=== PATIENT | male | born 1970 | race Caucasian/White ===

== ENCOUNTER → 2020-02-16 14:00 | Outpatient (BNVA) | payer BC, SELFPAY | PROVIDERS: Family Provider Nurse Practitioner Family; PCP Family Medicine; Visit Provider Family Medicine | DX: Z20.828 Contact with and (suspected) exposure to other viral communicable diseases (principal) | CPT/HCPCS: 87635 ==

== ENCOUNTER 2020-03-01 13:51 | Outpatient (CLI) | payer BC, SELFPAY ==
--- NOTE | 2020-03-01 14:30 | XRR_ITS ---
PROCEDURE INFORMATION: Exam: XR Chest, 2 Views Exam date and time: 03/01/2020 2:11 PM Age: 49 years old Clinical indication: Left-sided chest pain; Prior surgery; Surgery type: Cabg; Additional info: Rule out malunion of sternum, 2 wks ago felt a pop while pushing broom. Pain @ sternam left side TECHNIQUE: Imaging protocol: XR of the chest Views: 2 views. COMPARISON: CR Chest 2 views* [id number] 07/13/2019 10:10 AM FINDINGS: Lungs: Unremarkable. No consolidation. Pleural space: Unremarkable. No pleural effusion. No pneumothorax. Heart/Mediastinum: There is moderate compensated cardiomegaly. Bones/joints: Metallic sternotomy wires are in place. The bones of of the sternum appear intact without evidence of acute bone defects. Dorsal spine osteopenia is seen. XR/XR chest 2V* [id number] IMPRESSION: No acute findings. Cardiomegaly Status post sternotomy
== END 2020-03-01 13:52 | disposition home or self-care (01) ==
LOC: RAD 13:56
PROVIDERS: PCP Family Medicine; Visit Provider Internal Medicine Cardiovascular Disease
DX: R07.9 Chest pain, unspecified (principal); Z95.1 Presence of aortocoronary bypass graft; I51.7 Cardiomegaly
CPT/HCPCS: 71046

== ENCOUNTER → 2020-05-25 16:06 | Outpatient (BNVA) | payer BC, SELFPAY | PROVIDERS: Family Provider Nurse Practitioner Family; PCP Family Medicine; Visit Provider Internal Medicine Cardiovascular Disease | DX: I11.0 Hypertensive heart disease with heart failure (principal); Z95.1 Presence of aortocoronary bypass graft; I50.20 Unspecified systolic (congestive) heart failure; E66.9 Obesity, unspecified | CPT/HCPCS: 80053; 83880; 84443; 85025 ==

== ENCOUNTER → 2020-07-28 14:59 | Outpatient (BNVA) | payer BC, SELFPAY | PROVIDERS: Family Provider Nurse Practitioner Family; PCP Family Medicine; Visit Provider Family Medicine | DX: Z11.59 Encounter for screening for other viral diseases (principal); Z20.828 Contact with and (suspected) exposure to other viral communicable diseases | CPT/HCPCS: 87635 ==

== ENCOUNTER 2020-08-02 11:18 | Observation (INO) | payer BC, SELFPAY ==
[2020-08-02] VITALS (7 sets, daily range): BP systolic 147–186; BP diastolic 102–123; PULSE 77–94; RESP 14–33; TEMP 36.6–37.1; O2SAT 93–97; BMI 43.7
--- NOTE | 2020-08-02 11:22 | XR_ITS ---
WS: [id number] Exam: XR chest 1V portable [id number] Date/Time of Exam: 08/02/2020 11:22 AM Reason For Exam: cp Findings: Comparison 03/01/2020. The lungs are clear and fully expanded. The heart is enlarged but unchanged in size. The mediastinum and bony thorax are intact. Signs of previous median sternotomy with CABG surgery. XR/XR chest 1V portable [id number] IMPRESSION: 1. Cardiac enlargement. No acute cardiopulmonary process noted.
--- NOTE | 2020-08-02 11:22 | ECG_ITS ---
[facility] Test Date: 2020-08-02 Pat Name: Gildardo Morton Department: Room: Gender: Male Leveler: MEHNAZ : 1970 Requested By: Raymundo Johnson Order Number: [id number] Reading MD: Measurements Intervals [place] Rate: 92 P: 52 WI: 216 QRS: 31 QRSD: 105 T: 48 QT: 501 QTc: 622 Interpretive Statements SINUS RHYTHM WITH FIRST DEGREE AV BLOCK WITH FREQUENT VENTRICULAR PREMATURE COMPLEXES INFERIOR MYOCARDIAL INFARCTION [40+ ms Q WAVE AND/OR ST/T ABNORMALITY IN II/aVF], PROBABLY OLD No previous ECG available for comparison [id number]
--- NOTE | 2020-08-02 12:05 | W.ED.CHESTPA ---
HPI - Chest Pain General: Chief Complaint: Chest Pain Stated Complaint: Chest pain/tightness Time Seen by Provider: 08/02/20 11:46 History of Present Illness: HPI narrative: 49-year-old male presents emergency room complains of increasing shortness of breath and chest pain. Gotten worse over the last weekend is substernal and radiates into the shoulder. He has noticed he is got more orthopnea as well. He is also had some diarrhea and low-grade fevers with increased cough. He started having symptoms about 1 week ago a few days into it he was checked for Covid which was negative but has had progressively worsening symptoms since then. He has a known history of congestive heart failure and diabetes as well. MD complaint: chest pain Pertinent past history: coronary artery disease and other (chf) Onset (ago): week(s) (1) Timing of current episode: increasing Prior episodes: Yes Onset: during rest Pain location: substernal Pain radiation: neck and left shoulder Severity: moderate Quality: tightness and heaviness Exacerbating factors: exertion and supine Associated symptoms: Reports dyspnea, fever(s) and nausea; Deny abdominal pain, diaphoresis, leg edema, palpitations, sense of impending doom, syncope or vomiting Treatment prior to arrival: none Review of Systems Const: Reports: fever(s); Denies: diaphoresis ENMT: Denies: throat pain, ear or mastoid pain, nasal discharge or nasal congestion Card: Denies: palpitations or syncope Resp: Reports: dyspnea GI: Reports: nausea; Denies: abdominal pain or vomiting : Denies: flank pain, dysuria, urinary frequency or urinary urgency Skin/Breast: Denies: rash or pruritus PFS ED PFSH: Medical History (Updated 08/02/20 @ 15:30 by Andrea Gallegos DO) Atrial fibrillation Chronic kidney disease Coronary artery disease Essential hypertension Hyperlipidemia Left atrial thrombus Obesity Systolic CHF Last ejection fraction LEORA June 2019 35% Surgical History (Updated 08/02/20 @ 15:30 by Andrea Gallegos DO) H/O two vessel coronary artery bypass graft Status post aorto-coronary artery bypass graft June 2019. 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 marjauna and cocaine Housing: House Marital status: Single Physical Exam Const: COMMON NORMALS: no acute distress GENERAL APPEARANCE: cooperative and comfortable ORIENTATION/CONSCIOUSNESS: Yes awake, Yes oriented to person, Yes oriented to place and Yes oriented to time HENMT: COMMON NORMALS: normocephalic, atraumatic, hearing grossly normal bilaterally, external ears normal, EAC's normal, TM's normal bilaterally, Normal nasal mucous membranes and turbinates present, moist oral mucous membranes and oropharynx normal HEAD & SCALP: normocephalic and atraumatic NOSE: Normal nasal mucous membranes and turbinates present EXTERNAL EAR: Yes external ears normal EXTERNAL AUDITORY CANAL: EAC's normal TYMPANIC MEMBRANE: TM's normal bilaterally Eye: COMMON NORMALS: Equal, round and reactive pupils present, EOMs intact bilaterally, conjunctivae normal and no scleral icterus CONJUNCTIVA: Yes conjunctivae normal PUPIL: Yes Equal, round and reactive pupils present Neck/C-Spine: COMMON NORMALS: full ROM, no lymphadenopathy, supple and no JVD Lymph: LYMPHATIC: no lymphadenopathy noted and no lymphedema noted Resp: COMMON NORMALS: normal respiratory effort, No retractions, No use of accessory muscles and clear to auscultation bilaterally AUSCULTATION: clear to auscultation bilaterally Cardio: COMMON NORMALS: no JVD, regular rate, regular rhythm and No murmurs present (Cardio) RATE: regular rate RHYTHM: regular rhythm GI: COMMON NORMALS: Soft to palpation and No hepatosplenomegaly present AUSCULTATION: Yes normoactive bowel sounds PALPATION: Yes Soft to palpation, No Tenderness to palpation present (GI), No Guarding due to palpation present (GI) and Yes No hepatosplenomegaly present Extremity: COMMON NORMALS: normal to inspection, capillary refill normal, no clubbing, cyanosis or edema, no calf tenderness and no pedal edema Neuro: SENSORIUM/ORIENTATION: Yes oriented to person, Yes oriented to place and Yes oriented to time Skin: COMMON NORMALS: no rashes or lesions noted GENERAL SKIN EXAM: no rashes or lesions noted Course Vital Signs: Vital signs: Vital Signs Temperature 97.9 F 08/02/20 14:26 Pulse Rate 81 08/02/20 15:02 Respiratory Rate 24 H 08/02/20 15:02 Blood Pressure 147/113 08/02/20 15:02 Pulse Oximetry 96 08/02/20 15:02 MDM - Chest Pain MDM Narrative: Medical decision making narrative: Patient admitted for chest pain his history of chest pain varies a little bit at times he says he is having continuous other times it is associated with exertion. Given his history of heart disease he needs further evaluation he did have a bypass relatively recently and has not had stress testing since then. His rapid Covid was negative he has several symptoms suggestive of Covid after discussion with Dr. Carpenter will go ahead and get a PTC on him as well. Lab Data: Labs: Lab Results 08/02/20 08/02/20 08/02/20 Range/Units 10: 10: 10:27 WBC 9.8 (4.0-10.0) 10^3/ uL RBC 4.52 (4.1-5.3) 10^6/u L Hgb 13.6 (11.7-16.6) g/dL Hct 43.0 (42.0-52.0) % MCV 95.1 H (80-94) fL MCH 30.1 (28.0-34.0) pg MCHC 31.6 (30.0-36.0) g/dL RDW 14.7 (12.1-15.1) % Plt Count 294 (130-400) 10^3/c mm MPV 10.4 (7.4-10.4) fL Neut % (Auto) 78.1 % Lymph % (Auto) 11.9 % [place] % (Auto) 8.0 % Eos % (Auto) 1.4 % Baso % (Auto) 0.3 % Neut # (Auto) 7.67 (1.8-7.7) 10^3/u L Lymph # (Auto) 1.2 (0.8-4.8) 10^3/u L [place] # (Auto) 0.8 (0.2-0.9) 10^3/u L Eos # (Auto) 0.1 (0.0-0.8) 10^3/u L Baso # (Auto) 0.0 (0.0-0.1) 10^3/u L Nucleated RBC % (a uto) 0 % Nucleated RBCs # 0.0 /100WBC PT (12.1-14.9) SECO NDS INR (0.8-1.2) Fibrinogen (174-498) mg/dL D-Dimer (0-0.59) ug/mIFE U Sodium 138 (136-145) mmol/L Potassium 3.5 (3.5-5.1) mmol/L Chloride 101 (98-107) mmol/L Carbon Dioxide 22 (22-29) mmol/L Anion Gap 18.5 (5-19) BUN 23 H (6-20) mg/dL Creatinine 1.5 H (0.7-1.2) mg/dL GFR Calculation 49.3 L (90-130) mL/min Glucose 93 (65-115) mg/dL Calculated Osmolal ity 289 (285-295) mOsm/k g Lactic Acid (0.5-2.2) mmol/L Calcium 8.7 (8.5-10.5) mg/dL Magnesium (1.7-2.3) mg/dL Ferritin 85 (30-400) ng/mL Total Bilirubin 0.7 (0.15-1.2) mg/dL AST 21 (0-40) U/L ALT 30 (0-41) U/L Alkaline Phosphata se 74 (40-130) IU/L Lactate Dehydrogen ase 231 H (135-225) U/L Troponin T Baselin e 47 H (0-15) ng/L C-Reactive Protein 20.1 H (0.0-4.9) mg/L NT-Pro-B Natriuret Pep 6401 H (0-125) pg/mL Total Protein 7.0 (6.6-8.7) g/dL Albumin 3.7 (3.5-5.2) g/dL Globulin 3.3 (1.3-4.6) g/dL Procalcitonin 0.16 (0-0.5) ng/mL Influenza Type A A g (Negative) Influenza Type B A g (Negative) SARS-CoV-2 Ag (Rap id) (Negative) 08/02/20 08/02/20 08/02/20 Range/Units 10:02 08:27 10:27 WBC (4.0-10.0) 10^3/ uL RBC (4.1-5.3) 10^6/u L Hgb (11.7-16.6) g/dL Hct (42.0-52.0) % MCV (80-94) fL MCH (28.0-34.0) pg MCHC (30.0-36.0) g/dL RDW (12.1-15.1) % Plt Count (130-400) 10^3/c mm MPV (7.4-10.4) fL Neut % (Auto) % Lymph % (Auto) % [place] % (Auto) % Eos % (Auto) % Baso % (Auto) % Neut # (Auto) (1.8-7.7) 10^3/u L Lymph # (Auto) (0.8-4.8) 10^3/u L [place] # (Auto) (0.2-0.9) 10^3/u L Eos # (Auto) (0.0-0.8) 10^3/u L Baso # (Auto) (0.0-0.1) 10^3/u L Nucleated RBC % (a uto) % Nucleated RBCs # /100WBC PT (12.1-14.9) SECO NDS INR (0.8-1.2) Fibrinogen 345 (174-498) mg/dL D-Dimer 0.61 H (0-0.59) ug/mIFE U Sodium (136-145) mmol/L Potassium (3.5-5.1) mmol/L Chloride (98-107) mmol/L Carbon Dioxide (22-29) mmol/L Anion Gap (5-19) BUN (6-20) mg/dL Creatinine (0.7-1.2) mg/dL GFR Calculation (90-130) mL/min Glucose (65-115) mg/dL Calculated Osmolal ity (285-295) mOsm/k g Lactic Acid 1.3 (0.5-2.2) mmol/L Calcium (8.5-10.5) mg/dL Magnesium 1.9 (1.7-2.3) mg/dL Ferritin (30-400) ng/mL Total Bilirubin (0.15-1.2) mg/dL AST (0-40) U/L ALT (0-41) U/L Alkaline Phosphata se (40-130) IU/L Lactate Dehydrogen ase (135-225) U/L Troponin T Baselin e (0-15) ng/L C-Reactive Protein (0.0-4.9) mg/L NT-Pro-B Natriuret Pep (0-125) pg/mL Total Protein (6.6-8.7) g/dL Albumin (3.5-5.2) g/dL Globulin (1.3-4.6) g/dL Procalcitonin (0-0.5) ng/mL Influenza Type A A g (Negative) Influenza Type B A g (Negative) SARS-CoV-2 Ag (Rap id) (Negative) 08/02/20 08/02/20 08/02/20 Range/Units 12:24 12:24 12:25 WBC (4.0-10.0) 10^3/ uL RBC (4.1-5.3) 10^6/u L Hgb (11.7-16.6) g/dL Hct (42.0-52.0) % MCV (80-94) fL MCH (28.0-34.0) pg MCHC (30.0-36.0) g/dL RDW (12.1-15.1) % Plt Count (130-400) 10^3/c mm MPV (7.4-10.4) fL Neut % (Auto) % Lymph % (Auto) % [place] % (Auto) % Eos % (Auto) % Baso % (Auto) % Neut # (Auto) (1.8-7.7) 10^3/u L Lymph # (Auto) (0.8-4.8) 10^3/u L [place] # (Auto) (0.2-0.9) 10^3/u L Eos # (Auto) (0.0-0.8) 10^3/u L Baso # (Auto) (0.0-0.1) 10^3/u L Nucleated RBC % (a uto) % Nucleated RBCs # /100WBC PT 14.50 (12.1-14.9) SECO NDS INR 1.09 (0.8-1.2) Fibrinogen (174-498) mg/dL D-Dimer (0-0.59) ug/mIFE U Sodium (136-145) mmol/L Potassium (3.5-5.1) mmol/L Chloride (98-107) mmol/L Carbon Dioxide (22-29) mmol/L Anion Gap (5-19) BUN (6-20) mg/dL Creatinine (0.7-1.2) mg/dL GFR Calculation (90-130) mL/min Glucose (65-115) mg/dL Calculated Osmolal ity (285-295) mOsm/k g Lactic Acid (0.5-2.2) mmol/L Calcium (8.5-10.5) mg/dL Magnesium (1.7-2.3) mg/dL Ferritin (30-400) ng/mL Total Bilirubin (0.15-1.2) mg/dL AST (0-40) U/L ALT (0-41) U/L Alkaline Phosphata se (40-130) IU/L Lactate Dehydrogen ase (135-225) U/L Troponin T Baselin e (0-15) ng/L C-Reactive Protein (0.0-4.9) mg/L NT-Pro-B Natriuret Pep (0-125) pg/mL Total Protein (6.6-8.7) g/dL Albumin (3.5-5.2) g/dL Globulin (1.3-4.6) g/dL Procalcitonin (0-0.5) ng/mL Influenza Type A A g Negative (Negative) Influenza Type B A g Negative (Negative) SARS-CoV-2 Ag (Rap id) Negative (Negative) Discharge Plan Discharge Patient Disposition: Admitted As Inpatient Admit Provider: Brian Latif Clinical Impression: Chest pain, Suspected 2019 novel coronavirus infection, H/O two vessel coronary artery bypass graft, Systolic CHF, Obesity, Essential hypertension, Hypertensive urgency Condition: Stable Interventions: ED Discharge Assessment Last Done: 08/02/20 14:26 ED Charges Last Done: 08/02/20 14:26 Discharge Date/Time: 08/02/20 14:48 Coding Level of Care Code ED Silk Screen Repairer for g Fwd Exam Comprehensive
[2020-08-02 12:57] LABS: Basophils % 0.3 %; Eosinophils # 0.1 10^3/uL (0.0-0.8); Eosinophils % 1.4 %; Hemoglobin 13.6 g/dL (11.7-16.6); Lymphocytes # 1.2 10^3/uL (0.8-4.8); Lymphocytes % 11.9 %; Mean Corpuscular HGB Conc 31.6 g/dL (30.0-36.0); Mean Corpuscular Hemoglobin 30.1 pg (28.0-34.0); Mean Corpuscular Volume 95.1 fL (80-94); Mean Platelet Volume 10.4 fL (7.4-10.4); Monocytes # 0.8 10^3/uL (0.2-0.9); Neutrophils # 7.67 10^3/uL (1.8-7.7); Neutrophils % 78.1 %; Nucleated Red Blood Cells % 0 %; Platelet Count 294 10^3/cmm (130-400); Red Blood Count 4.52 10^6/uL (4.1-5.3); Red Cell Distribution Width 14.7 % (12.1-15.1); White Blood Count 9.8 10^3/uL (4.0-10.0)
[2020-08-02 13:08] LABS: Fibrinogen 345 mg/dL (174-498)
[2020-08-02 13:10] LABS: D Dimer 0.61 ug/mIFEU (0-0.59)
[2020-08-02 13:11] LABS: Influenza A by IFA Negative (Negative); Influenza B by IFA Negative (Negative)
[2020-08-02 13:11] LABS: Lactic Sepsis W/Reflex 1.3 mmol/L (0.5-2.2)
[2020-08-02 13:11] LABS: SARS Covid-2 Antigen Negative (Negative)
[2020-08-02 13:16] LABS: Troponin(5th) Baseline 47 ng/L (0-15)
--- NOTE | 2020-08-02 13:22 | ECG_ITS ---
[facility] Test Date: 2020-08-02 Pat Name: Gildardo Morton Department: Room: Gender: Male Visual Educator: : 1970 Requested By: Raymundo Johnson Order Number: [id number] Reading MD: Measurements Intervals [place] Rate: 84 P: 64 MT: 236 QRS: 24 QRSD: 102 T: 97 QT: 428 QTc: 508 Interpretive Statements SINUS RHYTHM WITH FIRST DEGREE AV BLOCK WITH FREQUENT VENTRICULAR PREMATURE COMPLEXES NONSPECIFIC T-WAVE ABNORMALITY PROLONGED QT INTERVAL No previous ECG available for comparison [id number]
[2020-08-02 14:00] LABS: NT Pro B Type Natriuretic Pept 6401 pg/mL (0-125); Procalcitonin 0.16 ng/mL (0-0.5)
[2020-08-02 14:11] LABS: Alanine Aminotransferase 30 U/L (0-41); Albumin Level 3.7 g/dL (3.5-5.2); Alkaline Phosphatase 74 IU/L (40-130); Anion Gap 18.5 (5-19); Aspartate Amino Transferase 21 U/L (0-40); Blood Urea Nitrogen 23 mg/dL (6-20); C Reactive Protein 20.1 mg/L (0.0-4.9); Calcium 8.7 mg/dL (8.5-10.5); Carbon Dioxide 22 mmol/L (22-29); Chloride 101 mmol/L (98-107); Ferritin 85 ng/mL (30-400); Globulin 3.3 g/dL (1.3-4.6); Glomerular Filtration Rate 49.3 mL/min (90-130); Glucose 93 mg/dL (65-115); Lactate Dehydrogenase 231 U/L (135-225); Osmolality Calculated 289 mOsm/kg (285-295); Potassium 3.5 mmol/L (3.5-5.1); Sodium 138 mmol/L (136-145); Total Bilirubin 0.7 mg/dL (0.15-1.2)
--- NOTE | 2020-08-02 14:12 | PM.HP ---
Providers/Chief Complaint Primary Care Provider: Vale Kwon MD Chief Complaint: Chest pain/tightness History of Present Illness Gildardo Morton is a 49 year old male with history of coronary artery bypass and prolonged hospital course in 2019 who comes with 1 week history of chest discomfort. This is substernal, not radiating, and associated with shortness of breath. Usually he describes this as sharp, or tight. It does not really vary when he breathes. It seems worse when he is upright. No nausea or vomiting. He has not used any nitroglycerin for this. It is often exertional. He has recently had some difficulties with his blood pressure being higher and cardiology has been working with lowering this. He reports he works at [email or web address] and is exposed to likely Covid patients frequently. He reports his brother recently had Covid. He has had a cough, nonproductive. He has had chills but no documented fever. He has had some loose stools lately but no vomiting or nausea. Review of Systems General: Reports: 10 or more systems reviewed and unremarkable except in HPI and below Const: Reports: chills Eyes: Denies: change in vision ENMT: Denies: throat pain Card: Reports: chest pain and swelling of feet/ankles Resp: Reports: dyspnea and non-productive cough GI: Denies: abdominal pain, nausea or vomiting : Denies: flank pain Musc: Denies: neck pain Skin/Breast: Denies: rash Neuro: Denies: headache(s) Endo: Denies: polyuria Jamie/Lymph: Denies: easy bruising All/Imm: Denies: urticaria Medications/Allergies Home Medications Medication Instructions Recorded Confirmed Last Taken Type aspirin 81 mg tablet,delayed 81 mg PO DAILY 12/22/19 08/02/20 Unknown History release chlorthalidone 25 mg tablet 25 mg PO DAILY 12/22/19 08/02/20 Unknown History nitroglycerin 0.4 mg sublingual 0.4 mg SUBLINGUAL Q5M PRN #25 tab 01/18/20 08/02/20 Unknown Rx tablet amlodipine 10 mg tablet 10 mg PO DAILY #90 tab 05/26/20 08/02/20 08/02/20 Rx carvedilol 6.25 mg tablet 18.75 mg PO BID #270 tab 05/26/20 08/02/20 Unknown Rx furosemide 40 mg tablet 40 mg PO DAILY #30 tab 05/26/20 08/02/20 Unknown Rx potassium chloride 20 mEq 20 meq PO DAILY #30 tab 05/26/20 08/02/20 Unknown Rx tablet,extended release warfarin 5 mg tablet See Rx Instructions .ROUTE 06/01/20 08/02/20 Unknown Rx .COMPLEX #60 tab acetaminophen [Tylenol Extra 1,000 mg PO PRN 08/02/20 08/02/20 07/30/20 History Strength] Allergies Allergy/AdvReac Type Severity Reaction Status Date / Time oxycodone [From OxyContin] AdvReac Intermediate low bp Verified 08/02/20 12:56 PFSH Acute PFSH: Medical History (Updated 08/02/20 @ 14:30 by Brian Latif MD) Atrial fibrillation Chronic kidney disease Coronary artery disease Essential hypertension Hyperlipidemia Left atrial thrombus Obesity Systolic CHF Last ejection fraction LEORA June 2019 35% Surgical History (Updated 08/02/20 @ 14:18 by Brian Latif MD) H/O two vessel coronary artery bypass graft Status post aorto-coronary artery bypass graft June 2019. 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 marjauna and cocaine Housing: House Marital status: Single Vitals/I&O/Wt Last Vital Signs Temp 98.4 F 08/02/20 11:29 Pulse 83 08/02/20 13:59 Resp 21 H 08/02/20 13:59 BP 153/110 08/02/20 13:59 Pulse Ox 97 08/02/20 13:59 Weight last 48 hrs Weight 146.057 kg Physical Exam Narrative: EXAM NARRATIVE: General exam is a white male, who appears tachypneic, in no obvious other distress. Denies any chest discomfort currently. HEENT: Pupils equally round. Oropharynx clear. Neck is supple no lymphadenopathy or thyromegaly Cardiovascular regular rate and rhythm. No rubs. No obvious murmur. Lungs clear but with diminished breath sounds bilaterally. No wheezes or crackles Abdomen is soft with positive bowel sounds. Obese. Several areas of small picked at areas. Difficult to feel if any organomegaly is present was deferred Extremities bilateral trace edema Skin see comments on abdomen Neuro no obvious focal deficits Data : 08/02/20 10:27 08/02/20 10:27 Other data: EKG demonstrates sinus rhythm, normal axis, occasional PVC, small Q waves inferiorly in leads aVF and III. Nonspecific ST-T wave changes are noted. Chest x-ray no obvious pneumonia. Postoperative status and sternotomy wires are noted. Dimer is 0.6. INR is pending. LFTs normal Troponin 47 at baseline CRP elevated 20 BNP elevated at 6400 Ferritin normal Rapid Covid negative. Influenza negative. A&P Assessment and plan (1) Chest pain: Serial troponins, EKGs Nuclear stress test for tomorrow Check echocardiogram Nitroglycerin ointment Status: Acute Qualifiers: Chest pain type: unspecified Qualified Code(s): R07.9 - Chest pain, unspecified (2) Hypertensive urgency: Nitroglycerin ointment Initiate Lasix Continue home blood pressure medication with the exception of chlorthalidone Hydralazine as needed Status: Acute (3) Exposure to COVID-19 virus: Precautions Await Covid PCR Rapid Covid negative Status: Acute (4) Systolic CHF: Lasix 40 mg IV every 12 hours Echocardiogram Check magnesium level Status: Acute Additional A&P Information History of atrial fibrillation. Currently sinus rhythm. Also history of left atrial thrombus. Continue Coumadin. Telemetry. Obesity Likely sleep apnea. Consider sleep study as an outpatient Underlying coronary artery disease with history of bypass June 2019. Continue aspirin. Start statin. Hyperlipidemia Full code On Coumadin. Awaiting INR. May not need another DVT prophylaxis. Attestations Medical Necessity Statement*: At this point will need less than 2 midnight stay for evaluation of chest discomfort. Time Spent in Patient Care: Greater than 35 minutes Coding Level of Care Code Acute Topographical Engineer for Mable Maldonado Diagnoses Chest pain R07.9 Chest pain type: unspecified Hypertensive urgency I16.0 Exposure to COVID-19 virus Z20.828 Systolic CHF I50.20
[2020-08-02 14:23] LABS: INR 1.09 (0.8-1.2)
--- NOTE | 2020-08-02 14:41 | USCV_ITS ---
Gildardo Morton Age: 49 Gender: M : 1970 Exam Date: 08/02/2020 16:18 Ordering Phys: Brian Latif MD Technologist: Hunter Peraza Exam Location: [facility] – [place] Indication: dyspnea PROCEDURES: Venous duplex imaging was performed in bilateral lower extremities. The following venous structures were evaluated: common femoral vein, profunda vein, proximal portion of the greater saphenous vein, superficial femoral vein, and the popliteal vein. In addition, the posterior tibial and peroneal trunk were evaluated. Serial compression, augmentation maneuvers, and spectral Doppler flow evaluation were performed. FINDINGS: Normal 2-D Doppler and augmentation and compressibility throughout the lower extremity venous structures. Additional imaging through the proximal calf veins also reveals no thrombus. Limited evaluation of the greater saphenous vein is patent with no thrombus. CONCLUSIONS No DVT bilateral lower extremities. Dr. Lorie Zheng DO (Electronically Signed) Final Date: 03 August 2020 08:11 S
--- NOTE | 2020-08-02 14:56 | USCV_ITS ---
Gildardo Morton Age: 49 Gender: M : 1970 Exam Date: 08/02/2020 16:04 Ordering Phys: Brian Latif MD Technologist: Hunter Peraza Exam Location: [facility] [place] Indication: chf cad BP: 148 / 122 HR: 92 Rhythm: Sinus Technical Quality: Poor MEASUREMENTS (Male / Female) Normal Values 2D ECHO LV Diastolic Diameter PLAX 5.1 cm 4.2 - 5.9 / 3.9 - 5.3 cm LV Systolic Diameter PLAX 3.9 cm IVS Diastolic Thickness 1.5 cm 0.6 - 1.0 / 0.6 - 0.9 cm IVS Systolic Thickness 1.7 cm LVPW Diastolic Thickness 1.3 cm 0.6 - 1.0 / 0.6 - 0.9 cm LVPW Systolic Thickness 1.5 cm LVOT Diameter 2.0 cm LV Ejection Fraction 2D Teich 42.3 % LV Ejection Fraction MOD 2C 51.9 % LV Ejection Fraction 2C AL 51.7 % LA Diameter 5.3 cm LA Width 4.3 cm LA Height 7.3 cm RA Width 5.3 cm RA Height 6.5 cm Aorta at Sinotubular Diameter 1.3 cm M-MODE LV Diastolic Diameter MM 5.8 cm 4.2 - 5.9 / 3.9 - 5.3 cm LV Systolic Diameter MM 4.1 cm LV Ejection Fraction MM Teich 54.5 % IVS Diastolic Thickness MM 1.6 cm 0.6 - 1.0 / 0.6 - 0.9 cm IVS Systolic Thickness MM 1.9 cm LVPW Diastolic Thickness MM 1.3 cm 0.6 - 1.0 / 0.6 - 0.9 cm LVPW Systolic Thickness MM 2.0 cm RV Diastolic Diameter MM 3.5 cm Aortic Annulus Diameter 4.0 cm LA Ao Ratio MM 1.3 MV E Point Septal Separation 1.9 cm DOPPLER AV Peak Velocity 147.7 cm/s LVOT Peak Velocity 88.0 cm/s AV Area Cont Eq vti 1.5 cm squared AV Area Cont Eq pk 1.9 cm squared MV Area PHT 5.0 cm squared Mitral E to A Ratio 2.4 MV E' Velocity 59.5 cm/s Mitral E to MV E' Ratio 16.1 Mitral E to LV E' Lateral Ratio 15.4 Mitral E to LV E' Septal Ratio 16.8 TR Peak Velocity 136.0 cm/s TR Peak Gradient 7.4 mmHg TV Peak E Velocity 93.0 cm/s Right Atrial Pressure 3.0 mmHg Pulmonary Artery Systolic Pressu 10.4 mmHg FINDINGS Left Ventricle Moderately increased left ventricular cavity size. Severely decreased left ventricular systolic function. Left ventricular ejection fraction is estimated at 25-30 %. Global left ventricular hypokinesis. In the presence of atrial fibrillation diastolic function cannot be assessed accurately. Right Ventricle The right ventricle is normal in size and function. Right Atrium The right atrium is normal in size. Left Atrium Moderately increased left atrial size. Mitral Valve Mildly thickened mitral valve. No mitral valve stenosis. Mild mitral valve regurgitation. Aortic Valve Mild aortic valve calcification. No aortic valve stenosis. No aortic valve regurgitation. Tricuspid Valve Structurally normal tricuspid valve without significant stenosis or regurgitation. Pulmonary artery systolic pressure is normal. Pulmonic Valve Structurally normal pulmonic valve without significant stenosis. There is no pulmonic regurgitation. Pericardium Normal pericardium without effusion. Aorta Normal ascending aorta dimension. CONCLUSIONS 1-Moderately increased left ventricular cavity size. Severely decreased left ventricular systolic function. Left ventricular ejection fraction is estimated at 25-30 %. Global left ventricular hypokinesis. In the presence of atrial fibrillation diastolic function cannot be assessed accurately. 2-Moderately increased left atrial size. 3-Structurally normal tricuspid valve without significant stenosis or regurgitation. Pulmonary artery systolic pressure is normal. 4-Mildly thickened mitral valve. No mitral valve stenosis. Mild mitral valve regurgitation. 5-Mild aortic valve calcification. No aortic valve stenosis. No aortic valve regurgitation. 6-There is no pericardial effusion. 7-Right atrial pressure is around 5 mm of mercury. 8-No significant change since the prior echocardiogram study of 06/25/2019. Eddie Gonzalez MD (Electronically Signed) Final Date: 02 August 2020 19:47 S
[2020-08-02 15:20] LABS: Magnesium 1.9 mg/dL (1.7-2.3)
[2020-08-02] MEDS: FUROsemide 10 mg/mL SDV 4mL 40 MG IVP (15:47)
[2020-08-02] MEDS: nitroglycerin 1 gm/inch oint Pkt 1 INCH TOPICAL ×2 (15:48→19:58)
--- NOTE | 2020-08-02 17:22 | ECG_ITS ---
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1970 Requested By: Raymundo Johnson Order Number: [id number] Reading MD: Measurements Intervals [place] Rate: 88 P: 63 [place]: 250 QRS: 33 QRSD: 105 T: 105 QT: 404 QTc: 490 Interpretive Statements SINUS RHYTHM WITH FIRST DEGREE AV BLOCK WITH OCCASIONAL VENTRICULAR PREMATURE COMPLEXES POSSIBLE INFERIOR MYOCARDIAL INFARCTION [30 ms Q WAVE IN II/aVF], PROBABLY OLD Compared to ECG 08/02/2020 13:57:11 Ventricular premature complex(es) now present Myocardial infarct finding now present T-wave abnormality no longer present Prolonged QT interval no longer present [id number]
[2020-08-02 18:08] LABS: Troponin 5 6HR 53.13 ng/L (0-15); Troponin 5 6HR Delta 6.13 ng/L (0-12)
[2020-08-02] MEDS: carvedilol 6.25 mg Tablet 18.75 MG PO (18:11)
[2020-08-02] MEDS: acetaminophen 325 mg Tablet 650 MG PO (19:58)
[2020-08-02] MEDS: atorvastatin 40 mg Tablet PO (19:58)
--- NOTE | 2020-08-02 20:34 | PC.NURSE ---
Patient complains of headache 12/14. PRN Tylenol given. Will reassess. No other complaints at this time.
[2020-08-02] MEDS: hyDRALAzine 25 mg Tablet PO (23:45)
--- NOTE | 2020-08-02 23:46 | PC.NURSE ---
Patient's blood pressure 164/107. PRN Hydralazine given per order. Will reassess blood pressure.
[2020-08-03] VITALS (8 sets, daily range): BP systolic 108–140; BP diastolic 67–110; PULSE 71–78; RESP 18–23; TEMP 36.8–37.1; O2SAT 9–96
--- NOTE | 2020-08-03 00:39 | PC.NURSE ---
Dr. Valera notified of patient asking for something for restless legs. Patient states that he currently does not take anything at home for it, but that he used to take something over the counter for it a long time ago that he cannot remember the name of. Dr. Valera notified. No new orders.
[2020-08-03] MEDS: acetaminophen 325 mg Tablet 650 MG PO (02:46)
[2020-08-03] MEDS: FUROsemide 10 mg/mL SDV 4mL 40 MG IVP (02:51)
[2020-08-03] MEDS: nitroglycerin 1 gm/inch oint Pkt 1 INCH TOPICAL (02:51)
[2020-08-03 05:07] LABS: Basophils % 0.3 %; Eosinophils # 0.2 10^3/uL (0.0-0.8); Eosinophils % 1.8 %; Hematocrit 42.9 % (42.0-52.0); Hemoglobin 13.4 g/dL (11.7-16.6); Lymphocytes # 1.4 10^3/uL (0.8-4.8); Lymphocytes % 13.1 %; Mean Corpuscular HGB Conc 31.2 g/dL (30.0-36.0); Mean Corpuscular Hemoglobin 30.3 pg (28.0-34.0); Mean Corpuscular Volume 97.1 fL (80-94); Mean Platelet Volume 10.7 fL (7.4-10.4); Monocytes # 0.9 10^3/uL (0.2-0.9); Monocytes % 8.9 %; Neutrophils # 8.02 10^3/uL (1.8-7.7); Neutrophils % 75.6 %; Nucleated Red Blood Cells % 0 %; Platelet Count 304 10^3/cmm (130-400); Red Blood Count 4.42 10^6/uL (4.1-5.3); Red Cell Distribution Width 14.8 % (12.1-15.1); White Blood Count 10.6 10^3/uL (4.0-10.0)
[2020-08-03 05:40] LABS: Alanine Aminotransferase 29 U/L (0-41); Albumin Level 3.6 g/dL (3.5-5.2); Alkaline Phosphatase 72 IU/L (40-130); Anion Gap 15.2 (5-19); Aspartate Amino Transferase 20 U/L (0-40); Blood Urea Nitrogen 21 mg/dL (6-20); Calcium 9.2 mg/dL (8.5-10.5); Carbon Dioxide 27 mmol/L (22-29); Chloride 103 mmol/L (98-107); Globulin 3.3 g/dL (1.3-4.6); Glomerular Filtration Rate 42.7 mL/min (90-130); Glucose 102 mg/dL (65-115); Osmolality Calculated 297 mOsm/kg (285-295); Potassium 3.2 mmol/L (3.5-5.1); Sodium 142 mmol/L (136-145); Total Bilirubin 0.7 mg/dL (0.15-1.2); Total Protein 6.9 g/dL (6.6-8.7)
--- NOTE | 2020-08-03 06:25 | PC.NURSE ---
Nuc Med states that they cannot do stress test until patient's COVID test comes back negative. Dr. Latif notified.
--- NOTE | 2020-08-03 07:07 | SUR.PREOP ---
PENDING PCR COVID TESTING/ STRESS TEST Reached out to [facility] medical facilities section director regarding pending covid test. Plan to wait for the testing results before proceeding. Floor aware. Will do today if nuclear dosing is available when result comes back.
[2020-08-03] MEDS: potassium chloride ER 10 mEq Tablet 40 MEQ PO (07:34)
[2020-08-03] MEDS: hyDRALAzine 25 mg Tablet PO (07:43)
[2020-08-03 08:20] LABS: Bilirubin Urine Neg (Negative); Blood Urine Neg (Negative); Glucose Urine UA Norm (Normal); Ketones Urine Negative (Negative); Leukocyte Esterase Urine Negative (Negative); Nitrate Urine Negative (Negative); Protein Urine Neg (Negative); Specific Gravity, Urine 1.005 (1.005-1.030); Urine Appearance Clear (CLEAR); Urine Color Straw (Yellow); Urobilinogen Urine Norm (Negative); pH Urine 6.5 (5-7)
[2020-08-03 08:32] LABS: Add Urine Culture? No; Bacteria Urine 1+ /hpf; Squamous Epithelial Cell Urine RARE /hpf (0-5)
--- NOTE | 2020-08-03 09:12 | SUR.PREOP ---
covid pcr still pending at this point. Will reassess for stress test once resulted. stress on hold at this point.
[2020-08-03] MEDS: potassium chloride ER 10 mEq Tablet 20 MEQ PO (09:45)
[2020-08-03] MEDS: carvedilol 6.25 mg Tablet 18.75 MG PO (09:45)
[2020-08-03] MEDS: amlodipine 10 mg Tablet PO (09:45)
[2020-08-03] MEDS: aspirin 81 mg EC Tablet PO (09:45)
[2020-08-03] MEDS: isosorbide mononitrate ER 30 mg Tablet PO (09:46)
[2020-08-03] MEDS: FUROsemide 40 mg Tablet PO (11:19)
--- NOTE | 2020-08-03 11:57 | P.CONIM_ITS ---
Providers/Reason For Consult Consulting Physican/Specialty*: Cardiology Reason for Consult*: Chest pain Attending Physician: Brian Latif MD Primary Care Provider: Vale Kwon MD History of Present Illness History of Present Illness Gildardo Morton is a 49 year old male past medical history significant for obesity, history of extensive coronary artery disease status post CABG complicated with cardiac arrest, history of severe LV dysfunction with estimated ejection fraction around 25 to 30%, diabetes mellitus, hyperlipidemia, atrial fibrillation and uncontrolled hypertension was admitted with nonspecific chest pressure weight gain decompensated heart failure. He was diuresed ruled out for acute coronary syndrome and his medicines were optimized. Covid test was initially negative second one is pending. Today we have been asked to see the patient as I know the patient from my clinic to see whether he requires stress test or not. When I interviewed the patient his chest pressure is nonspecific very short-lived only happen when his blood pressure goes up, it is nonexertional and does not appear to be cardiac related. He works at [employer] he admits to exposure Review of Systems General: Reports: 10 or more systems reviewed and unremarkable except in HPI and below Const: Reports: fever(s) and chills; Denies: diaphoresis Eyes: Denies: change in vision ENMT: Denies: throat pain, ear or mastoid pain, nasal discharge or nasal congestion Card: Reports: chest pain and swelling of feet/ankles; Denies: palpitations or syncope Resp: Reports: dyspnea and non-productive cough GI: Denies: abdominal pain, nausea or vomiting : Denies: flank pain, dysuria, urinary frequency or urinary urgency Musc: Denies: neck pain Skin/Breast: Denies: rash or pruritus Neuro: Denies: headache(s) Endo: Denies: polyuria Jamie/Lymph: Denies: easy bruising All/Imm: Denies: urticaria or acute wheezing Meds/Allergies Home Medications and Allergies Home Medications Medication Instructions Recorded Confirmed Last Taken Type aspirin 81 mg tablet,delayed 81 mg PO DAILY 12/22/19 08/02/20 Unknown History release nitroglycerin 0.4 mg sublingual 0.4 mg SUBLINGUAL Q5M PRN #25 tab 01/18/20 08/02/20 Unknown Rx tablet amlodipine 10 mg tablet 10 mg PO DAILY #90 tab 05/26/20 08/02/20 08/02/20 Rx carvedilol 6.25 mg tablet 18.75 mg PO BID #270 tab 05/26/20 08/02/20 Unknown Rx potassium chloride 20 mEq 20 meq PO DAILY #30 tab 05/26/20 08/02/20 Unknown Rx tablet,extended release Tylenol Extra Strength 1,000 mg PO PRN 08/02/20 08/02/20 07/30/20 History furosemide 60 mg PO DAILY #30 tab 08/03/20 08/02/20 Unknown Rx hydralazine 25 mg PO Q8H #90 tab 08/03/20 Unknown Rx isosorbide mononitrate 30 mg PO DAILY #30 tab 08/03/20 Unknown Rx pravastatin 20 mg PO DAILY #30 tab 08/03/20 Unknown Rx rivaroxaban 20 mg PO DAILY #30 tab 08/03/20 Unknown Rx Allergies Allergy/AdvReac Type Severity Reaction Status Date / Time oxycodone [From OxyContin] AdvReac Intermediate low bp Verified 08/02/20 12:56 Current Medications Current Medications Generic Name Dose Route Start Last Admin Trade Name Freq PRN Reason Stop Dose Admin Acetaminophen 650 mg 08/02/20 14:56 08/03/20 02:46 Tylenol PO 650 mg Q6H PRN Administration Mild/Mod Pain Or Temp >/= 101 Amlodipine Besylate 10 mg 08/03/20 09:00 08/03/20 09:45 Norvasc PO 10 mg DAILY ELLIE Administration Aspirin 81 mg 08/03/20 09:00 08/03/20 09:45 Aspirin Ec PO 81 mg DAILY ELLIE Administration Atorvastatin Calcium 40 mg 08/02/20 21:00 08/02/20 19:58 Lipitor PO 40 mg BEDTIME ELLIE Administration Carvedilol 18.75 mg 08/02/20 18:00 08/03/20 09:45 Coreg PO 18.75 mg BID ELLIE Administration Enoxaparin Sodium 100 mg/ 140 mg 08/02/20 15:00 08/03/20 02:51 Enoxaparin Sodium 40 mg SUBCUT 140 mg Q12H ELLIE Administration Furosemide 40 mg 08/03/20 11:00 08/03/20 11:19 Lasix PO 40 mg DAILY@0800 ELLIE Administration Isosorbide Mononitrate 30 mg 08/03/20 09:00 08/03/20 09:46 Imdur PO 30 mg DAILY ELLIE Administration Potassium Chloride 20 meq 10/28/20 09:00 08/03/20 09:45 Klor-Con 10 PO 20 meq DAILY ELLIE Administration PFSH Acute PFSH: Medical History (Updated 08/03/20 @ 19:47 by Eddie Gonzalez MD) Atrial fibrillation Chronic kidney disease CKD (chronic kidney disease) Coronary artery disease Essential hypertension Hyperlipidemia Left atrial thrombus Obesity Systolic CHF Last ejection fraction LEORA June 2019 35% Surgical History (Updated 08/02/20 @ 15:30 by Andrea Gallegos DO) H/O two vessel coronary artery bypass graft Status post aorto-coronary artery bypass graft June 2019. 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 marjauna and cocaine Housing: House Marital status: Single Dietary Habits: Current diet type/program: regular Caffeine: Yes Vitals/I&O/Wt Last Vital Signs Temp 98.7 F 08/03/20 03:32 Pulse 76 08/03/20 07:45 Resp 22 H 08/03/20 03:32 BP 139/106 08/03/20 07:45 Pulse Ox 94 08/03/20 07:45 08/02/20 08/03/20 08/03/20 22:59 06:59 14:59 Intake Total 120 / 120 600 / 720 Output Total 1999 1050 / 3050 820 / 820 Balance -1880 / -1880 -450 / -2330 -820 / -820 Weight last 48 hrs Weight 322 lb A&P Assessment and plan (1) Hypertensive urgency: Patient medicines are optimized blood pressure is not under control continue current regimen Status: Acute (2) Systolic CHF: Well compensated continue Lasix Status: Acute Qualifiers: Heart failure chronicity: chronic Qualified Code(s): I50.22 - Chronic systolic (congestive) heart failure (3) Status post aorto-coronary artery bypass graft: Status post history of coronary bypass surgery complicated with cardiac arrest. LV dysfunction persisted after bypass surgery ejection fraction 30% below. He may also require ICD in the past we have discussed with the patient but he would like to give the medicine a chance since it has been more than 2- year his bypass surgery I do not think so his ejection fraction will improve further at this point we will recommend him for ICD device which can be done as an outpatient. Continue metoprolol. Status: Acute (4) CKD (chronic kidney disease): Patient has moderate stage III CKD. Advised to follow-up with nephrology Status: Acute Qualifiers: Chronic kidney disease stage: stage 3 (moderate) Chronic kidney disease stage 3 subtype: stage 3b (GFR 30-44) Qualified Code(s): N18.32 - Chronic kidney disease, stage 3b (5) Chest pain: Nonspecific nonexertional and noncardiac. Currently denies any more chest pain advised to continue controlling blood pressure. At this point I do not think so that he requires stress test. Status: Acute Qualifiers: Chest pain type: other chest pain Qualified Code(s): R07.89 - Other c hest pain Coding Level of Care Code New Pt Acute Testing Manager for Chg Fwd Patient Type New History Detailed Exam Detailed Medical Decision Making Moderate Complexity Diagnoses Hypertensive urgency I16.0 Systolic CHF I50.22 Heart failure chronicity: chronic Status post aorto-coronary artery bypass graft Z95.1 CKD (chronic kidney disease) N18.32 Chronic kidney disease stage: stage 3 (moderate) Chronic kidney disease stage 3 subtype: stage 3b (GFR 30-44) Chest pain R07.89 Chest pain type: other chest pain
--- NOTE | 2020-08-03 12:15 | SUR.PREOP ---
CARDIOLOGY DISCUSSION DR VILLARREAL CALLED IN AND SAID TO CANCEL STRESS TEST THE PATIENT IS TO BE DISCHARGED. NOTED.
--- NOTE | 2020-08-03 14:29 | PM.DCS ---
Discharge Providers Date of Admission: 08/02/20 14:00 Date of Discharge: August 03, 2020 Attending Provider at Admission: Brian Latif MD Attending Provider at Discharge: Brian Latif MD Primary Care Provider: Vale Kwon MD Diagnoses at Discharge Discharge Diagnosis (1) Chest pain: Status: Acute Problem details: Resolved. May have been secondary to hypertensive urgency. Cardiology will follow up in clinic. (2) Hypertensive urgency: Status: Acute Problem details: Resolved with medication adjustment (3) Exposure to COVID-19 virus: Status: Acute (4) Systolic CHF: Status: Acute Problem details: Last ejection fraction LEORA June 2019 35% Reason for Visit Reason for Visit: Chest pain/tightness Hospital Course Hospital Course: Gildardo is a 49-year-old white male who presented to the hospital with somewhat atypical chest discomfort. Troponin was elevated. Delta approximately 6 at 6 hours. Recent TSH was normal. Creatinine was at baseline. No evidence of anemia. Dimer only slightly high at 0.6. EKG with nonspecific changes. He appears slightly fluid overloaded on exam. He was placed in the hospital on observation, and diuresed. Markedly elevated blood pressure noted in the ER he was started on nitroglycerin ointment, and blood pressure medications were adjusted with the addition of hydralazine, and Imdur ultimately. Echocardiogram was performed demonstrating ejection fraction of 25 to 30%, likely unchanged from previous echocardiogram. Venous duplex was negative. He was monitored in the hospital, nuclear stress test was planned but as he has had some exposure to Covid there was concern regarding going to CAD with the test. Rapid Covid test was negative. He had no other significant symptoms other than some mild dyspnea. Cardiology was consulted as nuclear stress test could not be performed efficiently. On their evaluation they believed he could follow-up in clinic in 1 week. At that time they will consider LifeVest/defibrillator. They will consider nuclear stress test. Significant medication changes occurred in the hospital as noted above with the addition of Imdur, addition of hydralazine, discontinuation of Coumadin and initiation of Xarelto, and initiation of low-dose statin. Low-dose statin was chosen instead of high intensity secondary to myalgias patient has had in the past per cardiology. Physical Exam Narrative: EXAM NARRATIVE: General exam no apparent distress Cardiovascular regular rate and rhythm without murmur Lungs clear Abdomen is soft with positive bowel sounds, obese Extremities no cyanosis clubbing or edema Discharge Data Data Completed and Pending: Completed Studies During Hospitalization Category Date Time Status XR chest 1V lucio ble [id number] Stat Exams 08/02/20 11:22 Completed CV echo complete* [id number] Routine Ultrasound 08/02/20 14:56 [place] [id number] Routin e Ultrasound 08/02/20 14:41 Completed Pending at discharge Category Date Time Status Sestamibi Stress Test Request Routi ne Exams 08/02/20 14:56 Stop Req Coronavirus Lab T est PTC Stat Lab 08/02/20 12:26 Received NM marin perf SPECT r/s* [id number] Routin e Nuc Med 08/03/20 14:56 Ordered Labs from last 24 hours 08/03/20 08/03/20 08/03/20 07:59 04:15 04:15 WBC 10.6 H RBC 4.42 Hgb 13.4 Hct 42.9 MCV 97.1 H MCH 30.3 MCHC 31.2 RDW 14.8 Plt Count 304 MPV 10.7 H Neut % (Auto) 75.6 Lymph % (Auto) 13.1 [place] % (Auto) 8.9 Eos % (Auto) 1.8 Baso % (Auto) 0.3 Neut # (Auto) 8.02 H Lymph # (Auto) 1.4 [place] # (Auto) 0.9 Eos # (Auto) 0.2 Baso # (Auto) 0.0 Nucleated RBC % (a uto) 0 Nucleated RBCs # 0.0 Sodium 142 Potassium 3.2 L Chloride 103 Carbon Dioxide 27 Anion Gap 15.2 BUN 21 H Creatinine 1.7 H GFR Calculation 42.7 L Glucose 102 Calculated Osmolal ity 297 H Calcium 9.2 Magnesium Total Bilirubin 0.7 AST 20 ALT 29 Alkaline Phosphata se 72 Troponin T 120 Min sitka Delta Troponin T Troponin T Hi Sens 6Hr Troponin T Hi Sens 6Hr Delta Total Protein 6.9 Albumin 3.6 Globulin 3.3 Urine Color Straw Urine Appearance Clear Urine pH 6.5 Ur Specific Gravit y 1.005 Urine Protein Neg Urine Glucose (UA) Norm Urine Ketones Negative Urine Blood Neg Urine Nitrate Negative Urine Bilirubin Neg Urine Urobilinogen Norm Ur Leukocyte Ching ase Negative Urine RBC None Urine WBC None Ur Squamous Epith Cells Rare Amorphous Sediment Not Reportable Urine Bacteria 1+ H 08/02/20 08/02/2008/02/20 17:25 14:20 10:27 WBC RBC Hgb Hct MCV MCH MCHC RDW Plt Count MPV Neut % (Auto) Lymph % (Auto) [place] % (Auto) Eos % (Auto) Baso % (Auto) Neut # (Auto) Lymph # (Auto) [place] # (Auto) Eos # (Auto) Baso # (Auto) Nucleated RBC % (a uto) Nucleated RBCs # Sodium Potassium Chloride Carbon Dioxide Anion Gap BUN Creatinine GFR Calculation Glucose Calculated Osmolal ity Calcium Magnesium 1.9 Total Bilirubin AST ALT Alkaline Phosphata se Troponin T 120 Min sitka 45.40 H Delta Troponin T -1.60 L Troponin T Hi Sens 6Hr 53.13 H Troponin T Hi Sens 6Hr Delta 6.13 Total Protein Albumin Globulin Urine Color Urine Appearance Urine pH Ur Specific Gravit y Urine Protein Urine Glucose (UA) Urine Ketones Urine Blood Urine Nitrate Urine Bilirubin Urine Urobilinogen Ur Leukocyte Ching ase Urine RBC Urine WBC Ur Squamous Epith Cells Amorphous Sediment Urine Bacteria Vitals: Last Vital Signs Temp 98.7 F 08/03/20 12:00 Pulse 71 08/03/20 12:00 Resp 23 H 08/03/20 12:00 BP 108/67 08/03/20 12:00 Pulse Ox 96 08/03/20 12:00 Discharge Plan Discharge Patient Disposition: Home Condition: Stable Prescriptions: New isosorbide mononitrate 30 mg Tablet Extended Release 24 Hr 30 mg PO DAILY Qty: 30 RF: 2 hydralazine 25 mg Tablet 25 mg PO Q8H Qty: 90 RF: 3 rivaroxaban 20 mg tablet 20 mg PO DAILY Qty: 30 RF: 4 pravastatin 20 mg tablet 20 mg PO DAILY Qty: 30 RF: 0 Continued aspirin [Adult Aspirin Regimen] 81 mg tablet,delayed release (DR/EC) 81 mg PO DAILY RF: 0 nitroglycerin [Nitrostat] 0.4 mg tablet, sublingual 0.4 mg SUBLINGUAL Q5M PRN (Reason: chest pain) Qty: 25 RF: 0 amlodipine 10 mg tablet 10 mg PO DAILY Qty: 90 RF: 3 carvedilol 6.25 mg tablet 18.75 mg PO BID Qty: 270 RF: 3 potassium chloride 20 mEq tablet extended release 20 meq PO DAILY Qty: 30 RF: 5 Tylenol Extra Strength 500 mg Tablet 1,000 mg PO PRN RF: 0 Changed furosemide 40 mg tablet 60 mg PO DAILY Qty: 30 RF: 5 Discontinued chlorthalidone 25 mg tablet 25 mg PO DAILY RF: 0 warfarin 5 mg tablet See Rx Instructions .ROUTE .COMPLEX Qty: 60 RF: 4 Discharge Orders: Discharge Order (Routine); Ordered 08/03/20 Ordered By: Brian Latif Referrals: Vale Kwon MD [Primary Care Provider] - 4-7 days Discharge Diet: Cardiac and Low Salt Discharge Activity: Increase activity as tolerated Activity Restrictions/Additional Instructions: Follow-up with Rona Mancia cardiology nurse practitioner in 7 days, follow-up with Dr. Lai in 1 month Return for any significant chest pain. Discharge Attestations Time Spent in Discharge Care*: greater than 30 min Quality Metrics Clinical Quality Measures During this hospital stay, did patient experience: None Coding Level of Care Code Acute Adding Machine Mechanic for Chg Fwd Diagnoses Chest pain R07.9 Hypertensive urgency I16.0 Exposure to COVID-19 virus Z20.828 Systolic CHF I50.20
[2020-08-04 06:45] LABS: Coronavirus Lab Test PTC Negative
== END 2020-08-03 16:30 | disposition home or self-care (01) ==
LOC: ER 13:48 → CSU 14:16
PROVIDERS: Emergency Medicine; Family Medicine; Admitting Provider Internal Medicine; PCP Family Medicine; Visit Provider Internal Medicine
DX: R07.89 Other chest pain (principal); I16.0 Hypertensive urgency; Z20.828 Contact with and (suspected) exposure to other viral communicable diseases; Z95.1 Presence of aortocoronary bypass graft; N18.32 Chronic kidney disease, stage 3b; Z79.82 Long term (current) use of aspirin; Z79.01 Long term (current) use of anticoagulants; I48.91 Unspecified atrial fibrillation; E78.5 Hyperlipidemia, unspecified; E66.9 Obesity, unspecified; Z68.41 Body mass index [BMI] 40.0-44.9, adult; I13.0 Hypertensive heart and chronic kidney disease with heart failure and stage 1 through stage 4 chronic kidney disease, or unspecified chronic kidney disease; N18.9 Chronic kidney disease, unspecified; I50.20 Unspecified systolic (congestive) heart failure
CPT/HCPCS: 12345; 36415; 71045; 80053; 81001; 82728; 83605; 83615; 83735; 83880; 84145; 84484; 85025; 85378; 85384; 85610; 86140; 87426; 87635; 87804; 93005; 93306; 93970; 96372; 96375; 99283; 99285; G0378; J1650; J1940

== ENCOUNTER → 2020-08-10 09:49 | Outpatient (BNVA) | payer BC, SELFPAY | PROVIDERS: PCP Family Medicine; Visit Provider Nurse Practitioner Family | DX: N18.32 Chronic kidney disease, stage 3b (principal); I50.22 Chronic systolic (congestive) heart failure | CPT/HCPCS: 80048 ==

== ENCOUNTER → 2020-09-13 11:14 | Outpatient (BNVA) | payer BC, SELFPAY | PROVIDERS: PCP Family Medicine; Visit Provider Urology | DX: Z20.828 Contact with and (suspected) exposure to other viral communicable diseases (principal); I50.22 Chronic systolic (congestive) heart failure | CPT/HCPCS: 80048; 81001; 85025; 87635 ==

== ENCOUNTER 2020-09-19 08:19 | Observation (INO) | payer BC, SELFPAY ==
--- NOTE | 2020-09-13 10:14 | ECG_ITS ---
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 Measurements Intervals [place] Rate: 78 P: 64 PA: 274 QRS: 14 QRSD: 102 T: 101 QT: 401 QTc: 457 Interpretive Statements SINUS RHYTHM WITH FIRST DEGREE AV BLOCK INFERIOR MYOCARDIAL INFARCTION, PROBABLY OLD MODERATE T-WAVE ABNORMALITY, CONSIDER LATERAL ISCHEMIA Compared to ECG 08/02/2020 17:57:23 T-wave abnormality now present Possible ischemia now present Myocardial infarct finding still present Electronically Signed On 09-13-2020 17:13:40 GAS WORKER by Maggy Sommers M.D. [id number]
[2020-09-13 10:15] VITALS: BMI 41.6
[2020-09-13 12:25] LABS: Basophils % 0.3 %; Eosinophils # 0.2 10^3/uL (0.0-0.8); Hemoglobin 15.7 g/dL (11.7-16.6); Lymphocytes # 1.2 10^3/uL (0.8-4.8); Lymphocytes % 14.1 %; Mean Corpuscular HGB Conc 32.7 g/dL (30.0-36.0); Mean Corpuscular Hemoglobin 29.5 pg (28.0-34.0); Mean Corpuscular Volume 90.2 fL (80-94); Mean Platelet Volume 10.6 fL (7.4-10.4); Monocytes % 11.6 %; Neutrophils % 71.7 %; Nucleated Red Blood Cells % 0 %; Platelet Count 351 10^3/cmm (130-400); Red Blood Count 5.32 10^6/uL (4.1-5.3); White Blood Count 8.8 10^3/uL (4.0-10.0)
[2020-09-13 12:38] LABS: Anion Gap 17.6 (5-19); Blood Urea Nitrogen 20 mg/dL (6-20); Calcium 9.1 mg/dL (8.5-10.5); Carbon Dioxide 25 mmol/L (22-29); Chloride 99 mmol/L (98-107); Glomerular Filtration Rate 49.3 mL/min (90-130); Glucose 78 mg/dL (65-115); Osmolality Calculated 287 mOsm/kg (285-295); Potassium 3.6 mmol/L (3.5-5.1); Sodium 138 mmol/L (136-145)
[2020-09-14 14:04] LABS: Add Urine Microscopic? YES; Bilirubin Urine Neg (Negative); Blood Urine Neg (Negative); Glucose Urine UA Norm (Normal); Ketones Urine Negative (Negative); Leukocyte Esterase Urine Negative (Negative); Nitrate Urine Negative (Negative); Protein Urine 1+ (Negative); Urine Appearance Hazy (CLEAR); Urine Color Yellow (Yellow); Urobilinogen Urine Norm (Negative); pH Urine 5 (5-7)
[2020-09-14 14:12] LABS: Fine Granular Casts Urine 0-4 /lpf; Hyaline Casts Urine 0-4 /lpf
[2020-09-14 14:13] LABS: Bacteria Urine 2+ /hpf; Squamous Epithelial Cell Urine 0-4 /hpf (0-5)
[2020-09-19] VITALS (13 sets, daily range): BP systolic 117–170; BP diastolic 86–128; PULSE 56–80; RESP 16–24; TEMP 35.6–36.8; O2SAT 92–99
--- NOTE | 2020-09-19 | SCC_ITS ---
Procedure Done: AICD implantation 151.8 seconds of fluoroscopic guidance, for a cumulative dose of 95.03 mGy, was provided to Dr. Frye by the radiology department. C-arm images of the chest were saved for the patient's permanent record. [facility]
--- NOTE | 2020-09-19 06:16 | W.PM.OPSUD ---
Surgery/Procedure H&P Update DATE OF PROCEDURE: September 19, 2020 DATE H&P PERFORMED: 08/23/20 H&P UPDATE INFORMATION: I have reviewed H&P completed within last 30 days, I have examined patient prior to procedure and No changes to prior documentation PREOP DIAGNOSIS: Cardiomyopathy PRIMARY INDICATION FOR PROCEDURE: Medically refractory cardiomyopathy PLANNED PROCEDURE: Operation Date: 09/19/20 07:00 Proposed Procedures p Defibrillator Placement(Not Applicable) - Gildardo Frye MD
[2020-09-19] MEDS: sodium chloride 0.9% 1,000 ML 30 ML IV (06:21)
--- NOTE | 2020-09-19 06:44 | SC_ITS ---
WS: [id number] C-arm FL for CVA [id number] REASON FOR EXAM: surgical procedure FINDINGS: Difficult to interpret these images. Large bore catheter overlying the medial right chest. The tip is in the region of the right atrium. SC/C-arm FL for CVA [id number] IMPRESSION: Difficult to interpret the images presented. Portable chest x-ray needed and fo llow-up.
--- NOTE | 2020-09-19 06:50 | ANES.PREANE2 ---
Pre-Anesthetic Assessment Pre-Anesthetic Assessment: Height/Weight: Height 1.83 m Weight 139.253 kg Temp Pulse Resp BP Pulse Ox 97.3 F L 77 18 138/87 97 09/19/20 06:06 09/19/20 06:06 09/19/20 06:06 09/19/20 06:39 09/19/20 06:06 Preop Diagnosis: Cardiomyopathy Proposed Procedure: Operation Date: 09/19/20 07:00 Proposed Procedures p Defibrillator Placement(Not Applicable) - Gildardo Frye MD Was Beta Natanael taken within 24 hours: Yes Last intake: Intake Last Liquid Date 09/18/20 Last Liquid Time 22:30 Last Solid Date 09/18/20 Last Solid Time 19:30 Social: Social History: No alcohol and No tobacco Exam: Pre-Anes Outpt Exam: alert, oriented x 3, clear to auscultation bilaterally and regular rate & rhythm Airway: Submandibular: WNL Cervical ROM: Other (Limited CROM) MP: 2 Pulmonary: Pulmonary: Sleep apnea CV/HEM: CV/HEM: Arrythmia, CAD, CHF, HTN and MD : : None reported Hepatic: Hepatic: None reported GI: GI: None reported Metabolic: Metabolic: Hyperlipidemia and Morbid obesity Musc/skel: Musc/skel: None reported Neuropsych: Neuropsych: None reported Anesthetic Plan: ASA status: 4 Anesthesia: MAC Meds/Allergies Current Medications: Current Medications Generic Name Dose Route Start Last Admin Trade Name Freq PRN Reason Stop Dose Admin Sodium Chloride 1,000 mls @ 30 ml s/hr 09/19/20 06:00 09/19/20 06:21 Sodium Chloride 0.9% IV 09/20/20 05:59 30 mls/hr .Q24H ELLIE Administration PFSH Anesthesia PFSH: Medical History (Updated 08/26/20 @ 12:31 by Eddie Gonzalez MD) Atrial fibrillation Chronic kidney disease CKD (chronic kidney disease) Coronary artery disease Essential hypertension Hyperlipidemia Left atrial thrombus Left ventricular dysfunction with preserved left ventricular ejection fraction Obesity Systolic CHF Last ejection fraction LEORA June 2019 35% Surgical History H/O two vessel coronary artery bypass graft Status post aorto-coronary artery bypass graft June 2019. 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 marjauna and cocaine Housing: House Marital status: Single Data Anesthesia CBC & Chem 7: 09/13/20 10:30 09/13/20 10:30 Cardiac Studies: No Data to Display
[2020-09-19] MEDS: lidocaine 1% INJ 20 mL INTRAVESIC (07:32)
[2020-09-19] MEDS: ceFAZolin 1,000 mg SDV 1000 MG IRRIGATION (07:33)
--- NOTE | 2020-09-19 07:44 | SUR.OPER ---
Family Notified Of Patient's Status Via Phone.
--- NOTE | 2020-09-19 08:24 | P.OP_ITS ---
Operative Report Date of procedure: September 19, 2020 Pre-op Diagnosis: Cardiomyopathy Post-op diagnosis: same Procedure Done: AICD implantation Implants: AICD generator and lead Surgeon: Gildardo Frye Anesthesia: MAC and Local Findings: Fluoroscopy utilized for engagement, guidewire and lead advancement and positioning. Condition: stable Disposition: floor Procedure: Procedure: Mr. Morton was taken to the OR suite and placed in the supine position over a shoulder roll. He received conscious sedation with continuous anesthesia monitoring by. His entire chest was sterilely prepped and draped. 1% lidocaine was infiltrated in the left subclavicular region. While in Trendelenburg position, utilizing modified seldinger technique, a guidewire was placed in the left subclavian vein. This was confirmed in position by fluoroscopy. Next, after infiltration with lidocaine, a subcutaneous pocket was created beginning from the exit point of the guidewire and extending laterally and inferiorly. Cautery was utilized to create the pocket just above the pectoralis musculature. Hemostasis was confirmed. An antibiotic-soaked sponge was placed in the wound. A dilator and tear-away sheath was placed over the guidewire and advanced under fluoroscopy. Guidewire and dilator were removed. Next using a combination of curved and straight stylettes, the right ventricular defibrillating lead was placed in position by fluoroscopy. The distal screw was extended. Interrogation was then performed confirming appropriate parameters. The tear-away sheath was then removed and the ventricular lead was sewn to the floor of the subcutaneous pocket. AICD generator was brought into the field, and after confirmation of hemostasis in the subcutaneous pocket, the lead was connected to the generator with appropriate capture. The entire system was interrogated by fluoroscopy. Lead and generator were secured in the pocket. Sponge and needle count was correct. The wound was then closed in 2 layers of 3-0 Vicryl suture. Skin was reapproximated in a subcuticular manner with 4-0 Monocryl suture. A pressure dressing was applied. The left arm was placed in a sling. Mr. Morton had equal breath sounds bilaterally. He was then transferred to the PACU, where chest x-ray is currently pending. His most immediate family, his brother, is currently in dialysis and will be notified upon completion. Following are the specifics of this system: Right ventricular lead is 62 cm and model 6935M. Serial number [id number] Ventricular lead had sensing of 9.9 mV with an impedance of 589 ohms. Threshold was 0.5 V [employer] generator: Model # [id number] Serial # [id number]
--- NOTE | 2020-09-19 08:34 | XR_ITS ---
WS: [id number] XR chest 1V portable [id number] REASON FOR EXAM: post defib placement FINDINGS: Previous coronary artery bypass surgery. The heart is enlarged. Battery pack overlying the left chest with lead through the left subclavian vein to the right ventric ular apex. Presumed areas of linear atelectasis in the left lower lung. Right lung is clear. XR/XR chest 1V portable [id number] IMPRESSION: Defibrillator placement as above.
--- NOTE | 2020-09-19 08:49 | SUR.PHASEI ---
1897 PT AWAKE ALERT PT WAS MAC SEDATION ONLY, LT CHEST DRESSING D/I PT ARM IMMOBILIZER IN PLACE PT ON NASAL CANNULA 3L SATS 92-93% NO DISTRESS NOTED X RAYS DONE DR ESTRADA AT BEDSIDE, REPORT CALLED TO FLOOR. PT TO FLOOR PER CART.
--- NOTE | 2020-09-19 09:27 | PC.CHAP ---
Pastoral Care Encounter/Spiritual Assessment Type of Contact [] Declined industrial electrical technician visit [] Patient/Family/Request visit [] Outpatient visit [] Follow-up visit [] Physician referral [] Code/Alert [] Routine visit [] Staff referral [] Actively dying [] Patient sleeping [] Family support [] [] Out of room [] Palliative care [] [] Receiving care in room [] Pre-surgical visit [] Trauma [] Long length of stay [] ICU visit [] Other: Relational/Emotional Strength [] Patient feels connected with others/family/visitors/staff [] Distress [] Loneliness/isolation [] Abandonment Spirituality of Patient [] Person of Kyra [] Attends Quaker of their Kyra [] Believes in Prayer [] Reads Bible or Jew materials [] There are Spiritual issues to be addressed [employer] Interventions [x] Prayer [] Active listening [] Non-anxious presence [] Spiritual/emotional support [] Crisis/trauma care [] Spiritual counseling [] Bereavement support [] Provided bereavement packet [] Provided Bible/devotional materials [] Provided toy/stuffed animal, coloring book to patient or family member [] Provided Communion [] Anointing/[place] [] Salvation [x] Completed spiritual assessment [] Other: Impact on Illness or Injury [] Angry [] Fearful [] Anxious [] Often cries [] Exhaustion [] Unable to work [] Unable to attend pentecostalism [] Unable to walk/stand [] Unable to read [] Unable to drive [] Unable to eat/drink [] Unable to sleep [] Unable to be with family [] Patient intubated [] Other: Summary just out of surgery... prayed for quick recovery Time spent with patient
--- NOTE | 2020-09-19 10:00 | PC.NURSE ---
patient received from pacu patient alert oriented and in stable immobilizer in place
[2020-09-19] MEDS: pantoprazole DR 40 mg Tablet PO (13:29)
[2020-09-19] MEDS: ceFAZolin 1,000 MG in sodium chloride 0.9% (plus) 50 ML 100 MG IV ×2 (14:48→22:08)
--- NOTE | 2020-09-19 15:04 | ANE.PACU2 ---
Inpatient post-anesthesia follow up: Airway intact: Yes Vital signs: Temperature 97.0 F Pulse Rate 77 Respiratory Rate 23 Blood Pressure 138/93 Pulse Oximetry 97 Oxygen Delivery Me thod Nasal Cannula Oxygen Flow Rate 3 Fraction of Inspir ed Oxygen Hydration adequate: Yes Nausea and vomiting: No Pain level: 2 Mental status: Baseline
[2020-09-19] MEDS: FUROsemide 40 mg Tablet PO (15:36)
[2020-09-19] MEDS: hyDRALAzine 25 mg Tablet PO (15:36)
--- NOTE | 2020-09-19 15:38 | PC.NURSE ---
Dr Colmenares at bedside for assessment and plan of care instructions to give hydrazine dose at this time due to elevated blood pressures
--- NOTE | 2020-09-19 17:42 | PC.NURSE ---
Contacted Dr Colmenares via telephone to discuss patient concerns with pain at this time patient is reporting mild pain 3/10 in left chest and is requesting Tylenol, no Tylenol is ordered at this time; Dr Colmenares with instructions to given 650 mg Tylenol PO now if patients pain is controlled ok to give 650mg PO Tylenol Q6h for mild pain.
[2020-09-19] MEDS: carvedilol 12.5 mg Tablet 18.75 MG PO (17:46)
[2020-09-19] MEDS: acetaminophen 325 mg Tablet 650 MG PO (18:06)
--- NOTE | 2020-09-19 19:16 | PC.NURSE ---
patient reports feeling better after Tylenol per Dr Colmenares's instructions will order Tylenol 650mg PO Q6H for mild pain
[2020-09-19] MEDS: atorvastatin 40 mg Tablet 20 MG PO (20:17)
[2020-09-20] VITALS: BP 135/87; PULSE 70; RESP 17; TEMP 36.6; O2SAT 97
[2020-09-20] MEDS: hyDRALAzine 25 mg Tablet PO ×2 (00:05→06:28)
[2020-09-20 03:19] VITALS: BP 120/94; PULSE 71; RESP 16; TEMP 36.7; O2SAT 98
[2020-09-20 05:01] VITALS: PULSE 60
[2020-09-20] MEDS: ceFAZolin 1,000 MG in sodium chloride 0.9% (plus) 50 ML 100 MG IV (06:29)
[2020-09-20 06:52] VITALS: BP 144/105; PULSE 73; RESP 12; TEMP 36.1; O2SAT 99
--- NOTE | 2020-09-20 06:55 | P.DS_ITS ---
Discharge Providers Date of Admission: 09/19/20 08:19 Date of Discharge: September 20, 2020 Attending Provider at Admission: Gildardo Frye MD Attending Provider at Discharge: Gildardo Frye MD Primary Care Provider: Vale Kwon MD Reason for Visit Reason for Visit: Brief History: 49-year-old gentleman with depressed LV function of less than 30% EF. Scheduled for elective prophylactic AICD implantation per recommendation of Dr. Gonzalez. Hospital Course Hospital Course Mr. Morton was electively admitted underwent single lead AICD implantation on September 19. Postoperative, he has done well and received prophylactic antibiotics. Interrogation this morning reveals appropriate system function. Outer dressing was removed. Inner dressing is dry. No arrhythmias reported. He is eager for discharge to home. He will be scheduled follow-up in [facility] pacemaker clinic in 1 week. At the time of discharge, he is in stable condition. Physical Exam Chest: COMMONS NORMALS: normal inspection of the chest (Surgical dressing dry. No swelling or ecchymosis.) and normal palpation of entire chest wall Resp: COMMON NORMALS: normal respiratory effort and clear to auscultation bilaterally EFFORT & INSPECTION: Yes able to speak in complete sentences and Yes symmetric chest movement AUSCULTATION: clear to auscultation bilaterally Cardio: COMMON NORMALS: negative for regular rhythm RHYTHM: abnormal rhythm and abnormal rhythm irregularly irregular Extremity: COMMON NORMALS: no clubbing, cyanosis or edema Discharge Data Data Completed and Pending: Completed Studies During Hospitalization Category Date Time Status CXRP [XR chest 1V portable [id number]] R outine Exams 09/19/20 08:34 Completed Vitals: Last Vital Signs Temp 96.9 F L 09/20/20 06:52 Pulse 73 09/20/20 06:52 Resp 12 09/20/20 06:52 BP 144/105 09/20/20 06:52 Pulse Ox 99 09/20/20 06:52 Discharge Plan Discharge Patient Disposition: Home Condition: Stable Prescriptions: New hydrocodone-acetaminophen 5-325 mg tablet 1 tab PO Q8H PRN (Reason: pain) Qty: 12 RF: 0 sulfamethoxazole-trimethoprim [Bactrim DS] 800-160 mg tablet 1 tab PO Q12H Qty: 6 RF: 0 Continued aspirin [Adult Aspirin Regimen] 81 mg tablet,delayed release (DR/EC) 81 mg PO DAILY RF: 0 rivaroxaban 20 mg tablet 20 mg PO DAILY Qty: 30 RF: 4 hydralazine 25 mg tablet See Rx Instructions PO TID RF: 0 potassium chloride 20 mEq tablet extended release 30 meq PO DAILY Qty: 135 RF: 3 nitroglycerin [Nitrostat] 0.4 mg tablet, sublingual 0.4 mg SUBLINGUAL Q5M PRN (Reason: chest pain) Qty: 25 RF: 0 amlodipine 10 mg tablet 10 mg PO DAILY Qty: 90 RF: 3 carvedilol 6.25 mg tablet 18.75 mg PO BID Qty: 270 RF: 3 pravastatin 20 mg tablet 20 mg PO DAILY Qty: 30 RF: 3 furosemide 40 mg tablet 60 mg PO DIRECTED RF: 0 acetaminophen [Tylenol Extra Strength] 500 mg Tablet 1,000 mg PO PRN RF: 0 isosorbide mononitrate 30 mg Tablet Extended Release 24 Hr 30 mg PO DAILY Qty: 30 RF: 2 Discontinued levofloxacin 500 mg tablet 500 mg PO DAILY Qty: 4 RF: 0 Discharge Orders: Discharge Order (Routine); Ordered 09/20/20 Ordered By: Gildardo Frye Referrals: [facility] [Provider Group] - 1 week (pacemaker clinic) Discharge Diet: Usual diet Discharge Activity: Limit activity as instructed Activity Restrictions/Additional Instructions: May remove bandage in 2 days May begin daily showers in 2 days No swimming or tub baths x 2 weeks No ointments on incision Report drainage, redness, heat, increased pain, or swelling to clinic Discharge Attestations Time Spent in Discharge Care*: less than 30 min Specific Discharge Activities: educating patient, discussing with rn case manager hospice/social workers/dc planners, documenting/other paperwork and evaluating patient/reviewing data Status at Discharge: Cognitive status at discharge: cognitively intact , Behavioral status at discharge: cooperative , Functional status at discharge: independent ambulation Overall status at discharge: patient is back to baseline Quality Metrics Clinical Quality Measures During this hospital stay, did patient experience: None Coding Level of Care Code Acute Emergency Spill Response Technician for Mable Maldonado
[2020-09-20] MEDS: FUROsemide 40 mg Tablet 60 MG PO (08:31)
[2020-09-20] MEDS: pantoprazole DR 40 mg Tablet PO (08:31)
[2020-09-20] MEDS: amlodipine 10 mg Tablet PO (08:31)
[2020-09-20] MEDS: carvedilol 12.5 mg Tablet 18.75 MG PO (08:31)
[2020-09-20] MEDS: aspirin 81 mg EC Tablet PO (08:31)
[2020-09-20] MEDS: isosorbide mononitrate ER 30 mg Tablet PO (08:32)
[2020-09-20] MEDS: potassium chloride ER 10 mEq Tablet 30 MEQ PO (08:32)
[2020-09-20] MEDS: acetaminophen 325 mg Tablet 650 MG PO (08:33)
[2020-09-20 08:44] VITALS: BP 150/90; PULSE 73; RESP 12; TEMP 36.1; O2SAT 99
--- NOTE | 2020-09-20 08:49 | PC.CHAP ---
Pastoral Care Encounter/Spiritual Assessment Type of Contact [] Declined forger helper visit [] Patient/Family/Request visit [] Outpatient visit [] Follow-up visit [] Physician referral [] Code/Alert [x] Routine visit [] Staff referral [] Actively dying [] Patient sleeping [] Family support [] [] Out of room [] Palliative care [] [] Receiving care in room [] Pre-surgical visit [] Trauma [] Long length of stay [] ICU visit [] Other: Relational/Emotional Strength [] Patient feels connected with others/family/visitors/staff [] Distress [] Loneliness/isolation [] Abandonment Spirituality of Patient [] Person of Kyra [] Attends Methodist of their Kyra [] Believes in Prayer [] Reads Bible or Moravian materials [] There are Spiritual issues to be addressed Hygiene Assistant Interventions [x] Prayer [x] Active listening [x] Non-anxious presence [x] Spiritual/emotional support [] Crisis/trauma care [] Spiritual counseling [] Bereavement support [] Provided bereavement packet [] Provided Bible/devotional materials [] Provided toy/stuffed animal, coloring book to patient or family member [] Provided Communion [] Anointing/[place] [] Salvation [x] Completed spiritual assessment [] Other: Impact on Illness or Injury [] Angry [] Fearful [] Anxious [] Often cries [] Exhaustion [] Unable to work [] Unable to attend taoism [] Unable to walk/stand [] Unable to read [] Unable to drive [] Unable to eat/drink [] Unable to sleep [] Unable to be with family [] Patient intubated [] Other: Summary surgery yesterday.. a little sore, but feeling better Time spent with patient 10 min
--- NOTE | 2020-09-20 09:03 | PC.NURSE ---
Patient discharge home at this time per orders, patient provided with all discharge instructions and restrictions and educated on new medications; patient verbalized understanding of all instructions given. IV discontinued cath intact min bleeding noted dressing applied. Patient ambulated out to private vehicle accompanied by staff and family. patient alert oriented and in stable condition
== END 2020-09-20 09:02 | disposition home or self-care (01) ==
LOC: CSU 09-20 06:55
PROVIDERS: Admitting Provider Thoracic Surgery (Cardiothoracic Vascular Surgery); PCP Family Medicine; Visit Provider Thoracic Surgery (Cardiothoracic Vascular Surgery)
PROC: 0JH608Z Insertion of Defibrillator Generator into Chest Subcutaneous Tissue and Fascia, Open Approach (ICD-10-PCS; CPT 33249; principal; 2020-09-19 07:00)
DX: I42.9 Cardiomyopathy, unspecified (principal); Z79.82 Long term (current) use of aspirin; G47.30 Sleep apnea, unspecified; I25.10 Atherosclerotic heart disease of native coronary artery without angina pectoris; I13.0 Hypertensive heart and chronic kidney disease with heart failure and stage 1 through stage 4 chronic kidney disease, or unspecified chronic kidney disease; N18.9 Chronic kidney disease, unspecified; I50.20 Unspecified systolic (congestive) heart failure; I25.2 Old myocardial infarction; E78.5 Hyperlipidemia, unspecified; E66.01 Morbid (severe) obesity due to excess calories; Z68.41 Body mass index [BMI] 40.0-44.9, adult; E66.9 Obesity, unspecified
CPT/HCPCS: 33249; 12345; 71045; 76000; 77001; 93005; 96365; 96366; C1722; C1777; G0378; J0690; J2704; J3010; J7030

== ENCOUNTER 2021-01-02 12:57 | Emergency (ER) | payer BC, SELFPAY ==
[2021-01-02] VITALS (7 sets, daily range): BP systolic 150–170; BP diastolic 103–126; PULSE 62–73; RESP 17–25; TEMP 36.5; O2SAT 95–97; BMI 42.7
--- NOTE | 2021-01-02 13:03 | ECG_ITS ---
[facility] Test Date: 2021-01-02 Pat Name: Gildardo Morton Department: Room: Gender: Male [employer]: : 1970 Requested By: Andrea Tuttle Order Number: [id number] Padmaja MD: Sean Miranda M.D. Measurements Intervals [place] Rate: 69 P: 79 [place]: 300 QRS: 27 QRSD: 101 T: 118 QT: 428 QTc: 461 Interpretive Statements SINUS RHYTHM WITH FIRST DEGREE AV BLOCK WITH OCCASIONAL VENTRICULAR PREMATURE COMPLEXES ST DEVIATION AND MODERATE T-WAVE ABNORMALITY, CONSIDER LATERAL ISCHEMIA [-0.1+ mV T WAVE IN I/aVL/V5/V6] Compared to ECG 09/13/2020 10:17:05 Myocardial infarct finding no longer present T-wave abnormality still present Possible ischemia still present Electronically Signed On 01-02-2021 19:14:08 CDT by Sean Miranda M.D. [email or web address]
--- NOTE | 2021-01-02 13:13 | W.ED.CHESTPA ---
HPI - Chest Pain General: Chief Complaint: Chest Pain Stated Complaint: chest pain Time Seen by Provider: 01/02/21 13:02 History of Present Illness: HPI narrative: 50-year-old male presents emergency room with complaint of chest pain. Patient has a known history coronary disease previously had an WI has had bypass also had an implantable defibrillator. This began last night he was sitting at home he has had increased orthopnea's also had some chest discomfort no radiation of the pain. Became progressively worse this morning. He also notes blood pressure was elevated. No vomiting or diarrhea. MD complaint: chest pain Pertinent past history: coronary artery disease, prior WI and CABG Onset (ago): hour(s) Timing of current episode: episodic, increasing and still present Prior episodes: Yes Onset: during rest Pain location: substernal Pain radiation: none Severity: mild Quality: heaviness Relieving factors: rest Exacerbating factors: exertion Associated symptoms: Reports dyspnea, leg edema and palpitations; Deny abdominal pain, diaphoresis, fever(s), nausea, sense of impending doom, syncope or vomiting Treatment prior to arrival: none Review of Systems Const: Denies: fever(s) or diaphoresis ENMT: Denies: throat pain, ear or mastoid pain, nasal discharge or nasal congestion Card: Reports: palpitations; Denies: syncope Resp: Reports: dyspnea GI: Denies: abdominal pain, nausea or vomiting : Denies: flank pain, dysuria, urinary frequency or urinary urgency Skin/Breast: Denies: rash or pruritus PFSH ED PFSH: Medical History Atrial fibrillation Chronic kidney disease CKD (chronic kidney disease) Coronary artery disease Essential hypertension Hyperlipidemia Left atrial thrombus Left ventricular dysfunction with preserved left ventricular ejection fraction Obesity Systolic CHF Last ejection fraction LEORA June 2019 35% Surgical History H/O two vessel coronary artery bypass graft Status post aorto-coronary artery bypass graft June 2019. 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 marjauna and cocaine Housing: House Marital status: Single Physical Exam Const: COMMON NORMALS: no acute distress GENERAL APPEARANCE: cooperative and comfortable ORIENTATION/CONSCIOUSNESS: Yes awake, Yes oriented to person, Yes oriented to place and Yes oriented to time HENMT: COMMON NORMALS: normocephalic, atraumatic, hearing grossly normal bilaterally, external ears normal, EAC's normal, TM's normal bilaterally, Normal nasal mucous membranes and turbinates present, moist oral mucous membranes and oropharynx normal HEAD & SCALP: normocephalic and atraumatic NOSE: Normal nasal mucous membranes and turbinates present EXTERNAL EAR: Yes external ears normal EXTERNAL AUDITORY CANAL: EAC's normal TYMPANIC MEMBRANE: TM's normal bilaterally Eye: COMMON NORMALS: Equal, round and reactive pupils present, EOMs intact bilaterally, conjunctivae normal and no scleral icterus CONJUNCTIVA: Yes conjunctivae normal PUPIL: Yes Equal, round and reactive pupils present Neck/C-Spine: COMMON NORMALS: full ROM, no lymphadenopathy, supple and no JVD Lymph: LYMPHATIC: no lymphadenopathy noted and no lymphedema noted Resp: COMMON NORMALS: normal respiratory effort, No retractions, No use of accessory muscles and clear to auscultation bilaterally AUSCULTATION: clear to auscultation bilaterally Cardio: COMMON NORMALS: no JVD, regular rate, regular rhythm and No murmurs present (Cardio) RATE: regular rate RHYTHM: regular rhythm GI: COMMON NORMALS: Soft to palpation and No hepatosplenomegaly present AUSCULTATION: Yes normoactive bowel sounds PALPATION: Yes Soft to palpation, No Tenderness to palpation present (GI), No Guarding due to palpation present (GI) and Yes No hepatosplenomegaly present Extremity: COMMON NORMALS: normal to inspection, capillary refill normal, no clubbing, cyanosis or edema, no calf tenderness and no pedal edema Neuro: SENSORIUM/ORIENTATION: Yes oriented to person, Yes oriented to place and Yes oriented to time Skin: COMMON NORMALS: no rashes or lesions noted GENERAL SKIN EXAM: no rashes or lesions noted Course Vital Signs: Vital signs: Vital Signs Temperature 97.7 F 01/02/21 13:00 Pulse Rate 73 01/02/21 18:43 Respiratory Rate 18 01/02/21 18:43 Blood Pressure 170/126 01/02/21 18:43 Pulse Oximetry 97 01/02/21 18:43 MDM - Chest Pain MDM Narrative: Medical decision making narrative: Patient's troponin is decreased his chest pain is resolved. Discussed different options with him we will go ahead and discharge him home at isosorbide mononitrate and amlodipine. He been having the chest pain for over 24 hours and he has a decrease in his troponin. He has short-term follow-up with cardiology. Any worsening or change symptoms return Lab Data: Attestation: I reviewed the patient's lab results. Labs: Lab Results 01/02/21 01/02/21 01/02/21 Range/Units 14:16 14:16 14:16 WBC 10.3 H (4.0-10.0) 10^3/ uL RBC 4.64 (4.1-5.3) 10^6/u L Hgb 13.7 (11.7-16.6) g/dL Hct 43.3 (42.0-52.0) % MCV 93.3 (80-94) fL MCH 29.5 (28.0-34.0) pg MCHC 31.6 (30.0-36.0) g/dL RDW 14.6 (12.1-15.1) % Plt Count 297 (130-400) 10^3/c mm MPV 10.4 (7.4-10.4) fL Neut % (Auto) 75.6 % Lymph % (Auto) 13.8 % [place] % (Auto) 7.5 % Eos % (Auto) 2.3 % Baso % (Auto) 0.4 % Neut # (Auto) 7.81 H (1.8-7.7) 10^3/u L Lymph # (Auto) 1.4 (0.8-4.8) 10^3/u L [place] # (Auto) 0.8 (0.2-0.9) 10^3/u L Eos # (Auto) 0.2 (0.0-0.8) 10^3/u L Baso # (Auto) 0.0 (0.0-0.1) 10^3/u L Nucleated RBC % (a uto) 0 % Nucleated RBCs # 0.0 /100WBC Sodium 141 (136-145) mmol/L Potassium 3.6 (3.5-5.1) mmol/L Chloride 102 (98-107) mmol/L Carbon Dioxide 27 (22-29) mmol/L Anion Gap 15.6 (5-19) BUN 19 (6-20) mg/dL Creatinine 1.5 H (0.7-1.2) mg/dL GFR Calculation 49.1 L (90-130) mL/min Glucose 98 (65-115) mg/dL Calculated Osmolal ity 294 (285-295) mOsm/k g Calcium 8.9 (8.5-10.5) mg/dL Total Bilirubin 0.5 (0.15-1.2) mg/dL AST 24 (0-40) U/L ALT 32 (0-41) U/L Alkaline Phosphata se 79 (40-130) IU/L Troponin T Baselin e 46 H (0-15) ng/L Troponin T 120 Min quechan (0-15) ng/L Delta Troponin T (0-10) ABS# Total Protein 7.4 (6.6-8.7) g/dL Albumin 3.7 (3.5-5.2) g/dL Globulin 3.7 (1.3-4.6) g/dL 01/02/21 Range/Units 16:55 WBC (4.0-10.0) 10^3/ uL RBC (4.1-5.3) 10^6/u L Hgb (11.7-16.6) g/dL Hct (42.0-52.0) % MCV (80-94) fL MCH (28.0-34.0) pg MCHC (30.0-36.0) g/dL RDW (12.1-15.1) % Plt Count (130-400) 10^3/c mm MPV (7.4-10.4) fL Neut % (Auto) % Lymph % (Auto) % [place] % (Auto) % Eos % (Auto) % Baso % (Auto) % Neut # (Auto) (1.8-7.7) 10^3/u L Lymph # (Auto) (0.8-4.8) 10^3/u L [place] # (Auto) (0.2-0.9) 10^3/u L Eos # (Auto) (0.0-0.8) 10^3/u L Baso # (Auto) (0.0-0.1) 10^3/u L Nucleated RBC % (a uto) % Nucleated RBCs # /100WBC Sodium (136-145) mmol/L Potassium (3.5-5.1) mmol/L Chloride (98-107) mmol/L Carbon Dioxide (22-29) mmol/L Anion Gap (5-19) BUN (6-20) mg/dL Creatinine (0.7-1.2) mg/dL GFR Calculation (90-130) mL/min Glucose (65-115) mg/dL Calculated Osmolal ity (285-295) mOsm/k g Calcium (8.5-10.5) mg/dL Total Bilirubin (0.15-1.2) mg/dL AST (0-40) U/L ALT (0-41) U/L Alkaline Phosphata se (40-130) IU/L Troponin T Baselin e (0-15) ng/L Troponin T 120 Min quechan 43.05 H (0-15) ng/L Delta Troponin T -2.95 L (0-10) ABS# Total Protein (6.6-8.7) g/dL Albumin (3.5-5.2) g/dL Globulin (1.3-4.6) g/dL Discharge Plan Discharge Patient Disposition: Home Clinical Impression: Atypical chest pain Condition: Stable Prescriptions: New isosorbide mononitrate 30 mg tablet extended release 24 hr 30 mg PO DAILY Qty: 30 RF: 0 amlodipine 2.5 mg tablet 2.5 mg PO DAILY Qty: 30 RF: 0 No Action aspirin [Adult Aspirin Regimen] 81 mg tablet,delayed release (DR/EC) 81 mg PO DAILY@0800 RF: 0 nitroglycerin [Nitrostat] 0.4 mg tablet, sublingual 0.4 mg SUBLINGUAL Q5M PRN (Reason: chest pain) Qty: 25 RF: 0 furosemide 40 mg tablet 60 mg PO DIRECTED RF: 0 hydrocodone-acetaminophen 5-325 mg tablet 1 tab PO Q8H PRN (Reason: pain) Qty: 12 RF: 0 acetaminophen [Tylenol Extra Strength] 500 mg Tablet 1,000 mg PO PRN RF: 0 carvedilol 6.25 mg tablet 18.75 mg PO BID@0800,1900 RF: 0 isosorbide mononitrate 30 mg tablet extended release 24 hr 30 mg PO DAILY@0800 RF: 0 pravastatin 20 mg tablet 20 mg PO DAILY@0800 RF: 0 rivaroxaban 20 mg tablet 20 mg PO DAILY@0800 RF: 0 potassium chloride 20 mEq tablet extended release 30 meq PO DAILY@0800 RF: 0 Entresto 24-26 mg tablet 1 tab PO BID@0700,1830 RF: 0 Discharge Orders: Discharge ED (Routine); Ordered 01/02/21 Ordered By: Andrea Gallegos Referrals: Vale Kwon MD [Primary Care Provider] - Patient Instructions: Opioid Safety Coding Level of Care Code 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
[2021-01-02] MEDS: aspirin 81 mg Chew Tablet 324 MG PO (13:43)
[2021-01-02 14:37] LABS: Basophils % 0.4 %; Eosinophils # 0.2 10^3/uL (0.0-0.8); Eosinophils % 2.3 %; Hematocrit 43.3 % (42.0-52.0); Hemoglobin 13.7 g/dL (11.7-16.6); Lymphocytes # 1.4 10^3/uL (0.8-4.8); Lymphocytes % 13.8 %; Mean Corpuscular HGB Conc 31.6 g/dL (30.0-36.0); Mean Corpuscular Hemoglobin 29.5 pg (28.0-34.0); Mean Corpuscular Volume 93.3 fL (80-94); Mean Platelet Volume 10.4 fL (7.4-10.4); Monocytes # 0.8 10^3/uL (0.2-0.9); Monocytes % 7.5 %; Neutrophils # 7.81 10^3/uL (1.8-7.7); Neutrophils % 75.6 %; Nucleated Red Blood Cells % 0 %; Platelet Count 297 10^3/cmm (130-400); Red Blood Count 4.64 10^6/uL (4.1-5.3); Red Cell Distribution Width 14.6 % (12.1-15.1); White Blood Count 10.3 10^3/uL (4.0-10.0)
[2021-01-02 14:49] LABS: Alanine Aminotransferase 32 U/L (0-41); Albumin Level 3.7 g/dL (3.5-5.2); Alkaline Phosphatase 79 IU/L (40-130); Anion Gap 15.6 (5-19); Aspartate Amino Transferase 24 U/L (0-40); Blood Urea Nitrogen 19 mg/dL (6-20); Calcium 8.9 mg/dL (8.5-10.5); Carbon Dioxide 27 mmol/L (22-29); Chloride 102 mmol/L (98-107); Globulin 3.7 g/dL (1.3-4.6); Glomerular Filtration Rate 49.1 mL/min (90-130); Glucose 98 mg/dL (65-115); Osmolality Calculated 294 mOsm/kg (285-295); Potassium 3.6 mmol/L (3.5-5.1); Sodium 141 mmol/L (136-145); Total Bilirubin 0.5 mg/dL (0.15-1.2); Total Protein 7.4 g/dL (6.6-8.7)
[2021-01-02 14:50] LABS: Troponin(5th) Baseline 46 ng/L (0-15)
--- NOTE | 2021-01-02 15:03 | ECG_ITS ---
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 Measurements Intervals [place] Rate: 62 P: 85 SC: 305 QRS: 31 QRSD: 105 T: 125 QT: 430 QTc: 439 Interpretive Statements SINUS RHYTHM WITH FIRST DEGREE AV BLOCK NONSPECIFIC T-WAVE ABNORMALITY Compared to ECG 01/02/2021 13:11:02 Possible ischemia no longer present T-wave abnormality still present Electronically Signed On 01-02-2021 19:22:03 CDT by Sean Miranda M.D. [id number]
[2021-01-02 17:40] LABS: Troponin 5 2HR 43.05 ng/L (0-15)
[2021-01-02 17:42] LABS: Troponin 5 2HR Delta -2.95 ABS# (0-10)
--- NOTE | 2021-01-03 15:32 | DCPLANNER ---
port traffic manager had message to schedule a follow up appointment for patient with heart care. port traffic manager called [facility], spoke with Alessia, gave clinic patients information. A follow up appointment was scheduled for , January 05, 2021 at 1:00 with OCULAR C[facility] TECHNOLOGIST, Rona Mancia. Patient is aware of appointment.
--- NOTE | 2021-02-07 08:21 | DCPLANNER ---
Patient had a follow up appointment scheduled for 01.05.21 at [facility] with Rona - patient did attend appointment.
== END 2021-01-02 18:47 | disposition home or self-care (01) ==
PROVIDERS: Emergency Provider Family Medicine; PCP Family Medicine
DX: R07.89 Other chest pain (principal); Z79.82 Long term (current) use of aspirin; I48.91 Unspecified atrial fibrillation; I25.10 Atherosclerotic heart disease of native coronary artery without angina pectoris; I10 Essential (primary) hypertension; E78.5 Hyperlipidemia, unspecified; I11.0 Hypertensive heart disease with heart failure; I50.20 Unspecified systolic (congestive) heart failure; Z95.1 Presence of aortocoronary bypass graft
CPT/HCPCS: 36415; 80053; 84484; 85025; 93005; 99283

== ENCOUNTER → 2021-01-16 09:29 | Outpatient (BNVA) | payer BC, SELFPAY | PROVIDERS: PCP Family Medicine; Visit Provider Nurse Practitioner Family | DX: I50.22 Chronic systolic (congestive) heart failure (principal); I51.9 Heart disease, unspecified | CPT/HCPCS: 80048 ==

== ENCOUNTER → 2021-02-02 14:07 | Outpatient (BNVA) | payer BC, SELFPAY | PROVIDERS: PCP Family Medicine; Visit Provider Nurse Practitioner Family | DX: I50.22 Chronic systolic (congestive) heart failure (principal) | CPT/HCPCS: 80048; 83880 ==

== ENCOUNTER → 2021-02-16 13:53 | Outpatient (BNVA) | payer BC, SELFPAY | PROVIDERS: PCP Family Medicine; Visit Provider Nurse Practitioner Family | DX: I50.22 Chronic systolic (congestive) heart failure (principal); R07.89 Other chest pain; Z95.1 Presence of aortocoronary bypass graft | CPT/HCPCS: 80048 ==

== ENCOUNTER 2021-03-30 07:11 | Outpatient (CLI) | payer BC, SELFPAY ==
[2021-03-30 07:26] VITALS: BMI 43.4
--- NOTE | 2021-03-30 07:49 | ECG_ITS ---
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 Interpretive Statements NAME OF STUDY: LEXISCAN SESTAMIBI STRESS TEST INDICATION: Angina; Shortness of Breath PROCEDURE: At the baseline, the EKG revealed normal sinus rhythm with a frequent PVCs in the form of trigeminy. Nonspecific T wave changes. The baseline blood pressure was 107/79 mm Hg with a heart rate of 63 beats/min. Lexiscan was infused over a period of 20 seconds. A total of 0.4 milligrams of Lexiscan was infused. The stress phase was continued for a total of 5 minutes. Heart rate at the end of the stress phase was 72 with a blood pressure 109/46. The EKG at the peak infusion revealed no significant changes;the T wave changes are little more prominent. Sestamibi was injected 20 seconds after the Lexiscan infusion. Blood pressure at the end of the recovery phase was 113/75 with a heart rate of 69 per minute. CONCLUSION: 1. No significant EKG changes with the LexiScan infusion 2. No LexiScan induced chest pain or cardiac arrhythmia 3. Normal blood pressure and heart rate response 4. Sestamibi/sestamibi perfusion scan pending; see separate report. Electronically Signed On 03-31-2021 10:02:18 CDT by Oliver Jones M.D. [id number]
--- NOTE | 2021-03-30 07:49 | NMCV_ITS ---
NM marin perf SPECT r/s* [id number] Gildardo Morton Age: 50 Gender: M : 1970 Exam Date: 03/30/2021 07:49 Ordering Phys: Rona Mancia Technologist: CLAUDIA Nunez Exam Location: [facility] Indications: CHEST PAIN STRESS TEST Please see separate stress test report in [facility] for full findings IMAGE PROTOCOL Rest/Stress 1 Lexiscan Day Radiopharmaceutical Dose (mCi) Administration Site Administered by Rest: Tc-99m 11.0 IV CLAUDIA Aden Sestamibi Stress:Tc-99m 32.9 IV CLAUDIA Aden Sestamibi Rest: 30-Mar-2021 60 Discovery 630 Stress: 30-Mar-2021 30 Discovery 630 0.4mg Lexiscan. Images obtained in supine and prone position. SPECT RESULTS Technical Quality: Excellent Raw Data Analysis: Normal Image Corrections: No attenuation or motion correction applied Summed Stress Score: 18 Summed Rest Score: 17 Summed Difference Score: 3 PERFUSION FINDINGS Moderate to large area of minimal to moderately decreased tracer uptake in the basal and mid inferolateral, basal and mid anterolateral, mid and apical inferior, mid anterior and all the apical segments. Some reversibility was noted in the basal anterolateral and anterior wall regions FUNCTIONAL RESULTS (calculated via Gated SPECT) Stress Image LV EF (%): 49 Stress EDV (mL):205 TID: 0.95 Stress ESV (mL):104 FUNCTIONAL FINDINGS: Segmental wall motion analysis revealed severe diffuse hypokinesia of the septum. IMPRESSIONS 1. Myocardial perfusion imaging revealing moderate to large areas of decreasesed uptake in the inferior, inferolateral, anterolateral, anterior and apical segments with some subtle areas of reversibility in the anterior and anterolateral regions, suggesting myocardial scarring in the distribution of all the 3 coronary arteries-predominantly in distribution of the circumflex and the left anterior descending artery with subtle areas of possible lo- infarction ischemia. 2. Slightly diminished LV ejection fraction of 49%. 3. Wall motion normalities as mentioned above. 4. Moderately dilated LV cavity with an end-systolic volume of 104 ml No similar previous studies are available for comparison. Dr Oliver Jones MD FACC (Electronically Signed) Final Date: 30 March 2021 14:13 S
[2021-03-30] MEDS: regadenoson 0.4 Mg/5 ml Syringe IVP (09:29)
[2021-03-30 09:51] VITALS: BP 113/63; PULSE 73
== END 2021-03-30 07:12 | disposition home or self-care (01) ==
LOC: CDL 07:12
PROVIDERS: PCP Family Medicine; Visit Provider Nurse Practitioner Family
DX: R06.02 Shortness of breath (principal); I20.9 Angina pectoris, unspecified
CPT/HCPCS: 78452; 93017; A9500; J2785

== ENCOUNTER → 2021-07-05 14:21 | Outpatient (BNVA) | payer SELFPAY | PROVIDERS: PCP Family Medicine; Visit Provider Internal Medicine Cardiovascular Disease | DX: I10 Essential (primary) hypertension (principal); I48.0 Paroxysmal atrial fibrillation | CPT/HCPCS: 80048; 85025 ==

== ENCOUNTER → 2021-08-29 15:42 | Outpatient (BNVA) | payer SELFPAY | PROVIDERS: PCP Family Medicine; Visit Provider Nurse Practitioner Family | DX: E66.9 Obesity, unspecified (principal); I50.22 Chronic systolic (congestive) heart failure | CPT/HCPCS: 80048; 83036; 83880 ==

== ENCOUNTER → 2021-12-08 13:41 | Outpatient (BNVA) | payer MEDICAID, SELFPAY | PROVIDERS: PCP Family Medicine; Visit Provider Nurse Practitioner Family | DX: E78.5 Hyperlipidemia, unspecified (principal); N18.9 Chronic kidney disease, unspecified; E66.9 Obesity, unspecified; M79.671 Pain in right foot; M25.571 Pain in right ankle and joints of right foot; I25.10 Atherosclerotic heart disease of native coronary artery without angina pectoris; I48.91 Unspecified atrial fibrillation; I12.9 Hypertensive chronic kidney disease with stage 1 through stage 4 chronic kidney disease, or unspecified chronic kidney disease | CPT/HCPCS: 80053; 80061; 83880; 84550; 85651; 86140 ==

== ENCOUNTER 2022-02-03 08:20 | Emergency (ER) | payer MEDICAID, SELFPAY ==
[2022-02-03] VITALS (8 sets, daily range): BP systolic 168–197; BP diastolic 101–114; PULSE 22–104; RESP 18–97; TEMP 36.4–37; O2SAT 94–99; BMI 43.4
--- NOTE | 2022-02-03 08:27 | W.ED.SOB ---
HPI - SOB/Dyspnea General: Chief Complaint: Shortness of Breath/Dyspnea Stated Complaint: SOB Time Seen by Provider: 02/03/22 08:27 History of Present Illness: HPI Narrative: Mr. Morton is a 51-year-old gentleman with significant past medical history of hypertension, hyperlipidemia, obesity, heart failure with reduced ejection fraction, CAD with ICD, history of atrial fibrillation, CKD who presents to the emergency department due to shortness of breath. Symptom onset was 3 to 4 days ago and initially gradual/mild. He noted increased cough with mildly productive sputum and worse shortness of breath when lying flat. Since that time symptoms have worsened and are now moderate to severe. He endorses significant shortness of breath with lying flat and generalized malaise. He denies associated chest discomfort or feeling like he is more swollen than normal. Denies other infectious symptoms. No other specific changes in health, exacerbating, or alleviating factors identified. Onset (ago): day(s) Timing: progressively worsening Severity: moderate Exacerbating factors: lying flat and exertion Relieving factors: nothing Known history of: congestive heart failure Review of Systems General: Reports: 10 or more systems reviewed and unremarkable except in HPI and below PFSH ED PFSH: Medical History Atrial fibrillation Chronic kidney disease CKD (chronic kidney disease) Coronary artery disease Essential hypertension Hyperlipidemia Left atrial thrombus Left ventricular dysfunction with preserved left ventricular ejection fraction Obesity Systolic CHF LVEF 25 to 30% by TTE 08/02/2020 Surgical History H/O two vessel coronary artery bypass graft Status post aorto-coronary artery bypass graft June 2019. 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 marjauna and cocaine Housing: House Marital status: Single Physical Exam Const: COMMON NORMALS: alert GENERAL APPEARANCE: cooperative and well developed NUTRITIONAL APPEARANCE: obese HENMT: COMMON NORMALS: normocephalic and atraumatic HEAD & SCALP: normocephalic and atraumatic Eye: COMMON NORMALS: conjunctivae normal CONJUNCTIVA: Yes conjunctivae normal SCLERA: sclerae normal Neck/C-Spine: COMMON NORMALS: supple GENERAL: Yes trachea midline Resp: EFFORT & INSPECTION: Yes able to speak in complete sentences AUSCULTATION: diminished lung sounds Cardio: COMMON NORMALS: regular rate and regular rhythm RATE: regular rate RHYTHM: regular rhythm GI: COMMON NORMALS: Soft to palpation PALPATION: Yes Soft to palpation and No Tenderness to palpation present (GI) PERCUSSION: normal to percussion Extremity: GENERAL: Yes normal exam except as noted and No edema Neuro: COMMON NORMALS: moves all extremities SENSORIUM/ORIENTATION: Yes alert and No Orientation impaired Psych: COMMON NORMALS: mental status grossly normal and Normal thought process present THOUGHT PROCESS: Normal thought process present Course ED course: - Patient was seen and evaluated by me at bedside - Patient placed on cardiac monitors, IV access obtained - Initial evaluation notable for exam as above - Labs and xrays personally interpreted by me. EKG from 0844 and 1036 personally interpreted by me. PVCs noted. No STEMI. - Labs notable for mild leukocytosis, normal hemoglobin. Metabolic panel without acute electrolyte derangement, baseline creatinine. Delta troponin negative. BNP is elevated - Imaging notable for no lobar consolidation or pneumothorax. No significant pulmonary vascular congestion - Upon serial reexamination after treatment the patient was similar. He is not requiring supplemental oxygen. Initially I had discussed the case with cardiology regarding possible disposition including medication changes. At that time I thought patient was taking metolazone however he does endorse that he has not been taking it daily. - Based on patient history, evaluation, and testing as interpreted the most likely cause of the patient's condition is acute on chronic heart failure - The results of ED evaluation were discussed with the patient including possible disposition options, patient comfortable with attempting metolazone at home with strict return precautions. I discussed prescriptions and/or symptomatic cares (if applicable) including appropriate and responsible use, followup plan, and return precautions. The patient verbalized understanding and felt safe for discharge. - Patient discharged in satisfactory condition. Note: Click bubbles or prepopulated vasquez in note writing are used for assistance with data collection and billing and are inherently more limited than narrative and other text portions of this note. Please use narrative for additional clinical history and defer to narrative/free test for any case of contradictory information. If information appears in only free text or click bubble it should be considered present or absent as reported. Please contact note proposal writer for clarifications of clinical information or contradictory information. MDM is a brief summary, contradictory or erroneous seeming information should be clarified and full note should be reviewed. Vital Signs: Vital signs: Vital Signs Temperature 98.6 F 02/03/22 11:04 Pulse Rate 104 H 02/03/22 12:18 Respiratory Rate 18 02/03/22 12:18 Blood Pressure 168/108 02/03/22 12:18 Pulse Oximetry 96 02/03/22 12:18 MDM - SOB/Dyspnea Medical Decision Making 51-year-old gentleman presenting due to shortness of breath. No new oxygen requirement and no evidence of pulmonary vascular congestion on chest x-ray. Discussed possible disposition options, patient comfortable with discharge with trial of daily metolazone at home. Strict return precautions given. Medical Records I reviewed the patient's medical records. Lab Data I reviewed the patient's lab results. : 02/03/22 08:45 02/03/22 09:35 Labs/Radiology: Radiology Impressions Chest X-Ray 02/03/22 08:50 IMPRESSION: 1. No acute findings. 2. Low lung volumes 3. Metallic sternotomy wires 4. Cardiac device left anterior chest in good position Laboratory Results WBC 12.9 10^3/uL (4.0-10.0) H 02/03/22 08:45 RBC 4.85 10^6/uL (4.1-5.3) 02/03/22 08:45 Hgb 15.4 g/dL (11.7-16.6) 02/03/22 08:45 Hct 47.7 % (42.0-52.0) 02/03/22 08:45 MCV 98.4 fl (80-94) H 02/03/22 08:45 MCH 31.8 pg (28.0-34.0) 02/03/22 08:45 MCHC 32.3 g/dL (30.0-36.0) 02/03/22 08:45 RDW 15.0 % (12.1-15.1) 02/03/22 08:45 Plt Count 259 10^3/cmm (130-400) 02/03/22 08:45 MPV 12.1 fL (7.4-10.4) H 02/03/22 08:45 Neut % (Auto) 76.0 % 02/03/22 08:45 Lymph % (Auto) 15.2 % 02/03/22 08:45 [place] % (Auto) 6.4 % 02/03/22 08:45 Eos % (Auto) 1.5 % 02/03/22 08:45 Baso % (Auto) 0.3 % 02/03/22 08:45 Neut # (Auto) 9.83 10^3/uL (1.8-7.7) H 02/03/22 08:45 Lymph # (Auto) 2.0 10^3/uL (0.8-4.8) 02/03/22 08:45 [place] # (Auto) 0.8 10^3/uL (0.2-0.9) 02/03/22 08:45 Eos # (Auto) 0.2 10^3/uL (0.0-0.8) 02/03/22 08:45 Baso # (Auto) 0.0 10^3/uL (0.0-0.1) 02/03/22 08:45 Nucleated RBC % (auto) 0 % 02/03/22 08:45 Nucleated RBCs # 0.0 /100WBC 02/03/22 08:45 Sodium 138 mmol/L (136-145) 02/03/22 09:35 Potassium 3.5 mmol/L (3.5-5.1) 02/03/22 09:35 Chloride 100 mmol/L (98-107) 02/03/22 09:35 Carbon Dioxide 25 mmol/L (22-29) 02/03/22 09:35 Anion Gap 16.5 (5-19) 02/03/22 09:35 BUN 26 mg/dL (6-20) H 02/03/22 09:35 Creatinine 1.9 mg/dL (0.7-1.2) H 02/03/22 09:35 GFR Calculation 37.3 mL/min (90-130) L 02/03/22 09:35 Glucose 102 mg/dL (65-115) 02/03/22 09:35 Calculated Osmolality 291 mOsm/kg (285-295) 02/03/22 09:35 Calcium 9.2 mg/dL (8.5-10.5) 02/03/22 09:35 Magnesium 2.5 mg/dL (1.7-2.3) H 02/03/22 09:35 Total Bilirubin 0.6 mg/dL (0.15-1.2) 02/03/22 09:35 AST 17 U/L (0-40) 02/03/22 09:35 ALT 33 U/L (0-41) 02/03/22 09:35 Alkaline Phosphatase 61 IU/L (40-130) 02/03/22 09:35 Troponin T Baseline 54 ng/L (0-15) H 02/03/22 09:35 Troponin T 120 Minute 50.62 ng/L (0-15) H 02/03/22 10:53 Delta Troponin T -3.38 ABS# (0-10) L 02/03/22 10:53 NT-Pro-B Natriuret Pep 8182 pg/mL (0-125) H 02/03/22 09:35 Total Protein 7.4 g/dL (6.6-8.7) 02/03/22 09:35 Albumin 3.3 g/dL (3.5-5.2) L 02/03/22 09:35 Globulin 4.1 g/dL (1.3-4.6) 02/03/22 09:35 TSH 1.96 uIU/mL (0.27-4.20) 02/03/22 09:35 Discharge Plan Discharge Patient Disposition: Home Clinical Impression: Acute on chronic congestive heart failure Condition: Stable Prescriptions: New metolazone 2.5 mg tablet 2.5 mg PO DAILY Qty: 30 0RF No Action aspirin [Adult Aspirin Regimen] 81 mg tablet,delayed release (DR/EC) 81 mg PO DAILY@0800 0RF Farxiga 5 mg tablet 5 mg PO DAILY Qty: 30 6RF ketorolac 10 mg tablet 10 mg PO TID PRN (Reason: pain) 0RF rivaroxaban 20 mg tablet 20 mg PO DAILY@0800 Qty: 30 5RF Rx Instructions: must administer with evening meal. nitroglycerin [Nitrostat] 0.4 mg tablet, sublingual 0.4 mg SUBLINGUAL Q5M PRN (Reason: chest pain) Qty: 25 0RF Rx Instructions: do not exceed 3 doses per episode potassium chloride 20 mEq tablet extended release 20 meq PO BID Qty: 180 3RF furosemide 80 mg tablet 80 mg PO BID Qty: 180 3RF Entresto 49-51 mg tablet 1 tab PO BID 30 Days Qty: 60 1RF carvedilol 6.25 mg tablet 6.25 mg PO BID Qty: 180 3RF isosorbide mononitrate 30 mg tablet extended release 24 hr 30 mg PO DAILY@0800 Qty: 90 3RF pravastatin 20 mg tablet 20 mg PO DAILY@0800 Qty: 90 3RF hydrocodone-acetaminophen 5-325 mg tablet 1 tab PO Q8H PRN (Reason: pain) Qty: 12 0RF acetaminophen [Tylenol Extra Strength] 500 mg Tablet 1,000 mg PO Q6H PRN (Reason: Pain) 0RF Discharge Orders: Discharge ED (Routine); Ordered 02/03/22 Ordered By: Olaf Lord Referrals: Vale Kwon MD [Primary Care Provider] - Discharge Diet: Cardiac Discharge Activity: Increase activity as tolerated Patient Instructions: Heart Failure (ED), Chronic Kidney Disease (ED), Low-Sodium Diet (ED) Activity Restrictions/Additional Instructions: Thank you for visiting the emergency department. You were seen and evaluated for shortness of breath. You likely have acute exacerbation of your underlying heart failure. As discussed please take metolazone daily in addition to your other medications, start with a dose as soon as he got home. Please return to the emergency department for worsening symptoms or anything else that you are concerned about a feel needs emergency department evaluation. Please follow-up with cardiology. Coding Level of Care Code ED Intellectual Property Legal Assistant for Mable Maldonado Exam Comprehensive
--- NOTE | 2022-02-03 08:50 | XRR_ITS ---
PROCEDURE INFORMATION: Exam: XR Chest Exam date and time: 02/03/2022 9:26 AM Age: 51 years old Clinical indication: Shortness of breath; Prior surgery; Surgery type: Pacemaker; Additional info: SOB TECHNIQUE: Imaging protocol: XR of the chest. Views: 1 view. COMPARISON: CR XR chest 1V portable [id number] 09/19/2020 8:30 AM FINDINGS: Tubes, catheters and devices: Cardiac device left anterior chest the unipolar lead is in good position. Lungs: Low lung volumes the lungs are otherwise clear No consolidation. Pleural spaces: Unremarkable. No pleural effusion. No pneumothorax. Heart/Mediastinum: There is cardiomegaly for projection. Bones/joints: Metallic sternotomy wires are in place. XR/XR chest 1V portable [id number] IMPRESSION: 1. No acute findings. 2. Low lung volumes 3. Metallic sternotomy wires 4. Cardiac device left anterior chest in good position
[2022-02-03] MEDS: ipratropium-albuterol 3 mL Neb INHALATION (09:06)
[2022-02-03 09:14] LABS: Basophils % 0.3 %; Eosinophils # 0.2 10^3/uL (0.0-0.8); Eosinophils % 1.5 %; Hematocrit 47.7 % (42.0-52.0); Hemoglobin 15.4 g/dL (11.7-16.6); Lymphocytes % 15.2 %; Mean Corpuscular HGB Conc 32.3 g/dL (30.0-36.0); Mean Corpuscular Hemoglobin 31.8 pg (28.0-34.0); Mean Corpuscular Volume 98.4 fl (80-94); Mean Platelet Volume 12.1 fL (7.4-10.4); Monocytes # 0.8 10^3/uL (0.2-0.9); Monocytes % 6.4 %; Neutrophils # 9.83 10^3/uL (1.8-7.7); Nucleated Red Blood Cells % 0 %; Platelet Count 259 10^3/cmm (130-400); Red Blood Count 4.85 10^6/uL (4.1-5.3); White Blood Count 12.9 10^3/uL (4.0-10.0)
[2022-02-03 10:17] LABS: Troponin(5th) Baseline 54 ng/L (0-15)
[2022-02-03 10:27] LABS: Alanine Aminotransferase 33 U/L (0-41); Albumin Level 3.3 g/dL (3.5-5.2); Alkaline Phosphatase 61 IU/L (40-130); Anion Gap 16.5 (5-19); Aspartate Amino Transferase 17 U/L (0-40); Blood Urea Nitrogen 26 mg/dL (6-20); Calcium 9.2 mg/dL (8.5-10.5); Carbon Dioxide 25 mmol/L (22-29); Chloride 100 mmol/L (98-107); Globulin 4.1 g/dL (1.3-4.6); Glomerular Filtration Rate 37.3 mL/min (90-130); Glucose 102 mg/dL (65-115); Magnesium 2.5 mg/dL (1.7-2.3); NT Pro B Type Natriuretic Pept 8182 pg/mL (0-125); Osmolality Calculated 291 mOsm/kg (285-295); Potassium 3.5 mmol/L (3.5-5.1); Sodium 138 mmol/L (136-145); Thyroid Stimulating Hormone 1.96 uIU/mL (0.27-4.20); Total Bilirubin 0.6 mg/dL (0.15-1.2); Total Protein 7.4 g/dL (6.6-8.7)
--- NOTE | 2022-02-03 10:50 | ECG_ITS ---
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 Measurements Intervals [place] Rate: 85 P: [place]: QRS: 14 QRSD: 104 T: 128 QT: 414 QTc: 494 Interpretive Statements Sinus rhythm with ventricular bigeminy ST DEVIATION AND MODERATE T-WAVE ABNORMALITY, CONSIDER LATERAL ISCHEMIA [-0.1+ mV T-WAVE IN I/aVL/V5/V6] Compared to ECG 02/03/2022 08:44:51 Possible ischemia now present T-wave abnormality still present Electronically Signed On 02-04-2022 8:19:35 CDT by Raghu Emery M.D. [id number]
[2022-02-03 11:15] LABS: Troponin 5 2HR 50.62 ng/L (0-15)
[2022-02-03 11:18] LABS: Troponin 5 2HR Delta -3.38 ABS# (0-10)
--- NOTE | 2022-02-03 14:50 | ECG_ITS ---
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 Measurements Intervals [place] Rate: 88 P: [place]: QRS: 31 QRSD: 105 T: 128 QT: 394 QTc: 477 Interpretive Statements Sinus rhythm with ventricular bigeminy NONSPECIFIC ST & T-WAVE ABNORMALITY Compared to ECG 01/02/2021 15:03:47 First degree AV block no longer present T-wave abnormality still present Electronically Signed On 02-04-2022 8:18:50 CDT by Raghu Emery M.D. [id number]
--- NOTE | 2022-02-05 14:26 | DCPLANNER ---
Addendum entered by Camelia Villanueva 03/02/22 19:23: Patient had a follow up appointment scheduled with heart care - patient did attend appointment. Addendum entered by Camelia Villanueva 02/08/22 10:33: Patient has a follow up appointment scheduled for Saturday, February 14, 2022 at 2:15 with ADDING MACHINE MECHANIC, Rona Mancia at [facility]. Clinic will call patient with appointment information. Original Note: manager food beverage had message to schedule a follow up appointment for patient with heart care. manager food beverage sent patients information to the front office staff at [facility]. Patients information will be printed and reviewed. Clinic will call patient with appointment information.
== END 2022-02-03 12:32 | disposition home or self-care (01) ==
PROVIDERS: Emergency Provider Emergency Medicine; PCP Family Medicine
DX: I13.0 Hypertensive heart and chronic kidney disease with heart failure and stage 1 through stage 4 chronic kidney disease, or unspecified chronic kidney disease (principal); I50.23 Acute on chronic systolic (congestive) heart failure; E78.5 Hyperlipidemia, unspecified; E66.9 Obesity, unspecified; Z68.41 Body mass index [BMI] 40.0-44.9, adult; I25.10 Atherosclerotic heart disease of native coronary artery without angina pectoris; Z95.810 Presence of automatic (implantable) cardiac defibrillator; I48.91 Unspecified atrial fibrillation; N18.9 Chronic kidney disease, unspecified; Z95.1 Presence of aortocoronary bypass graft
CPT/HCPCS: 71045; 80053; 83735; 83880; 84443; 84484; 85025; 93005; 94640; 99284

== ENCOUNTER 2022-02-07 05:14 | Inpatient (IN) | payer MEDICAID, SELFPAY ==
[2022-02-07] VITALS (18 sets, daily range): BP systolic 84–139; BP diastolic 56–99; PULSE 62–98; RESP 11–25; TEMP 36.4–36.9; O2SAT 93–98; BMI 43.4
--- NOTE | 2022-02-07 05:26 | XRR_ITS ---
PROCEDURE INFORMATION: Exam: XR Chest Exam date and time: 02/07/2022 5:35 AM Age: 51 years old Clinical indication: Dyspnea; Prior surgery; Surgery date: 6+ months; Surgery type: Heart, pacemaker; Patient HX: SOB; Additional info: Cp TECHNIQUE: Imaging protocol: XR of the chest. Views: 1 view. COMPARISON: 1. CR (CHEST, ) 02/03/2022 9:26 AM 2. CR XR chest 1V portable [id number] 09/19/2020 8:30 AM 3. CR XR chest 2V* [id number] 03/01/2020 2:06 PM FINDINGS: Tubes, catheters and devices: Left-sided pacemaker/AICD in place. Monitor leads project over the chest. Lungs: Redemonstrated small right basilar calcified granuloma. No consolidation. Pleural spaces: No significant costophrenic angle blunting. No pneumothorax. Heart/Mediastinum: Stable cardiomegaly. Prior CABG. Vasculature: Mild atherosclerotic tortuosity of the thoracic aorta. Bones/joints: Sternotomy wires are seen. Thoracic dextroscoliosis. XR/XR chest 1V portable [id number] IMPRESSION: 1. Stable cardiomegaly. 2. Atherosclerotic vascular disease and prior CABG.
--- NOTE | 2022-02-07 05:26 | ECG_ITS ---
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 Measurements Intervals [place] Rate: 83 P: [place]: QRS: 9 QRSD: 112 T: 175 QT: 412 QTc: 486 Interpretive Statements ATRIAL FIBRILLATION WITH ABERRANT CONDUCTION OR VENTRICULAR PREMATURE COMPLEXES MODERATE INTRAVENTRICULAR CONDUCTION DELAY [110+ ms QRS DURATION] ST DEVIATION AND MODERATE T-WAVE ABNORMALITY, CONSIDER ANTEROLATERAL ISCHEMIA [-0.1+ mV T-WAVE IN V3-V6] Compared to ECG 02/03/2022 10:36:12 Aberrant conduction of supraventricular beat(s) now present Intraventricular conduction delay now present Sinus rhythm no longer present T-wave abnormality still present Possible ischemia still present Electronically Signed On 02-07-2022 20:01:54 CDT by Maggy Sommers M.D. [id number]
[2022-02-07 05:47] LABS: Basophils # 0.1 10^3/uL (0.0-0.1); Basophils % 0.3 %; Eosinophils # 0.2 10^3/uL (0.0-0.8); Eosinophils % 1.1 %; Hematocrit 53.4 % (42.0-52.0); Hemoglobin 17.9 g/dL (11.7-16.6); Lymphocytes # 2.2 10^3/uL (0.8-4.8); Lymphocytes % 14.8 %; Mean Corpuscular HGB Conc 33.5 g/dL (30.0-36.0); Mean Corpuscular Hemoglobin 31.5 pg (28.0-34.0); Mean Corpuscular Volume 93.8 fl (80-94); Monocytes # 0.9 10^3/uL (0.2-0.9); Monocytes % 5.9 %; Neutrophils # 11.74 10^3/uL (1.8-7.7); Neutrophils % 77.4 %; Nucleated Red Blood Cells % 0 %; Platelet Count 369 10^3/cmm (130-400); Red Blood Count 5.69 10^6/uL (4.1-5.3); Red Cell Distribution Width 14.8 % (12.1-15.1); White Blood Count 15.2 10^3/uL (4.0-10.0)
[2022-02-07] MEDS: sodium chloride 0.9% 500 ML 999 ML IV (05:50)
[2022-02-07] MEDS: calcium gluconate 0.9% NaCL 1 GM/50 ML PREMIX IV (05:59)
[2022-02-07 06:00] LABS: Glucose Point of Care 183 mg/dL (70-110)
[2022-02-07] MEDS: sodium bicarbonate 8.4% 1 mEq/mL 50mL Syr 100 MEQ IVP (06:02)
--- NOTE | 2022-02-07 06:12 | PC.NURSE ---
pt continues to be diaphoretic answers appropriate
[2022-02-07 06:17] LABS: ABG PCO2 46.2 mmHg (35-45); Alveolar-Arterial Oxygen Gradi 3.8 mmHg (5-10); Arterial Blood Gas Hematocrit 52.9 % (42-52); Base Excess ABG 18.6 mmol/L (-2.0-2.0); Blood Gas Allen Test Pos; Blood Gas Operator Identificat JB; Blood Gas Sample Site Radial, right; Blood Gas Sample Type Arterial; HCO3 ABG 43.5 mmol/L (22-26); HGB O2 Sat 91.7 % (95-100); Ionized Calcium Level - ABG 1.1 mmol/L (1.1-1.4); Methemoglobin 0.5 % (0.4-1.5); Oxygen Device NC; Oxygen Saturation ABG 93.1; PO2 ABG 64.4 mmHg (80.0-100.0); Potassium Level - ABG 2.3 mmol/L (3.5-5.0); Total Hemoglobin 17.3 g/dL (14-18)
[2022-02-07 06:22] LABS: ABG PH Result 7.58 (7.35-7.45)
[2022-02-07] MEDS: sodium chloride 0.9% 1,000 ML 999 ML IV (06:29)
--- NOTE | 2022-02-07 06:57 | W.ED.GENADLT ---
HPI - General Adult General: Chief complaint: General Medical Stated complaint: low bp Time Seen by Provider: 02/07/22 05:27 Source: patient Mode of arrival: ambulatory Limitations: no limitations History of Present Illness: 51-year-old male presents to the emergency room bradycardic. On initial assessment he is has sense of impending doom he tells the staff that he twice at home and came back to live. He has an ICD but does not reported having gone off. Patient has a known history of atrial fibrillation and coronary artery disease he denies any chest pain. Shortly after arriving here became extremely diaphoretic EKG was repeated showed multiple PVCs but no acute ST changes. Patient never had any chest pain. He was seen recently was thought to be fluid overloaded and he has been using metaxalone regularly that he had been given by the marketing intelligence analyst he is usually takes it on a as needed basis he started taking it and daily in addition to that he is on Lasix 80 mg daily. He also takes 20 of potassium daily. He denies any fever sweats or chills prior to arrival here no dysuria urgency or frequency no diarrhea no hematochezia or melena. No cough or productive cough. He does have chronic kidney disease and his most recent creatinine was 1.9. Onset (ago): hour(s) Severity: moderate Quality: burning Associated symptoms: Reports confusion, diaphoresis, malaise, nausea, syncope and weakness; Deny chest pain, cough, decreased appetite, dyspnea, fevers/chills, headache(s), rash, palpitations, seizures, short of breath or vomiting Treatments prior to arrival: none Review of Systems Const: Reports: change in appetite, fatigue, malaise and diaphoresis; Denies: fever(s) or chills ENMT: Denies: throat pain, ear or mastoid pain, nasal discharge or nasal congestion Card: Reports: irregular heart rhythm, edema (Improving after increased metaxalone) and syncope; Denies: chest pain or palpitations Resp: Denies: dyspnea, productive cough, non-productive cough or wheezing GI: Reports: nausea; Denies: abdominal pain, vomiting, hematemesis or coffee ground emesis : Denies: flank pain, dysuria, urinary frequency or urinary urgency Skin/Breast: Denies: rash Neuro: Reports: confusion; Denies: headache(s) PFS ED PFSH: Medical History Atrial fibrillation Chronic kidney disease CKD (chronic kidney disease) Coronary artery disease Essential hypertension Hyperlipidemia Left atrial thrombus Left ventricular dysfunction with preserved left ventricular ejection fraction Obesity Systolic CHF LVEF 25 to 30% by TTE 08/02/2020 Surgical History H/O two vessel coronary artery bypass graft Status post aorto-coronary artery bypass graft June 2019. 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 marjauna and cocaine Housing: House Marital status: Single Course Vital Signs: Vital signs: Vital Signs Temperature 97.5 F L 02/07/22 05:15 Pulse Rate 72 02/07/22 10:00 Respiratory Rate 24 H 02/07/22 10:00 Blood Pressure 132/99 02/07/22 10:00 Pulse Oximetry 96 02/07/22 10:00 [facility] - General Adult Medical Decision Making Initially based on his EKGs and his history with a recent increase in metaxalone along with him Lasix and potassium supplement he takes clinically is very concerned patient had hyperkalemia. He was given calcium chloride and sodium bicarb because he had prolonged QT. His blood gas came back and he was actually hypokalemic. Potassium supplement started. Patient has severe diaphoretic episode but he is not having any chest pain through any of this. He is stable at this time feeling much better he still not having any chest pain. His third EKG showed some lateral ST depression that was rather concerning checked with the patient again he still not having any chest pain faxed all 3 EKGs done at that point to Dr. Emery. He expects that when the potassium is replaced that his EKG changes will resolve but recommend serial troponins which have already been ordered. Patient does have signs of volume depletion with his labs BUN is elevated and he is hemoconcentrated. Has been given fluids as well as potassium replacement discussed with hospitalist orders are written for admission. Medical Records I reviewed the patient's medical records. Lab Data I reviewed the patient's lab results. : 02/07/22 05:28 02/07/22 06:04 Radiology Impressions Chest X-Ray 02/07/22 05:26 IMPRESSION: 1. Stable cardiomegaly. 2. Atherosclerotic vascular disease and prior CABG. Laboratory Results WBC 15.2 10^3/uL (4.0-10.0) H 02/07/22 05:28 RBC 5.69 10^6/uL (4.1-5.3) H 02/07/22 05:28 Hgb 17.9 g/dL (11.7-16.6) H 02/07/22 05:28 Hct 53.4 % (42.0-52.0) H 02/07/22 05:28 MCV 93.8 fl (80-94) 02/07/22 05:28 MCH 31.5 pg (28.0-34.0) 02/07/22 05:28 MCHC 33.5 g/dL (30.0-36.0) 02/07/22 05:28 RDW 14.8 % (12.1-15.1) 02/07/22 05:28 Plt Count 369 10^3/cmm (130-400) 02/07/22 05:28 MPV 11.0 fL (7.4-10.4) H 02/07/22 05:28 Neut % (Auto) 77.4 % 02/07/22 05:28 Lymph % (Auto) 14.8 % 02/07/22 05:28 Bureau % (Auto) 5.9 % 02/07/22 05:28 Eos % (Auto) 1.1 % 02/07/22 05:28 Baso % (Auto) 0.3 % 02/07/22 05:28 Neut # (Auto) 11.74 10^3/uL (1.8-7.7) H 02/07/22 05:28 Lymph # (Auto) 2.2 10^3/uL (0.8-4.8) 02/07/22 05:28 Bureau # (Auto) 0.9 10^3/uL (0.2-0.9) 02/07/22 05:28 Eos # (Auto) 0.2 10^3/uL (0.0-0.8) 02/07/22 05: Baso # (Auto) 0.1 10^3/uL (0.0-0.1) 02/07/22 05: Nucleated RBC % (auto) 0 % 02/07/22 05: Nucleated RBCs # 0.0 /100WBC 02/07/22 05: PT 22.90 SECONDS (12.1-14.9) H 02/07/22 06:04 INR 1.99 (0.8-1.2) H 02/07/22 06:04 Specimen Type Arterial 02/07/22 06:03 Sample Site Radial, right 02/07/22 06:03 ABG pH 7.58 (7.35-7.45) H* 02/07/22 06:03 ABG pCO2 46.2 mmHg (35-45) H 02/07/22 06:03 ABG pO2 64.4 mmHg (80.0-100.0) L 02/07/22 06:03 ABG HCO3 43.5 mmol/L (22-26) H 02/07/22 06:03 ABG O2 Saturation 93.1 02/07/22 06:03 ABG Base Excess 18.6 mmol/L (-2.0-2.0) H 02/07/22 06:03 Gurmeet Test Pos 02/07/22 06:03 A-a O2 Gradient 3.8 mmHg (5-10) L 02/07/22 06:03 Hematocrit 52.9 % (42-52) H 02/07/22 06:03 Hgb O2 Saturation 91.7 % (95-100) L 02/07/22 06:03 Carboxyhemoglobin 1.0 %THgb (0.4-20.1) 02/07/22 06:03 Methemoglobin 0.5 % (0.4-1.5) 02/07/22 06:03 Total Hemoglobin 17.3 g/dL (14-18) 02/07/22 06:03 Sodium 143.0 mmol/L (131-143) 02/07/22 06:03 Potassium 2.3 mmol/L (3.5-5.0) L 02/07/22 06:03 Glucose 146.0 mg/dL (70-115) H 02/07/22 06:03 Ionized Calcium 1.1 mmol/L (1.1-1.4) 02/07/22 06:03 O2 Delivery Device Nc 02/07/22 06:03 Charge Master Coordinator ID Marlon 02/07/22 06:03 Sodium 141 mmol/L (136-145) 02/07/22 06:04 Potassium 2.5 mmol/L (3.5-5.1) L* 02/07/22 06:04 Chloride 90 mmol/L (98-107) L 02/07/22 06:04 Carbon Dioxide 34 mmol/L (22-29) H 02/07/22 06:04 Anion Gap 19.5 (5-19) H 02/07/22 06:04 BUN 39 mg/dL (6-20) H 02/07/22 06:04 Creatinine 2.5 mg/dL (0.7-1.2) H 02/07/22 06:04 GFR Calculation 27.2 mL/min (90-130) L 02/07/22 06:04 Glucose 165 mg/dL (65-115) H 02/07/22 06:04 POC Glucose 183 mg/dL (70-110) H 02/07/22 05:56 Calculated Osmolality 305 mOsm/kg (285-295) H 02/07/22 06:04 Lactic Acid 2.8 mmol/L (0.5-2.2) H 02/07/22 07:54 Calcium 10.1 mg/dL (8.5-10.5) 02/07/22 06:04 Magnesium 2.6 mg/dL (1.7-2.3) H 02/07/22 06:04 Total Bilirubin 0.5 mg/dL (0.15-1.2) 02/07/22 06:04 AST 17 U/L (0-40) 02/07/22 06:04 ALT 28 U/L (0-41) 02/07/22 06:04 Alkaline Phosphatase 84 IU/L (40-130) 02/07/22 06:04 Troponin T Baseline 76 ng/L (0-15) H 02/07/22 06:04 Troponin T 120 Minute 61.20 ng/L (0-15) H 02/07/22 07:54 Delta Troponin T -14.80 ABS# (0-10) L 02/07/22 07:54 NT-Pro-B Natriuret Pep 1214 pg/mL (0-125) H 02/07/22 06:04 Total Protein 8.4 g/dL (6.6-8.7) 02/07/22 06:04 Albumin 4.0 g/dL (3.5-5.2) 02/07/22 06:04 Globulin 4.4 g/dL (1.3-4.6) 02/07/22 06:04 Discharge Plan Discharge Patient Disposition: Placed in Observation Admit Provider: Brian Latif Clinical Impression: Acute hypokalemia, Atrial fibrillation, CKD (chronic kidney disease), Bradycardia, Status post aorto-coronary artery bypass graft, Systolic CHF, Acute kidney injury, ST segment depression Condition: Stable Coding Level of Care Code ED Gyro Compass Tester for Mable Maldonado
[2022-02-07 07:02] LABS: Troponin(5th) Baseline 76 ng/L (0-15)
[2022-02-07 07:07] LABS: Alanine Aminotransferase 28 U/L (0-41); Alkaline Phosphatase 84 IU/L (40-130); Aspartate Amino Transferase 17 U/L (0-40); Blood Urea Nitrogen 39 mg/dL (6-20); Calcium 10.1 mg/dL (8.5-10.5); Carbon Dioxide 34 mmol/L (22-29); Chloride 90 mmol/L (98-107); Globulin 4.4 g/dL (1.3-4.6); Glomerular Filtration Rate 27.2 mL/min (90-130); Glucose 165 mg/dL (65-115); Magnesium 2.6 mg/dL (1.7-2.3); NT Pro B Type Natriuretic Pept 1214 pg/mL (0-125); Osmolality Calculated 305 mOsm/kg (285-295); Sodium 141 mmol/L (136-145); Total Bilirubin 0.5 mg/dL (0.15-1.2); Total Protein 8.4 g/dL (6.6-8.7)
[2022-02-07 07:09] LABS: Anion Gap 19.5 (5-19)
[2022-02-07 07:10] LABS: Potassium 2.5 mmol/L (3.5-5.1)
[2022-02-07 07:16] LABS: INR 1.99 (0.8-1.2)
--- NOTE | 2022-02-07 07:26 | ECG_ITS ---
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 Measurements Intervals [place] Rate: 65 P: [place]: QRS: -6 QRSD: 118 T: 181 QT: 473 QTc: 494 Interpretive Statements ATRIAL FIBRILLATION MODERATE INTRAVENTRICULAR CONDUCTION DELAY [110+ ms QRS DURATION] ST DEVIATION AND MODERATE T-WAVE ABNORMALITY, CONSIDER ANTEROLATERAL ISCHEMIA ST DEVIATION AND MODERATE T-WAVE ABNORMALITY, CONSIDER INFERIOR ISCHEMIA Compared to ECG 02/07/2022 05:18:57 Ventricular premature complex(es) no longer present Aberrant conduction of supraventricular beat(s) no longer present T-wave abnormality still present Possible ischemia still present Electronically Signed On 02-07-2022 20:22:32 CDT by Maggy Sommers M.D. [id number]
[2022-02-07] MEDS: potassium chloride premix 100 ML 25 MEQ IV ×2 (07:31→11:56)
--- NOTE | 2022-02-07 07:33 | ECG_ITS ---
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
--- NOTE | 2022-02-07 08:23 | PC.PHAR ---
pt states he takes care of his own medications-pt states he takes the medications entered
[2022-02-07 08:24] LABS: Lactic Sepsis W/Reflex 2.8 mmol/L (0.5-2.2)
[2022-02-07 09:47] LABS: Reflex Lactate Order REFLEX LACTIC ORDERD
--- NOTE | 2022-02-07 10:17 | PC.NURSE ---
report to Miguelina nurse on CSU
--- NOTE | 2022-02-07 10:23 | PC.CHAP ---
Pastoral Care Encounter/Spiritual Assessment Type of Contact [] Declined asset administrator visit [] Patient/Family/Request visit [] Outpatient visit [] Follow-up visit [] Physician referral [] Code/Alert [x] Routine visit [] Staff referral [] Actively dying [] Patient sleeping [] Family support [] [x] Out of room [] Palliative care [] [] Receiving care in room [] Pre-surgical visit [] Trauma [] Long length of stay [] ICU visit [] Other: Relational/Emotional Strength [] Patient feels connected with others/family/visitors/staff [] Distress [] Loneliness/isolation [] Abandonment Spirituality of Patient [] Person of Kyra [] Attends Shinto of their Kyra [] Believes in Prayer [] Reads Bible or Latter Day materials [] There are Spiritual issues to be addressed Stage Driver Interventions [x] Prayer [] Active listening [] Non-anxious presence [] Spiritual/emotional support [] Crisis/trauma care [] Spiritual counseling [] Bereavement support [] Provided bereavement packet [] Provided Bible/devotional materials [] Provided toy/stuffed animal, coloring book to patient or family member [] Provided Communion [] Anointing/Pound [] Salvation [x] Completed spiritual assessment [] Other: Impact on Illness or Injury [] Angry [] Fearful [] Anxious [] Often cries [] Exhaustion [] Unable to work [] Unable to attend caodaism [] Unable to walk/stand [] Unable to read [] Unable to drive [] Unable to eat/drink [] Unable to sleep [] Unable to be with family [] Patient intubated [] Other: Summary Time spent with patient
--- NOTE | 2022-02-07 10:48 | P.HP_ITS ---
Providers/Chief Complaint Admitting Physician: Brian Latif MD Primary Care Provider: Vale Kwon MD Chief Complaint: low bp History of Present Illness Gildardo Morton is a 51 year old male who presents to the emergency department feeling very dizzy, lightheaded. He reports he has been urinating quite a bit. He states he was in the emergency department Saturday with some shortness of breath when laying flat and was told to increase his metolazone to every day which he did. He denies any chest discomfort. He reports he still a little short of breath at times. He denies any chest discomfort, fever, nausea, blood in stool, black or tarry stools. In the emergency department it appears he got some calcium, bicarb, and then was given fluids and potassium. Review of Systems General: Reports: 10 or more systems reviewed and unremarkable except in HPI and below Const: Reports: malaise; Denies: fever(s) or chills Eyes: Denies: change in vision ENMT: Denies: throat pain Card: Reports: lightheadedness and dyspnea on exertion Resp: Reports: dyspnea GI: Denies: abdominal pain, diarrhea, hematochezia or melena : Reports: urinary frequency; Denies: flank pain Musc: Denies: neck pain Skin/Breast: Denies: rash Neuro: Denies: headache(s) Psych: Denies: anxiety or depression Endo: Denies: polyuria Jamie/Lymph: Denies: easy bruising All/Imm: Denies: urticaria Medications/Allergies Home Medications Medication Instructions Recorded Confirmed Last Taken Type aspirin 81 mg tablet,delayed 81 mg PO DAILY@0800 12/22/19 02/07/22 02/06/22 History release (Adult Aspirin Regimen) nitroglycerin 0.4 mg sublingual 0.4 mg SUBLINGUAL Q5M PRN #25 tab 01/18/20 02/07/22 Unknown Rx tablet (Nitrostat) acetaminophen 500 mg tablet 1,000 mg PO Q6H PRN 08/02/20 02/07/22 01/01/21 History (Tylenol Extra Strength) hydrocodone 5 mg-acetaminophen 325 1 tab PO Q8H PRN #12 tab 09/20/20 02/07/22 Unknown Rx mg tablet dapagliflozin 5 mg tablet (Farxiga) 5 mg PO DAILY #30 tab 0902/07/22 02/06/22 Rx potassium chloride 20 mEq 20 meq PO BID #180 tab 10/26/21 02/07/22 02/06/22 Rx tablet,extended release rivaroxaban 20 mg tablet 20 mg PO DAILY@0800 #30 tab 12/08/21 02/07/22 02/06/22 Rx ketorolac 10 mg tablet 10 mg PO TID PRN tab 12/12/21 02/07/22 Unknown History furosemide 80 mg tablet 80 mg PO BID #180 tab 12/21/21 02/07/22 02/06/22 Rx metolazone 2.5 mg tablet 2.5 mg PO DAILY #30 tab 02/03/22 02/07/22 02/06/22 Rx carvedilol 6.25 mg tablet 6.25 mg PO BID #180 tab 02/05/22 02/07/22 02/06/22 Rx isosorbide mononitrate 30 mg 30 mg PO DAILY@0800 #90 tab 02/05/22 02/07/22 02/06/22 Rx tablet,extended release 24 hr pravastatin 20 mg tablet 20 mg PO DAILY@0800 #90 tab 02/05/22 02/07/22 02/06/22 Rx sacubitril 49 mg-valsartan 51 mg 1 tab PO BID 30 Days #60 tab 02/05/22 02/07/22 02/06/22 Rx tablet (Entresto) Allergies Allergy/AdvReac Type Severity Reaction Status Date / Time oxycodone [From OxyContin] AdvReac Intermediate low bp Verified 02/07/22 08:16 PFSH Acute PFSH: Medical History Atrial fibrillation Chronic kidney disease CKD (chronic kidney disease) Coronary artery disease Essential hypertension Hyperlipidemia Left atrial thrombus Left ventricular dysfunction with preserved left ventricular ejection fraction Obesity Systolic CHF LVEF 25 to 30% by TTE 08/02/2020 Surgical History H/O two vessel coronary artery bypass graft Status post aorto-coronary artery bypass graft June 2019. 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 marjauna and cocaine Housing: House Marital status: Single Vitals/I&O/Wt Last Vital Signs Temp 97.5 F L 02/07/22 05:15 Pulse 72 02/07/22 10:00 Resp 24 H 02/07/22 10:00 BP 132/99 02/07/22 10:00 Pulse Ox 96 02/07/22 10:00 02/06/22 02/07/22 02/07/22 22:59 06:59 14:59 Intake Total 550 / 550 Balance 550 / 550 Weight last 48 hrs Weight 145.15 kg Physical Exam Narrative: General exam is a white male, no distress, reporting he was starting to feel a little bit better than on admission. HEENT: Pupils equally round. Oropharynx clear. Head is atraumatic and normocephalic Neck is supple no lymphadenopathy or thyromegaly Cardiovascular regular rate and rhythm, occasional premature beat, no murmur Lungs clear no wheezing or crackles Abdomen is soft obese nontender with positive bowel sounds. No obvious organomegaly exam is deferred Extremities no cyanosis clubbing or edema, cap refill brisk Skin no rash Neuro no obvious focal deficits. Data : 02/07/22 05:28 02/07/22 06:04 Other Labs: Chest x-ray without infiltrate. Postoperative changes EKG demonstrates atrial fibrillation, occasional paced complexes, some ST depression widespread and intraventricular conduction delay Past ejection fraction in July 2020 25 to 30% INR 1.99 ABG demonstrates pH 7.58, PCO2 of 46, PO2 of 64 Lactic acid 2.8 Magnesium 2.6 Calcium 10.1 LFTs normal Troponin 76 with repeat of 61 BNP 1214, down from 8182 on February 03 Recent TSH was normal A&P Assessment and plan (1) Acute kidney injury: Significant acute kidney injury, overlying chronic kidney disease, from overdiuresis. Avoid renal toxic medications such as anti-inflammatories. Note that he has ketorolac on his chronic medication list Hold diuretics currently, Entresto currently Check CK Bladder scan Close follow-up of renal function Status: Acute (2) Acute hypokalemia: Likely secondary to diuresis with metolazone and furosemide. Potassium currently being supplemented Repeat after supplementation completed Status: Acute (3) Elevated troponin: Appears to be chronically elevated Continue carvedilol Reinitiate Entresto when appropriate Status: Acute (4) Systolic CHF: No evidence of decompensation currently. Appears dehydrated. Add fluid back cautiously. Status: Acute (5) Coronary artery disease: Continue aspirin, statin, beta-tripp. Some ST disturbance upon admission but rate with shunt without any evidence of chest discomfort. Repeat EKG tomorrow, when potassium is corrected. Status: Acute Qualifiers: Coronary Disease-Associated Artery/Lesion type: bypass graft [place] vs. transplanted heart: [place] heart Associated angina: without angina Qualified Code(s): I25.810 - Atherosclerosis of coronary artery bypass graft(s) without angina pectoris Plan History of atrial fibrillation. Currently on rivaroxaban. Has pacema ker/defibrillator. Currently rate controlled. Elevated white blood cell count, urinary urgency. Likely from diuretic use but awaiting urinalysis. Full code Xarelto will suffice for DVT prophylaxis Attestations Medical Necessity Statement*: Will need less than 2 midnight stay for evaluation and treatment of hypokalemia, dehydration with acute kidney injury. Coding Level of Care Code Acute Patient Coordinator for [facility] Diagnoses Acute kidney injury N17.9 Acute hypokalemia E87.6 Elevated troponin R77.8 Systolic CHF I50.20 Coronary artery disease I25.810 Coronary Disease-Associated Artery/Lesion type: bypass graft [place] vs. transplanted heart: [place] heart Associated angina: without angina
[2022-02-07 11:02] LABS: Add Urine Microscopic? NO; Charge for UA Resulting for Rev
[2022-02-07 11:08] LABS: Urine Appearance Clear (CLEAR); Urine Color Yellow (Yellow)
[2022-02-07 11:09] LABS: Bilirubin Urine Neg (Negative); Blood Urine Neg (Negative); Glucose Urine UA 2+ (Normal); Ketones Urine Negative (Negative); Nitrate Urine Negative (Negative); Protein Urine Neg (Negative); pH Urine 5 (5-7)
[2022-02-07 11:10] LABS: Leukocyte Esterase Urine Negative (Negative); Urobilinogen Urine Norm (Negative)
[2022-02-07 11:23] LABS: Glucose Point of Care 122 mg/dL (70-110)
[2022-02-07 11:23] LABS: Creatine Phosphokinase 168 U/L (39-308)
--- NOTE | 2022-02-07 11:26 | ECG_ITS ---
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 Measurements Intervals [place] Rate: 78 P: [place]: QRS: 21 QRSD: 114 T: 166 QT: 429 QTc: 490 Interpretive Statements Atrial fibrillation with aberrant conduction and PVCs ELECTRONIC VENTRICULAR PACEMAKER -- CONTOUR ANALYSIS BASED ON INTRINSIC RHYTHM MODERATE INTRAVENTRICULAR CONDUCTION DELAY [110+ ms QRS DURATION] ST DEVIATION AND MODERATE T-WAVE ABNORMALITY, CONSIDER LATERAL ISCHEMIA [-0.1+ mV T-WAVE IN I/aVL/V5/V6] ST DEVIATION AND MODERATE T-WAVE ABNORMALITY, CONSIDER INFERIOR ISCHEMIA [-0.1+ mV T-WAVE IN II/aVF] Compared to ECG 02/07/2022 07:21:56 T-wave abnormality still present Possible ischemia still present Electronically Signed On 02-08-2022 10:59:18 CDT by Raghu Emery M.D. [email or web address] Service and Bookkeepingselect [facility].ONOFFMIX (?)/store/OM/[id number]
[2022-02-07] MEDS: sodium chloride 0.9% 1,000 ML 50 ML IV (11:45)
[2022-02-07 11:56] LABS: Troponin 5 6HR 57.74 ng/L (0-15)
[2022-02-07 11:58] LABS: Lactic Acid level (Lactate) 1.9 mmol/L (0.5-2.2)
[2022-02-07 16:43] LABS: Glucose Point of Care 134 mg/dL (70-110)
[2022-02-07 18:52] LABS: Blood Urea Nitrogen 38 mg/dL (6-20); Calcium 9.1 mg/dL (8.5-10.5); Carbon Dioxide 30 mmol/L (22-29); Chloride 92 mmol/L (98-107); Glomerular Filtration Rate 37.3 mL/min (90-130); Glucose 144 mg/dL (65-115); Osmolality Calculated 296 mOsm/kg (285-295); Sodium 137 mmol/L (136-145)
[2022-02-07] MEDS: lidocaine 1% 5 ML in potassium chloride premix 100 ML 25 ML IV (20:50)
[2022-02-07] MEDS: potassium chloride ER 20 mEq Tablet 40 MEQ PO (20:51)
[2022-02-07] MEDS: carvedilol 6.25 mg Tablet PO (21:00)
[2022-02-08] VITALS (32 sets, daily range): BP systolic 108–140; BP diastolic 74–96; PULSE 64–97; RESP 12–34; TEMP 36.5–37.1; O2SAT 86–98
[2022-02-08 02:11] LABS: Glucose Point of Care 121 mg/dL (70-110)
--- NOTE | 2022-02-08 02:12 | PC.NURSE ---
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 pt verbalized that this happens at home often during the night. No change on tele. VSS- temp: 98.1, HR: 79, BP: 114/74, RR:18, BG 121. Ice water and cool wash cloth offered. Will continue to monitor.
[2022-02-08] MEDS: acetaminophen 325 mg Tablet 650 MG PO (05:49)
[2022-02-08] MEDS: sodium chloride 0.9% 1,000 ML 50 ML IV (05:50)
[2022-02-08 06:15] LABS: Basophils % 0.2 %; Eosinophils # 0.2 10^3/uL (0.0-0.8); Eosinophils % 1.5 %; Hematocrit 49.9 % (42.0-52.0); Lymphocytes # 2.2 10^3/uL (0.8-4.8); Mean Corpuscular HGB Conc 32.1 g/dL (30.0-36.0); Mean Corpuscular Hemoglobin 31.6 pg (28.0-34.0); Mean Corpuscular Volume 98.4 fl (80-94); Mean Platelet Volume 10.4 fL (7.4-10.4); Monocytes # 1.2 10^3/uL (0.2-0.9); Neutrophils # 8.49 10^3/uL (1.8-7.7); Neutrophils % 69.7 %; Nucleated Red Blood Cells % 0 %; Platelet Count 291 10^3/cmm (130-400); Red Blood Count 5.07 10^6/uL (4.1-5.3); White Blood Count 12.2 10^3/uL (4.0-10.0)
[2022-02-08 06:41] LABS: Alanine Aminotransferase 20 U/L (0-41); Albumin Level 3.3 g/dL (3.5-5.2); Alkaline Phosphatase 65 IU/L (40-130); Anion Gap 14.8 (5-19); Aspartate Amino Transferase 14 U/L (0-40); Blood Urea Nitrogen 33 mg/dL (6-20); Carbon Dioxide 32 mmol/L (22-29); Chloride 97 mmol/L (98-107); Globulin 3.8 g/dL (1.3-4.6); Glomerular Filtration Rate 42.4 mL/min (90-130); Glucose 102 mg/dL (65-115); Magnesium 2.5 mg/dL (1.7-2.3); Osmolality Calculated 299 mOsm/kg (285-295); Sodium 141 mmol/L (136-145); Total Bilirubin 0.5 mg/dL (0.15-1.2); Total Protein 7.1 g/dL (6.6-8.7)
--- NOTE | 2022-02-08 07:00 | ECG_ITS ---
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 Measurements Intervals [place] Rate: 78 P: [place]: QRS: -81 QRSD: 202 T: 101 QT: 447 QTc: 509 Interpretive Statements ELECTRONIC VENTRICULAR PACEMAKER Atrial fibrillation ABNORMAL RHYTHM ECG Compared to ECG 02/07/2022 11:31:04 Intraventricular conduction delay no longer present T-wave abnormality no longer present Possible ischemia no longer present Electronically Signed On 02-08-2022 11:05:35 CDT by Raghu Emery M.D. [id number]
[2022-02-08 07:09] LABS: Potassium 2.8 mmol/L (3.5-5.1)
[2022-02-08] MEDS: lidocaine 1% 5 ML in potassium chloride premix 100 ML 25 ML IV ×2 (08:04→12:38)
[2022-02-08] MEDS: rivaroxaban 10 mg Tablet 20 MG PO (08:07)
[2022-02-08] MEDS: isosorbide mononitrate ER 30 mg Tablet PO (08:08)
[2022-02-08] MEDS: aspirin 81 mg EC Tablet PO (08:08)
[2022-02-08] MEDS: potassium chloride ER 20 mEq Tablet 40 MEQ PO ×2 (08:08→20:43)
[2022-02-08] MEDS: atorvastatin 40 mg Tablet 20 MG PO (08:09)
[2022-02-08] MEDS: carvedilol 6.25 mg Tablet PO ×2 (08:12→20:43)
[2022-02-08 10:08] LABS: Glucose Point of Care 124 mg/dL (70-110)
--- NOTE | 2022-02-08 10:17 | ECG_ITS ---
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 Measurements Intervals [place] Rate: 78 P: [place]: QRS: 34 QRSD: 106 T: 177 QT: 424 QTc: 485 Interpretive Statements ATRIAL FIBRILLATION WITH ABERRANT CONDUCTION OR VENTRICULAR PREMATURE COMPLEXES ST DEVIATION AND MODERATE T-WAVE ABNORMALITY, CONSIDER LATERAL ISCHEMIA [-0.1+ mV T-WAVE IN I/aVL/V5/V6] Demand pacemaker present, ventricular Compared to ECG 02/08/2022 06:19:48 Ventricular premature complex(es) now present Aberrant conduction of supraventricular beat(s) now present T-wave abnormality now present Possible ischemia now present Electronically Signed On 02-08-2022 10:57:01 CDT by Raghu Emery M.D. [id number]
--- NOTE | 2022-02-08 10:21 | USCV_ITS ---
Gildardo Morton Age: 51 Gender: M : 1970 Exam Date: 02/08/2022 10:35 Ordering Phys: Brian Latif MD Technologist: Hunter Peraza Exam Location: [facility] [place] Indication: hx of cad BP: 112 / 78 HR: 67 Rhythm: Sinus Technical Quality: MEASUREMENTS (Male / Female) Normal Values 2D ECHO LV Diastolic Diameter PLAX 6.3 cm 4.2 - 5.9 / 3.9 - 5.3 cm LV Systolic Diameter PLAX 5.7 cm IVS Diastolic Thickness 1.3 cm 0.6 - 1.0 / 0.6 - 0.9 cm IVS Systolic Thickness 1.3 cm LVPW Diastolic Thickness 1.4 cm 0.6 - 1.0 / 0.6 - 0.9 cm LVPW Systolic Thickness 1.6 cm LVOT Diameter 2.1 cm LV Ejection Fraction 2D Teich 22.3 % LV Ejection Fraction MOD 2C 29.6 % LV Ejection Fraction 2C AL 28.6 % LA Diameter 5.2 cm M-MODE Aortic Annulus Diameter 4.0 cm LA Ao Ratio MM 1.3 MV E Point Septal Separation 1.9 cm DOPPLER AV Peak Velocity 151.7 cm/s LVOT Peak Velocity 75.7 cm/s AV Area Cont Eq vti 1.9 cm squared AV Area Cont Eq pk 1.8 cm squared MV Area PHT 5.0 cm squared Mitral E to A Ratio 1.5 MV E' Velocity 112.0 cm/s TR Peak Velocity 208.3 cm/s TR Peak Gradient 17.4 mmHg Right Atrial Pressure 8.0 mmHg Pulmonary Artery Systolic Pressu 25.4 mmHg PV Peak Velocity 110.0 cm/s FINDINGS Left Ventricle Diffuse hypokinesia of the left ventricle with ejection fraction of around 25%. Right Ventricle Possibly of normal size and ejection fraction.catheter/pacemaker wire visualized in the right ventricle. Right Atrium Catheter/pacemaker wire in the right atrial cavity. Left Atrium Mildly increased left atrial size. Mitral Valve Mild mitral annular calcification. Aortic Valve No gross abnormalities noted Tricuspid Valve Tricuspid valve not well visualized. Pulmonic Valve Pulmonic valve not well visualized. Pericardium No pericardial effusion. Aorta Normal aortic annulus size. CONCLUSIONS Diffuse hypokinesia of the left ventricle with ejection fraction of 25%. Mildly increased left atrial size. Pacemaker wire is noted in the right atrium and right ventricle Mild mitral annular calcification. There is no pericardial effusion. Technically difficult study because of poor ultrasonic window Compared to the study from 08/02/2020, there may not be a significant change in the LV ejection fraction Dr Oliver Jones MD FACC (Electronically Signed) Final Date: 08 Feb 2022 20:55 S
[2022-02-08] MEDS: ondansetron 2 mg/ML SDV 2 mL 4 MG IVP (10:27)
--- NOTE | 2022-02-08 10:33 | PC.CHAP ---
Pastoral Care Encounter/Spiritual Assessment Type of Contact [] Declined bench chemist visit [] Patient/Family/Request visit [] Outpatient visit [] Follow-up visit [] Physician referral [] Code/Alert [] Routine visit [] Staff referral [] Actively dying [] Patient sleeping [] Family support [] [] Out of room [] Palliative care [] [] Receiving care in room [] Pre-surgical visit [] Trauma [] Long length of stay [] ICU visit [x] Other: under staff care unable to communicate Relational/Emotional Strength [] Patient feels connected with others/family/visitors/staff [] Distress [] Loneliness/isolation [] Abandonment Spirituality of Patient [] Person of Kyra [] Attends Presybeterian of their Kyra [] Believes in Prayer [] Reads Bible or Anabaptism materials [] There are Spiritual issues to be addressed Manager Gaming Interventions [] Prayer [] Active listening [] Non-anxious presence [] Spiritual/emotional support [] Crisis/trauma care [] Spiritual counseling [] Bereavement support [] Provided bereavement packet [] Provided Bible/devotional materials [] Provided toy/stuffed animal, coloring book to patient or family member [] Provided Communion [] Anointing/[place] [] Salvation [] Completed spiritual assessment [] Other: Impact on Illness or Injury [] Angry [] Fearful [] Anxious [] Often cries [] Exhaustion [] Unable to work [] Unable to attend lutheran [] Unable to walk/stand [] Unable to read [] Unable to drive [] Unable to eat/drink [] Unable to sleep [] Unable to be with family [] Patient intubated [] Other: Summary under staff care unable to communicate Time spent with patient 5 mins
--- NOTE | 2022-02-08 10:43 | P.PN_ITS ---
Subjective Subjective: Gildardo reports he had an episode last night of feeling very woozy, short of breath. He reports he has another episode currently. He is a little bit nauseated. No chest discomfort. He was having some of these episodes even prior to his admission in the last several weeks. Medications: Reviewed: Yes Vitals/I&O/Wt Last Vital Signs Temp 97.7 F 02/08/22 07:36 Pulse 78 02/08/22 07:36 Resp 14 02/08/22 07:36 BP 122/80 02/08/22 07:36 Pulse Ox 96 02/08/22 07:36 02/07/22 02/08/22 02/08/22 22:59 06:59 14:59 Intake Total 580 / 680 1309.167 / 1989.167 230 / 230 Output Total 940 / 940 350 / 1290 Balance -360 / -260 959.167 / 699.167 230 / 230 Weight last 48 hrs Weight 145.15 kg Physical Exam Narrative: General exam is a white male, no obvious respiratory distress Neck is supple lymphadenopathy or thyromegaly Cardiovascular regular rate and rhythm, occasional premature beat, no murmur Lungs clear no wheezing or crackles Abdomen is soft obese nontender with positive bowel sounds. No obvious organomegaly exam is deferred Extremities no cyanosis clubbing or edema, cap refill brisk Skin no rash Neuro no obvious focal deficits. Data : 02/08/22 05:11 02/08/22 05:11 A&P Assessment and plan (1) Acute kidney injury: Significant acute kidney injury, overlying chronic kidney disease, from overdiuresis. Avoid renal toxic medications such as anti-inflammatories. Note that he has ketorolac on his chronic medication list Hold diuretics currently, Entresto currently CK was checked and not elevated. Renal function is improved. Status: Acute (2) Acute hypokalemia: Likely secondary to diuresis with metolazone and furosemide. Potassium still low today. Supplementing again. Magnesium not low Status: Acute (3) Elevated troponin: Appears to be chronically elevated Continue carvedilol Reinitiate Entresto when appropriate He is having some episodes of diaphoresis in the hospital. Will have cardiology consult. Check echo. Status: Acute (4) Systolic CHF: No evidence of decompensation currently. Check echocardiogram. Status: Acute (5) Coronary artery disease: Continue aspirin, statin, beta-tripp. Some ST disturbance upon admission but rate with shunt without any evidence of chest discomfort. Cardiology consult entered. Status: Acute Qualifiers: Coronary Disease-Associated Artery/Lesion type: bypass graft [place] vs. transplanted heart: [place] heart Associated angina: without angina Qualified Code(s): I25.810 - Atherosclerosis of coronary artery bypass graft(s) without angina pectoris Plan History of atrial fibrillation. Currently on rivaroxaban. Has pacemaker/defibrillator. Currently rate controlled. Elevated white blood cell count, urinary urgency. No evidence of UTI/infection. Overall improved. Full code Xarelto will suffice for DVT prophylaxis Attestations Medical Necessity Statement*: Change to regular admission. He is still quite hypokalemic and having episodes of diaphoresis. Needs further supplementation. Needs to have cardiology evaluate and echo ordered. Coding Level of Care Code Acute Power Tool Repairer for [facility] Erica Diagnoses Acute kidney injury N17.9 Acute hypokalemia E87.6 Elevated troponin R77.8 Systolic CHF I50.20 Coronary artery disease I25.810 Coronary Disease-Associated Artery/Lesion type: bypass graft [place] vs. transplanted heart: [place] heart Associated angina: without angina
--- NOTE | 2022-02-08 11:05 | PC.NURSE ---
10:[address] Latif of pt complaining of feeling woozy , sob, and diaphoretic. Pt was not having pain, BP 112/78, HR 72, and blood glucose of 124. Received order for an EKG and to give Dr. Salomon gilman to bedside to assess pt.
[2022-02-08] MEDS: perflutren protein-a microsphr 0.22 mg/mL SDV 3 mL IV (11:38)
--- NOTE | 2022-02-08 13:37 | P.CONIM_ITS ---
Providers/Reason For Consult Consulting Physician/Specialty*: SHWETA Jones MD/cardiology Reason for Consult*: Patient with history of status post ICD implantation, chronic systolic heart failure, presenting with recurrent episodes of near syncope Requesting Physician: jud Latif Attending Physician: Brian Latif MD Primary Care Provider: Vale Kwon MD History of Present Illness History of Present Illness Gildardo Morton is a 51 year old male with a history of coronary artery disease, status post coronary artery bypass surgery, status post ICD implantation, history of chronic systolic heart failure, he is presenting with complaints of syncope/near syncopal episode. This patient apparently has been in his baseline state of health up until yesterday evening when he started having sweating, dizziness and generalized weakness. He called his brother on the phone. While talking to him, he might have passed out for a minute or 2, as per his brother since he stopped talking, while being on the phone. He was brought to the hospital for this complaint. He was found to be hyperkalemic with some evidence of cardiac decompensation. He was started on potassium supplement. This morning, while being in the hospital, he had another episode of sweating and dizziness. He did not have any passing out spell. It might have lasted for couple of minutes and then gradually subsided. He had a more or less similar episode couple of times in the recent past. No definite visibility minutes. No associated seizure activities. He has the profuse sweating and then feels like going to pass out. It is not very clear whether he has had any complete loss of consciousness or not. Prior to his open heart surgery, he had couple of episodes of cardiac arrest. Also while undergoing the open heart surgery, he had a few cardiac arrest as per the patient. His LV ejection fraction was 25 to 30% by echocardiogram in 2020. He had the ICD implantation at that time. He is on GDMT for the congestive hear t failure. Patient also is known to have chronic atrial fibrillation. He is on long-term oral anticoagulation. He has a history of hypertension and dyslipidemia. Denies any fever or chills. No cough. His potassium level is 2.8. This is being corrected. Review of Systems Narrative: CONSTITUTIONAL: No fever or chills. CONSTITUTIONAL: No fever or chills. EYES: No blurring of vision or other visual disturbances lately. ENT: No hoarseness of voice, auditory disturbances or sore throat. CARDIOVASCULAR: As mentioned above. RESPIRATORY: No significant cough. GASTROINTESTINAL: No hematemesis or melena. GENITOURINARY: No dysuria or hematuria. INTEGUMENTARY: No skin rashes or history of skin cancer. NEURO: Syncopal/near syncopal episodes as mentioned above PSYCHIATRIC: No history of psychosis or major depression. HEMATOLOGIC: Patient is on long-term oral anticoagulation ENDOCRINE: No history of polyuria or polydipsia. MUSCULOSKELETAL: No recent joint pain or swelling. ALLERGY/IMMUNOLOGY: As mentioned above. Medications/Allergies Home Medications Medication Instructions Recorded Confirmed Last Taken Type aspirin 81 mg tablet,delayed 81 mg PO DAILY@0800 12/22/19 02/07/22 02/06/22 History release (Adult Aspirin Regimen) nitroglycerin 0.4 mg sublingual 0.4 mg SUBLINGUAL Q5M PRN #25 tab 01/18/20 02/07/22 Unknown Rx tablet (Nitrostat) acetaminophen 500 mg tablet 1,000 mg PO Q6H PRN 08/02/20 02/07/22 01/01/21 History (Tylenol Extra Strength) hydrocodone 5 mg-acetaminophen 325 1 tab PO Q8H PRN #12 tab 09/20/20 02/07/22 Unknown Rx mg tablet dapagliflozin 5 mg tablet (Farxiga) 5 mg PO DAILY #30 tab 07/05/21 02/07/22 02/06/22 Rx potassium chloride 20 mEq 20 meq PO BID #180 tab 10/26/21 02/07/22 02/06/22 Rx tablet,extended release rivaroxaban 20 mg tablet 20 mg PO DAILY@0800 #30 tab 12/08/21 02/07/22 02/06/22 Rx ketorolac 10 mg tablet 10 mg PO TID PRN tab 12/12/21 02/07/22 Unknown History furosemide 80 mg tablet 80 mg PO BID #180 tab 12/21/21 02/07/22 02/06/22 Rx metolazone 2.5 mg tablet 2.5 mg PO DAILY #30 tab 02/03/22 02/07/22 02/06/22 Rx carvedilol 6.25 mg tablet 6.25 mg PO BID #180 tab 02/05/22 02/07/22 02/06/22 Rx isosorbide mononitrate 30 mg 30 mg PO DAILY@0800 #90 tab 02/05/22 02/07/22 02/06/22 Rx tablet,extended release 24 hr pravastatin 20 mg tablet 20 mg PO DAILY@0800 #90 tab 02/05/22 02/07/22 02/06/22 Rx sacubitril 49 mg-valsartan 51 mg 1 tab PO BID 30 Days #60 tab 02/05/22 02/07/22 02/06/22 Rx tablet (Entresto) Allergies Allergy/AdvReac Type Severity Reaction Status Date / Time oxycodone [From OxyContin] AdvReac Intermediate low bp Verified 02/07/22 08:16 Current Medications Generic Name Dose Route Start Last Admin Trade Name Ezekielq PRN Reason Stop Dose Admin Aspirin 81 mg 02/08/22 08:00 02/08/22 08:08 Aspirin 81 Mg Ec Tablet PO 81 mg DAILY@0800 ELLIE Administration Atorvastatin Calcium 20 mg 02/08/22 08:00 02/08/22 08:09 Atorvastatin 40 Mg Tablet PO 20 mg DAILY@0800 ELLIE Administration Carvedilol 6.25 mg 02/07/22 21:00 02/08/22 08:12 Carvedilol 6.25 Mg Tablet PO 6.25 mg BID@0900,2100 ELLIE Administration Lidocaine HCl 5 ml/ Potassium 105 mls @ 25 mls/hr 02/08/22 07:30 02/08/22 12:38 Chloride IV 02/08/22 15:29 25 mls/hr Q4H ELLIE Administration Isosorbide Mononitrate 30 mg 02/08/22 08:00 02/08/22 08:08 Isosorbide Mononitrate Er 30 Mg Tablet PO 30 mg DAILY@0800 ELLIE Administration Ondansetron HCl 4 mg 02/07/22 11:00 02/08/22 10:27 Ondansetron 2 Mg/Ml Sdv 2 Ml IVP 4 mg Q6H PRN Administration vomiting, or N/V if npo Rivaroxaban 20 mg 02/08/22 08:00 02/08/22 08:07 Rivaroxaban 10 Mg Tablet PO 20 mg DAILY@0800 ELLIE Administration PFSH Acute PFSH: Medical History Atrial fibrillation Chronic kidney disease CKD (chronic kidney disease) Coronary artery disease Essential hypertension Hyperlipidemia Left atrial thrombus Left ventricular dysfunction with preserved left ventricular ejection fraction Obesity Systolic CHF LVEF 25 to 30% by TTE 08/02/2020 Surgical History H/O two vessel coronary artery bypass graft Status post aorto-coronary artery bypass graft June 2019. 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 marjauna and cocaine Housing: House Marital status: Single Vitals/I&O/Wt Last Vital Signs Temp 98.7 F 02/08/22 11:26 Pulse 66 02/08/22 11:26 Resp 15 02/08/22 11:26 BP 108/88 02/08/22 11:26 Pulse Ox 98 02/08/22 11:26 02/07/22 02/08/22 02/08/22 22:59 06:59 14:59 Intake Total 580 / 680 1309.167 / 1989.167 572 / 572 Output Total 940 / 940 350 / 1290 Balance -360 / -260 959.167 / 699.167 572 / 572 Weight last 48 hrs Weight 320 lb Physical Exam Narrative: GENERAL: The patient is alert and oriented times three. Not in any acute distress. Morbidly obese HEENT: No significant pallor, icterus or lymphadenopathy. The pupils are reactant to light. Oral cavity: There are no mucous membrane lesions. Funduscopic examination: The disk margins appear to be sharp with no exudates or hemorrhages. [] NECK: Trachea appears to be central. No masses noted. No JVD or thyromegaly appreciated. No carotid bruit. [] RESPIRATORY: Chest is symmetrical. No intercostals muscle retraction or any accessory muscle activation. There is no chest wall tenderness. Breath sounds are heard bilaterally. No rales or rhonchi heard. No evidence of any consolidation. [] BREASTS: Deferred. [] HEART: The PMI could not be palpated. No palpable precordial events. S1 and S2 are normal. No S3 or S4 heard. No pericardial rub or any click heard. Short systolic murmur in the mitral area. ABDOMEN: No vessel pulsations or distention. No tenderness. No organomegaly appreciated. No abdominal bruit. Bowel sounds are normally heard. [] : Deferred. RECTAL: Deferred. LYMPHATIC: No lymphadenopathy noted in the neck or groin. EXTREMITIES: No edema or cyanosis. No clubbing. The pulses are symmetrical bilaterally. The radial, femoral, dorsalis pedis and the posterior tibial pulses are palpated and found to be in good volume and amplitude. MUSCULOSKELETAL: Gait is normal. There is no joint deformity or swelling noted. No joint tenderness or any effusion. The shoulder and hip joints appear to have normal range of motion. SKIN: There are no significant scars or skin rash noted. NEUROPSYCHIATRIC: The patient is alert and oriented x3. Appears to be in a good mood. The higher functions are grossly within normal limits. No tremors or rigidity noted. Data : 02/08/22 05:11 02/08/22 05:11 Other Labs: Laboratory Last Values WBC 12.2 10^3/uL (4.0-10.0) H 02/08/22 05:11 RBC 5.07 10^6/uL (4.1-5.3) 02/08/22 05:11 Hgb 16.0 g/dL (11.7-16.6) 02/08/22 05:11 Hct 49.9 % (42.0-52.0) 02/08/22 05:11 MCV 98.4 fl (80-94) H 02/08/22 05:11 MCH 31.6 pg (28.0-34.0) 02/08/22 05:11 MCHC 32.1 g/dL (30.0-36.0) 02/08/22 05:11 RDW 15.0 % (12.1-15.1) 02/08/22 05:11 Plt Count 291 10^3/cmm (130-400) 02/08/22 05:11 MPV 10.4 fL (7.4-10.4) 02/08/22 05:11 Neut % (Auto) 69.7 % 02/08/22 05:11 Lymph % (Auto) 18.0 % 02/08/22 05:11 [place] % (Auto) 10.0 % 02/08/22 05:11 Eos % (Auto) 1.5 % 02/08/22 05:11 Baso % (Auto) 0.2 % 02/08/22 05:11 Neut # (Auto) 8.49 10^3/uL (1.8-7.7) H 02/08/22 05:11 Lymph # (Auto) 2.2 10^3/uL (0.8-4.8) 02/08/22 05:11 [place] # (Auto) 1.2 10^3/uL (0.2-0.9) H 02/08/22 05:11 Eos # (Auto) 0.2 10^3/uL (0.0-0.8) 02/08/22 05:11 Baso # (Auto) 0.0 10^3/uL (0.0-0.1) 02/08/22 05:11 Nucleated RBC % (auto) 0 % 02/08/22 05:11 Nucleated RBCs # 0.0 /100WBC 02/08/22 05:11 PT 22.90 SECONDS (12.1-14.9) H 02/07/22 06:04 INR 1.99 (0.8-1.2) H 02/07/22 06:04 Specimen Type Arterial 02/07/22 06:03 Sample Site Radial, right 02/07/22 06:03 ABG pH 7.58 (7.35-7.45) H* 02/07/22 06:03 ABG pCO2 46.2 mmHg (35-45) H 02/07/22 06:03 ABG pO2 64.4 mmHg (80.0-100.0) L 02/07/22 06:03 ABG HCO3 43.5 mmol/L (22-26) H 02/07/22 06:03 ABG O2 Saturation 93.1 02/07/22 06:03 ABG Base Excess 18.6 mmol/L (-2.0-2.0) H 02/07/22 06:03 Gurmeet Test Pos 02/07/22 06:03 A-a O2 Gradient 3.8 mmHg (5-10) L 02/07/22 06:03 Hematocrit 52.9 % (42-52) H 02/07/22 06:03 Hgb O2 Saturation 91.7 % (95-100) L 02/07/22 06:03 Carboxyhemoglobin 1.0 %THgb (0.4-20.1) 02/07/22 06:03 Methemoglobin 0.5 % (0.4-1.5) 02/07/22 06:03 Total Hemoglobin 17.3 g/dL (14-18) 02/07/22 06:03 Sodium 143.0 mmol/L (131-143) 02/07/22 06:03 Potassium 2.3 mmol/L (3.5-5.0) L 02/07/22 06:03 Glucose 146.0 mg/dL (70-115) H 02/07/22 06:03 Ionized Calcium 1.1 mmol/L (1.1-1.4) 02/07/22 06:03 O2 Delivery Device Nc 02/07/22 06:03 Accounting Manager Cpa ID Marlon 02/07/22 06:03 Sodium 141 mmol/L (136-145) 02/08/22 05:11 Potassium 2.8 mmol/L (3.5-5.1) L* 02/08/22 05:11 Chloride 97 mmol/L (98-107) L 02/08/22 05:11 Carbon Dioxide 32 mmol/L (22-29) H 02/08/22 05:11 Anion Gap 14.8 (5-19) 02/08/22 05:11 BUN 33 mg/dL (6-20) H 02/08/22 05:11 Creatinine 1.7 mg/dL (0.7-1.2) H 02/08/22 05:11 GFR Calculation 42.4 mL/min (90-130) L 02/08/22 05:11 Glucose 102 mg/dL (65-115) 02/08/22 05:11 POC Glucose 124 mg/dL (70-110) H 02/08/22 10:04 Calculated Osmolality 299 mOsm/kg (285-295) H 02/08/22 05:11 Lactic Acid 2.8 mmol/L (0.5-2.2) H 02/07/22 07:54 Lactic Acid (Sepsis) 1.9 mmol/L (0.5-2.2) 02/07/22 11:15 Calcium 9.0 mg/dL (8.5-10.5) 02/08/22 05:11 Magnesium 2.5 mg/dL (1.7-2.3) H 02/08/22 05:11 Magnesium Cancelled 02/08/22 05:11 Total Bilirubin 0.5 mg/dL (0.15-1.2) 02/08/22 05:11 AST 14 U/L (0-40) 02/08/22 05:11 ALT 20 U/L (0-41) 02/08/22 05:11 Alkaline Phosphatase 65 IU/L (40-130) 02/08/22 05:11 Creatine Kinase 168 U/L (39-308) 02/07/22 06:04 Troponin T Baseline 76 ng/L (0-15) H 02/07/22 06:04 Troponin T 120 Minute 61.20 ng/L (0-15) H 02/07/22 07:54 Delta Troponin T -14.80 ABS# (0-10) L 02/07/22 07:54 Troponin T Hi Sens 6Hr 57.74 ng/L (0-15) H 02/07/22 11:15 Troponin T Hi Sens 6Hr Delta -18.26 ng/L (0-12) L 02/07/22 11:15 NT-Pro-B Natriuret Pep 1214 pg/mL (0-125) H 02/07/22 06:04 Total Protein 7.1 g/dL (6.6-8.7) 02/08/22 05:11 Albumin 3.3 g/dL (3.5-5.2) L 02/08/22 05:11 Globulin 3.8 g/dL (1.3-4.6) 02/08/22 05:11 Urine Color Yellow (Yellow) 02/07/22 10:35 Urine Appearance Clear (CLEAR) 02/07/22 10:35 Urine pH 5 (5-7) 02/07/22 10:35 Ur Specific [place] 1.010 (1.005-1.030) 02/07/22 10:35 Urine Protein Neg (Negative) 02/07/22 10:35 Urine Glucose (UA) 2+ (Normal) H 02/07/22 10:35 Urine Ketones Negative (Negative) 02/07/22 10:35 Urine Blood Neg (Negative) 02/07/22 10:35 Urine Nitrate Negative (Negative) 02/07/22 10:35 Urine Bilirubin Neg (Negative) 02/07/22 10:35 Urine Urobilinogen Norm mg/dL (Negative) 02/07/22 10:35 Ur Leukocyte Esterase Negative (Negative) 02/07/22 10:35 Myocardial perfusion imaging: My impression: 03/30/2021 1.? Myocardial perfusion imaging revealing moderate to large areas of ?decreasesed uptake in the inferior, inferolateral, anterolateral, anterior and ?apical segments with some subtle areas of reversibility in the anterior and ?anterolateral regions, suggesting myocardial scarring in the distribution of ?all the 3 coronary arteries-predominantly in distribution of the circumflex and ?the left anterior descending artery with subtle areas of possible lo- ?infarction ischemia. ?2.? Slightly diminished LV ejection fraction of 49%. ?3.? Wall motion normalities as mentioned above. ?4.? Moderately dilated LV cavity with an end-systolic volume of 104 ml ?No similar previous studies are available for comparison. EKG 1: My Interpretation: Atrial fibrillation with demand V paced rhythm and frequent PVCs. Nonspecific ST-T changes. EKG computer-generated impression: Chest X-Ray 02/07/22 05:26 IMPRESSION: 1. Stable cardiomegaly. 2. Atherosclerotic vascular disease and prior CABG. A&P Assessment and plan (1) Near syncope: The etiology of ventricular arrhythmia causing this is a consideration. Near syncope is not clear at this point. Coronary ischemia causing this also is a consideration. We will go ahead and do the ICD interrogation to look for any significant arrhythmias on the telemetry of the device. Because of the hypokalemia patient is at a high risk for malignant arrhythmias. He needs to be closely monitored on telemetry. Status: Acute (2) Acute hypokalemia: The hyperkalemia is being corrected. Will be checking electrolytes in the morning Status: Acute (3) Atherosclerosis of coronary artery of [place] heart without angina pectoris: The patient currently has no chest pain. He had a myocardial perfusion imaging in March of last year. He did not have any significant ischemia at that time. We may consider repeating a myocardial perfusion imaging, after reviewing device interrogation findings Status: Acute (4) Ischemic cardiomyopathy: Patient has evidence of mild decompensation. He will be carefully treated with diuretics. Status: Acute (5) Acute on chronic congestive heart failure: As mentioned above Status: Acute (6) Chronic kidney disease, stage 3b: The kidney function appears to be stable. We will continue on the current treatment measures Status: Acute Plan Based on the clinical progress and the results of the above, further recommendations will be made. Thank you for the opportunity to evaluate this patient make these recommendations Consult Attestations Medical Necessity Statement: Patient requires continued hospital stay for close monitoring and further management Coding Level of Care Code Acute Regulatory Submissions Associate for Mable Maldonado History Detailed Exam Detailed Medical Decision Making High Complexity Diagnoses Acute hypokalemia E87.6 Acute on chronic congestive heart failure I50.9 Chronic kidney disease, stage 3b N18.32 Atherosclerosis of coronary artery of unga heart without angina pectoris I25.10 Near syncope R55 Ischemic cardiomyopathy I25.5
[2022-02-08 19:28] LABS: Blood Urea Nitrogen 34 mg/dL (6-20); Calcium 8.8 mg/dL (8.5-10.5); Carbon Dioxide 31 mmol/L (22-29); Chloride 97 mmol/L (98-107); Glomerular Filtration Rate 39.7 mL/min (90-130); Glucose 108 mg/dL (65-115); Osmolality Calculated 296 mOsm/kg (285-295); Sodium 139 mmol/L (136-145)
[2022-02-08 19:31] LABS: Anion Gap 14.6 (5-19); Potassium 3.6 mmol/L (3.5-5.1)
[2022-02-09] VITALS (8 sets, daily range): BP systolic 129–130; BP diastolic 83–96; PULSE 67–86; RESP 13–19; TEMP 36.4–36.8; O2SAT 95
[2022-02-09 05:04] LABS: Basophils % 0.4 %; Eosinophils # 0.3 10^3/uL (0.0-0.8); Eosinophils % 2.5 %; Hematocrit 49.9 % (42.0-52.0); Hemoglobin 16.4 g/dL (11.7-16.6); Lymphocytes # 1.9 10^3/uL (0.8-4.8); Lymphocytes % 17.7 %; Mean Corpuscular HGB Conc 32.9 g/dL (30.0-36.0); Mean Corpuscular Hemoglobin 31.8 pg (28.0-34.0); Mean Corpuscular Volume 96.9 fl (80-94); Mean Platelet Volume 10.5 fL (7.4-10.4); Monocytes % 9.4 %; Neutrophils # 7.42 10^3/uL (1.8-7.7); Neutrophils % 69.5 %; Nucleated Red Blood Cells % 0 %; Platelet Count 252 10^3/cmm (130-400); Red Blood Count 5.15 10^6/uL (4.1-5.3); Red Cell Distribution Width 14.9 % (12.1-15.1); White Blood Count 10.7 10^3/uL (4.0-10.0)
[2022-02-09 05:29] LABS: Alanine Aminotransferase 19 U/L (0-41); Albumin Level 3.5 g/dL (3.5-5.2); Alkaline Phosphatase 63 IU/L (40-130); Anion Gap 15.9 (5-19); Aspartate Amino Transferase 17 U/L (0-40); Blood Urea Nitrogen 33 mg/dL (6-20); Calcium 8.8 mg/dL (8.5-10.5); Carbon Dioxide 29 mmol/L (22-29); Chloride 98 mmol/L (98-107); Glomerular Filtration Rate 42.4 mL/min (90-130); Glucose 89 mg/dL (65-115); Magnesium 2.4 mg/dL (1.7-2.3); Osmolality Calculated 295 mOsm/kg (285-295); Potassium 3.9 mmol/L (3.5-5.1); Sodium 139 mmol/L (136-145); Total Bilirubin 0.5 mg/dL (0.15-1.2); Total Protein 6.5 g/dL (6.6-8.7)
--- NOTE | 2022-02-09 06:59 | PM.PN ---
Subjective Subjective: Patient is ICD was interrogated last night. He was found to have episodes of atrial fibrillation 11 to 12 hours a day. No ventricular tachycardias were detected. No ICD discharges. The battery function and the lead function appears to be appropriate. Patient has not had any recurrence of the symptoms since yesterday morning. Telemetry shows PVCs in the form of isolated beats, couplets and rare triplets. No significant tachycardias. Patient denies any chest pain or chest tightness. No fever, chills or cough. No other specific complaints. Medications: Medication Review Details: Current Medications Hydrocodone Bitart/Acetaminophen (Hydrocodone-Acetaminophen 5-325 Mg Tablet) 1 tab PO Q8H PRN PRN Reason: moderate pain Aspirin (Aspirin 81 Mg Ec Tablet) 81 mg PO DAILY@0800 [facility] Last Admin: 02/08/22 08:08 Dose: 81 mg Documented by: Atorvastatin Calcium (Atorvastatin 40 Mg Tablet) 20 mg PO DAILY@0800 [facility] Last Admin: 02/08/22 08:09 Dose: 20 mg Documented by: Carvedilol (Carvedilol 6.25 Mg Tablet) 6.25 mg PO BID@0900,2100 [facility] Last Admin: 02/08/22 20:43 Dose: 6.25 mg Documented by: Isosorbide Mononitrate (Isosorbide Mononitrate Er 30 Mg Tablet) 30 mg PO DAILY@0800 [facility] Last Admin: 02/08/22 08:08 Dose: 30 mg Documented by: Ondansetron HCl (Ondansetron 2 Mg/Ml Sdv 2 Ml) 4 mg IVP Q6H PRN PRN Reason: vomiting, or N/V if npo Last Admin: 02/08/22 10:27 Dose: 4 mg Documented by: Rivaroxaban (Rivaroxaban 10 Mg Tablet) 20 mg PO DAILY@0800 [facility] Last Admin: 02/08/22 08:07 Dose: 20 mg Documented by: Vitals/I&O/Wt Last Vital Signs Temp 98.2 F 02/09/22 04:00 Pulse 74 02/09/22 06:00 Resp 19 H 02/09/22 04:00 BP 130/96 02/09/22 04:00 Pulse Ox 95 02/08/22 15:50 02/08/22 02/08/22 02/09/22 14:59 22:59 06:59 Intake Total 572 / 572 355 / 927 500 / 1427 Balance 572 / 572 355 / 927 500 / 1427 Physical Exam Narrative: GENERAL: The patient is alert and oriented times three. Not in any acute distress. Morbidly obese HEENT: No significant pallor, icterus or lymphadenopathy. The pupils are reactant to light. Oral cavity: There are no mucous membrane lesions. NECK: Trachea appears to be central. No masses noted. No JVD or thyromegaly appreciated. No carotid bruit. RESPIRATORY: Chest is symmetrical. No intercostals muscle retraction or any accessory muscle activation. There is no chest wall tenderness. Breath sounds are heard bilaterally. No rales or rhonchi heard. No evidence of any consolidation. BREASTS: Deferred. HEART: The PMI could not be palpated. No palpable precordial events. S1 and S2 are normal. No S3 or S4 heard. No pericardial rub or any click heard. Short systolic murmur in the mitral area. ABDOMEN: No vessel pulsations or distention. No tenderness. No organomegaly appreciated. No abdominal bruit. Bowel sounds are normally heard. : Deferred. RECTAL: Deferred. LYMPHATIC: No lymphadenopathy noted in the neck or groin. EXTREMITIES: No edema or cyanosis. No clubbing. The pulses are symmetrical bilaterally. The radial, femoral, dorsalis pedis and the posterior tibial pulses are palpated and found to be in good volume and amplitude. MUSCULOSKELETAL: No acute joint deformities or SKIN: There are no significant scars or skin rash noted. NEUROPSYCHIATRIC: The patient is alert and oriented x3. Appears to be in a good mood. The higher functions are grossly within normal limits. No tremors or rigidity noted. Data : 02/09/22 04:22 02/09/22 04:22 Other Labs: Laboratory Last Values WBC 10.7 10^3/uL (4.0-10.0) H 02/09/22 04:22 RBC 5.15 10^6/uL (4.1-5.3) 02/09/22 04:22 Hgb 16.4 g/dL (11.7-16.6) 02/09/22 04:22 Hct 49.9 % (42.0-52.0) 02/09/22 04:22 MCV 96.9 fl (80-94) H 02/09/22 04:22 MCH 31.8 pg (28.0-34.0) 02/09/22 04:22 MCHC 32.9 g/dL (30.0-36.0) 02/09/22 04:22 RDW 14.9 % (12.1-15.1) 02/09/22 04:22 Plt Count 252 10^3/cmm (130-400) 02/09/22 04:22 MPV 10.5 fL (7.4-10.4) H 02/09/22 04:22 Neut % (Auto) 69.5 % 02/09/22 04:22 Lymph % (Auto) 17.7 % 02/09/22 04:22 [place] % (Auto) 9.4 % 02/09/22 04:22 Eos % (Auto) 2.5 % 02/09/22 04:22 Baso % (Auto) 0.4 % 02/09/22 04:22 Neut # (Auto) 7.42 10^3/uL (1.8-7.7) 02/09/22 04:22 Lymph # (Auto) 1.9 10^3/uL (0.8-4.8) 02/09/22 04:22 [place] # (Auto) 1.0 10^3/uL (0.2-0.9) H 02/09/22 04:22 Eos # (Auto) 0.3 10^3/uL (0.0-0.8) 02/09/22 04:22 Baso # (Auto) 0.0 10^3/uL (0.0-0.1) 02/09/22 04:22 Nucleated RBC % (auto) 0 % 02/09/22 04:22 Nucleated RBCs # 0.0 /100WBC 02/09/22 04:22 PT 22.90 SECONDS (12.1-14.9) H 02/07/22 06:04 INR 1.99 (0.8-1.2) H 02/07/22 06:04 Specimen Type Arterial 02/07/22 06:03 Sample Site Radial, right 02/07/22 06:03 ABG pH 7.58 (7.35-7.45) H* 02/07/22 06:03 ABG pCO2 46.2 mmHg (35-45) H 02/07/22 06:03 ABG pO2 64.4 mmHg (80.0-100.0) L 02/07/22 06:03 ABG HCO3 43.5 mmol/L (22-26) H 02/07/22 06:03 ABG O2 Saturation 93.1 02/07/22 06:03 ABG Base Excess 18.6 mmol/L (-2.0-2.0) H 02/07/22 06:03 Gurmeet Test Pos 02/07/22 06:03 A-a O2 Gradient 3.8 mmHg (5-10) L 02/07/22 06:03 Hematocrit 52.9 % (42-52) H 02/07/22 06:03 Hgb O2 Saturation 91.7 % (95-100) L 02/07/22 06:03 Carboxyhemoglobin 1.0 %THgb (0.4-20.1) 02/07/22 06:03 Methemoglobin 0.5 % (0.4-1.5) 02/07/22 06:03 Total Hemoglobin 17.3 g/dL (14-18) 02/07/22 06:03 Sodium 143.0 mmol/L (131-143) 02/07/22 06:03 Potassium 2.3 mmol/L (3.5-5.0) L 02/07/22 06:03 Glucose 146.0 mg/dL (70-115) H 02/07/22 06:03 Ionized Calcium 1.1 mmol/L (1.1-1.4) 02/07/22 06:03 O2 Delivery Device Nc 02/07/22 06:03 Supervisor P[employer] Mix[employer] ID Marlon 02/07/22 06:03 Sodium 139 mmol/L (136-145) 02/09/22 04:22 Potassium 3.9 mmol/L (3.5-5.1) 02/09/22 04:22 Chloride 98 mmol/L (98-107) 02/09/22 04:22 Carbon Dioxide 29 mmol/L (22-29) 02/09/22 04:22 Anion Gap 15.9 (5-19) 02/09/22 04:22 BUN 33 mg/dL (6-20) H 02/09/22 04:22 Creatinine 1.7 mg/dL (0.7-1.2) H 02/09/22 04:22 GFR Calculation 42.4 mL/min (90-130) L 02/09/22 04:22 Glucose 89 mg/dL (65-115) 02/09/22 04:22 POC Glucose 124 mg/dL (70-110) H 02/08/22 10:04 Calculated Osmolality 295 mOsm/kg (285-295) 02/09/22 04:22 Lactic Acid 2.8 mmol/L (0.5-2.2) H 02/07/22 07:54 Lactic Acid (Sepsis) 1.9 mmol/L (0.5-2.2) 02/07/22 11:15 Calcium 8.8 mg/dL (8.5-10.5) 02/09/22 04:22 Magnesium 2.4 mg/dL (1.7-2.3) H 02/09/22 04:22 Total Bilirubin 0.5 mg/dL (0.15-1.2) 02/09/22 04:22 AST 17 U/L (0-40) 02/09/22 04:22 ALT 19 U/L (0-41) 02/09/22 04:22 Alkaline Phosphatase 63 IU/L (40-130) 02/09/22 04:22 Creatine Kinase 168 U/L (39-308) 02/07/22 06:04 Troponin T Baseline 76 ng/L (0-15) H 02/07/22 06:04 Troponin T 120 Minute 61.20 ng/L (0-15) H 02/07/22 07:54 Delta Troponin T -14.80 ABS# (0-10) L 02/07/22 07:54 Troponin T Hi Sens 6Hr 57.74 ng/L (0-15) H 02/07/22 11:15 Troponin T Hi Sens 6Hr Delta -18.26 ng/L (0-12) L 02/07/22 11:15 NT-Pro-B Natriuret Pep 1214 pg/mL (0-125) H 02/07/22 06:04 Total Protein 6.5 g/dL (6.6-8.7) L 02/09/22 04:22 Albumin 3.5 g/dL (3.5-5.2) 02/09/22 04:22 Globulin 3.0 g/dL (1.3-4.6) 02/09/22 04:22 Urine Color Yellow (Yellow) 02/07/22 10:35 Urine Appearance Clear (CLEAR) 02/07/22 10:35 Urine pH 5 (5-7) 02/07/22 10:35 Ur Specific [place] 1.010 (1.005-1.030) 02/07/22 10:35 Urine Protein Neg (Negative) 02/07/22 10:35 Urine Glucose (UA) 2+ (Normal) H 02/07/22 10:35 Urine Ketones Negative (Negative) 02/07/22 10:35 Urine Blood Neg (Negative) 02/07/22 10:35 Urine Nitrate Negative (Negative) 02/07/22 10:35 Urine Bilirubin Neg (Negative) 02/07/22 10:35 Urine Urobilinogen Norm mg/dL (Negative) 02/07/22 10:35 Ur Leukocyte Esterase Negative (Negative) 02/07/22 10:35 A&P Assessment and plan (1) Near syncope: The etiology of the near syncopal spells are not clear at this point. No significant arrhythmias were noted on the device telemetry, to explain the symptoms. Possibility of coronary ischemia causing this cannot be excluded. Hypotensive spells also is a consideration. Status: Acute (2) Acute hypokalemia: The potassium this morning is 3.9. Status: Acute (3) Atherosclerosis of coronary artery of [place] heart without angina pectoris: The patient currently has no chest pain. He had a myocardial perfusion imaging in March of last year. He did not have any significant ischemia at that time. We may consider repeating a myocardial perfusion imaging, after reviewing device interrogation findings Status: Acute (4) Ischemic cardiomyopathy: Patient has evidence of mild decompensation. He will be carefully treated with diuretics. Patient may be put back on all his cardiac medications. Status: Acute (5) Acute on chronic congestive heart failure: As mentioned above. Restart all his cardiac medications. Need to closely monitor his blood pressure. Status: Acute (6) Chronic kidney disease, stage 3b: The kidney function appears to be stable. We will continue on the current treatment measures Status: Acute Plan I discussed with the patient detail the management options. Since he is remaining stable at this time with no evidence of any malignant arrhythmias, it may be appropriate to discharge him home and have a close follow-up. He is advised to get up and move around on telemetry to see if there is any recurrence of the symptoms. If he continues to have the symptoms with no other identifiable cause, we may consider doing a cardiac catheterization at a later time. Since she is on oral anticoagulant, we need to wait at least for 3 days of the oral anticoagulant to do the procedure. Patient is liking the idea of considering the angiogram at a later time. He need to be placed back on all his home medications and watch him on the monitor for a while, before discharging home. Patient has an appointment to be [facility] next Saturday by Rona Mancia. He is advised to keep that appointment. 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
--- NOTE | 2022-02-09 08:01 | PM.DCS ---
Discharge Providers Date of Admission: 02/08/22 10:50 Date of Discharge: February 09, 2022 Attending Provider at Admission: Brian Latif MD Attending Provider at Discharge: Brian Latif MD Primary Care Provider: Vale Kwon MD Diagnoses at Discharge Discharge Diagnosis (1) Near syncope: Status: Acute (2) Acute hypokalemia: Status: Acute (3) Atherosclerosis of coronary artery of [place] heart without angina pectoris: Status: Acute (4) Ischemic cardiomyopathy: Status: Acute (5) Acute on chronic congestive heart failure: Status: Acute (6) Chronic kidney disease, stage 3b: Status: Acute Reason for Visit Reason for Visit: low bp Hospital Course Hospital Course Gildardo is a 51-year-old white male who presented to the hospital dizzy, weak, with hypokalemia and hypotension. He had previously been increased on his diuretics for the addition of metolazone to take every day. During his hospital stay he got significant supplementation of potassium. Diuretics were held. Cardiology consult was obtained secondary to recurrent symptoms of diaphoresis and some ST depression. Echocardiogram was repeated which demonstrated an EF of 25%, unchanged from before. Symptomatology improved with correction of his potassium, and it was thought he should follow-up with cardiology clinic in regards to his condition. If he has recurrent symptoms following electrolyte replacement consideration of further cardiac work-up. At discharge she was alert, oriented and without symptoms. Blood pressure was normal. He did not exhibit any evidence of fluid overload. Physical Exam Narrative: General exam no distress Neck is supple Cardiovascular regular rate and rhythm with frequent premature beats Lungs clear no wheezing or crackles Abdomen is soft nontender positive bowel sounds Extremities no cyanosis clubbing or edema Discharge Data Studies Completed and Pending Completed Studies During Hospitalization Category Date Time Status XR chest 1V portable [id number] Stat Exams 02/07/22 05:26 Completed CV. echo wo/w contrast [id number] Routine Ultrasound 02/08/22 10:21 Completed Radiology Impressions Chest X-Ray 02/07/22 05:26 IMPRESSION: 1. Stable cardiomegaly. 2. Atherosclerotic vascular disease and prior CABG. Laboratory Results WBC 10.7 10^3/uL (4.0-10.0) H 02/09/22 04:22 RBC 5.15 10^6/uL (4.1-5.3) 02/09/22 04:22 Hgb 16.4 g/dL (11.7-16.6) 02/09/22 04:22 Hct 49.9 % (42.0-52.0) 02/09/22 04:22 MCV 96.9 fl (80-94) H 02/09/22 04:22 MCH 31.8 pg (28.0-34.0) 02/09/22 04:22 MCHC 32.9 g/dL (30.0-36.0) 02/09/22 04: RDW 14.9 % (12.1-15.1) 02/09/22 04:22 Plt Count 252 10^3/cmm (130-400) 02/09/22 04:22 MPV 10.5 fL (7.4-10.4) H 02/09/22 04:22 Neut % (Auto) 69.5 % 02/09/22 04: Lymph % (Auto) 17.7 % 02/09/22 04: [place] % (Auto) 9.4 % 02/09/22 04:22 Eos % (Auto) 2.5 % 02/09/22 04:22 Baso % (Auto) 0.4 % 02/09/22 04:22 Neut # (Auto) 7.42 10^3/uL (1.8-7.7) 02/09/22 04: Lymph # (Auto) 1.9 10^3/uL (0.8-4.8) 02/09/22 04:22 [place] # (Auto) 1.0 10^3/uL (0.2-0.9) H 02/09/22 04:22 Eos # (Auto) 0.3 10^3/uL (0.0-0.8) 02/09/22 04:22 Baso # (Auto) 0.0 10^3/uL (0.0-0.1) 02/09/22 04:22 Nucleated RBC % (auto) 0 % 02/09/22 04: Nucleated RBCs # 0.0 /100WBC 02/09/22 04: PT 22.90 SECONDS (12.1-14.9) H 02/07/22 06:04 INR 1.99 (0.8-1.2) H 02/07/22 06:04 Specimen Type Arterial 02/07/22 06:03 Sample Site Radial, right 02/07/22 06:03 ABG pH 7.58 (7.35-7.45) H* 02/07/22 06:03 ABG pCO2 46.2 mmHg (35-45) H 02/07/22 06:03 ABG pO2 64.4 mmHg (80.0-100.0) L 02/07/22 06:03 ABG HCO3 43.5 mmol/L (22-26) H 02/07/22 06:03 ABG O2 Saturation 93.1 02/07/22 06:03 ABG Base Excess 18.6 mmol/L (-2.0-2.0) H 02/07/22 06:03 Gurmeet Test Pos 02/07/22 06:03 A-a O2 Gradient 3.8 mmHg (5-10) L 02/07/22 06:03 Hematocrit 52.9 % (42-52) H 02/07/22 06:03 Hgb O2 Saturation 91.7 % (95-100) L 02/07/22 06:03 Carboxyhemoglobin 1.0 %THgb (0.4-20.1) 02/07/22 06:03 Methemoglobin 0.5 % (0.4-1.5) 02/07/22 06:03 Total Hemoglobin 17.3 g/dL (14-18) 02/07/22 06:03 Sodium 143.0 mmol/L (131-143) 02/07/22 06:03 Potassium 2.3 mmol/L (3.5-5.0) L 02/07/22 06:03 Glucose 146.0 mg/dL (70-115) H 02/07/22 06:03 Ionized Calcium 1.1 mmol/L (1.1-1.4) 02/07/22 06:03 O2 Delivery Device Nc 02/07/22 06:03 Sales Representative Printing ID Marlon 02/07/22 06:03 Sodium 139 mmol/L (136-145) 02/09/22 04:22 Potassium 3.9 mmol/L (3.5-5.1) 02/09/22 04:22 Chloride 98 mmol/L (98-107) 02/09/22 04:22 Carbon Dioxide 29 mmol/L (22-29) 02/09/22 04:22 Anion Gap 15.9 (5-19) 02/09/22 04:22 BUN 33 mg/dL (6-20) H 02/09/22 04:22 Creatinine 1.7 mg/dL (0.7-1.2) H 02/09/22 04:22 GFR Calculation 42.4 mL/min (90-130) L 02/09/22 04:22 Glucose 89 mg/dL (65-115) 02/09/22 04:22 POC Glucose 124 mg/dL (70-110) H 02/08/22 10:04 Calculated Osmolality 295 mOsm/kg (285-295) 02/09/22 04:22 Lactic Acid 2.8 mmol/L (0.5-2.2) H 02/07/22 07:54 Lactic Acid (Sepsis) 1.9 mmol/L (0.5-2.2) 02/07/22 11:15 Calcium 8.8 mg/dL (8.5-10.5) 02/09/22 04:22 Magnesium 2.4 mg/dL (1.7-2.3) H 02/09/22 04:22 Total Bilirubin 0.5 mg/dL (0.15-1.2) 02/09/22 04:22 AST 17 U/L (0-40) 02/09/22 04:22 ALT 19 U/L (0-41) 02/09/22 04:22 Alkaline Phosphatase 63 IU/L (40-130) 02/09/22 04:22 Creatine Kinase 168 U/L (39-308) 02/07/22 06:04 Troponin T Baseline 76 ng/L (0-15) H 02/07/22 06:04 Troponin T 120 Minute 61.20 ng/L (0-15) H 02/07/22 07:54 Delta Troponin T -14.80 ABS# (0-10) L 02/07/22 07:54 Troponin T Hi Sens 6Hr 57.74 ng/L (0-15) H 02/07/22 11:15 Troponin T Hi Sens 6Hr Delta -18.26 ng/L (0-12) L 02/07/22 11:15 NT-Pro-B Natriuret Pep 1214 pg/mL (0-125) H 02/07/22 06:04 Total Protein 6.5 g/dL (6.6-8.7) L 02/09/22 04:22 Albumin 3.5 g/dL (3.5-5.2) 02/09/22 04:22 Globulin 3.0 g/dL (1.3-4.6) 02/09/22 04:22 Urine Color Yellow (Yellow) 02/07/22 10:35 Urine Appearance Clear (CLEAR) 02/07/22 10:35 Urine pH 5 (5-7) 02/07/22 10:35 Ur Specific [place] 1.010 (1.005-1.030) 02/07/22 10:35 Urine Protein Neg (Negative) 02/07/22 10:35 Urine Glucose (UA) 2+ (Normal) H 02/07/22 10:35 Urine Ketones Negative (Negative) 02/07/22 10:35 Urine Blood Neg (Negative) 02/07/22 10:35 Urine Nitrate Negative (Negative) 02/07/22 10:35 Urine Bilirubin Neg (Negative) 02/07/22 10:35 Urine Urobilinogen Norm mg/dL (Negative) 02/07/22 10:35 Ur Leukocyte Esterase Negative (Negative) 02/07/22 10:35 Vitals Last Vital Signs Temp 98.2 F 02/09/22 04:00 Pulse 74 02/09/22 06:00 Resp 19 H 02/09/22 04:00 BP 130/96 02/09/22 04:00 Pulse Ox 95 02/08/22 15:50 Discharge Plan Discharge Patient Disposition: Home Condition: Stable Prescriptions: Continued aspirin [Adult Aspirin Regimen] 81 mg tablet,delayed release (DR/EC) 81 mg PO DAILY@0800 0RF Farxiga 5 mg tablet 5 mg PO DAILY Qty: 30 6RF rivaroxaban 20 mg tablet 20 mg PO DAILY@0800 Qty: 30 5RF Rx Instructions: must administer with evening meal. nitroglycerin [Nitrostat] 0.4 mg tablet, sublingual 0.4 mg SUBLINGUAL Q5M PRN (Reason: chest pain) Qty: 25 0RF Rx Instructions: do not exceed 3 doses per episode potassium chloride 20 mEq tablet extended release 20 meq PO BID Qty: 180 3RF furosemide 80 mg tablet 80 mg PO BID Qty: 180 3RF Entresto 49-51 mg tablet 1 tab PO BID 30 Days Qty: 60 1RF carvedilol 6.25 mg tablet 6.25 mg PO BID Qty: 180 3RF isosorbide mononitrate 30 mg tablet extended release 24 hr 30 mg PO DAILY@0800 Qty: 90 3RF pravastatin 20 mg tablet 20 mg PO DAILY@0800 Qty: 90 3RF hydrocodone-acetaminophen 5-325 mg tablet 1 tab PO Q8H PRN (Reason: pain) Qty: 12 0RF acetaminophen [Tylenol Extra Strength] 500 mg Tablet 1,000 mg PO Q6H PRN (Reason: Pain) 0RF Changed metolazone 2.5 mg tablet 2.5 mg PO DAILY PRN (Reason: Edema) Qty: 30 0RF Discontinued ketorolac 10 mg tablet 10 mg PO TID PRN (Reason: pain) 0RF Discharge Orders: Discharge Order (Routine); Ordered 02/09/22 Ordered By: Brian Latif Referrals: Rona Mancia FNP [Nurse Practitioner] - 4-7 days ( BMP on follow up) Vale Kwon MD [Primary Care Provider] - 4-7 days Discharge Diet: Cardiac Discharge Activity: Increase activity as tolerated Patient Instructions: Opioid Safety Activity Restrictions/Additional Instructions: Take all medicine as prescribed Discontinue ketorolac, do not take any anti-inflammatories Weigh yourself daily, notify physician if weight gain more than 3 pounds from baseline 2 days in a row or significant shortness of breath and edema Do not take your metolazone every day. This should be as needed. Keep follow-up with cardiology clinic early next week. You will need a BMP on follow-up. Discharge Attestations Time Spent in Discharge Care*: greater than 30 min Status at Discharge: Cognitive status at discharge: cognitively intact, Behavioral status at discharge: cooperative, Quality Metrics Clinical Quality Measures [ No reported AMI, CVA or VTE this stay] Coding Level of Care Code Acute Chg FW DC note Diagnoses Near syncope R55 Acute hypokalemia E87.6 Atherosclerosis of coronary artery of [place] heart without angina pectoris I25.10 Ischemic cardiomyopathy I25.5 Acute on chronic congestive heart failure I50.9 Chronic kidney disease, stage 3b N18.32
[2022-02-09] MEDS: sacubitril/valsartan 24-26 mg Tablet 2 EACH PO (08:47)
[2022-02-09] MEDS: isosorbide mononitrate ER 30 mg Tablet PO (08:52)
[2022-02-09] MEDS: carvedilol 6.25 mg Tablet PO (08:52)
[2022-02-09] MEDS: spironolactone 25 mg Tablet PO (08:52)
[2022-02-09] MEDS: potassium chloride ER 20 mEq Tablet PO (08:52)
[2022-02-09] MEDS: FUROsemide 40 mg Tablet 80 MG PO (08:52)
[2022-02-09] MEDS: aspirin 81 mg EC Tablet PO (08:52)
[2022-02-09] MEDS: rivaroxaban 10 mg Tablet 20 MG PO (08:52)
[2022-02-09] MEDS: atorvastatin 40 mg Tablet 20 MG PO (08:53)
--- NOTE | 2022-02-09 12:42 | PC.NURSE ---
discharge instructions given and explained.pt verb understanding of instructions.discharged at 1200 via w/c to exit.brother to drive pt home
== END 2022-02-09 12:00 | disposition home or self-care (01) | DRG 641 ==
LOC: ER 09:33 → CSU 09:56
PROVIDERS: Emergency Medicine; Admitting Provider Internal Medicine; Emergency Provider Family Medicine; PCP Family Medicine; Visit Provider Internal Medicine
DX: E87.6 Hypokalemia (principal); I13.0 Hypertensive heart and chronic kidney disease with heart failure and stage 1 through stage 4 chronic kidney disease, or unspecified chronic kidney disease; I50.22 Chronic systolic (congestive) heart failure; Z68.41 Body mass index [BMI] 40.0-44.9, adult; N17.9 Acute kidney failure, unspecified; I48.91 Unspecified atrial fibrillation; Z95.810 Presence of automatic (implantable) cardiac defibrillator; I25.10 Atherosclerotic heart disease of native coronary artery without angina pectoris; Z95.5 Presence of coronary angioplasty implant and graft; N18.32 Chronic kidney disease, stage 3b; E78.5 Hyperlipidemia, unspecified; E66.9 Obesity, unspecified; E86.0 Dehydration; Z86.74 Personal history of sudden cardiac arrest; I25.5 Ischemic cardiomyopathy; I95.9 Hypotension, unspecified; Z79.82 Long term (current) use of aspirin; Z79.01 Long term (current) use of anticoagulants; Z79.891 Long term (current) use of opiate analgesic
CPT/HCPCS: 36415; 36416; 71045; 80048; 80051; 80053; 81003; 82330; 82550; 82805; 82962; 83605; 83735; 83880; 84484; 85025; 85610; 93005; 96365; 96366; 96367; 96375; 99285; C8929; G0378; J0610; J2405; J3480; J7030; J7040; Q9956

== ENCOUNTER → 2022-02-19 17:37 | Outpatient (BNVA) | payer MEDICAID, SELFPAY | PROVIDERS: PCP Family Medicine; Visit Provider Family Medicine | DX: Z09 Encounter for follow-up examination after completed treatment for conditions other than malignant neoplasm (principal); E87.6 Hypokalemia; N18.32 Chronic kidney disease, stage 3b; I50.20 Unspecified systolic (congestive) heart failure | CPT/HCPCS: 80053 ==

== ENCOUNTER 2022-06-06 11:21 | Outpatient (CLI) | payer MEDICAID, SELFPAY ==
[2022-06-06 12:48] LABS: Basophils % 0.3 %; Eosinophils # 0.2 10^3/uL (0.0-0.8); Eosinophils % 1.6 %; Hematocrit 52.6 % (42.0-52.0); Hemoglobin 16.8 g/dL (11.7-16.6); Lymphocytes # 1.9 10^3/uL (0.8-4.8); Lymphocytes % 19.9 %; Mean Corpuscular HGB Conc 31.9 g/dL (30.0-36.0); Mean Corpuscular Hemoglobin 31.9 pg (28.0-34.0); Mean Platelet Volume 10.4 fL (7.4-10.4); Monocytes # 0.7 10^3/uL (0.2-0.9); Monocytes % 7.3 %; Neutrophils # 6.74 10^3/uL (1.8-7.7); Neutrophils % 70.4 %; Nucleated Red Blood Cells % 0 %; Platelet Count 320 10^3/cmm (130-400); Red Blood Count 5.26 10^6/uL (4.1-5.3); Red Cell Distribution Width 14.8 % (12.1-15.1); White Blood Count 9.6 10^3/uL (4.0-10.0)
[2022-06-06 13:13] LABS: Urine Creatinine 209 mg/dL (39-259)
[2022-06-06 13:15] LABS: UPRO/UCREAT Ratio 0.13 mg/mg CR; Urine Protein Random 28 mg/dL
[2022-06-06 13:27] LABS: Calcium 9.4 mg/dL (8.5-10.5); Parathyroid Hormone 111.5 pg/mL (15-65)
[2022-06-06 13:34] LABS: 25 Hydroxy Vitamin D 25 ng/mL (30-100); Albumin Level 3.9 g/dL (3.5-5.2); Anion Gap 15.1 (5-19); Blood Urea Nitrogen 32 mg/dL (6-20); Calcium 9.4 mg/dL (8.5-10.5); Carbon Dioxide 34 mmol/L (22-29); Chloride 95 mmol/L (98-107); Glomerular Filtration Rate 37.3 mL/min (90-130); Glucose 133 mg/dL (65-115); Phosphorus 3.8 mg/dL (2.5-4.5); Potassium 3.1 mmol/L (3.5-5.1); Sodium 141 mmol/L (136-145); Uric Acid 11.3 mg/dL (3.4-7.0)
== END 2022-06-06 11:22 | disposition home or self-care (01) ==
LOC: LAB 11:28
PROVIDERS: PCP Family Medicine; Visit Provider Internal Medicine
DX: N18.32 Chronic kidney disease, stage 3b (principal)
CPT/HCPCS: 36415; 80069; 82306; 82310; 82570; 83970; 84156; 84550; 85025

== ENCOUNTER → 2022-06-13 14:38 | Outpatient (BNVA) | payer MEDICAID, SELFPAY | PROVIDERS: PCP Family Medicine; Visit Provider Internal Medicine Cardiovascular Disease | DX: I13.0 Hypertensive heart and chronic kidney disease with heart failure and stage 1 through stage 4 chronic kidney disease, or unspecified chronic kidney disease (principal); N18.9 Chronic kidney disease, unspecified; I50.20 Unspecified systolic (congestive) heart failure; Z95.810 Presence of automatic (implantable) cardiac defibrillator; I48.91 Unspecified atrial fibrillation; I25.10 Atherosclerotic heart disease of native coronary artery without angina pectoris; Z95.1 Presence of aortocoronary bypass graft | CPT/HCPCS: 99214 ==

== ENCOUNTER → 2022-07-27 10:20 | Outpatient (BNVA) | payer MEDICAID, SELFPAY | PROVIDERS: PCP Family Medicine; Visit Provider Internal Medicine Cardiovascular Disease | DX: Z45.02 Encounter for adjustment and management of automatic implantable cardiac defibrillator (principal) | CPT/HCPCS: 93282 ==

== ENCOUNTER 2022-09-22 11:20 | Outpatient (CLI) | payer MEDICAID, SELFPAY ==
--- NOTE | 2022-09-22 12:26 | XRR_ITS ---
PROCEDURE INFORMATION: Exam: XR Abdomen Exam date and time: 09/22/2022 12:29 PM Age: 51 years old Clinical indication: Abdominal pain; Additional info: Flank pain TECHNIQUE: Imaging protocol: Radiologic exam of the abdomen. Views: Frontal supine view of the abdomen. 1 View. COMPARISON: CR XR chest 1V portable [id number] 02/07/2022 5:35 AM FINDINGS: Gastrointestinal tract: Normal. No bowel dilation. Bones/joints: There is lumbar scoliosis convex to the left and diffuse prominent degenerative disease in the spine. XR/XR KUB [id number] IMPRESSION: 1. No acute abnormality. 2. Lumbar scoliosis and chronic degenerative disease.
== END 2022-09-22 11:21 | disposition home or self-care (01) ==
PROVIDERS: PCP Family Medicine
DX: R10.9 Unspecified abdominal pain (principal)
CPT/HCPCS: 74018; 81000

== ENCOUNTER 2022-10-13 06:57 | Emergency (ER) | payer MEDICAID, SELFPAY ==
[2022-10-13 07:09] VITALS: BP 180/120; PULSE 84; RESP 18; O2SAT 96; BMI 46.0
--- NOTE | 2022-10-13 07:32 | XRR_ITS ---
PROCEDURE INFORMATION: Exam: XR Lumbosacral Spine Exam date and time: 10/13/2022 7:53 AM Age: 51 years old Clinical indication: Low back pain TECHNIQUE: Imaging protocol: Radiologic exam of the lumbosacral spine. Views: 2 or 3 views. COMPARISON: CR (ABDOMEN, ) 09/22/2022 12:29 PM FINDINGS: Bones/joints: The lumbar spine maintains a normal lordotic curvature. Mild leftward curvature of the lumbar spine centered at L1-L2. No spondylolisthesis identified. The vertebral bodies maintain normal height. Prominent right lateral osteophytes. Loss of intervertebral disc height at L1-L2. Multilevel facet arthropathy. Soft tissues: Unremarkable. XR/XR lumbar spine 2-3V* [id number] IMPRESSION: Multilevel degenerative changes in the spine.
[2022-10-13 09:09] LABS: Add Urine Microscopic? YES; Bilirubin Urine Neg (Negative); Blood Urine Neg (Negative); Glucose Urine UA Norm (Normal); Ketones Urine Negative (Negative); Leukocyte Esterase Urine Negative (Negative); Nitrate Urine Negative (Negative); Protein Urine 1+ (Negative); Urine Appearance Clear (CLEAR); Urine Color Straw (Yellow); Urobilinogen Urine Norm (Negative); pH Urine 5 (5-7)
[2022-10-13 09:11] LABS: Add Urine Culture? No; Bacteria Urine TRACE /hpf; WBC Urine 0-4 /hpf (0-5)
--- NOTE | 2022-10-13 09:12 | W.ED.BACK ---
HPI - Back Pain/Injury General: Chief Complaint: Back Pain/Injury Stated Complaint: back pain Time Seen by Provider: 10/13/22 07:18 History of Present Illness: Patient is in today for low back pain radiating to bilateral hips. He reports that this started 3 days ago. He reports that he was not doing anything he has not injured his back in any way. He states that it hurts anytime he is walking or turning over in bed or turning in any way. He reports that the only time he feels better is when he is lying flat of his back. He denies any fever, chills, nausea, vomiting. He denies any urinary symptoms but states that he was seen approximately a week ago and they thought he had a kidney stone. He reports that his symptoms with that resolved 2 days after he was seen and that has been a non-issue since then. Associated symptoms: Deny chills, dysuria, fever(s) or urinary urgency Review of Systems Const: Denies: fever(s), chills or body aches Card: Reports: other (Reports recent bypass with defibrillator); Denies: chest pain, palpitations or irregular heart rhythm Resp: Denies: dyspnea, productive cough or non-productive cough : Reports: flank pain; Denies: difficulty urinating, dysuria, urinary frequency, urinary urgency or urinary hesitancy Musc: Reports: back pain [facility] ED PFSH: Medical History Atrial fibrillation Chronic kidney disease CKD (chronic kidney disease) Coronary artery disease Essential hypertension Hyperlipidemia Left atrial thrombus Left ventricular dysfunction with preserved left ventricular ejection fraction Obesity Systolic CHF LVEF 25 to 30% by TTE 08/02/2020 Surgical History H/O two vessel coronary artery bypass graft Status post aorto-coronary artery bypass graft June 2019. 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 marjauna and cocaine Housing: House Marital status: Single Physical Exam Const: COMMON NORMALS: no acute distress, patient oriented x3 and alert NUTRITIONAL APPEARANCE: obese morbidly obese Resp: COMMON NORMALS: normal respiratory effort, No use of accessory muscles and clear to auscultation bilaterally AUSCULTATION: clear to auscultation bilaterally Cardio: COMMON NORMALS: regular rate, S1 normal heart sound present and S2 normal heart sound present JUGULAR VENOUS DISTENTION: no JVD RATE: regular rate HEART SOUNDS: S1 normal heart sound present, S2 normal heart sound present and Other heart sounds present (Defibrillator present) GI: COMMON NORMALS: Normal to inspection, nondistended, normoactive bowel sounds present, Soft to palpation and No hepatosplenomegaly present PALPATION: Yes Soft to palpation and Yes No hepatosplenomegaly present : COMMON NORMALS: Yes no CVA tenderness BLADDER/KIDNEY EXAM: Yes no CVA tenderness Back/Pelvis: COMMON NORMALS: no CVA tenderness OTHER: Tenderness to palpation mid lumbar spine with no specific vertebral point tenderness. There is tension of bilateral paraspinal musculature. No obvious bony or soft tissue deformity appreciated. Patient is walking with a slow gait. He moves his entire body in a stiff manner. Neuro: COMMON NORMALS: patient oriented x3 SENSORIUM/ORIENTATION: Yes alert Course Vital Signs: Vital signs: Vital Signs Pulse Rate 84 10/13/22 07:09 Respiratory Rate 18 10/13/22 07:09 Blood Pressure 180/120 10/13/22 07:09 Pulse Oximetry 96 10/13/22 07:09 Oxygen Delivery Me thod 10/13/22 07:09 MDM - Back Pain/Injury Medical Decision Making Consider lumbar strain, bony injury X-ray shows multilevel degenerative changes in the spine. UA dip unremarkable except for protein. We will treat patient for lumbar strain. Given patient's comorbidities he is unable to take NSAIDs. We will treat him conservatively with a couple doses of muscle relaxant medications although this will be given very cautiously given his renal impairment. Encouraged him to do warm compresses and gentle stretches. Follow-up with his primary care provider. Return to ER as needed for new or worsening symptoms Labs Radiology Impressions Lumbar Spine X-Ray 10/13/22 07:32 IMPRESSION: Multilevel degenerative changes in the spine. Laboratory Results Urine Color Straw (Yellow) 10/13/22 08:09 Urine Appearance Clear (CLEAR) 10/13/22 08:09 Urine pH 5 (5-7) 10/13/22 08:09 Ur Specific [place] 1.020 (1.005-1.030) 10/13/22 08:09 Urine Protein 1+ (Negative) H 10/13/22 08:09 Urine Glucose (UA) Norm (Normal) 10/13/22 08:09 Urine Ketones Negative (Negative) 10/13/22 08:09 Urine Blood Neg (Negative) 10/13/22 08:09 Urine Nitrate Negative (Negative) 10/13/22 08:09 Urine Bilirubin Neg (Negative) 10/13/22 08:09 Urine Urobilinogen Norm mg/dL (Negative) 10/13/22 08:09 Ur Leukocyte Esterase Negative (Negative) 10/13/22 08:09 Urine RBC None /hpf (0-2) 10/13/22 08:09 Urine WBC 0-4 /hpf (0-5) H 10/13/22 08:09 Ur Squamous Epith Cells None /hpf (0-5) 10/13/22 08:09 Amorphous Sediment Not Reportable 10/13/22 08:09 Urine Bacteria Trace /hpf (NONE) 10/13/22 08:09 Discharge Plan Discharge Patient Disposition: Home Clinical Impression: Strain of lumbar region, Degenerative joint disease (DJD) of lumbar spine Condition: Stable Prescriptions: New tizanidine 4 mg capsule 4 mg PO Q8H PRN (Reason: muscle spasticity) Qty: 10 0RF No Action aspirin [Adult Aspirin Regimen] 81 mg tablet,delayed release (DR/EC) 81 mg PO DAILY@0800 potassium chloride 20 mEq tablet extended release 60 meq PO DIRECTED Qty: 270 3RF Rx Instructions: 40mEq (2 tabs) in AM and 20mEq (1 tab) in PM pravastatin 20 mg tablet 20 mg PO DAILY@0800 Qty: 90 3RF rivaroxaban 20 mg tablet 20 mg PO DAILY@0800 Qty: 90 3RF Rx Instructions: must administer with evening meal. nitroglycerin [Nitrostat] 0.4 mg tablet, sublingual 0.4 mg SUBLINGUAL Q5M PRN (Reason: chest pain) Qty: 25 3RF Rx Instructions: do not exceed 3 doses per episode metolazone 2.5 mg tablet 2.5 mg PO DAILY PRN (Reason: Edema) Qty: 90 3RF isosorbide mononitrate 30 mg tablet extended release 24 hr 30 mg PO DAILY@0800 Qty: 90 3RF Rx Instructions: 15mg (1/2 tab) if BP < 120/80 furosemide 80 mg tablet 80 mg PO BID Qty: 180 3RF carvedilol 6.25 mg tablet 6.25 mg PO BID Qty: 270 3RF Rx Instructions: 12.5mg a.m. (2 tabs) and 6.25mg p.m. (1 tab) tamsulosin [Flomax] 0.4 mg capsule 0.4 mg PO DAILY 14 Days Qty: 14 0RF Entresto 49-51 mg tablet 1 tab PO BID Qty: 180 3RF Farxiga 5 mg tablet 5 mg PO DAILY Qty: 90 3RF hydrocodone-acetaminophen 5-325 mg tablet 1 tab PO Q8H PRN (Reason: pain) Qty: 12 0RF acetaminophen [Tylenol Extra Strength] 500 mg Tablet 1,000 mg PO Q6H PRN (Reason: Pain) Discharge Orders: Discharge ED (Routine); Ordered 10/13/22 Ordered By: Alecia Alonso Referrals: Vale Kwon MD [Primary Care Provider] - Discharge Diet: Usual diet Discharge Activity: Increase activity as tolerated Patient Instructions: Low Back Strain (ED), Degenerative Disc Disease (ED) Activity Restrictions/Additional Instructions: Use tizanidine as directed, as needed for muscle spasming. Do not take medication with any other medication that makes you sleepy. Do not drive after taking the tizanidine. I recommend warm moist compresses, gentle stretches, rest. Follow-up with your primary care provider as needed. 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
[2022-10-13] MEDS: tizanidine 4 mg Tablet PO (09:37)
[2022-10-13 09:42] VITALS: BP 184/96; PULSE 78; RESP 16
== END 2022-10-13 09:43 | disposition home or self-care (01) ==
PROVIDERS: Emergency Provider Nurse Practitioner Family; PCP Family Medicine
DX: S39.012A Strain of muscle, fascia and tendon of lower back, initial encounter (principal); M47.816 Spondylosis without myelopathy or radiculopathy, lumbar region; Z79.82 Long term (current) use of aspirin; I13.0 Hypertensive heart and chronic kidney disease with heart failure and stage 1 through stage 4 chronic kidney disease, or unspecified chronic kidney disease; N18.9 Chronic kidney disease, unspecified; I50.20 Unspecified systolic (congestive) heart failure; I25.10 Atherosclerotic heart disease of native coronary artery without angina pectoris; E78.5 Hyperlipidemia, unspecified; Z95.1 Presence of aortocoronary bypass graft; X58.XXXA Exposure to other specified factors, initial encounter
CPT/HCPCS: 72100; 81001; 99283

== ENCOUNTER 2022-10-19 10:14 | Outpatient (CLI) | payer MEDICAID, SELFPAY ==
[2022-10-19 15:08] LABS: Blood Urea Nitrogen 21 mg/dL (6-20); Calcium 8.9 mg/dL (8.5-10.5); Carbon Dioxide 29 mmol/L (22-29); Chloride 102 mmol/L (98-107); Glomerular Filtration Rate 42.4 mL/min (90-130); Glucose 68 mg/dL (65-115); Osmolality Calculated 293 mOsm/kg (285-295); Sodium 141 mmol/L (136-145)
[2022-10-19 15:20] LABS: Anion Gap 13.6 (5-19); Potassium 3.6 mmol/L (3.5-5.1)
== END 2022-10-19 10:15 | disposition home or self-care (01) ==
LOC: LAB 10:19
PROVIDERS: PCP Family Medicine; Visit Provider Internal Medicine
DX: N18.32 Chronic kidney disease, stage 3b (principal)
CPT/HCPCS: 80048

== ENCOUNTER 2022-10-25 10:16 | Emergency (ER) | payer MEDICAID, SELFPAY ==
[2022-10-25] VITALS (9 sets, daily range): BP systolic 101–130; BP diastolic 62–97; PULSE 64–79; RESP 22–30; TEMP 35.4; O2SAT 92–97; BMI 46.2
--- NOTE | 2022-10-25 10:35 | ECG_ITS ---
[facility] Test Date: 2022-10-25 Pat Name: Gildardo Morton Department: Room: Gender: Male Pick Up Man: : 1970 Requested By: Alecia Alonso Order Number: [id number] Giang MD: Sean Miranda M.D. Measurements Intervals [place] Rate: 69 P: 0 MT: 0 QRS: 2 QRSD: 105 T: 161 QT: 420 QTc: 450 Interpretive Statements Atrial fibrillation ELECTRONIC VENTRICULAR PACEMAKER MODERATE T-WAVE ABNORMALITY, CONSIDER LATERAL ISCHEMIA [-0.1+ mV T-WAVE IN I/aVL/V5/V6] Compared to ECG 02/08/2022 10:20:04 Ventricular premature complex(es) no longer present Aberrant conduction of supraventricular beat(s) no longer present T-wave abnormality still present Possible ischemia still present Electronically Signed On 10-25-2022 14:41:46 REVIEW CONSULTANT by Sean Miranda M.D. [id number]
--- NOTE | 2022-10-25 10:35 | XRR_ITS ---
PROCEDURE INFORMATION: Exam: XR Chest Exam date and time: 10/25/2022 11:03 AM Age: 51 years old Clinical indication: Other: Hypotension TECHNIQUE: Imaging protocol: Radiologic exam of the chest. Views: 1 view. COMPARISON: CR XR chest 1V portable [id number] 02/07/2022 5:35 AM FINDINGS: Tubes, catheters and devices: Cardiac device noted overlying the left chest. Lungs: The lung parenchyma is clear. Pleural spaces: No pneumothorax. No pleural effusion. Heart/Mediastinum: Postsurgical changes in the mediastinum. The heart is enlarged for size, similar to prior exam. Bones/joints: Median sternotomy wires noted. XR/XR chest 1V portable [id number] IMPRESSION: 1. No significant change from prior exam. 2. Stable cardiomegaly.
--- NOTE | 2022-10-25 10:43 | W.ED.GENADLT ---
Documented by User: Alecia Alonso, COMMUNITY OUTREACH SPECIALIST-C 10/25/22 10:46 HPI - General Adult General: Chief complaint: General Medical Stated complaint: low bp Time Seen by Provider: 10/25/22 10:42 History of Present Illness: Patient arrives POV stating that he went to [facility] this morning for his 6-month checkup. He reports that he was. His labs drawn because he had kidney damage after his triple bypass surgery. He reports that he has been feeling his baseline self. He states that the doctor told him that his labs were good. He reports that they were concerned because 2 nurses cannot get a blood pressure or a pulse and the doctor said that his blood pressure was in the 70s and he needed to come to the ER by ambulance. Patient's family come and brought him to the ER instead of going by ambulance. Patient reports that he does have some tightness in his chest which is chronic for him to get that intermittently. He reports that he has decreased heart function surrounding his triple bypass surgery. He reports that he has not had any increased pedal edema. He reports that he has not felt dizzy. He states that he was a little clammy and sweaty at the doctor's office, but states that happens to him frequently as well. Associated symptoms: Reports chest pain (Chest pressure-patient reports similar to baseline); Deny dyspnea, nausea, palpitations or vomiting Review of Systems Const: Denies: fever(s) or chills Card: Reports: chest pain (Chest pressure-patient reports similar to baseline); Denies: palpitations, swelling of feet/ankles or lightheadedness Resp: Denies: dyspnea, productive cough or non-productive cough GI: Denies: abdominal pain, nausea or vomiting : Denies: flank pain or difficulty urinating [facility] ED PFSH: Medical History Atrial fibrillation Chronic kidney disease CKD (chronic kidney disease) Coronary artery disease Essential hypertension Hyperlipidemia Left atrial thrombus Left ventricular dysfunction with preserved left ventricular ejection fraction Obesity Systolic CHF LVEF 25 to 30% by TTE 08/02/2020 Surgical History H/O two vessel coronary artery bypass graft Status post aorto-coronary artery bypass graft June 2019. 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 marjauna and cocaine Housing: House Marital status: Single Physical Exam Const: COMMON NORMALS: no acute distress, patient oriented x3 and alert Resp: COMMON NORMALS: normal respiratory effort, No use of accessory muscles and clear to auscultation bilaterally AUSCULTATION: clear to auscultation bilaterally Cardio: COMMON NORMALS: regular rate and regular rhythm RATE: regular rate RHYTHM: regular rhythm Neuro: COMMON NORMALS: patient oriented x3 SENSORIUM/ORIENTATION: Yes alert Course Vital Signs: Vital signs: Vital Signs Temperature 95.7 F L 10/25/22 10:24 Pulse Rate 72 10/25/22 13:42 Respiratory Rate 30 H 10/25/22 13:42 Blood Pressure 125/84 10/25/22 14:04 Pulse Oximetry 92 10/25/22 13:42 Oxygen Delivery Me thod 10/25/22 13:42 [facility] - General Adult Lab Data 10/25/22 11:00 10/25/22 11:00 Radiology Impressions Chest X-Ray 10/25/22 10:35 IMPRESSION: 1. No significant change from prior exam. 2. Stable cardiomegaly. Laboratory Results WBC 11.3 10^3/uL (4.0-10.0) H 10/25/22 11:00 RBC 5.55 10^6/uL (4.1-5.3) H 10/25/22 11:00 Hgb 17.6 g/dL (11.7-16.6) H 10/25/22 11:00 Hct 53.7 % (42.0-52.0) H 10/25/22 11:00 MCV 96.8 fl (80-94) H 10/25/22 11:00 MCH 31.7 pg (28.0-34.0) 10/25/22 11:00 MCHC 32.8 g/dL (30.0-36.0) 10/25/22 11:00 RDW 14.1 % (12.1-15.1) 10/25/22 11:00 Plt Count 326 10^3/cmm (130-400) 10/25/22 11:00 MPV 10.0 fL (7.4-10.4) 10/25/22 11:00 Neut % (Auto) 73.2 % 10/25/22 11:00 Lymph % (Auto) 14.4 % 10/25/22 11:00 Tompkins % (Auto) 10.8 % 10/25/22 11:00 Eos % (Auto) 0.8 % 10/25/22 11:00 Baso % (Auto) 0.4 % 10/25/22 11:00 Neut # (Auto) 8.29 10^3/uL (1.8-7.7) H 10/25/22 11:00 Lymph # (Auto) 1.6 10^3/uL (0.8-4.8) 10/25/22 11:00 Tompkins # (Auto) 1.2 10^3/uL (0.2-0.9) H 10/25/22 11:00 Eos # (Auto) 0.1 10^3/uL (0.0-0.8) 10/25/22 11:00 Baso # (Auto) 0.1 10^3/uL (0.0-0.1) 10/25/22 11:00 Nucleated RBC % (auto) 0 % 10/25/22 11:00 Nucleated RBCs # 0.0 /100WBC 10/25/22 11:00 Sodium 139 mmol/L (136-145) 10/25/22 11:00 Potassium 3.1 mmol/L (3.5-5.1) L 10/25/22 11:00 Chloride 93 mmol/L (98-107) L 10/25/22 11:00 Carbon Dioxide 33 mmol/L (22-29) H 10/25/22 11:00 Anion Gap 16.1 (5-19) 10/25/22 11:00 BUN 42 mg/dL (6-20) H 10/25/22 11:00 Creatinine 2.2 mg/dL (0.7-1.2) H 10/25/22 11:00 GFR Calculation 31.5 mL/min (90-130) L 10/25/22 11:00 Glucose 82 mg/dL (65-115) 10/25/22 11:00 Calculated Osmolality 298 mOsm/kg (285-295) H 10/25/22 11:00 Calcium 8.9 mg/dL (8.5-10.5) 10/25/22 11:00 Total Bilirubin 0.5 mg/dL (0.15-1.2) 10/25/22 11:00 AST 14 U/L (0-40) 10/25/22 11:00 ALT 15 U/L (0-41) 10/25/22 11:00 Alkaline Phosphatase 70 U/L (40-130) 10/25/22 11:00 Troponin T Baseline 45 ng/L (0-15) H 10/25/22 11:00 Troponin T 120 Minute 41.82 ng/L (0-15) H 10/25/22 12:55 Delta Troponin T -3.18 ABS# (0-10) L 10/25/22 12:55 Total Protein 8.1 g/dL (6.6-8.7) 10/25/22 11:00 Albumin 3.7 g/dL (3.5-5.2) 10/25/22 11:00 Globulin 4.4 g/dL (1.3-4.6) 10/25/22 11:00 Discharge Plan Discharge Patient Disposition: Home Clinical Impression: Hypotension, Coronary artery disease, Atrial fibrillation, ICD (implantable cardioverter-defibrillator), single, in situ, Chronic kidney disease, stage 3b, Ischemic cardiomyopathy Condition: Stable Prescriptions: No Action aspirin [Adult Aspirin Regimen] 81 mg tablet,delayed release (DR/EC) 81 mg PO QAM nitroglycerin [Nitrostat] 0.4 mg tablet, sublingual 0.4 mg SUBLINGUAL Q5M PRN (Reason: chest pain) Qty: 25 3RF Rx Instructions: do not exceed 3 doses per episode metolazone 2.5 mg tablet 2.5 mg PO DAILY PRN (Reason: Edema) Qty: 90 3RF furosemide 80 mg tablet 80 mg PO BID Qty: 180 3RF Entresto 49-51 mg tablet 1 tab PO BID Qty: 180 3RF acetaminophen [Tylenol Extra Strength] 500 mg Tablet 1,000 mg PO Q6H PRN (Reason: Pain) tizanidine 4 mg capsule 4 mg PO Q8H PRN (Reason: muscle spasticity) Qty: 10 0RF carvedilol 6.25 mg tablet See Rx Instructions .ROUTE .COMPLEX Rx Instructions: 12.5mg (2 tabs) po qam and 6.25mg (1 tab) qpm isosorbide mononitrate 30 mg tablet extended release 24 hr See Rx Instructions .ROUTE .COMPLEX Rx Instructions: take 30mg po qam (take 15mg (1/2 tab) if BP < 120/80) pravastatin 20 mg tablet 20 mg PO QAM rivaroxaban 20 mg tablet 20 mg PO QAM Farxiga 5 mg tablet 5 mg PO QAM potassium chloride 20 mEq tablet extended release 20 meq PO BID Discharge Orders: Discharge ED (Routine); Ordered 10/25/22 Ordered By: Andrea Gallegos Referrals: Vale Kwon MD [Primary Care Provider] - Discharge Diet: Usual diet Discharge Activity: Resume usual activity Patient Instructions: Opioid Safety, Pain Management Activity Restrictions/Additional Instructions: You were seen today for hypotension. Your blood pressure has been stable during her stay in the emergency room. Laboratory test reviewed. We will discharge you home no change in your medications follow-up with your doctor within the week. Sign Out Sign Out Data: Patient Sign Out occurred on 10/25/22 at 10:48. Patient's care was discussed, and care was transferred from to Andrea Gallegos DO. Coding Level of Care Code ED Radio Repairman for Chg Fwd Exam Detailed Documented by User: Andrea Gallegos DO 10/26/22 08:50 HPI - General Adult General: Chief complaint: General Medical Stated complaint: low bp Time Seen by Provider: 10/25/22 10:42 Source: patient Mode of arrival: ambulatory History of Present Illness: 51-year-old male presents emergency room via EMS. He is at the nephrology clinic they were having a difficult time assessing blood pressure and pulses he felt clammy. He was sent to the emergency room via EMS. On arrival here his blood pressure 130/97 his heart rate is in the 70s and 80s. Patient does have a significant cardiac history of previously had bypass he also has an ICD in place no recent discharge that he is aware of. He denies any chest pain at this time. He was somewhat short of breath earlier he still feels slightly clammy on exam. He is not recently been ill no fever sweats or chills vomiting or diarrhea denies abdominal pain dysuria urgency or frequency Onset (ago): minute(s) Relieving factors: none Exacerbating factors: none Associated symptoms: Reports chest pain (Patient states he has chronic baseline chest pain that is unchanged at this) and short of breath; Deny confusion, cough, diaphoresis, decreased appetite, dyspnea, fevers/chills, headache(s), malaise, nausea, rash, palpitations, seizures, syncope, vomiting or weakness Treatments prior to arrival: none Review of Systems Const: Denies: fever(s), chills, malaise or diaphoresis Card: Reports: chest pain (Patient states he has chronic baseline chest pain that is unchanged at this); Denies: palpitations, swelling of feet/ankles, lightheadedness or syncope Resp: Denies: dyspnea, productive cough or non-productive cough GI: Denies: abdominal pain, nausea or vomiting : Denies: flank pain or difficulty urinating Skin/Breast: Denies: rash Neuro: Denies: headache(s) or confusion PFS ED PFSH: Medical History Atrial fibrillation Chronic kidney disease CKD (chronic kidney disease) Coronary artery disease Essential hypertension Hyperlipidemia Left atrial thrombus Left ventricular dysfunction with preserved left ventricular ejection fraction Obesity Systolic CHF LVEF 25 to 30% by TTE 08/02/2020 Surgical History H/O two vessel coronary artery bypass graft Status post aorto-coronary artery bypass graft June 2019. 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 marjauna and cocaine Housing: House Marital status: Single Physical Exam Const: COMMON NORMALS: no acute distress GENERAL APPEARANCE: cooperative and comfortable ORIENTATION/CONSCIOUSNESS: Yes awake, Yes oriented to person, Yes oriented to place and Yes oriented to time HENMT: COMMON NORMALS: normocephalic, atraumatic and hearing grossly normal bilaterally HEAD & SCALP: normocephalic and atraumatic Resp: COMMON NORMALS: normal respiratory effort, No retractions, No use of accessory muscles and clear to auscultation bilaterally AUSCULTATION: clear to auscultation bilaterally Cardio: COMMON NORMALS: regular rate, regular rhythm and No murmurs present (Cardio) RATE: regular rate RHYTHM: regular rhythm GI: COMMON NORMALS: Soft to palpation and No hepatosplenomegaly present AUSCULTATION: Yes normoactive bowel sounds PALPATION: Yes Soft to palpation, No Tenderness to palpation present (GI), No Guarding due to palpation present (GI) and Yes No hepatosplenomegaly present Extremity: COMMON NORMALS: normal to inspection, capillary refill normal, no clubbing, cyanosis or edema and no calf tenderness GENERAL: Yes edema Neuro: SENSORIUM/ORIENTATION: Yes oriented to person, Yes oriented to place and Yes oriented to time Skin: COMMON NORMALS: no rashes or lesions noted GENERAL SKIN EXAM: no rashes or lesions noted Course Vital Signs: Vital signs: Vital Signs Temperature 95.7 F L 10/25/22 10:24 Pulse Rate 72 10/25/22 13:42 Respiratory Rate 30 H 10/25/22 13:42 Blood Pressure 125/84 10/25/22 14:04 Pulse Oximetry 92 10/25/22 13:42 Oxygen Delivery Me thod 10/25/22 13:42 [facility] - General Adult Medical Decision Making Labs imaging and EKG reviewed. Patient's lab results consistent with chronic underlying medical issues. EKG does not show any acute changes patient symptoms have resolved but his blood pressure has normalized we did give him a small fluid bolus he is feeling much better discharged home have him follow-up with nephrology return if is further problems. Medical Records I reviewed the patient's medical records. Lab Data I reviewed the patient's lab results. 10/25/22 11:00 10/25/22 11:00 Radiology Impressions Chest X-Ray 10/25/22 10:35 IMPRESSION: 1. No significant change from prior exam. 2. Stable cardiomegaly. Laboratory Results WBC 11.3 10^3/uL (4.0-10.0) H 10/25/22 11:00 RBC 5.55 10^6/uL (4.1-5.3) H 10/25/22 11:00 Hgb 17.6 g/dL (11.7-16.6) H 10/25/22 11:00 Hct 53.7 % (42.0-52.0) H 10/25/22 11:00 MCV 96.8 fl (80-94) H 10/25/22 11:00 MCH 31.7 pg (28.0-34.0) 10/25/22 11:00 MCHC 32.8 g/dL (30.0-36.0) 10/25/22 11:00 RDW 14.1 % (12.1-15.1) 10/25/22 11:00 Plt Count 326 10^3/cmm (130-400) 10/25/22 11:00 MPV 10.0 fL (7.4-10.4) 10/25/22 11:00 Neut % (Auto) 73.2 % 10/25/22 11:00 Lymph % (Auto) 14.4 % 10/25/22 11:00 Tompkins % (Auto) 10.8 % 10/25/22 11:00 Eos % (Auto) 0.8 % 10/25/22 11:00 Baso % (Auto) 0.4 % 10/25/22 11:00 Neut # (Auto) 8.29 10^3/uL (1.8-7.7) H 10/25/22 11:00 Lymph # (Auto) 1.6 10^3/uL (0.8-4.8) 10/25/22 11:00 Tompkins # (Auto) 1.2 10^3/uL (0.2-0.9) H 10/25/22 11:00 Eos # (Auto) 0.1 10^3/uL (0.0-0.8) 10/25/22 11:00 Baso # (Auto) 0.1 10^3/uL (0.0-0.1) 10/25/22 11:00 Nucleated RBC % (auto) 0 % 10/25/22 11:00 Nucleated RBCs # 0.0 /100WBC 10/25/22 11:00 Sodium 139 mmol/L (136-145) 10/25/22 11:00 Potassium 3.1 mmol/L (3.5-5.1) L 10/25/22 11:00 Chloride 93 mmol/L (98-107) L 10/25/22 11:00 Carbon Dioxide 33 mmol/L (22-29) H 10/25/22 11:00 Anion Gap 16.1 (5-19) 10/25/22 11:00 BUN 42 mg/dL (6-20) H 10/25/22 11:00 Creatinine 2.2 mg/dL (0.7-1.2) H 10/25/22 11:00 GFR Calculation 31.5 mL/min (90-130) L 10/25/22 11:00 Glucose 82 mg/dL (65-115) 10/25/22 11:00 Calculated Osmolality 298 mOsm/kg (285-295) H 10/25/22 11:00 Calcium 8.9 mg/dL (8.5-10.5) 10/25/22 11:00 Total Bilirubin 0.5 mg/dL (0.15-1.2) 10/25/22 11:00 AST 14 U/L (0-40) 10/25/22 11:00 ALT 15 U/L (0-41) 10/25/22 11:00 Alkaline Phosphatase 70 U/L (40-130) 10/25/22 11:00 Troponin T Baseline 45 ng/L (0-15) H 10/25/22 11:00 Troponin T 120 Minute 41.82 ng/L (0-15) H 10/25/22 12:55 Delta Troponin T -3.18 ABS# (0-10) L 10/25/22 12:55 Total Protein 8.1 g/dL (6.6-8.7) 10/25/22 11:00 Albumin 3.7 g/dL (3.5-5.2) 10/25/22 11:00 Globulin 4.4 g/dL (1.3-4.6) 10/25/22 11:00 Discharge Plan Discharge Patient Disposition: Home Clinical Impression: Hypotension, Coronary artery disease, Atrial fibrillation, ICD (implantable cardioverter-defibrillator), single, in situ, Chronic kidney disease, stage 3b, Ischemic cardiomyopathy Condition: Stable Prescriptions: No Action aspirin [Adult Aspirin Regimen] 81 mg tablet,delayed release (DR/EC) 81 mg PO QAM nitroglycerin [Nitrostat] 0.4 mg tablet, sublingual 0.4 mg SUBLINGUAL Q5M PRN (Reason: chest pain) Qty: 25 3RF Rx Instructions: do not exceed 3 doses per episode metolazone 2.5 mg tablet 2.5 mg PO DAILY PRN (Reason: Edema) Qty: 90 3RF furosemide 80 mg tablet 80 mg PO BID Qty: 180 3RF Entresto 49-51 mg tablet 1 tab PO BID Qty: 180 3RF acetaminophen [Tylenol Extra Strength] 500 mg Tablet 1,000 mg PO Q6H PRN (Reason: Pain) tizanidine 4 mg capsule 4 mg PO Q8H PRN (Reason: muscle spasticity) Qty: 10 0RF carvedilol 6.25 mg tablet See Rx Instructions .ROUTE .COMPLEX Rx Instructions: 12.5mg (2 tabs) po qam and 6.25mg (1 tab) qpm isosorbide mononitrate 30 mg tablet extended release 24 hr See Rx Instructions .ROUTE .COMPLEX Rx Instructions: take 30mg po qam (take 15mg (1/2 tab) if BP < 120/80) pravastatin 20 mg tablet 20 mg PO QAM rivaroxaban 20 mg tablet 20 mg PO QAM Farxiga 5 mg tablet 5 mg PO QAM potassium chloride 20 mEq tablet extended release 20 meq PO BID Discharge Orders: Discharge ED (Routine); Ordered 10/25/22 Ordered By: Andrea Gallegos Referrals: Vale Kwon MD [Primary Care Provider] - Discharge Diet: Usual diet Discharge Activity: Resume usual activity Patient Instructions: Opioid Safety, Pain Management Activity Restrictions/Additional Instructions: You were seen today for hypotension. Your blood pressure has been stable during her stay in the emergency room. Laboratory test reviewed. We will discharge you home no change in your medications follow-up with your doctor within the week. Sign Out Sign Out Data: Patient Sign Out occurred on 10/25/22 at 10:48. Patient's care was discussed, and care was transferred from to Andrea Gallegos DO. Coding Level of Care Code ED Radio Repairman for Hollisg Fwd Exam Detailed
[2022-10-25 11:15] LABS: Basophils # 0.1 10^3/uL (0.0-0.1); Basophils % 0.4 %; Eosinophils # 0.1 10^3/uL (0.0-0.8); Eosinophils % 0.8 %; Hematocrit 53.7 % (42.0-52.0); Hemoglobin 17.6 g/dL (11.7-16.6); Lymphocytes # 1.6 10^3/uL (0.8-4.8); Lymphocytes % 14.4 %; Mean Corpuscular HGB Conc 32.8 g/dL (30.0-36.0); Mean Corpuscular Hemoglobin 31.7 pg (28.0-34.0); Mean Corpuscular Volume 96.8 fl (80-94); Monocytes # 1.2 10^3/uL (0.2-0.9); Monocytes % 10.8 %; Neutrophils # 8.29 10^3/uL (1.8-7.7); Neutrophils % 73.2 %; Nucleated Red Blood Cells % 0 %; Platelet Count 326 10^3/cmm (130-400); Red Blood Count 5.55 10^6/uL (4.1-5.3); Red Cell Distribution Width 14.1 % (12.1-15.1); White Blood Count 11.3 10^3/uL (4.0-10.0)
[2022-10-25 11:39] LABS: Troponin(5th) Baseline 45 ng/L (0-15)
[2022-10-25 11:41] LABS: Alanine Aminotransferase 15 U/L (0-41); Albumin Level 3.7 g/dL (3.5-5.2); Alkaline Phosphatase 70 U/L (40-130); Anion Gap 16.1 (5-19); Aspartate Amino Transferase 14 U/L (0-40); Blood Urea Nitrogen 42 mg/dL (6-20); Calcium 8.9 mg/dL (8.5-10.5); Carbon Dioxide 33 mmol/L (22-29); Chloride 93 mmol/L (98-107); Globulin 4.4 g/dL (1.3-4.6); Glomerular Filtration Rate 31.5 mL/min (90-130); Glucose 82 mg/dL (65-115); Osmolality Calculated 298 mOsm/kg (285-295); Potassium 3.1 mmol/L (3.5-5.1); Sodium 139 mmol/L (136-145); Total Bilirubin 0.5 mg/dL (0.15-1.2); Total Protein 8.1 g/dL (6.6-8.7)
--- NOTE | 2022-10-25 12:46 | ECG_ITS ---
[facility] Test Date: 2022-10-25 Pat Name: Gildardo Morton Department: Room: Gender: Male Decontaminator: : 1970 Requested By: Alecia Alonso Order Number: [id number] Giang MD: Sean Miranda M.D. Measurements Intervals [place] Rate: 68 P: 0 ID: 0 QRS: 12 QRSD: 100 T: 183 QT: 459 QTc: 490 Interpretive Statements ATRIAL FIBRILLATION WITH ABERRANT CONDUCTION OR VENTRICULAR PREMATURE COMPLEXES ST DEVIATION AND MODERATE T-WAVE ABNORMALITY, CONSIDER LATERAL ISCHEMIA [-0.1+ mV T-WAVE IN I/aVL/V5/V6] Compared to ECG 10/25/2022 10:43:21 Ventricular premature complex(es) now present Aberrant conduction of supraventricular beat(s) now present Ventricular-paced complex(es) or rhythm no longer present T-wave abnormality still present Possible ischemia still present Electronically Signed On 10-25-2022 14:46:08 [employer] by Sean Miranda M.D. [id number]
[2022-10-25] MEDS: sodium chloride 0.9% 500 ML 999 ML IV (13:20)
[2022-10-25 13:28] LABS: Troponin 5 2HR 41.82 ng/L (0-15)
[2022-10-25 13:30] LABS: Troponin 5 2HR Delta -3.18 ABS# (0-10)
== END 2022-10-25 14:50 | disposition home or self-care (01) ==
PROVIDERS: Nurse Practitioner Family; Emergency Provider Family Medicine; PCP Family Medicine
DX: I95.9 Hypotension, unspecified (principal); I25.10 Atherosclerotic heart disease of native coronary artery without angina pectoris; I48.91 Unspecified atrial fibrillation; Z95.810 Presence of automatic (implantable) cardiac defibrillator; I25.5 Ischemic cardiomyopathy; I13.0 Hypertensive heart and chronic kidney disease with heart failure and stage 1 through stage 4 chronic kidney disease, or unspecified chronic kidney disease; N18.32 Chronic kidney disease, stage 3b; I50.20 Unspecified systolic (congestive) heart failure; E78.5 Hyperlipidemia, unspecified; Z95.1 Presence of aortocoronary bypass graft; Z79.82 Long term (current) use of aspirin
CPT/HCPCS: 71045; 80053; 84484; 85025; 93005; 99285; J7040

== ENCOUNTER → 2023-04-02 08:08 | Outpatient (BNVA) | payer MEDICAID, SELFPAY | PROVIDERS: PCP Family Medicine Adult Medicine; Visit Provider Family Medicine Adult Medicine | DX: I10 Essential (primary) hypertension (principal); N18.32 Chronic kidney disease, stage 3b; I25.810 Atherosclerosis of coronary artery bypass graft(s) without angina pectoris; E11.9 Type 2 diabetes mellitus without complications; E66.01 Morbid (severe) obesity due to excess calories; Z68.42 Body mass index [BMI] 45.0-49.9, adult; I48.91 Unspecified atrial fibrillation; E78.5 Hyperlipidemia, unspecified; I25.5 Ischemic cardiomyopathy; M10.9 Gout, unspecified; Z95.810 Presence of automatic (implantable) cardiac defibrillator; E78.2 Mixed hyperlipidemia; I50.20 Unspecified systolic (congestive) heart failure | CPT/HCPCS: 80053; 80061; 83036; 84443; 85025 ==

== ENCOUNTER 2023-05-23 10:38 | Outpatient (CLI) | payer MEDICAID, SELFPAY ==
[2023-05-23 11:07] LABS: Basophils # 0.1 10^3/uL (0.0-0.1); Basophils % 0.4 %; Eosinophils # 0.1 10^3/uL (0.0-0.8); Eosinophils % 1.2 %; Hematocrit 52.4 % (42.0-52.0); Hemoglobin 16.8 g/dL (11.7-16.6); Lymphocytes # 2.1 10^3/uL (0.8-4.8); Lymphocytes % 18.1 %; Mean Corpuscular HGB Conc 32.1 g/dL (30.0-36.0); Mean Corpuscular Hemoglobin 31.3 pg (28.0-34.0); Mean Corpuscular Volume 97.6 fl (80-94); Mean Platelet Volume 9.4 fL (7.4-10.4); Monocytes # 0.7 10^3/uL (0.2-0.9); Monocytes % 6.1 %; Neutrophils # 8.43 10^3/uL (1.8-7.7); Neutrophils % 73.9 %; Nucleated Red Blood Cells % 0 %; Platelet Count 314 10^3/cmm (130-400); Red Blood Count 5.37 10^6/uL (4.1-5.3); Red Cell Distribution Width 13.9 % (12.1-15.1); White Blood Count 11.4 10^3/uL (4.0-10.0)
[2023-05-23 11:30] LABS: Urine Creatinine 283 mg/dL (39-259)
[2023-05-23 11:31] LABS: UPRO/UCREAT Ratio 0.31 mg/mg CR; Urine Protein Random 88 mg/dL
[2023-05-23 11:37] LABS: Albumin Level 3.7 g/dL (3.5-5.2); Anion Gap 15.4 (5-19); Blood Urea Nitrogen 19 mg/dL (6-20); Calcium 8.9 mg/dL (8.5-10.5); Carbon Dioxide 29 mmol/L (22-29); Chloride 99 mmol/L (98-107); Glomerular Filtration Rate 42.2 mL/min (90-130); Glucose 122 mg/dL (65-115); Phosphorus 2.7 mg/dL (2.5-4.5); Potassium 3.4 mmol/L (3.5-5.1); Sodium 140 mmol/L (136-145)
[2023-05-23 11:43] LABS: Parathyroid Hormone 112.7 pg/mL (15-65)
[2023-05-23 11:53] LABS: 25 Hydroxy Vitamin D 17 ng/mL (30-100)
== END 2023-05-23 10:39 | disposition home or self-care (01) ==
LOC: LAB 10:41
PROVIDERS: PCP Family Medicine Adult Medicine; Visit Provider Registered Nurse
DX: E55.9 Vitamin D deficiency, unspecified (principal); N18.31 Chronic kidney disease, stage 3a
CPT/HCPCS: 36415; 80069; 82306; 82310; 82570; 83970; 84156; 85025

== ENCOUNTER → 2023-05-29 09:18 | Outpatient (BNVA) | payer MEDICAID, SELFPAY | PROVIDERS: PCP Family Medicine Adult Medicine; Visit Provider Family Medicine Adult Medicine | DX: Z11.52 Encounter for screening for COVID-19 (principal); B34.9 Viral infection, unspecified; J40 Bronchitis, not specified as acute or chronic | CPT/HCPCS: 87426 ==

== ENCOUNTER → 2023-10-03 08:02 | Outpatient (BNVA) | payer MEDICARE, MEDICAID, SELFPAY | PROVIDERS: PCP Family Medicine Adult Medicine; Visit Provider Family Medicine Adult Medicine | DX: R06.00 Dyspnea, unspecified (principal); R63.5 Abnormal weight gain; I50.20 Unspecified systolic (congestive) heart failure; I25.5 Ischemic cardiomyopathy; N18.32 Chronic kidney disease, stage 3b; E11.9 Type 2 diabetes mellitus without complications; I10 Essential (primary) hypertension; E66.01 Morbid (severe) obesity due to excess calories; Z68.42 Body mass index [BMI] 45.0-49.9, adult; I25.810 Atherosclerosis of coronary artery bypass graft(s) without angina pectoris; I48.91 Unspecified atrial fibrillation | CPT/HCPCS: 71046; 80053; 83036; 84443; 85025 ==

== ENCOUNTER → 2023-10-08 13:08 | Outpatient (BNVA) | payer MEDICARE, MEDICAID, SELFPAY | PROVIDERS: PCP Family Medicine Adult Medicine; Visit Provider Nurse Practitioner Family | DX: I13.0 Hypertensive heart and chronic kidney disease with heart failure and stage 1 through stage 4 chronic kidney disease, or unspecified chronic kidney disease (principal); E11.22 Type 2 diabetes mellitus with diabetic chronic kidney disease; N18.9 Chronic kidney disease, unspecified; I50.22 Chronic systolic (congestive) heart failure; I48.91 Unspecified atrial fibrillation; Z79.84 Long term (current) use of oral hypoglycemic drugs; Z95.810 Presence of automatic (implantable) cardiac defibrillator; I25.810 Atherosclerosis of coronary artery bypass graft(s) without angina pectoris; Z79.01 Long term (current) use of anticoagulants; Z79.82 Long term (current) use of aspirin | CPT/HCPCS: 99214 ==

== ENCOUNTER → 2023-10-16 10:15 | Outpatient (BNVA) | payer MEDICARE, MEDICAID, SELFPAY | PROVIDERS: PCP Family Medicine Adult Medicine; Visit Provider Nurse Practitioner Family | DX: I13.0 Hypertensive heart and chronic kidney disease with heart failure and stage 1 through stage 4 chronic kidney disease, or unspecified chronic kidney disease (principal); E11.22 Type 2 diabetes mellitus with diabetic chronic kidney disease; N18.9 Chronic kidney disease, unspecified; Z79.84 Long term (current) use of oral hypoglycemic drugs; I50.22 Chronic systolic (congestive) heart failure; E78.5 Hyperlipidemia, unspecified | CPT/HCPCS: 36415; 80048; 83880; 99214 ==

== ENCOUNTER 2023-12-05 09:33 | Outpatient (CLI) | payer MEDICARE, MEDICAID, SELFPAY ==
[2023-12-05 10:21] LABS: Basophils % 0.4 %; Eosinophils # 0.1 10^3/uL (0.0-0.8); Eosinophils % 1.3 %; Hematocrit 50.1 % (37-53); Lymphocytes % 17.9 %; Mean Corpuscular HGB Conc 31.3 g/dL (30-55); Mean Corpuscular Hemoglobin 30.7 pg (27-33); Mean Corpuscular Volume 97.9 fl (82-101); Mean Platelet Volume 9.7 fL (7.4-10.4); Monocytes % 8.8 %; Neutrophils # 7.83 10^3/uL (1.8-7.7); Neutrophils % 71.1 %; Nucleated Red Blood Cells % 0 %; Platelet Count 331 10^3/cmm (157-399); Red Blood Count 5.12 10^6/uL (3.85-5.65); Red Cell Distribution Width 15.1 % (12.1-15.1); White Blood Count 11.01 10^3/uL (3.29-11.43)
[2023-12-05 10:53] LABS: Calcium 8.9 mg/dL (8.5-10.5)
[2023-12-05 11:08] LABS: 25 Hydroxy Vitamin D 11 ng/mL (30-100); Albumin Level 3.6 g/dL (3.5-5.2); Anion Gap 11.8 (5-19); Blood Urea Nitrogen 26 mg/dL (6-20); Calcium 8.7 mg/dL (8.5-10.5); Carbon Dioxide 32 mmol/L (22-29); Chloride 101 mmol/L (98-107); Glucose 89 mg/dL (65-115); Phosphorus 3.2 mg/dL (2.5-4.5); Potassium 3.8 mmol/L (3.5-5.1); Sodium 141 mmol/L (136-145)
[2023-12-05 11:14] LABS: Creatinine Urine, Random 173 mg/dL (39-259); Microalbumin Random Urine 16 ug/dL (0-20)
[2023-12-05 11:16] LABS: Microalbum Creatinine Ratio Ur 92 mg/dL (0-20)
== END 2023-12-05 09:34 | disposition home or self-care (01) ==
LOC: LAB 09:34
PROVIDERS: PCP Family Medicine Adult Medicine; Visit Provider Internal Medicine Nephrology
DX: N18.32 Chronic kidney disease, stage 3b (principal); N25.81 Secondary hyperparathyroidism of renal origin
CPT/HCPCS: 36415; 80069; 82044; 82306; 82310; 83970; 85025

== ENCOUNTER 2024-06-12 12:47 | Outpatient (CLI) | payer MEDICAID, SELFPAY ==
[2024-06-12 13:31] LABS: Urine Creatinine 87 mg/dL (39-259)
[2024-06-12 13:36] LABS: UPRO/UCREAT Ratio 0.29 mg/mg CR; Urine Protein Random 25 mg/dL
== END 2024-06-12 12:48 | disposition home or self-care (01) ==
LOC: LAB 12:48
PROVIDERS: PCP Family Medicine Adult Medicine; Visit Provider Registered Nurse
DX: E55.9 Vitamin D deficiency, unspecified (principal); N18.32 Chronic kidney disease, stage 3b
CPT/HCPCS: 82570; 84156

== ENCOUNTER 2024-06-17 10:15 | Outpatient (CLI) | payer MEDICAID, SELFPAY ==
[2024-06-17 11:00] LABS: Basophils % 0.4 %; Eosinophils # 0.2 10^3/uL (0.0-0.8); Eosinophils % 1.4 %; Hematocrit 47.2 % (37-53); Lymphocytes # 1.7 10^3/uL (0.8-4.8); Lymphocytes % 15.2 %; Mean Corpuscular HGB Conc 31.8 g/dL (30-55); Mean Corpuscular Hemoglobin 31.3 pg (27-33); Mean Corpuscular Volume 98.3 fl (82-101); Mean Platelet Volume 9.4 fL (7.4-10.4); Monocytes # 0.9 10^3/uL (0.2-0.9); Monocytes % 7.5 %; Nucleated Red Blood Cells % 0 %; Platelet Count 311 10^3/cmm (157-399); Red Cell Distribution Width 15.9 % (12.1-15.1); White Blood Count 11.33 10^3/uL (3.29-11.43)
[2024-06-17 11:24] LABS: Albumin Level 3.5 g/dL (3.5-5.2); Anion Gap 13.1 (5-19); Blood Urea Nitrogen 22 mg/dL (6-20); Calcium 8.7 mg/dL (8.5-10.5); Carbon Dioxide 31 mmol/L (22-29); Chloride 100 mmol/L (98-107); Glomerular Filtration Rate 39.4 mL/min (90-130); Glucose 99 mg/dL (65-115); Phosphorus 3.6 mg/dL (2.5-4.5); Potassium 4.1 mmol/L (3.5-5.1); Sodium 140 mmol/L (136-145)
[2024-06-17 11:41] LABS: Parathyroid Hormone 144.1 pg/mL (15-65)
[2024-06-17 12:05] LABS: 25 Hydroxy Vitamin D 29 ng/mL (30-100)
== END 2024-06-17 10:16 | disposition home or self-care (01) ==
LOC: LAB 10:18
PROVIDERS: PCP Family Medicine Adult Medicine; Visit Provider Registered Nurse
DX: E55.9 Vitamin D deficiency, unspecified (principal); N18.32 Chronic kidney disease, stage 3b; N25.81 Secondary hyperparathyroidism of renal origin
CPT/HCPCS: 36415; 80069; 82306; 82310; 83970; 85025

== ENCOUNTER 2024-07-03 09:15 | Inpatient (IN) | payer MEDICARE, MEDICAID, SELFPAY ==
[2024-07-03] VITALS (13 sets, daily range): BP systolic 88–126; BP diastolic 58–87; PULSE 64–85; RESP 18–20; TEMP 36.4–37; O2SAT 92–97; BMI 52.0
--- NOTE | 2024-07-03 09:20 | ECG_ITS ---
[facility] Test Date: 2024-07-03 Pat Name: Gildardo Morton Department: Room: Gender: Male Telephone Advice Nurse: : 1970 Requested By: Andrea Tuttle Order Number: [id number] Padmaja MD: Oliver Jones M.D. Measurements Intervals [place] Rate: 64 P: 0 NC: 0 QRS: 33 QRSD: 108 T: 161 QT: 430 QTc: 445 Interpretive Statements Atrial fibrillation with demand V pacing VENTRICULAR PREMATURE COMPLEXES MODERATE T-WAVE ABNORMALITY, CONSIDER LATERAL ISCHEMIA [-0.1+ mV T-WAVE IN I/aVL/V5/V6] Compared to ECG 10/25/2022 12:46:07 Aberrant conduction of supraventricular beat(s) no longer present T-wave abnormality still present Possible ischemia still present Electronically Signed On 07-03-2024 20:22:49 CDT by Oliver Jones M.D. [id number]
--- NOTE | 2024-07-03 09:27 | ED_ITS ---
HPI - SOB/Dyspnea 2 General: Chief Complaint: Shortness of Breath/Dyspnea Stated Complaint: Low BP, CHF, Syncope Time Seen by Provider: 07/03/24 09:19 History of Present Illness: HPI Narrative: 53-year-old male presents to the emergen cy room from cardiac clinic. Is complaining of shortness of breath and chest discomfort. He says exertional chest discomfort accompanied by shortness of breath with some diaphoresis resolves with rest worse with exertion. This has been going on for several days. Patient has a known history of ischemic cardiomyopathy chronic kidney disease. Patient has taken all of his medications regularly. Reviewing his chart he had a Lexiscan sestamibi stress test March 2021 that did show some area of reversibility showed an EF of 49% previously in July 2020 he had an echocardiogram that showed an EF of 20 to 25%. Another echo in February 2022 also showed an EF of around 25%. Patient does have an ICD in place. He is on anticoagulation for his atrial fibrillation. Associated symptoms: Deny abdominal pain, chest pain or fever(s) Related Data Home Medications Medication Instructions Recorded Confirmed aspirin 81 mg tablet,delayed 81 mg PO QAM 12/22/19 07/03/24 release (Adult Aspirin Regimen) Previous Rx's Medication Instructions Recorded nitroglycerin 0.4 mg sublingual 0.4 mg sublingual Q5M PRN chest 06/13/22 tablet (Nitrostat) pain #25 tabs tizanidine 4 mg capsule 4 mg PO Q8H PRN muscle spasticity 10/13/22 #10 caps pravastatin 20 mg tablet 20 mg PO QAM #90 tabs 07/02/23 furosemide 80 mg tablet 80 mg PO BID #180 tabs 07/04/23 isosorbide mononitrate 30 mg 30 mg PO DAILY #90 tabs 07/16/23 tablet,extended release 24 hr rivaroxaban 20 mg tablet 20 mg PO QAM #90 tabs 07/16/23 metolazone 2.5 mg tablet 2.5 mg PO DAILY PRN Edema #90 tabs 12/16/23 allopurinol 100 mg tablet 100 mg PO DAILY gout #30 tabs 12/24/23 carvedilol 6.25 mg tablet See Rx Instructions .Route 04/01/24 .COMPLEX #270 tabs dapagliflozin propanediol 5 mg 5 mg PO QAM #90 tabs 04/01/24 tablet (Farxiga) potassium chloride 20 mEq 20 meq PO TID #270 tabs 04/15/24 tablet,extended release sacubitril 49 mg-valsartan 51 mg 1 tab PO BID #180 tabs 04/15/24 tablet (Entresto) Allergies Allergy/AdvReac Type Severity Reaction Status Date / Time tamsulosin [From Flomax] Allergy ADR-Itching Verified 07/03/24 08:33 oxycodone [From OxyContin] AdvReac Intermediate low bp Verified 07/03/24 08:33 Review of Systems 2 Const: Denies: fever(s) or chills Card: Denies: chest pain Resp: Denies: dyspnea GI: Denies: abdominal pain : Denies: dysuria, urinary frequency or urinary urgency Musc: Denies: neck pain or back pain Skin/Breast: Denies: rash PFSH ED 2 PFSH: Medical History 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 Postoperative course associated with arrest shortly after procedure Chronic kidney disease Left atrial thrombus Atrial fibrillation Hyperlipidemia Essential hypertension Systolic CHF LVEF 25 to 30% by TTE 08/02/2020 Surgical History Status post aorto-coronary artery bypass graft 06/2019. Postoperative course associated with arrest shortly after procedure H/O two vessel coronary artery bypass graft Family History Mother CAD (coronary artery disease) Diabetes Hypertension Father Cancer Social History Smoking and tobacco/nicotine status: former use of tobacco/nicotine Second hand smoke exposure: No Alcohol intake: former Former alcohol use details: occational Substance/Drug Use: former Housing: House Marital status: Single Physical Exam 2 Const: COMMON NORMALS: no acute distress GENERAL APPEARANCE: cooperative and comfortable ORIENTATION/CONSCIOUSNESS: Yes awake, Yes oriented to person, Yes oriented to place and Yes oriented to time HENMT: COMMON NORMALS: normocephalic, atraumatic and hearing grossly normal bilaterally HEAD & SCALP: normocephalic and atraumatic Resp: COMMON NORMALS: normal respiratory effort, No retractions and No use of accessory muscles AUSCULTATION: crackles Cardio: COMMON NORMALS: regular rate, regular rhythm and No murmurs present (Cardio) RATE: regular rate RHYTHM: regular rhythm GI: COMMON NORMALS: Soft to palpation and No hepatosplenomegaly present A USCULTATION: Yes normoactive bowel sounds PALPATION: Yes Soft to palpation, No Tenderness to palpation present (GI), No Guarding due to palpation present (GI) and Yes No hepatosplenomegaly present Extremity: COMMON NORMALS: normal to inspection, capillary refill normal and no calf tenderness GENERAL: Yes edema Neuro: SENSORIUM/ORIENTATION: Yes oriented to person, Yes oriented to place and Yes oriented to time Skin: COMMON NORMALS: no rashes or lesions noted GENERAL SKIN EXAM: no rashes or lesions noted Course 2 Vital Signs: Vital signs: Vital Signs Temperature 98.2 F 07/03/24 09:19 Pulse Rate 71 07/03/24 12:31 Respiratory Rate 18 07/03/24 09:19 Blood Pressure 115/71 07/03/24 12:03 Pulse Oximetry 95 07/03/24 12:31 Oxygen Delivery Me thod Room Air 07/03/24 12:03 MDM - SOB/Dyspnea Medical Decision Making Patient having chest pain. Reviewing her previous Cath There Is Some Heart Disease Present a stress test that showed some areas of reversibility has not had a angiogram since then. His cardiomyopathy is quite severe. He has an acute kidney injury. He has persistent orthopnea does also some mild swelling to his lower extremities. Will admit discussed with hospitalist. Medical Records I reviewed the patient's medical records. 06/26/19 Request for Service CATH[facility] Conclusions #1 Left main is normal #2 LAD is moderate caliber large vessel with proximal to mid tandem 70-80% stenosis involving the bifurcation with a moderate size and caliber branch #3 Diagonal branch has ostial 75-80% stenosis, it is a moderate size and caliber vessel #4 Ramus intermedius is a moderate size and caliber vessel with proximal 85% stenosis #5 Left circumflex is a nondominant vessel with luminal irregularities #6 RCA is large size and caliber vessel with mid 40% and distal tandem 90% stenosis. No significant gradient across the aortic valve was present. We did not perform LV gram due to renal dysfunction. Patient had echocardiogram that showed LV ejection fraction has moderate degree depressed 35-40% which is dropped from previously normal 60%. There is severe coronary artery disease with three vessel disease. Indication for angiogram: #1 ACS #2 Worsening of LV function #3 Worsening of heart failure. Lab Data I reviewed the patient's lab results. 07/03/24 09:40 07/03/24 09:40 Labs/Radiology: Radiology Impressions Chest X-Ray 07/03/24 09:30 Impression: Cardiomegaly. Laboratory Results WBC 11.42 10^3/uL (3.29-11.43) 07/03/24 09:40 RBC 5.05 10^6/uL (3.85-5.65) 07/03/24 09:40 Hgb 15.60 g/dL (11.27-16.99) 07/03/24 09:40 Hct 48.2 % (37-53) 07/03/24 09:40 MCV 95.4 fl (82-101) 07/03/24 09:40 MCH 30.9 pg (27-33) 07/03/24 09:40 MCHC 32.4 g/dL (30-55) 07/03/24 09:40 RDW 15.3 % (12.1-15.1) H 07/03/24 09:40 Plt Count 307 10^3/cmm (157-399) 07/03/24 09:40 MPV 9.5 fL (7.4-10.4) 07/03/24 09:40 Neut % (Auto) 69.3 % 07/03/24 09:40 Lymph % (Auto) 18.0 % 07/03/24 09:40 [place] % (Auto) 10.4 % 07/03/24 09:40 Eos % (Auto) 1.1 % 07/03/24 09:40 Baso % (Auto) 0.4 % 07/03/24 09:40 Neut # (Auto) 7.90 10^3/uL (1.8-7.7) H 07/03/24 09:40 Lymph # (Auto) 2.1 10^3/uL (0.8-4.8) 07/03/24 09:40 [place] # (Auto) 1.2 10^3/uL (0.2-0.9) H 07/03/24 09:40 Eos # (Auto) 0.1 10^3/uL (0.0-0.8) 07/03/24 09:40 Baso # (Auto) 0.1 10^3/uL (0.0-0.1) 07/03/24 09:40 Nucleated RBC % (auto) 0 % 07/03/24 09:40 Nucleated RBCs # 0.0 /100WBC 07/03/24 09:40 Sodium 135 mmol/L (136-145) L 07/03/24 09:40 Potassium 3.2 mmol/L (3.5-5.1) L 07/03/24 09:40 Chloride 93 mmol/L (98-107) L 07/03/24 09:40 Carbon Dioxide 30 mmol/L (22-29) H 07/03/24 09:40 Anion Gap 15.2 (5-19) 07/03/24 09:40 BUN 48 mg/dL (6-20) H 07/03/24 09:40 Creatinine 2.5 mg/dL (0.7-1.2) H 07/03/24 09:40 GFR Calculation 26.9 mL/min (90-130) L 07/03/24 09:40 Glucose 112 mg/dL (65-115) 07/03/24 09:40 Calculated Osmolality 293 mOsm/kg (285-295) 07/03/24 09:40 Calcium 8.8 mg/dL (8.5-10.5) 07/03/24 09:40 Total Bilirubin 0.4 mg/dL (0.15-1.2) 07/03/24 09:40 AST 16 U/L (0-40) 07/03/24 09:40 ALT 16 U/L (0-41) 07/03/24 09:40 Alkaline Phosphatase 57 U/L (40-130) 07/03/24 09:40 Troponin T Baseline 43 ng/L (0-15) H 07/03/24 09:40 Troponin T 120 Minute 45.46 ng/L (0-15) H 07/03/24 11:41 Delta Troponin T 2.46 ABS# (0-10) 07/03/24 11:41 NT-Pro-B Natriuret Pep 1074 pg/mL (0-125) H 07/03/24 09:40 Total Protein 7.5 g/dL (6.6-8.7) 07/03/24 09:40 Albumin 3.3 g/dL (3.5-5.2) L 07/03/24 09:40 Globulin 4.2 g/dL (1.3-4.6) 07/03/24 09:40 Urine Color Yellow (Yellow) 07/03/24 12:29 Urine Appearance Clear (CLEAR) 07/03/24 12:29 Urine pH 5.0 (5-7) 07/03/24 12:29 Ur Specific [place] 1.013 (1.005-1.030) 07/03/24 12:29 Urine Protein Negative (Negative) 07/03/24 12:29 Urine Glucose (UA) Trace (Normal) H 07/03/24 12:29 Urine Ketones Negative (Negative) 07/03/24 12:29 Urine Blood Negative (Negative) 07/03/24 12:29 Urine Nitrate Negative (Negative) 07/03/24 12:29 Urine Bilirubin Negative (Negative) 07/03/24 12:29 Urine Urobilinogen 0.2 mg/dL (Negative) 07/03/24 12:29 Ur Leukocyte Esterase Negative (Negative) 07/03/24 12:29 All radiology interpretation(s) finalized by discharge Discharge Plan Discharge Condition: Stable Prescriptions: No Action aspirin [Adult Aspirin Regimen] 81 mg tablet,delayed release (DR/EC) 81 mg PO QAM nitroglycerin [Nitrostat] 0.4 mg tablet, sublingual 0.4 mg SUBLINGUAL Q5M PRN (Reason: chest pain) Qty: 25 3RF Rx Instructions: do not exceed 3 doses per episode pravastatin 20 mg tablet 20 mg PO QAM Qty: 90 3RF furosemide 80 mg tablet 80 mg PO BID Qty: 180 3RF isosorbide mononitrate 30 mg tablet extended release 24 hr 30 mg PO DAILY Qty: 90 3RF Rx Instructions: TAKE ONE TABLET BY MOUTH DAILY AT 8AM. IF BLOOD PRESSURE IS <120/80 ONLY TAKE ONE HALF TABLET rivaroxaban 20 mg tablet 20 mg PO QAM Qty: 90 3RF metolazone 2.5 mg tablet 2.5 mg PO DAILY PRN (Reason: Edema) Qty: 90 3RF allopurinol 100 mg tablet 100 mg PO DAILY Qty: 30 5RF Farxiga 5 mg tablet 5 mg PO QAM Qty: 90 1RF carvedilol 6.25 mg tablet See Rx Instructions .ROUTE .COMPLEX Qty: 270 0RF Rx Instructions: take 2 tabs by mouth in the morning and 1 tab every evening potassium chloride 20 mEq tablet extended release 20 meq PO TID Qty: 270 1RF Rx Instructions: Takes an extra one every other day. Entresto 49-51 mg tablet 1 tab PO BID Qty: 180 1RF tizanidine 4 mg capsule 4 mg PO Q8H PRN (Reason: muscle spasticity) Qty: 10 0RF Coding Level of Care Code ED Drying Tumbler Operator for Mable Maldonado
--- NOTE | 2024-07-03 09:30 | XR_ITS ---
WS: [id number] Portable AP upright chest, 07/03/2024 Clinical Data: dyspnea/cough Comparison: Two-view chest, 10/03/2023 Findings: No nodules, masses or effusions are seen. The heart is enlarged. The pulmonary vascularity is not increased. No pneumonia or pneumothorax is seen. Midline sternotomy sutures are present. There are small sutures adjacent to the left cardiac border. A permanent pacemaker remains in the same pos ition. XR/XR chest 1V portable [id number] Impression: Cardiomegaly.
[2024-07-03 09:54] LABS: Basophils # 0.1 10^3/uL (0.0-0.1); Basophils % 0.4 %; Eosinophils # 0.1 10^3/uL (0.0-0.8); Eosinophils % 1.1 %; Hematocrit 48.2 % (37-53); Lymphocytes # 2.1 10^3/uL (0.8-4.8); Mean Corpuscular HGB Conc 32.4 g/dL (30-55); Mean Corpuscular Hemoglobin 30.9 pg (27-33); Mean Corpuscular Volume 95.4 fl (82-101); Mean Platelet Volume 9.5 fL (7.4-10.4); Monocytes # 1.2 10^3/uL (0.2-0.9); Monocytes % 10.4 %; Neutrophils % 69.3 %; Nucleated Red Blood Cells % 0 %; Platelet Count 307 10^3/cmm (157-399); Red Blood Count 5.05 10^6/uL (3.85-5.65); Red Cell Distribution Width 15.3 % (12.1-15.1); White Blood Count 11.42 10^3/uL (3.29-11.43)
[2024-07-03] MEDS: aspirin 81 mg Chew Tablet 324 MG PO (10:17)
[2024-07-03 10:18] LABS: Troponin(5th) Baseline 43 ng/L (0-15)
[2024-07-03 10:25] LABS: Alanine Aminotransferase 16 U/L (0-41); Albumin Level 3.3 g/dL (3.5-5.2); Alkaline Phosphatase 57 U/L (40-130); Anion Gap 15.2 (5-19); Aspartate Amino Transferase 16 U/L (0-40); Blood Urea Nitrogen 48 mg/dL (6-20); Calcium 8.8 mg/dL (8.5-10.5); Carbon Dioxide 30 mmol/L (22-29); Chloride 93 mmol/L (98-107); Creatinine Clr Calc Pharmacy 54.8871; Globulin 4.2 g/dL (1.3-4.6); Glomerular Filtration Rate 26.9 mL/min (90-130); Glucose 112 mg/dL (65-115); NT Pro B Type Natriuretic Pept 1074 pg/mL (0-125); Osmolality Calculated 293 mOsm/kg (285-295); Potassium 3.2 mmol/L (3.5-5.1); Sodium 135 mmol/L (136-145); Total Bilirubin 0.4 mg/dL (0.15-1.2); Total Protein 7.5 g/dL (6.6-8.7)
--- NOTE | 2024-07-03 11:30 | ECG_ITS ---
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 Measurements Intervals [place] Rate: 63 P: 0 WV: 0 QRS: 269 QRSD: 193 T: 98 QT: 555 QTc: 572 Interpretive Statements ELECTRONIC VENTRICULAR PACEMAKER Frequent PVCs PROLONGED QT INTERVAL CRITICAL TEST RESULT Compared to ECG 07/03/2024 09:20:26 Prolonged QT interval now present T-wave abnormality no longer present Possible ischemia no longer present Electronically Signed On 07-03-2024 20:28:23 CDT by Oliver Jones M.D. [id number]
--- NOTE | 2024-07-03 11:46 | P.HP_ITS ---
Providers/Chief Complaint 2 Admitting Physician: Brian Latif MD, hospitalist Primary Care Provider: Rajesh Barr MD Chief Complaint: Low BP, CHF, Syncope History of Present Illness Gildardo Morton is a 53 year old male referred to the emergency department by cardiology clinic with complaints of feelings of presyncope when up and about, shortness of breath, dizziness. Patient reports he feels some chest discomfort, more on the right side with exertion. Symptoms have been going on 1 to 2 weeks, or perhaps longer. He states his weight has been variable depending on which clinic he goes to. He has gained a significant amount of weight lately, but not necessarily edema. He was worried it might be more water, so he has been restricting what he drinks more. He has been taking his metolazone at least every week. He has been compliant with his other medication. He is noted that his blood pressure has been significantly low at times. No recent fever, cough, dysuria, sick exposure, blood in stool or black or tarry stools. Reports his swelling in his legs is not as bad as it used to be. Review of Systems 2 General: Reports: 10 or more systems reviewed and unremarkable except in HPI and below Card: Reports: chest pain; Denies: palpitations or swelling of feet/ankles Resp: Reports: dyspnea; Denies: productive cough or non-productive cough GI: Denies: abdominal pain, nausea, vomiting, hematochezia or melena Medications/Allergies Home Medications Medication Instructions Recorded Confirmed Last Taken Type aspirin 81 mg tablet,delayed 81 mg PO QAM 12/22/19 07/03/24 07/03/24 History release (Adult Aspirin Regimen) nitroglycerin 0.4 mg sublingual 0.4 mg sublingual Q5M PRN chest 06/13/22 07/03/24 Unknown Rx tablet (Nitrostat) pain #25 tabs tizanidine 4 mg capsule 4 mg PO Q8H PRN muscle spasticity 10/13/22 07/03/24 Unknown Rx #10 caps pravastatin 20 mg tablet 20 mg PO QAM #90 tabs 07/02/23 07/03/24 07/03/24 Rx furosemide 80 mg tablet 80 mg PO BID #180 tabs 07/04/23 07/03/24 07/03/24 Rx isosorbide mononitrate 30 mg 30 mg PO DAILY #90 tabs 07/16/23 07/03/24 07/03/24 Rx tablet,extended release 24 hr rivaroxaban 20 mg tablet 20 mg PO QAM #90 tabs 07/16/23 07/03/24 07/03/24 Rx metolazone 2.5 mg tablet 2.5 mg PO DAILY PRN Edema #90 tabs 12/16/23 07/03/24 Unknown Rx allopurinol 100 mg tablet 100 mg PO DAILY gout #30 tabs 12/24/23 07/03/24 07/03/24 Rx carvedilol 6.25 mg tablet See Rx Instructions .Route 04/01/24 07/03/24 07/03/24 Rx .COMPLEX #270 tabs dapagliflozin propanediol 5 mg 5 mg PO QAM #90 tabs 04/01/24 07/03/24 07/03/24 Rx tablet (Farxiga) potassium chloride 20 mEq 20 meq PO TID #270 tabs 04/15/24 07/03/24 07/03/24 Rx tablet,extended release sacubitril 49 mg-valsartan 51 mg 1 tab PO BID #180 tabs 04/15/24 07/03/24 07/03/24 Rx tablet (Entresto) Allergies Allergy/AdvReac Type Severity Reaction Status Date / Time tamsulosin [From Flomax] Allergy ADR-Itching Verified 07/03/24 08:33 oxycodone [From OxyContin] AdvReac Intermediate low bp Verified 07/03/24 08:33 PFSH Acute 2 PFSH: Medical History 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 Postoperative course associated with arrest shortly after procedure Chronic kidney disease Left atrial thrombus Atrial fibrillation Hyperlipidemia Essential hypertension Systolic CHF LVEF 25 to 30% by TTE 08/02/2020 Surgical History Status post aorto-coronary artery bypass graft 06/2019. Postoperative course associated with arrest shortly after procedure H/O two vessel coronary artery bypass graft Family History Mother CAD (coronary artery disease) Diabetes Hypertension Father Cancer Social History Smoking and tobacco/nicotine status: former use of tobacco/nicotine Second hand smoke exposure: No Alcohol intake: former Former alcohol use details: occational Substance/Drug Use: former Housing: House Marital status: Single Vitals/I&O/Wt Last Vital Signs Temp 98.2 F 07/03/24 09:19 Pulse 73 07/03/24 11:34 Resp 18 07/03/24 09:19 BP 104/63 07/03/24 10:19 Pulse Ox 95 07/03/24 11:34 O2 Del Method Room Air 07/03/24 11:34 Weight last 48 hrs Weight 174.179 kg Physical Exam 2 Narrative: General Exam is a conversive white male, with borderline low blood pressure. He is sitting up in bed. He is on room air. HEENT: Atraumatic normocephalic. Oropharynx is clear Neck is supple and obese Cardiovascular regular rate and rhythm with frequent premature beats, 2/6 systolic murmur Lungs clear no wheezes or crackles Abdomen obese soft nontender. Cannot estimate organomegaly. exam is deferred Extremities show venous stasis changes. Trace edema at most. Skin no rash Neuro no obvious focal deficits. Data 07/03/24 09:40 07/03/24 09:40 Other Labs: Magnesium and TSH have been ordered LFTs are normal Troponin is 43 with series pending BNP 1074, lower than usual Albumin 3.3, calcium 8.8 I have ordered a urinalysis Chest x-ray demonstrates some cardiomegaly but no obvious infiltrate or pulmonary edema. Previous bypass noted. This is by my read EKG by my read demonstrates sinus rhythm, frequent PVCs, left axis deviation, nonspecific ST-T wave changes with T wave inversion, V4 through 6. Some pacemaker ventricular beats are noted. A&P Assessment and plan (1) Hypotension: Patient is hypotensive He has acute kidney injury He does not have evidence of pulmonary edema on chest x-ray, BNP is lower than his normal, and he does not have significant peripheral edema. I believe he is somewhat dry. Hold off on his diuretics for today. Can continue carvedilol if systolic blood pressure greater than 100 Hold off on Entresto, canagliflozin currently, Lasix, Zaroxolyn Check TSH Qualifiers: Hypotension type: orthostatic hypotension Qualified Code(s): I95.1 - Orthostatic hypotension (2) Acute hypokalemia: Supplement potassium Check magnesium (3) Near syncope: See #1 Investigate pacemaker/defibrillator Telemetry (4) Systolic CHF: Patient appears compensated currently Check echocardiogram Secondary to hypotension, acute kidney injury hold off on Entresto, dapagliflozin, metolazone, Lasix until reevaluation tomorrow. Cardiology consultation Qualifiers: Heart failure chronicity: chronic Qualified Code(s): I50.22 - Chronic systolic (congestive) heart failure (5) ICD (implantable cardioverter-defibrillator), single, in situ: (6) Atrial fibrillation: Patient with history of A-fib, left atrial thrombus, status post pacemaker. Continue Xarelto Qualifiers: Atrial fibrillation type: unspecified Qualified Code(s): I48.91 - Unspecified atrial fibrillation Plan Other medical problems as outlined in past medical history, including diabetes. Blood sugars are normal. Previous A1c's are normal. He is on dapagliflozin which I suspect is secondary to his heart failure. Will provide consistent carb diet but no reason for routine blood sugar checks 4 times daily. Full code Xarelto will suffice for DVT prophylaxis Attestations 2 Medical Necessity Statement*: Will need less than 2 midnight stay for evaluation and treatment of hypotension, acute kidney injury Diagnoses Orthostatic hypotension I95.1 Hypotension type: orthostatic hypotension Acute hypokalemia E87.6 Near syncope R55 Chronic systolic congestive heart failure I50.22 Heart failure chronicity: chronic ICD (implantable cardioverter-defibrillator), single, in situ Z95.810 Atrial fibrillation, unspecified type I48.91 Atrial fibrillation type: unspecified Time Spent (min) 54
[2024-07-03 12:05] LABS: Troponin 5 2HR 45.46 ng/L (0-15); Troponin 5 2HR Delta 2.46 ABS# (0-10)
--- NOTE | 2024-07-03 12:23 | PC.NURSE ---
[employer] pacemaker interrogated, data sent @[id number].
[2024-07-03 12:44] LABS: Bilirubin Urine Negative (Negative); Blood Urine Negative (Negative); Glucose Urine UA Trace (Normal); Ketones Urine Negative (Negative); Leukocyte Esterase Urine Negative (Negative); Nitrate Urine Negative (Negative); Protein Urine Negative (Negative); Specific Gravity, Urine 1.013 (1.005-1.030); Urine Appearance Clear (CLEAR); Urine Color Yellow (Yellow); Urobilinogen Urine 0.2 mg/dL (Negative)
--- NOTE | 2024-07-03 12:45 | PC.NURSE ---
per Alecia from [facility] [employer] report @1235: pt has single chamber pacemaker in R ventricle; Detected atrial arrhythmia, irregular R to R interval ; over 1,500 episodes of same since January . 23.9% Atrial burden. ; two episodes of non-sustained VT, last being 06/23/2024. ; Alecia states battery and leads functioning as should.
[2024-07-03 12:46] LABS: Bacteria Urine None Seen /hpf; Hyaline Casts Urine 16.12 /lpf; RBC Urine 0-2 /hpf (0-2); Squamous Epithelial Cell Urine 0-5 /hpf (0-5); WBC Urine 0-5 /hpf (0-5)
--- NOTE | 2024-07-03 12:51 | PC.NURSE ---
report called to Albert, ICU; no further questions at end of report.
--- NOTE | 2024-07-03 12:55 | PC.NURSE ---
report called to AGNES Álvarez; no further questions at end of report. Preeti states room is not ready, to call when ready.
[2024-07-03 12:57] LABS: Magnesium 2.5 mg/dL (1.7-2.3); Thyroid Stimulating Hormone 2.42 uIU/mL (0.27-4.20)
--- NOTE | 2024-07-03 14:02 | USCV_ITS ---
Gildardo Morton Age: 53 Gender: M : 1970 Exam Date: 07/03/2024 14:42 Ordering Phys: Brian Latif MD Technologist: CT Exam Location: [facility] – [place]_ Indication: chf BP: 101 / 84 HR: 57 Rhythm: Atrial fibrillation Technical Quality: Technically difficult study MEASUREMENTS (Male / Female) Normal Values 2D ECHO LVOT Diameter 2.1 cm LV Ejection Fraction MOD 4C 30.7 % LV Ejection Fraction MOD 2C 26.9 % LV Ejection Fraction 2C AL 28.6 % LA Diameter 5.9 cm LA Sys Volume AL 129.0 cm cubed LA Sys Volume Index AL 42.0 cm cubed/m squared Aorta at Sinotubular Diameter 2.5 cm M-MODE LA Ao Ratio MM 1.9 AV Cusp Separation MM 2.2 cm DOPPLER AV Peak Velocity 141.0 cm/s LVOT Peak Velocity 77.0 cm/s AV Area Cont Eq vti 2.1 cm squared AV Area Cont Eq pk 1.9 cm squared MV Peak Velocity 104.0 cm/s TR Peak Velocity 215.0 cm/s TR Peak Gradient 18.5 mmHg TV Peak E Velocity 53.0 cm/s Right Atrial Pressure 3.0 mmHg Pulmonary Artery Systolic Pressu 21.5 mmHg PV Peak Velocity 102.5 cm/s FINDINGS Left Ventricle Left ventricle is normal in size. LV systolic function is severely reduced with EF of 25 to 30%. Severe global hypokinesis. Right Ventricle Grossly normal Right Atrium Dilated Left Atrium Dilated Mitral Valve Structurally normal mitral valve. Moderate mitral regurgitation. Aortic Valve Aortic valve is thickened. No significant stenosis. Tricuspid Valve Insufficient TR jet to calculate RVSP Pulmonic Valve Not well visualized Pericardium Normal Aorta Normal in size IVC Not visualized CONCLUSIONS Technically limited quality echocardiogram because of poor ultrasonic windows. LV systolic function is severely reduced with EF of 25 to 30%. Biatrial enlargement. Moderate mitral regurgitation. Compared to prior echocardiogram from 2019, no significant changes are seen. Sean Miranda MD (Electronically Signed) Final Date: 03 July 2024 15:27 S
--- NOTE | 2024-07-03 14:15 | P.CONIM_ITS ---
Providers/Reason For Consult 2 Consulting Physician/Specialty*: Sean Miranda MD/ Cardiology Reason for Consult*: Shortness of breath Requesting Physician: Dr Latif Attending Physician: Brian Latif MD Primary Care Provider: Rajesh Barr MD History of Present Illness History of Present Illness Gildardo Morton is a 53 year old male with past medical history of coronary artery disease status post CABG, ICD in place, ischemic cardiomyopathy who was sent from cardiology office to the ER as patient was complaining of presyncopal episode and had borderline low blood pressure. Also has been feeling significant shortness of breath and weight gain recently. EKG shows atrial fibrillation with intermittent paced rhythm. Has occasional right-sided chest discomfort. Troponin was mildly elevated at 43 but has not trended up significantly. Review of Systems 2 General: Reports: 10 or more systems reviewed and unremarkable except in HPI and below Card: Reports: chest pain; Denies: palpitations or swelling of feet/ankles Resp: Reports: dyspnea; Denies: productive cough or non-productive cough GI: Denies: abdominal pain, nausea, vomiting, hematochezia or melena Medications/Allergies Home Medications Medication Instructions Recorded Confirmed Last Taken Type aspirin 81 mg tablet,delayed 81 mg PO QAM 12/22/19 07/03/24 07/03/24 History release (Adult Aspirin Regimen) nitroglycerin 0.4 mg sublingual 0.4 mg sublingual Q5M PRN chest 06/13/22 07/03/24 Unknown Rx tablet (Nitrostat) pain #25 tabs tizanidine 4 mg capsule 4 mg PO Q8H PRN muscle spasticity 10/13/22 07/03/24 Unknown Rx #10 caps pravastatin 20 mg tablet 20 mg PO QAM #90 tabs 07/02/23 07/03/24 07/03/24 Rx furosemide 80 mg tablet 80 mg PO BID #180 tabs 07/04/23 07/03/24 07/03/24 Rx isosorbide mononitrate 30 mg 30 mg PO DAILY #90 tabs 07/16/23 07/03/24 07/03/24 Rx tablet,extended release 24 hr rivaroxaban 20 mg tablet 20 mg PO QAM #90 tabs 07/16/23 07/03/24 07/03/24 Rx metolazone 2.5 mg tablet 2.5 mg PO DAILY PRN Edema #90 tabs 03/11/24 09/27/24 Unknown Rx allopurinol 100 mg tablet 100 mg PO DAILY gout #30 tabs 12/24/23 07/03/24 07/03/24 Rx carvedilol 6.25 mg tablet See Rx Instructions .Route 04/01/24 07/03/24 07/03/24 Rx .COMPLEX #270 tabs dapagliflozin propanediol 5 mg 5 mg PO QAM #90 tabs 04/01/24 07/03/24 07/03/24 Rx tablet (Farxiga) potassium chloride 20 mEq 20 meq PO TID #270 tabs 04/15/24 07/03/24 07/03/24 Rx tablet,extended release sacubitril 49 mg-valsartan 51 mg 1 tab PO BID #180 tabs 04/15/24 07/03/24 07/03/24 Rx tablet (Entresto) Allergies Allergy/AdvReac Type Severity Reaction Status Date / Time tamsulosin [From Flomax] Allergy ADR-Itching Verified 07/03/24 08:33 oxycodone [From OxyContin] AdvReac Intermediate low bp Verified 07/03/24 08:33 PFSH Acute 2 PFSH: Medical History 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 Postoperative course associated with arrest shortly after procedure Chronic kidney disease Left atrial thrombus Atrial fibrillation Hyperlipidemia Essential hypertension Systolic CHF LVEF 25 to 30% by TTE 08/02/2020 Surgical History Status post aorto-coronary artery bypass graft 06/2019. Postoperative course associated with arrest shortly after procedure H/O two vessel coronary artery bypass graft Family History Mother CAD (coronary artery disease) Diabetes Hypertension Father Cancer Social History Smoking and tobacco/nicotine status: former use of tobacco/nicotine Second hand smoke exposure: No Alcohol intake: former Former alcohol use details: occational Substance/Drug Use: former Housing: House Marital status: Single Vitals/I&O/Wt Last Vital Signs Temp 98.2 F 07/03/24 09:19 Pulse 75 07/03/24 14:04 Resp 18 07/03/24 09:19 BP 101/87 07/03/24 14:04 Pulse Ox 92 07/03/24 14:04 O2 Del Method Room Air 07/03/24 12:03 Weight last 48 hrs Weight 384 lb Physical Exam 2 Narrative: GENERAL: Patient is alert, awake and oriented x3. [] NECK: No jugular vein distension. [] HEENT: No cyanosis. No icterus. No pallor. [] HEART: Regular S1 and S2. No murmur, rub or gallop. [] LUNGS: Clear to auscultation CENTRAL NERVOUS SYSTEM: Grossly nonfocal. [] EXTREMITIES: Lower extremities with 1+ edema bilaterally Data 07/05/24 03:20 07/05/24 03:20 A&P Assessment and plan (1) Hypotension: Qualifiers: Hypotension type: orthostatic hypotension Qualified Code(s): I95.1 - Orthostatic hypotension (2) Acute hypokalemia: (3) Near syncope: (4) Systolic CHF: Qualifiers: Heart failure chronicity: chronic Qualified Code(s): I50.22 - Chronic systolic (congestive) heart failure (5) ICD (implantable cardioverter-defibrillator), single, in situ: (6) Atrial fibrillation: Qualifiers: Atrial fibrillation type: unspecified Qualified Code(s): I48.91 - Unspecified atrial fibrillation Plan Clinically patient does not appear volume overloaded. His weight gain may not be related to volume overload. His renal function has worsened recently. Could be secondary to overdiuresis. We will hold all diuretics at this time. Monitor renal function. If by tomorrow if does not improve, may need IV hydration. Given his morbid obesity and difficulty with assessment of volume status, may benefit from right heart cath. If needed, we will plan for Saturday. Monitor renal function. Repeat echo shows no change in EF compared to before. It is 25 to 30%. Hypotension likely secondary to overdiuresis and entresto/coreg. Will hold entresto for now and restart at lower dose at time of discharge Thank you for involving us with care of this patient. We will continue to follow. Please call with questions. Consult Attestations 2 Medical Necessity Statement: Care expected to cross 2 midnights. Coding Level of Care Code Acute Code for Chg Fwd Diagnoses Orthostatic hypotension I95.1 Hypotension type: orthostatic hypotension Acute hypokalemia E87.6 Near syncope R55 Chronic systolic congestive heart failure I50.22 Heart failure chronicity: chronic ICD (implantable cardioverter-defibrillator), single, in situ Z95.810 Atrial fibrillation, unspecified type I48.91 Atrial fibrillation type: unspecified
--- NOTE | 2024-07-03 15:31 | ECG_ITS ---
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 Measurements Intervals [place] Rate: 66 P: 0 VT: 0 QRS: 96 QRSD: 178 T: 264 QT: 533 QTc: 559 Interpretive Statements V paced rhythm with frequent PVCs in the form of trigeminy ELECTRONIC VENTRICULAR PACEMAKER -- CONTOUR ANALYSIS BASED ON INTRINSIC RHYTHM BORDERLINE RIGHT AXIS DEVIATION [QRS AXIS > 90] LEFT BUNDLE BRANCH BLOCK [120+ ms QRS DURATION, 80+ ms Q/S IN V1/V2, 85+ ms R IN I/aVL/V5/V6] Compared to ECG 07/03/2024 11:42:17 Left bundle-branch block now present Prolonged QT interval no longer present Electronically Signed On 07-03-2024 20:26:59 CDT by Oliver Jones M.D. [id number]
[2024-07-03 17:08] LABS: Troponin 5 6HR 37.66 ng/L (0-15); Troponin 5 6HR Delta -5.34 ng/L (0-12)
[2024-07-03] MEDS: carvedilol 6.25 mg Tablet PO (17:08)
[2024-07-04] VITALS (9 sets, daily range): BP systolic 105–124; BP diastolic 64–85; PULSE 61–77; RESP 14–26; TEMP 36.4–36.9; O2SAT 92–98; BMI 52.3
[2024-07-04 03:50] LABS: Basophils % 0.3 %; Eosinophils # 0.2 10^3/uL (0.0-0.8); Eosinophils % 1.6 %; Lymphocytes # 2.1 10^3/uL (0.8-4.8); Lymphocytes % 17.7 %; Mean Corpuscular HGB Conc 32.3 g/dL (30-55); Mean Corpuscular Volume 95.9 fl (82-101); Mean Platelet Volume 9.8 fL (7.4-10.4); Monocytes # 1.2 10^3/uL (0.2-0.9); Monocytes % 10.4 %; Neutrophils # 8.03 10^3/uL (1.8-7.7); Neutrophils % 69.3 %; Nucleated Red Blood Cells % 0 %; Platelet Count 289 10^3/cmm (157-399); Red Cell Distribution Width 15.6 % (12.1-15.1); White Blood Count 11.59 10^3/uL (3.29-11.43)
[2024-07-04 04:12] LABS: Alanine Aminotransferase 15 U/L (0-41); Albumin Level 3.2 g/dL (3.5-5.2); Alkaline Phosphatase 58 U/L (40-130); Anion Gap 13.6 (5-19); Aspartate Amino Transferase 15 U/L (0-40); Blood Urea Nitrogen 51 mg/dL (6-20); Calcium 8.6 mg/dL (8.5-10.5); Carbon Dioxide 34 mmol/L (22-29); Chloride 95 mmol/L (98-107); Globulin 4.3 g/dL (1.3-4.6); Glomerular Filtration Rate 26.9 mL/min (90-130); Glucose 109 mg/dL (65-115); Magnesium 2.6 mg/dL (1.7-2.3); Osmolality Calculated 302 mOsm/kg (285-295); Potassium 3.6 mmol/L (3.5-5.1); Sodium 139 mmol/L (136-145); Total Bilirubin 0.5 mg/dL (0.15-1.2); Total Protein 7.5 g/dL (6.6-8.7)
[2024-07-04 04:17] LABS: Creatinine Clr Calc Pharmacy 55.0611
[2024-07-04] MEDS: rivaroxaban 10 mg Tablet 20 MG PO (05:14)
[2024-07-04] MEDS: atorvastatin 40 mg Tablet 20 MG PO (05:14)
[2024-07-04] MEDS: aspirin 81 mg EC Tablet PO (05:14)
[2024-07-04] MEDS: carvedilol 12.5 mg Tablet PO (08:51)
[2024-07-04] MEDS: allopurinol 100 mg Tablet PO (08:51)
--- NOTE | 2024-07-04 09:16 | P.PN_ITS ---
Subjective 2 Subjective: Patient continues to be on room air. No significant improvement in creatinine. Has some shortness of breath. Vitals/I&O/Wt Last Vital Signs Temp 97.5 F L 07/04/24 07:56 Pulse 75 07/04/24 07:56 Resp 19 H 07/04/24 07:56 BP 121/85 07/04/24 07:56 Pulse Ox 96 07/04/24 07:56 O2 Del Method Room Air 07/04/24 07:56 07/03/24 07/04/24 07/04/24 22:59 06:59 14:59 Intake Total 222 / 222 480 / 702 120 / 120 Balance 222 / 222 480 / 702 120 / 120 Weight last 48 hrs Weight 386 lb 0.47 oz Weight 389 lb 5.381 oz Weight 384 lb Physical Exam 2 Narrative: GENERAL: Patient is alert, awake and oriented x3. [] NECK: No jugular vein distension. [] HEENT: No cyanosis. No icterus. No pallor. [] HEART: Regular S1 and S2. No murmur, rub or gallop. [] LUNGS: Clear to auscultation CENTRAL NERVOUS SYSTEM: Grossly nonfocal. [] EXTREMITIES: Lower extremities with 1+ edema bilaterally Data 07/05/24 03:20 07/05/24 03:20 A&P Assessment and plan (1) Hypotension: Qualifiers: Hypotension type: orthostatic hypotension Qualified Code(s): I95.1 - Orthostatic hypotension (2) Acute hypokalemia: (3) Near syncope: (4) Systolic CHF: Qualifiers: Heart failure chronicity: chronic Qualified Code(s): I50.22 - Chronic systolic (congestive) heart failure (5) ICD (implantable cardioverter-defibrillator), single, in situ: (6) Atrial fibrillation: Qualifiers: Atrial fibrillation type: unspecified Qualified Code(s): I48.91 - Unspecified atrial fibrillation Plan We will start gentle IV hydration. Creatinine has not improved with only holding diuretics. Monitor renal function. Will plan on right heart cath on Saturday. Continue anticoagulation, coreg. Keep holding entresto at this time. Thank you for involving us with care of this patient. We will continue to follow. Please call with questions. Attestations 2 Medical Necessity Statement*: Care expected to cross 2 midnights Coding Level of Care Code Acute Code for Chg Fwd Diagnoses Orthostatic hypotension I95.1 Hypotension type: orthostatic hypotension Acute hypokalemia E87.6 Near syncope R55 Chronic systolic congestive heart failure I50.22 Heart failure chronicity: chronic ICD (implantable cardioverter-defibrillator), single, in situ Z95.810 Atrial fibrillation, unspecified type I48.91 Atrial fibrillation type: unspecified
--- NOTE | 2024-07-04 12:02 | P.PN_ITS ---
Subjective 2 Subjective: Patient was seen this morning, he is sitting up to the side of the bed, he denies any shortness of breath, no chest pain, no lightheadedness, no dizziness, he tells me that his edema of his legs is minimal today Vitals/I&O/Wt Last Vital Signs Temp 97.5 F L 07/04/24 07:56 Pulse 75 07/04/24 07:56 Resp 19 H 07/04/24 07:56 BP 121/85 07/04/24 07:56 Pulse Ox 96 07/04/24 07:56 O2 Del Method Room Air 07/04/24 07:56 07/03/24 07/04/24 07/04/24 22:59 06:59 14:59 Intake Total 222 / 222 480 / 702 120 / 120 Balance 222 / 222 480 / 702 120 / 120 Weight last 48 hrs Weight 175.1 kg Weight 176.6 kg Weight 174.179 kg Physical Exam 2 Const: COMMON NORMALS: no acute distress and patient oriented x3 Resp: COMMON NORMALS: normal respiratory effort, No retractions, No use of accessory muscles and clear to auscultation bilaterally AUSCULTATION: clear to auscultation bilaterally Cardio: COMMON NORMALS: regular rate, regular rhythm, S1 normal heart sound present and S2 normal heart sound present RATE: regular rate RHYTHM: r egular rhythm HEART SOUNDS: S1 normal heart sound present and S2 normal heart sound present GI: COMMON NORMALS: Normal to inspection, nondistended, normoactive bowel sounds present and non-tender Extremity: COMMON NORMALS: no calf tenderness and no pedal edema Neuro: COMMON NORMALS: patient oriented x3 Psych: COMMON NORMALS: mental status grossly normal Data 07/04/24 03:13 07/04/24 03:13 A&P Assessment and plan (1) Hypotension: Hypotension has resolved Creatinine remains 2.5, monitor, IV fluids He does not have evidence of pulmonary edema on chest x-ray, BNP is lower than his normal, and he does not have significant peripheral edema. Diuresis on hold Can continue carvedilol if systolic blood pressure greater than 100 Hold Entresto, canagliflozin currently, Lasix, Zaroxolyn Qualifiers: Hypotension type: orthostatic hypotension Qualified Code(s): I95.1 - Orthostatic hypotension (2) Acute hypokalemia: Supplement potassium Check magnesium (3) Near syncope: See #1 Investigate pacemaker/defibrillator Telemetry (4) Systolic CHF: Patient appears compensated currently Echocardiogram CONCLUSIONS Technically limited quality echocardiogram because of poor ultrasonic windows. LV systolic function is severely reduced with EF of 25 to 30%. Biatrial enlargement. Moderate mitral regurgitation. Compared to prior echocardiogram from 2020, no significant changes are seen. Secondary to hypotension, acute kidney injury hold off on Entresto, dapagliflozin, metolazone, Lasix until reevaluation tomorrow. Cardiology consultation Qualifiers: Heart failure chronicity: chronic Qualified Code(s): I50.22 - Chronic systolic (congestive) heart failure (5) ICD (implantable cardioverter-defibrillator), single, in situ: (6) Atrial fibrillation: Patient with history of A-fib, left atrial thrombus, status post pacemaker. Continue Xarelto Qualifiers: Atrial fibrillation type: unspecified Qualified Code(s): I48.91 - Unspecified atrial fibrillation Plan Other medical problems as outlined in past medical history, including diabetes. Blood sugars are normal. Previous A1c's are normal. He is on dapagliflozin which I suspect is secondary to his heart failure. Will provide consistent carb diet but no reason for routine blood sugar checks 4 times daily. Full code Xarelto will suffice for DVT prophylaxis Plan for today, IV fluids, creatinine 2.5 Attestations 2 Medical Necessity Statement*: Patient requires hospitalization for TEJAL, plans on cardiac cath possibly on Saturday based on clinical progress Diagnoses Orthostatic hypotension I95.1 Hypotension type: orthostatic hypotension Acute hypokalemia E87.6 Near syncope R55 Chronic systolic congestive heart failure I50.22 Heart failure chronicity: chronic ICD (implantable cardioverter-defibrillator), single, in situ Z95.810 Atrial fibrillation, unspecified type I48.91 Atrial fibrillation type: unspecified
[2024-07-04] MEDS: sodium chloride 0.9% 1,000 ML 50 ML IV (13:12)
[2024-07-04] MEDS: carvedilol 6.25 mg Tablet PO (17:34)
[2024-07-05] VITALS (9 sets, daily range): BP systolic 111–131; BP diastolic 62–82; PULSE 60–68; RESP 16–24; TEMP 36.4–36.9; O2SAT 93–97
[2024-07-05 03:43] LABS: Basophils % 0.4 %; Eosinophils # 0.1 10^3/uL (0.0-0.8); Eosinophils % 1.4 %; Hematocrit 46.3 % (37-53); Lymphocytes # 1.8 10^3/uL (0.8-4.8); Lymphocytes % 18.1 %; Mean Corpuscular HGB Conc 32.8 g/dL (30-55); Mean Corpuscular Hemoglobin 31.5 pg (27-33); Mean Corpuscular Volume 96.1 fl (82-101); Mean Platelet Volume 9.4 fL (7.4-10.4); Monocytes # 0.9 10^3/uL (0.2-0.9); Monocytes % 9.3 %; Neutrophils # 7.04 10^3/uL (1.8-7.7); Neutrophils % 70.2 %; Nucleated Red Blood Cells % 0 %; Platelet Count 268 10^3/cmm (157-399); Red Blood Count 4.82 10^6/uL (3.85-5.65); Red Cell Distribution Width 15.3 % (12.1-15.1); White Blood Count 10.03 10^3/uL (3.29-11.43)
[2024-07-05 04:08] LABS: Alanine Aminotransferase 15 U/L (0-41); Albumin Level 3.4 g/dL (3.5-5.2); Alkaline Phosphatase 55 U/L (40-130); Anion Gap 12.5 (5-19); Aspartate Amino Transferase 15 U/L (0-40); Blood Urea Nitrogen 43 mg/dL (6-20); Calcium 8.4 mg/dL (8.5-10.5); Carbon Dioxide 32 mmol/L (22-29); Chloride 99 mmol/L (98-107); Creatinine Clr Calc Pharmacy 62.5694; Globulin 3.4 g/dL (1.3-4.6); Glomerular Filtration Rate 31.2 mL/min (90-130); Glucose 98 mg/dL (65-115); Magnesium 2.5 mg/dL (1.7-2.3); Osmolality Calculated 301 mOsm/kg (285-295); Potassium 3.5 mmol/L (3.5-5.1); Sodium 140 mmol/L (136-145); Total Bilirubin 0.6 mg/dL (0.15-1.2); Total Protein 6.8 g/dL (6.6-8.7)
[2024-07-05 04:19] LABS: NT Pro B Type Natriuretic Pept 1414 pg/mL (0-125)
[2024-07-05] MEDS: rivaroxaban 10 mg Tablet 20 MG PO (06:20)
[2024-07-05] MEDS: aspirin 81 mg EC Tablet PO (06:20)
[2024-07-05] MEDS: atorvastatin 40 mg Tablet 20 MG PO (06:20)
[2024-07-05] MEDS: sodium chloride 0.9% 1,000 ML 50 ML IV (06:20)
[2024-07-05] MEDS: allopurinol 100 mg Tablet PO (08:31)
[2024-07-05] MEDS: carvedilol 12.5 mg Tablet PO (08:31)
--- NOTE | 2024-07-05 09:41 | P.PN_ITS ---
Subjective 2 Subjective: Patient is stable. No chest pain. Vitals/I&O/Wt Last Vital Signs Temp 98.5 F 07/05/24 07:22 Pulse 63 07/05/24 07:22 Resp 21 H 07/05/24 07:22 BP 131/82 07/05/24 07:22 Pulse Ox 94 07/05/24 07:22 O2 Del Method Room Air 07/05/24 07:22 07/04/24 07/05/24 07/05/24 22:59 06:59 14:59 Intake Total 480 / 720 856.667 / 1576.667 Output Total 400 / 575 725 / 1300 Balance 80 / 145 131.667 / 276.667 Weight last 48 hrs Weight 394 lb 6.511 oz Weight 386 lb 0.47 oz Weight 389 lb 5.381 oz Physical Exam 2 Narrative: GENERAL: Patient is alert, awake and oriented x3. [] NECK: No jugular vein distension. [] HEENT: No cyanosis. No icterus. No pallor. [] HEART: Regular S1 and S2. No murmur, rub or gallop. [] LUNGS: Clear to auscultation CENTRAL NERVOUS SYSTEM: Grossly nonfocal. [] EXTREMITIES: Lower extremities with 1+ edema bilaterally Data 07/05/24 03:20 07/05/24 03:20 A&P Assessment and plan (1) Hypotension: Qualifiers: Hypotension type: orthostatic hypotension Qualified Code(s): I95.1 - Orthostatic hypotension (2) Acute hypokalemia: (3) Near syncope: (4) Systolic CHF: Qualifiers: Heart failure chronicity: chronic Qualified Code(s): I50.22 - Chronic systolic (congestive) heart failure (5) ICD (implantable cardioverter-defibrillator), single, in situ: (6) Atrial fibrillation: Qualifiers: Atrial fibrillation type: unspecified Qualified Code(s): I48.91 - Unspecified atrial fibrillation Plan Continue on IV hydration. Creatinine is improving. He is on room air. We will obtain a right heart cath tomorrow to better assess discharge medications and diuretics. NPO past midnights. Thank you for involving us with care of this patient. We will continue to follow. Please call with questions. Attestations 2 Medical Necessity Statement*: Care expected to cross 2 midnights. Coding Level of Care Code Acute Code for Chg Fwd Diagnoses Orthostatic hypotension I95.1 Hypotension type: orthostatic hypotension Acute hypokalemia E87.6 Near syncope R55 Chronic systolic congestive heart failure I50.22 Heart failure chronicity: chronic ICD (implantable cardioverter-defibrillator), single, in situ Z95.810 Atrial fibrillation, unspecified type I48.91 Atrial fibrillation type: unspecified
--- NOTE | 2024-07-05 15:29 | P.PN_ITS ---
Subjective 2 Subjective: Patient was seen this morning, he denies any nausea, no vomiting, no lightheadedness, dizziness, no chest pain, no shortness of breath, Vitals/I&O/Wt Last Vital Signs Temp 98.0 F 07/05/24 12:00 Pulse 60 07/05/24 12:00 Resp 16 07/05/24 12:00 BP 124/82 07/05/24 12:00 Pulse Ox 93 07/05/24 12:00 O2 Del Method Room Air 07/05/24 12:00 07/05/24 07/05/24 07/05/24 06:59 14:59 22:59 Intake Total 856.667 / 1576.667 470 / 470 Output Total 725 / 1300 150 / 150 Balance 131.667 / 276.667 320 / 320 Weight last 48 hrs Weight 178.9 kg Weight 175.1 kg Weight 176.6 kg Physical Exam 2 Const: COMMON NORMALS: no acute distress and patient oriented x3 Resp: COMMON NORMALS: normal respiratory effort, No retractions, No use of accessory muscles and clear to auscultation bilaterally AUSCULTATION: clear to auscultation bilaterally Cardio: COMMON NORMALS: regular rate, regular rhythm, S1 normal heart sound present and S2 normal heart sound present RATE: regular rate RHYTHM: r egular rhythm HEART SOUNDS: S1 normal heart sound present and S2 normal heart sound present GI: COMMON NORMALS: Normal to inspection, nondistended, normoactive bowel sounds present and non-tender Extremity: COMMON NORMALS: no pedal edema Neuro: COMMON NORMALS: patient oriented x3 Psych: COMMON NORMALS: mental status grossly normal Data 07/05/24 03:20 07/05/24 03:20 A&P Assessment and plan (1) Hypotension: Hypotension has resolved Creatinine remains 2.5, monitor, IV fluids He does not have evidence of pulmonary edema on chest x-ray, BNP is lower than his normal, and he does not have significant peripheral edema. Diuresis on hold Can continue carvedilol if systolic blood pressure greater than 100 Hold Entresto, canagliflozin currently, Lasix, Zaroxolyn Qualifiers: Hypotension type: orthostatic hypotension Qualified Code(s): I95.1 - Orthostatic hypotension (2) Acute hypokalemia: Supplement potassium Check magnesium (3) Near syncope: See #1 Investigate pacemaker/defibrillator Telemetry (4) Systolic CHF: Patient appears compensated currently Echocardiogram CONCLUSIONS Technically limited quality echocardiogram because of poor ultrasonic windows. LV systolic function is severely reduced with EF of 25 to 30%. Biatrial enlargement. Moderate mitral regurgitation. Compared to prior echocardiogram from 2020, no significant changes are seen. Secondary to hypotension, acute kidney injury hold off on Entresto, dapagliflozin, metolazone, Lasix until reevaluation tomorrow. Cardiology consultation Qualifiers: Heart failure chronicity: chronic Qualified Code(s): I50.22 - Chronic systolic (congestive) heart failure (5) ICD (implantable cardioverter-defibrillator), single, in situ: (6) Atrial fibrillation: Patient with history of A-fib, left atrial thrombus, status post pacemaker. Continue Xarelto Qualifiers: Atrial fibrillation type: unspecified Qualified Code(s): I48.91 - Unspecified atrial fibrillation Plan Other medical problems as outlined in past medical history, including diabetes. Blood sugars are normal. Previous A1c's are normal. He is on dapagliflozin which I suspect is secondary to his heart failure. Will provide consistent carb diet but no reason for routine blood sugar checks 4 times daily. Full code Xarelto will suffice for DVT prophylaxis Plan for today, IV fluids, n.p.o. midnight, hold Xarelto for plans on cath tomorrow Attestations 2 Medical Necessity Statement*: Patient requires hospitalization, hypotension, plans on cardiac catheterization Diagnoses Orthostatic hypotension I95.1 Hypotension type: orthostatic hypotension Acute hypokalemia E87.6 Near syncope R55 Chronic systolic congestive heart failure I50.22 Heart failure chronicity: chronic ICD (implantable cardioverter-defibrillator), single, in situ Z95.810 Atrial fibrillation, unspecified type I48.91 Atrial fibrillation type: unspecified
[2024-07-05] MEDS: carvedilol 6.25 mg Tablet PO (18:21)
[2024-07-06] VITALS: BP 96/51; PULSE 68; RESP 25; TEMP 36.4; O2SAT 94
[2024-07-06] MEDS: sodium chloride 0.9% 1,000 ML 50 ML IV (01:22)
[2024-07-06 03:54] LABS: Basophils % 0.3 %; Eosinophils # 0.2 10^3/uL (0.0-0.8); Eosinophils % 1.8 %; Hematocrit 43.3 % (37-53); Lymphocytes # 1.9 10^3/uL (0.8-4.8); Lymphocytes % 18.3 %; Mean Corpuscular HGB Conc 32.6 g/dL (30-55); Mean Corpuscular Hemoglobin 31.5 pg (27-33); Mean Corpuscular Volume 96.9 fl (82-101); Mean Platelet Volume 9.7 fL (7.4-10.4); Monocytes # 0.9 10^3/uL (0.2-0.9); Monocytes % 8.7 %; Neutrophils # 7.21 10^3/uL (1.8-7.7); Neutrophils % 70.3 %; Nucleated Red Blood Cells % 0 %; Platelet Count 259 10^3/cmm (157-399); Red Blood Count 4.47 10^6/uL (3.85-5.65); Red Cell Distribution Width 15.1 % (12.1-15.1); White Blood Count 10.24 10^3/uL (3.29-11.43)
[2024-07-06 04:00] VITALS: BP 127/79; PULSE 62; RESP 24; TEMP 36.4; O2SAT 99
[2024-07-06 04:16] LABS: Alanine Aminotransferase 13 U/L (0-41); Albumin Level 3.1 g/dL (3.5-5.2); Alkaline Phosphatase 51 U/L (40-130); Blood Urea Nitrogen 36 mg/dL (6-20); Calcium 8.1 mg/dL (8.5-10.5); Carbon Dioxide 27 mmol/L (22-29); Chloride 100 mmol/L (98-107); Globulin 3.8 g/dL (1.3-4.6); Glucose 102 mg/dL (65-115); Magnesium 2.4 mg/dL (1.7-2.3); Osmolality Calculated 293 mOsm/kg (285-295); Sodium 137 mmol/L (136-145); Total Bilirubin 0.6 mg/dL (0.15-1.2); Total Protein 6.9 g/dL (6.6-8.7)
[2024-07-06 04:22] LABS: Anion Gap 13.8 (5-19); Aspartate Amino Transferase 16 U/L (0-40); Creatinine Clr Calc Pharmacy 73.3933; Potassium 3.8 mmol/L (3.5-5.1)
[2024-07-06 04:26] LABS: NT Pro B Type Natriuretic Pept 3723 pg/mL (0-125)
[2024-07-06] MEDS: atorvastatin 40 mg Tablet 20 MG PO (05:02)
[2024-07-06] MEDS: aspirin 81 mg EC Tablet PO (05:02)
[2024-07-06 06:00] VITALS: PULSE 62
--- NOTE | 2024-07-06 06:53 | W.PM.OPSUD ---
Surgery/Procedure H&P Update DATE OF PROCEDURE: July 06, 2024 DATE H&P PERFORMED: 07/03/24 H&P UPDATE INFORMATION: I have reviewed H&P completed within last 30 days, I have examined patient prior to procedure and No changes to prior documentation CHANGES TO PREVIOUS DOCUMENTATION: Patient has morbid obesity and difficult to assess volume status. Plan for right heart cath to better assess volume status. PREOP DIAGNOSIS: Congestive heart failure PRIMARY INDICATION FOR PROCEDURE: Congestive heart failure PLANNED PROCEDURE: Right heart catheterization PATIENT REASSESSED PRIOR TO SEDATION, WITH NO CHANGE NOTED: Yes PHYSICAL EXAM: alert, oriented x 3, clear to auscultation bilaterally and regular rate & rhythm AIRWAY EVAL/ANESTHESIA PLAN: normal airway, ASA III, Local Anesthesia, Risks, benefits & alternatives of sedation and/or procedure discussed and Patient agrees to continue as planned ADDITIONAL INFORMATION: Moderate sedation
[2024-07-06 06:54] LABS: Arterial Blood Gas Hematocrit 44.2 % (42-52); Blood Gas Operator Identificat GD; Blood Gas Sample Site Not specified; Blood Gas Sample Type Not specified; Carboxyhemoglobin 1.4 %THgb (0.4-20.1); HGB O2 Sat 63.6 % (95-100); Methemoglobin 0.8 % (0.4-1.5); Oxygen Device ROOM AIR; Total Hemoglobin 14.4 g/dL (14-18)
--- NOTE | 2024-07-06 06:55 | P.PN_ITS ---
Subjective 2 Subjective: Patient has moderately elevated right and left-sided cardiac pressures. Overall doing well. Vitals/I&O/Wt Last Vital Signs Temp 97.5 F L 07/06/24 04:00 Pulse 62 07/06/24 06:00 Resp 24 H 07/06/24 04:00 BP 127/79 07/06/24 04:00 Pulse Ox 99 07/06/24 04:00 O2 Del Method Nasal Cannula 07/06/24 04:00 07/05/24 07/05/24 07/06/24 14:59 22:59 06:59 Intake Total 470 / 470 120 / 590 951.667 / 1541.667 Output Total 150 / 150 425 / 575 225 / 800 Balance 320 / 320 -305 / 15 726.667 / 741.667 Weight last 48 hrs Weight 395 lb 4.621 oz Weight 394 lb 6.511 oz Physical Exam 2 Narrative: GENERAL: Patient is alert, awake and oriented x3. [] NECK: No jugular vein distension. [] HEENT: No cyanosis. No icterus. No pallor. [] HEART: Regular S1 and S2. No murmur, rub or gallop. [] LUNGS: Clear to auscultation CENTRAL NERVOUS SYSTEM: Grossly nonfocal. [] EXTREMITIES: Lower extremities with 1+ edema bilaterally Data 07/06/24 03:14 07/06/24 03:14 A&P Assessment and plan (1) Hypotension: Qualifiers: Hypotension type: orthostatic hypotension Qualified Code(s): I95.1 - Orthostatic hypotension (2) Acute hypokalemia: (3) Near syncope: (4) Systolic CHF: Qualifiers: Heart failure chronicity: chronic Qualified Code(s): I50.22 - Chronic systolic (congestive) heart failure (5) ICD (implantable cardioverter-defibrillator), single, in situ: (6) Atrial fibrillation: Qualifiers: Atrial fibrillation type: unspecified Qualified Code(s): I48.91 - Unspecified atrial fibrillation Plan We can stop IV fluids. Moderately elevated right and left-sided cardiac pressures. Can tart Lasix 60 mg po twice daily. He was having hypotensive episodes at home. Will down titrate Entresto to 24/26 mg twice daily. Also do not titrate Coreg to 6.25 mg twice daily. Patient will keep a log of blood pressure and daily weights and bring to appointment cardiology Thank you for involving us with care of this patient. Patient is stable to be discharged from cardiology standpoint. Please call with questions. Attestations 2 Medical Necessity Statement*: Care expected to cross 2 midnights. Coding Level of Care Code Acute Code for Chg Fwd Diagnoses Orthostatic hypotension I95.1 Hypotension type: orthostatic hypotension Acute hypokalemia E87.6 Near syncope R55 Chronic systolic congestive heart failure I50.22 Heart failure chronicity: chronic ICD (implantable cardioverter-defibrillator), single, in situ Z95.810 Atrial fibrillation, unspecified type I48.91 Atrial fibrillation type: unspecified
[2024-07-06 07:16] VITALS: BP 149/97; PULSE 63; RESP 20; TEMP 36.8; O2SAT 95
[2024-07-06] MEDS: allopurinol 100 mg Tablet PO (07:33)
[2024-07-06] MEDS: carvedilol 12.5 mg Tablet PO (07:33)
--- NOTE | 2024-07-06 08:57 | PC.CHAP ---
Pastoral Care Encounter/Spiritual Assessment Type of Contact [] Declined racecar driver visit [] Patient/Family/Request visit [] Outpatient visit [] Follow-up visit [] Physician referral [] Code/Alert [x] Routine visit [] Staff referral [] Actively dying [] Patient sleeping [] Family support [] [] Out of room [] Palliative care [] [] Receiving care in room [] Pre-surgical visit [] Trauma [] Long length of stay [] ICU visit [] Other: Relational/Emotional Strength [] Patient feels connected with others/family/visitors/staff [] Distress [] Loneliness/isolation [] Abandonment Spirituality of Patient [x] Person of Kyra [] Attends Restorationism of their Kyra [x] Believes in Prayer [] Reads Bible or Congregational materials [] There are Spiritual issues to be addressed Tow Bar Driver Interventions [x] Prayer [x] Active listening [] Non-anxious presence [] Spiritual/emotional support [] Crisis/trauma care [] Spiritual counseling [] Bereavement support [] Provided bereavement packet [x] Provided Bible/devotional materials [] Provided toy/stuffed animal, coloring book to patient or family member [] Provided Communion [] Anointing/[place] [] Salvation [x] Completed spiritual assessment [] Other: Impact on Illness or Injury [] Angry [] Fearful [] Anxious [] Often cries [] Exhaustion [] Unable to work [] Unable to attend mu-ism [] Unable to walk/stand [] Unable to read [] Unable to drive [] Unable to eat/drink [] Unable to sleep [] Unable to be with family [] Patient intubated [] Other: Summary Time spent with patient 5 min
[2024-07-06 10:51] VITALS: BP 134/98; PULSE 60; RESP 18; TEMP 36.6; O2SAT 95
--- NOTE | 2024-07-06 10:57 | P.DS_ITS ---
Discharge Providers Date of Admission: 07/04/24 12:00 Date of Discharge: July 06, 2024 Attending Provider at Admission: Brian Latif MD Attending Provider at Discharge: Eliot Andrews MD Primary Care Provider: Rajesh Barr MD Diagnoses at Discharge Discharge Diagnosis (1) Hypotension: Status: Acute Qualifiers: Hypotension type: orthostatic hypotension Qualified Code(s): I95.1 - Orthostatic hypotension (2) Acute hypokalemia: Status: Acute (3) Near syncope: Status: Acute (4) Systolic CHF: Status: Acute Qualifiers: Heart failure chronicity: chronic Qualified Code(s): I50.22 - Chronic systolic (congestive) heart failure Permanent problem details: LVEF 25 to 30% by TTE 08/02/2020 (5) ICD (implantable cardioverter-defibrillator), single, in situ: Status: Acute (6) Atrial fibrillation: Status: Acute Qualifiers: Atrial fibrillation type: unspecified Qualified Code(s): I48.91 - Unspecified atrial fibrillation Reason for Visit Reason for Visit: Low BP, CHF, Syncope Hospital Course Hospital Course This is a 53-year-old male who presents to [facility] due to complaints of feeling lightheaded, dizzy, short of breath Was admitted to [facility] for hypotension, his diuresis was held, so his Entresto, Lasix, blood pressure monitored receive gentle IV hydration Near syncope, cardiac echocardiogram showed EF at 25 to 30%, no significant change compared to prior echo Cardiology was consulted Patient underwent right heart cath, found to have elevated right and left-sided cardiac pressures, will discharge on Lasix 60 mg twice daily, as he was having hypotensive episodes, titrate Entresto down to 2426 twice daily, titrate Coreg to 6.25 mg twice daily, follow-up with cardiology as outpatient Patient did not have any recurrent episodes of lightheadedness or dizziness or hypotension or presyncopal symptoms. Patient was advised to follow-up with cardiology in 1 week, record his blood pressures, monitor for recurrent symptomatology if so go to the emergency room Physical Exam Const: COMMON NORMALS: no acute distress and patient oriented x3 Resp: COMMON NORMALS: normal respiratory effort, No retractions, No use of accessory muscles and clear to auscultation bilaterally AUSCULTATION: clear to auscultation bilaterally Cardio: COMMON NORMALS: regular rate, regular rhythm, S1 normal heart sound present and S2 normal heart sound present RATE: regular rate RHYTHM: regular rhythm HEART SOUNDS: S1 normal heart sound present and S2 normal heart sound present GI: COMMON NORMALS: Normal to inspection, nondistended, normoactive bowel sounds present and non-tender Extremity: COMMON NORMALS: no pedal edema Neuro: COMMON NORMALS: patient oriented x3 Psych: COMMON NORMALS: mental status grossly normal Discharge Data Studies Completed and Pending Completed Studies During Hospitalization Category Date Time Status XR chest 1V portable [id number] Stat Exams 07/03/24 09:30 Completed CV. echo complete* [id number] Routine Ultrasound 07/03/24 14:02 Completed Pending at discharge Category Date Time Status BRAZER ASSEMBLER request for service Routine Exams 07/06/24 05:58 Ordered ABG Coox Only Routine Lab 07/06/24 06:40 Results Complete Blood Count w/Auto AM LABS Lab 07/07/24 04:00 Ordered Comprehensive Metabolic Panel AM LABS Lab 07/07/24 04:00 Ordered Magnesium AM LABS Lab 07/07/24 04:00 Ordered NT Pro B Type Natriuretic Pept QAM Lab 07/07/24 06:00 Ordered Radiology Impressions Chest X-Ray 07/03/24 09:30 Impression: Cardiomegaly. Laboratory Results WBC 10.24 10^3/uL (3.29-11.43) 07/06/24 03:14 RBC 4.47 10^6/uL (3.85-5.65) 07/06/24 03:14 Hgb 14.10 g/dL (11.27-16.99) 07/06/24 03:14 Hct 43.3 % (37-53) 07/06/24 03:14 MCV 96.9 fl (82-101) 07/06/24 03:14 MCH 31.5 pg (27-33) 07/06/24 03:14 MCHC 32.6 g/dL (30-55) 07/06/24 03:14 RDW 15.1 % (12.1-15.1) 07/06/24 03:14 Plt Count 259 10^3/cmm (157-399) 07/06/24 03:14 MPV 9.7 fL (7.4-10.4) 07/06/24 03:14 Neut % (Auto) 70.3 % 07/06/24 03:14 Lymph % (Auto) 18.3 % 07/06/24 03:14 [place] % (Auto) 8.7 % 07/06/24 03:14 Eos % (Auto) 1.8 % 07/06/24 03:14 Baso % (Auto) 0.3 % 07/06/24 03:14 Neut # (Auto) 7.21 10^3/uL (1.8-7.7) 07/06/24 03:14 Lymph # (Auto) 1.9 10^3/uL (0.8-4.8) 07/06/24 03:14 [place] # (Auto) 0.9 10^3/uL (0.2-0.9) 07/06/24 03:14 Eos # (Auto) 0.2 10^3/uL (0.0-0.8) 07/06/24 03:14 Baso # (Auto) 0.0 10^3/uL (0.0-0.1) 07/06/24 03:14 Nucleated RBC % (auto) 0 % 07/06/24 03:14 Nucleated RBCs # 0.0 /100WBC 07/06/24 03:14 Specimen Type Not specified 07/06/24 06:40 Sample Site Not specified 07/06/24 06:40 Gurmeet Test N/a 07/06/24 06:40 Hematocrit 44.2 % (42-52) 07/06/24 06:40 Hgb O2 Saturation 63.6 % (95-100) L 07/06/24 06:40 Carboxyhemoglobin 1.4 %THgb (0.4-20.1) 07/06/24 06:40 Methemoglobin 0.8 % (0.4-1.5) 07/06/24 06:40 Total Hemoglobin 14.4 g/dL (14-18) 07/06/24 06:40 O2 Delivery Device Room air 07/06/24 06:40 Hat Blocking Machine Operator ID [id number] 07/06/24 06:40 Sodium 137 mmol/L (136-145) 07/06/24 03:14 Potassium 3.8 mmol/L (3.5-5.1) 07/06/24 03:14 Chloride 100 mmol/L (98-107) 07/06/24 03:14 Carbon Dioxide 27 mmol/L (22-29) 07/06/24 03:14 Anion Gap 13.8 (5-19) 07/06/24 03:14 BUN 36 mg/dL (6-20) H 07/06/24 03:14 Creatinine 1.9 mg/dL (0.7-1.2) H 07/06/24 03:14 GFR Calculation 37.0 mL/min (90-130) L 07/06/24 03:14 Glucose 102 mg/dL (65-115) 07/06/24 03:14 Calculated Osmolality 293 mOsm/kg (285-295) 07/06/24 03:14 Calcium 8.1 mg/dL (8.5-10.5) L 07/06/24 03:14 Magnesium 2.4 mg/dL (1.7-2.3) H 07/06/24 03:14 Total Bilirubin 0.6 mg/dL (0.15-1.2) 07/06/24 03:14 AST 16 U/L (0-40) 07/06/24 03:14 ALT 13 U/L (0-41) 07/06/24 03:14 Alkaline Phosphatase 51 U/L (40-130) 07/06/24 03:14 Troponin T Baseline 43 ng/L (0-15) H 07/03/24 09:40 Troponin T 120 Minute 45.46 ng/L (0-15) H 07/03/24 11:41 Delta Troponin T 2.46 ABS# (0-10) 07/03/24 11:41 Troponin T Hi Sens 6Hr 37.66 ng/L (0-15) H 07/03/24 15:49 Troponin T Hi Sens 6Hr Delta -5.34 ng/L (0-12) L 07/03/24 15:49 NT-Pro-B Natriuret Pep 3723 pg/mL (0-125) H 07/06/24 03:14 Total Protein 6.9 g/dL (6.6-8.7) 07/06/24 03:14 Albumin 3.1 g/dL (3.5-5.2) L 07/06/24 03:14 Globulin 3.8 g/dL (1.3-4.6) 07/06/24 03:14 TSH 2.42 uIU/mL (0.27-4.20) 07/03/24 11:41 Urine Color Yellow (Yellow) 07/03/24 12:29 Urine Appearance Clear (CLEAR) 07/03/24 12: Urine pH 5.0 (5-7) 07/03/24 12:29 Ur Specific [place] 1.013 (1.005-1.030) 07/03/24 12:29 Urine Protein Negative (Negative) 07/03/24 12:29 Urine Glucose (UA) Trace (Normal) H 07/03/24 12:29 Urine Ketones Negative (Negative) 07/03/24 12: Urine Blood Negative (Negative) 07/03/24 12: Urine Nitrate Negative (Negative) 07/03/24 12: Urine Bilirubin Negative (Negative) 07/03/24 12: Urine Urobilinogen 0.2 mg/dL (Negative) 07/03/24 12:29 Ur Leukocyte Esterase Negative (Negative) 07/03/24 12:29 Urine RBC 0-2 /hpf (0-2) 07/03/24 12:29 Urine WBC 0-5 /hpf (0-5) 07/03/24 12:29 Ur Squamous Epith Cells 0-5 /hpf (0-5) 07/03/24 12:29 Amorphous Sediment Not Reportable 07/03/24 12:29 Urine Bacteria None seen /hpf (NONE) 07/03/24 12:29 Hyaline Casts 16.12 /lpf 07/03/24 12:29 Vitals Last Vital Signs Temp 97.8 F 07/06/24 10:51 Pulse 60 07/06/24 10:51 Resp 18 07/06/24 10:51 BP 134/98 07/06/24 10:51 Pulse Ox 95 07/06/24 10:51 O2 Del Method Room Air 07/06/24 07:16 Discharge Plan Discharge Patient Disposition: Home Condition: Stable Prescriptions: New furosemide [Lasix] 40 mg tablet 60 mg PO BID 30 Days Qty: 90 0RF Entresto 24-26 mg tablet 1 tab PO BID 30 Days Qty: 60 0RF Continued aspirin [Adult Aspirin Regimen] 81 mg tablet,delayed release (DR/EC) 81 mg PO QAM nitroglycerin [Nitrostat] 0.4 mg tablet, sublingual 0.4 mg SUBLINGUAL Q5M PRN (Reason: chest pain) Qty: 25 3RF Rx Instructions: do not exceed 3 doses per episode pravastatin 20 mg tablet 20 mg PO QAM Qty: 90 3RF isosorbide mononitrate 30 mg tablet extended release 24 hr 30 mg PO DAILY Qty: 90 3RF Rx Instructions: TAKE ONE TABLET BY MOUTH DAILY AT 8AM. IF BLOOD PRESSURE IS <120/80 ONLY TAKE ONE HALF TABLET rivaroxaban 20 mg tablet 20 mg PO QAM Qty: 90 3RF metolazone 2.5 mg tablet 2.5 mg PO DAILY PRN (Reason: Edema) Qty: 90 3RF allopurinol 100 mg tablet 100 mg PO DAILY Qty: 30 5RF Farxiga 5 mg tablet 5 mg PO QAM Qty: 90 1RF potassium chloride 20 mEq tablet extended release 20 meq PO TID Qty: 270 1RF Rx Instructions: Takes an extra one every other day. tizanidine 4 mg capsule 4 mg PO Q8H PRN (Reason: muscle spasticity) Qty: 10 0RF Changed carvedilol 6.25 mg tablet 6.25 mg PO BID 30 Days Qty: 60 0RF Discontinued furosemide 80 mg tablet 80 mg PO BID Qty: 180 3RF Entresto 49-51 mg tablet 1 tab PO BID Qty: 180 1RF Discharge Orders: Discharge Order (Routine); Ordered 07/06/24 Ordered By: Eliot Andrews Referrals: Rajesh Barr MD [Primary Care Provider] - (We have notified your physician's clinic of the need for a follow-up appointment to be scheduled. If you have not heard from them within the next 2 business days, please call them directly. ) Rona Mancia FNP [Nurse Practitioner] - 07/14/24 2:30 pm Discharge Diet: Diabetic Discharge Activity: Resume usual activity Patient Instructions: Opioid Safety Activity Restrictions/Additional Instructions: - If you have any worsening shortness of breath, please go to the emergency room Discharge Attestations Time Spent in Discharge Care*: greater than 30 min Status at Discharge: Cognitive status at discharge: cognitively intact , Behavioral status at discharge: cooperative , Quality Metrics Clinical Quality Measures [ No reported AMI, CVA or VTE this stay] Coding Level of Care Code 57178 Total time (in minutes) for Discharge: 45 Diagnoses Orthostatic hypotension I95.1 Hypotension type: orthostatic hypotension Acute hypokalemia E87.6 Near syncope R55 Chronic systolic congestive heart failure I50.22 Heart failure chronicity: chronic ICD (implantable cardioverter-defibrillator), single, in situ Z95.810 Atrial fibrillation, unspecified type I48.91 Atrial fibrillation type: unspecified
--- NOTE | 2024-07-06 11:15 | PC.SOCIAL ---
IMM Updated Updated pt on IMM. No questions voiced. Provided pt a copy. Initialed, dated, & timed a copy & placed in chart.
[2024-07-06] MEDS: rivaroxaban 10 mg Tablet 20 MG PO (12:17)
--- NOTE | 2024-07-06 12:36 | PC.NURSE ---
Pressure dressing removed from right ac space. No s/s of bleeding or hematoma formation observed. Xarelto given prior to discharge per Dr Andrews.
[2024-07-06 12:47] VITALS: BP 134/98; PULSE 60; RESP 18; TEMP 36.6; O2SAT 95
--- NOTE | 2024-07-06 14:49 | PC.NURSE ---
Patient discharged to home at 1345. Left after med-to-beds received. Instruction provided regarding follow up needs and medication changes. Patient verbalized complete understanding.. Patient taken by wheelchair to private vehicle. Patient denies pain or needs. No distress observed at discharge.
== END 2024-07-06 14:53 | disposition home or self-care (01) | DRG 287 ==
LOC: ER 12:55 → CSU 14:48
PROVIDERS: Internal Medicine; Admitting Provider Internal Medicine; Emergency Provider Family Medicine; PCP Family Medicine Adult Medicine; Visit Provider Family Medicine
PROC: 4A023N6 Measurement of Cardiac Sampling and Pressure, Right Heart, Percutaneous Approach (ICD-10-PCS; principal; 2024-07-06 06:00)
DX: I95.1 Orthostatic hypotension (principal); I13.0 Hypertensive heart and chronic kidney disease with heart failure and stage 1 through stage 4 chronic kidney disease, or unspecified chronic kidney disease; I50.22 Chronic systolic (congestive) heart failure; Z68.43 Body mass index [BMI] 50.0-59.9, adult; N17.9 Acute kidney failure, unspecified; D75.1 Secondary polycythemia; E11.22 Type 2 diabetes mellitus with diabetic chronic kidney disease; N18.9 Chronic kidney disease, unspecified; E66.01 Morbid (severe) obesity due to excess calories; I25.10 Atherosclerotic heart disease of native coronary artery without angina pectoris; I48.91 Unspecified atrial fibrillation; E78.5 Hyperlipidemia, unspecified; E87.6 Hypokalemia; I25.5 Ischemic cardiomyopathy; Z79.01 Long term (current) use of anticoagulants; Z79.82 Long term (current) use of aspirin; Z95.810 Presence of automatic (implantable) cardiac defibrillator; Z95.1 Presence of aortocoronary bypass graft; Z87.891 Personal history of nicotine dependence
CPT/HCPCS: 36415; 71045; 80053; 81001; 82810; 83735; 83880; 84443; 84484; 85025; 93005; 93306; 93451; 99152; 99153; 99213; 99285; C1751; C1769; C1894; G0378; J1644; J2250; J3010; J7030

== ENCOUNTER → 2024-07-13 14:43 | Outpatient (BNVA) | payer MEDICARE, MEDICAID, SELFPAY | PROVIDERS: PCP Family Medicine Adult Medicine | DX: N18.32 Chronic kidney disease, stage 3b (principal) | CPT/HCPCS: 80053; 83880; 85025 ==

== ENCOUNTER → 2024-07-14 12:54 | Outpatient (BNVA) | payer MEDICARE, MEDICAID, SELFPAY | PROVIDERS: PCP Family Medicine Adult Medicine; Visit Provider Nurse Practitioner Family | DX: I13.0 Hypertensive heart and chronic kidney disease with heart failure and stage 1 through stage 4 chronic kidney disease, or unspecified chronic kidney disease (principal); E11.22 Type 2 diabetes mellitus with diabetic chronic kidney disease; N18.9 Chronic kidney disease, unspecified; I50.22 Chronic systolic (congestive) heart failure; I48.91 Unspecified atrial fibrillation; Z79.01 Long term (current) use of anticoagulants; J44.9 Chronic obstructive pulmonary disease, unspecified; G47.33 Obstructive sleep apnea (adult) (pediatric); Z99.89 Dependence on other enabling machines and devices | CPT/HCPCS: 99214 ==

== ENCOUNTER → 2024-07-23 10:42 | Outpatient (BNVA) | payer MEDICARE, MEDICAID, SELFPAY | DX: I50.20 Unspecified systolic (congestive) heart failure (principal) | CPT/HCPCS: 80048; 83880; 85025 ==

== ENCOUNTER → 2024-09-02 14:07 | Outpatient (BNVA) | payer MEDICARE, MEDICAID, SELFPAY | PROVIDERS: Visit Provider Internal Medicine | DX: I13.0 Hypertensive heart and chronic kidney disease with heart failure and stage 1 through stage 4 chronic kidney disease, or unspecified chronic kidney disease (principal); I50.22 Chronic systolic (congestive) heart failure; Z95.810 Presence of automatic (implantable) cardiac defibrillator; I48.91 Unspecified atrial fibrillation; I25.10 Atherosclerotic heart disease of native coronary artery without angina pectoris; Z95.1 Presence of aortocoronary bypass graft; N18.9 Chronic kidney disease, unspecified; Z87.891 Personal history of nicotine dependence; Z79.01 Long term (current) use of anticoagulants | CPT/HCPCS: 99214 ==

== ENCOUNTER 2024-10-18 23:14 | Inpatient (IN) | payer MEDICARE, MEDICAID, SELFPAY ==
--- NOTE | 2024-10-18 23:17 | ECG_ITS ---
[employer] Test Date: 2024-10-18 Pat Name: Gildardo Morton Department: Room: Gender: Male Vessel Engineer: : 1970 Requested By: Hiram Edwards Order Number: [id number] Giang MD: Oliver Jones M.D. Measurements Intervals [place] Rate: 86 P: 0 LA: 0 QRS: 84 QRSD: 94 T: 50 QT: 411 QTc: 494 Interpretive Statements ATRIAL FIBRILLATION WITH ABERRANT CONDUCTION OR VENTRICULAR PREMATURE COMPLEXES LOW QRS VOLTAGE IN PRECORDIAL LEADS [QRS DEFLECTION < 1.0 mV IN CHEST LEADS] POSSIBLE ANTERIOR MYOCARDIAL INFARCTION , OF INDETERMINATE AGE [30 ms Q WAVE IN V3/V4, OR R < 0.2 mV IN V4] Compared to ECG 07/03/2024 15:31:45 Aberrant conduction of supraventricular beat(s) now present Low QRS voltage now present. Myocardial infarct finding now present Ventricular-paced complex(es) or rhythm no longer present Left bundle-branch block no longer present Electronically Signed On 10-20-2024 23:58:00 PARAMEDIC INSTRUCTOR by Oliver Jones M.D. [email or web address]
[2024-10-18 23:23] VITALS: BP 143/87; PULSE 83; RESP 26; TEMP 36.7; O2SAT 98
--- NOTE | 2024-10-18 23:36 | XRR_ITS ---
PROCEDURE INFORMATION: Exam: XR Chest Exam date and time: 10/18/2024 11:37 PM Age: 53 years old Clinical indication: Shortness of breath; Chest pressure; Prior surgery; Surgery date: 6+ months; Surgery type: Pacer. Cabg; Patient HX: C/O chest pain with SOB. History of chf. ; Additional info: Cp TECHNIQUE: Imaging protocol: Radiologic exam of the chest. Views: 1 view. COMPARISON: CR XR chest 1V portable [id number] 07/03/2024 9:36 AM FINDINGS: Tubes, catheters and devices: Stable left subclavian AICD. Lungs: Central pulmonary vascular congestion. Mild bibasilar interstitial and airspace opacities. Pleural spaces: Unremarkable. No pleural effusion. No pneumothorax. Heart/Mediastinum: Stable cardiomegaly. Bones/joints: Post median sternotomy. XR/XR chest 1V portable [id number] IMPRESSION: Cardiomegaly with central pulmonary vascular congestion and mild opacities bilaterally which may reflect mild pulmonary edema. Superimposed infection not excluded.
--- NOTE | 2024-10-18 23:45 | ED_ITS ---
HPI - Chest Pain 2 General: Chief Complaint: ER Hold Stated Complaint: SOB\Chest Tight Time Seen by Provider: 10/18/24 23:28 History of Present Illness: 53-year-old male patient with a history of coronary disease status post CABG in 2019, heart failure, severe with EF 25% and ICD/defibrillator placement. He presents with chest discomfort, on and off for the last couple of days but worse since 5 PM tonight. He is also had increasing shortness of breath with he believes a 20 pound weight gain over the past week or a bit more. He has symptoms of orthopnea, PND. This evening, he could not complete a shower due to shortness of breath and chest discomfort. No fever. No increased cough. He has noted some leg swelling that comes and goes it seems. Related Data Home Medications Medication Instructions Recorded Confirmed aspirin 81 mg tablet,delayed 81 mg PO QAM 12/22/19 09/02/24 release (Adult Aspirin Regimen) Previous Rx's Medication Instructions Recorded nitroglycerin 0.4 mg sublingual 0.4 mg sublingual Q5M PRN chest 06/13/22 tablet (Nitrostat) pain #25 tabs tizanidine 4 mg capsule 4 mg PO Q8H PRN muscle spasticity 10/13/22 #10 caps metolazone 2.5 mg tablet 2.5 mg PO DAILY PRN Edema #90 tabs 12/16/23 allopurinol 100 mg tablet 100 mg PO DAILY gout #30 tabs 07/07/24 isosorbide mononitrate 30 mg 30 mg PO DAILY #90 tabs 07/07/24 tablet,extended release 24 hr pravastatin 20 mg tablet 20 mg PO QAM #90 tabs 07/07/24 rivaroxaban 20 mg tablet 20 mg PO QAM #90 tabs 07/07/24 CPAP with mask and tubing #1 ea 07/13/24 sacubitril 49 mg-valsartan 51 mg 1 tab PO BID #180 tabs 09/02/24 tablet (Entresto) carvedilol 6.25 mg tablet 6.25 mg PO BID 30 days #60 tabs 09/24/24 dapagliflozin propanediol 5 mg 5 mg PO QAM #90 tabs 09/24/24 tablet (Farxiga) potassium chloride 20 mEq 20 meq PO BID #270 tabs 10/05/24 tablet,extended release Allergies Allergy/AdvReac Type Severity Reaction Status Date / Time tamsulosin [From Flomax] Allergy ADR-Itching Verified 10/18/24 23:27 oxycodone [From OxyContin] AdvReac Intermediate low bp Verified 10/18/24 23:27 PFS ED 2 PFSH: Medical History Sleep apnea 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 Postoperative course associated with arrest shortly after procedure Chronic kidney disease Left atrial thrombus Atrial fibrillation Hyperlipidemia Essential hypertension Systolic CHF LVEF 25 to 30% by TTE 08/02/2020 Surgical History Status post aorto-coronary artery bypass graft 06/2019. Postoperative course associated with arrest shortly after procedure H/O two vessel coronary artery bypass graft Family History Mother CAD (coronary artery disease) Diabetes Hypertension Father Cancer Social History Smoking and tobacco/nicotine status: former use of tobacco/nicotine Second hand smoke exposure: No Alcohol intake: former Former alcohol use details: occational Substance/Drug Use: former Housing: House Marital status: Single Physical Exam 2 Const: GENERAL APPEARANCE: cooperative and ill appearing; not frail appearing NUTRITIONAL APPEARANCE: obese O RIENTATION/CONSCIOUSNESS: Yes awake, Yes oriented to person, Yes oriented to place and Yes oriented to time HENMT: COMMON NORMALS: normocephalic, atraumatic and Normal external nose present HEAD & SCALP: normocephalic and atraumatic FACE & SINUS: normal facial exam and face symmetric NOSE: Normal external nose present Eye: COMMON NORMALS: Equal, round and reactive pupils present and EOMs intact bilaterally PUPIL: Yes Equal, round and reactive pupils present Neck/C-Spine: GENERAL: Yes trachea midline Chest: CHEST: Yes Symmetrical chest wall rise Resp: EFFORT & INSPECTION: Yes symmetric chest movement, Yes tachypneic and Yes labored (Mildly) AUSCULTATION: diminished lung sounds Cardio: COMMON NORMALS: regular rate RATE: regular rate RHYTHM: abnormal rhythm irregularly irregular and with ectopic beats GI: COMMON NORMALS: Normal to inspection, nondistended, normoactive bowel sounds present Extremity: NARRATIVE EXTREMITY EXAM: Significant edema bilateral Neuro: MARIA A COMA SCALE: document GCS findings Maria A coma scale eye opening: Spontaneous Bassett coma scale verbal response: Orientated [place] coma scale motor response: Obey commands Maria A coma scale total score: 15 S ENSORIUM/ORIENTATION: Yes oriented to person, Yes oriented to place and Yes oriented to time SENSORY EXAM: Yes extremities (intact) Psych: COMMON NORMALS: speech normal SPEECH: Yes normal speech Skin: NARRATIVE SKIN EXAM: Stasis dermatitis with chronic cellulitis bilateral lower extremities. Course 2 Vital Signs: Vital signs: Vital Signs Temperature 98.1 F 10/18/24 23:23 Pulse Rate 68 10/19/24 03:45 Respiratory Rate 16 10/19/24 03:45 Blood Pressure 149/82 10/19/24 03:45 Pulse Oximetry 94 10/19/24 03:45 Oxygen Delivery Me thod Room Air 10/18/24 23:23 MDM - Chest Pain Medical Decision Making Patient is now requiring oxygen. Creatinine is 2.1 which is near his baseline. Chest x-ray shows central pulmonary vascular congestion and evidence of pulmonary edema. BNP is elevated. He is given 80 mg of Lasix IV, and is put out a liter so so far. He is beginning to feel a bit better. Troponin remained stable at 2 hours. He will be admitted for hypoxic respiratory failure and CHF exacerbation. Lab Data 10/18/24 23:42 10/18/24 23:42 Radiology Impressions Chest X-Ray 10/18/24 23:36 IMPRESSION: Cardiomegaly with central pulmonary vascular congestion and mild opacities bilaterally which may reflect mild pulmonary edema. Superimposed infection not excluded. Laboratory Results WBC 10.48 10^3/uL (3.29-11.43) 10/18/24 23:42 RBC 4.14 10^6/uL (3.85-5.65) 10/18/24 23:42 Hgb 12.90 g/dL (11.27-16.99) 10/18/24 23:42 Hct 41.3 % (37-53) 10/18/24 23:42 MCV 99.8 fl (82-101) 10/18/24 23:42 MCH 31.2 pg (27-33) 10/18/24 23:42 MCHC 31.2 g/dL (30-55) 10/18/24 23:42 RDW 16.1 % (12.1-15.1) H 10/18/24 23:42 Plt Count 267 10^3/cmm (157-399) 10/18/24 23:42 MPV 10.3 fL (7.4-10.4) 10/18/24 23:42 Neut % (Auto) 78.7 % 10/18/24 23:42 Lymph % (Auto) 12.8 % 10/18/24 23:42 [place] % (Auto) 6.4 % 10/18/24 23:42 Eos % (Auto) 1.1 % 10/18/24 23:42 Baso % (Auto) 0.3 % 10/18/24 23:42 Neut # (Auto) 8.25 10^3/uL (1.8-7.7) H 10/18/24 23:42 Lymph # (Auto) 1.3 10^3/uL (0.8-4.8) 10/18/24 23:42 [place] # (Auto) 0.7 10^3/uL (0.2-0.9) 10/18/24 23:42 Eos # (Auto) 0.1 10^3/uL (0.0-0.8) 10/18/24 23:42 Baso # (Auto) 0.0 10^3/uL (0.0-0.1) 10/18/24 23:42 Nucleated RBC % (auto) 0 % 10/18/24 23: Nucleated RBCs # 0.0 /100WBC 10/18/24 23:42 PT 29.10 SECONDS (12.1-14.9) H 10/18/24 23:42 INR 2.57 (0.8-1.2) H 10/18/24 23:42 APTT 43.8 SECONDS (23.9-36.7) H 10/18/24 23:42 Sodium 138 mmol/L (136-145) 10/18/24 23:42 Potassium 4.0 mmol/L (3.5-5.1) 10/18/24 23:42 Chloride 99 mmol/L (98-107) 10/18/24 23:42 Carbon Dioxide 26 mmol/L (22-29) 10/18/24 23:42 Anion Gap 17.0 (5-19) 10/18/24 23:42 BUN 29 mg/dL (6-20) H 10/18/24 23:42 Creatinine 2.1 mg/dL (0.7-1.2) H 10/18/24 23:42 GFR Calculation 33.0 mL/min (90-130) L 10/18/24 23:42 Glucose 107 mg/dL (65-115) 10/18/24 23:42 Calculated Osmolality 292 mOsm/kg (285-295) 10/18/24 23:42 Calcium 8.5 mg/dL (8.5-10.5) 10/18/24 23:42 Magnesium 1.9 mg/dL (1.7-2.3) 10/18/24 23:42 Total Bilirubin 1.1 mg/dL (0.15-1.2) 10/18/24 23:42 AST 21 U/L (0-40) 10/18/24 23:42 ALT 31 U/L (0-41) 10/18/24 23:42 Alkaline Phosphatase 55 U/L (40-130) 10/18/24 23:42 Troponin T Baseline 36 ng/L (0-15) H 10/18/24 23:42 Troponin T 120 Minute 33.87 ng/L (0-15) H 10/19/24 01:11 Delta Troponin T -2.13 ABS# (0-10) L 10/19/24 01:11 NT-Pro-B Natriuret Pep 7405 pg/mL (0-125) H 10/18/24 23:42 Total Protein 6.5 g/dL (6.6-8.7) L 10/18/24 23:42 Albumin 3.4 g/dL (3.5-5.2) L 10/18/24 23:42 Globulin 3.1 g/dL (1.3-4.6) 10/18/24 23:42 Urine Color Yellow (Yellow) 10/19/24 00:50 Urine Appearance Clear (CLEAR) 10/19/24 00:50 Urine pH 5.5 (5-7) 10/19/24 00:50 Ur Specific [place] 1.012 (1.005-1.030) 10/19/24 00:50 Urine Protein 2+ (Negative) A 10/19/24 00:50 Urine Glucose (UA) 1+ (Normal) H 10/19/24 00:50 Urine Ketones Negative (Negative) 10/19/24 00:50 Urine Blood Negative (Negative) 10/19/24 00:50 Urine Nitrate Negative (Negative) 10/19/24 00:50 Urine Bilirubin Negative (Negative) 10/19/24 00:50 Urine Urobilinogen 1.0 mg/dL (Negative) 10/19/24 00:50 Ur Leukocyte Esterase Negative (Negative) 10/19/24 00:50 Urine RBC 0-2 /hpf (0-2) 10/19/24 00:50 Urine WBC 0-5 /hpf (0-5) 10/19/24 00:50 Ur Squamous Epith Cells 0-5 /hpf (0-5) 10/19/24 00:50 Amorphous Sediment Not Reportable 10/19/24 00:50 Urine Bacteria None seen /hpf (NONE) 10/19/24 00:50 Hyaline Casts 7.01 /lpf 10/19/24 00:50 All radiology interpretation(s) finalized by discharge Discharge Plan Discharge Admit Provider: Eddie Ornelas Condition: Stable Coding Level of Care Code ED Production Leader for Mable Maldonado
[2024-10-19] VITALS (52 sets, daily range): BP systolic 94–149; BP diastolic 57–95; PULSE 65–80; RESP 14–26; TEMP 36.5–37; O2SAT 83–99
[2024-10-19] LABS: Basophils % 0.3 %; Eosinophils # 0.1 10^3/uL (0.0-0.8); Eosinophils % 1.1 %; Hematocrit 41.3 % (37-53); Lymphocytes # 1.3 10^3/uL (0.8-4.8); Lymphocytes % 12.8 %; Mean Corpuscular HGB Conc 31.2 g/dL (30-55); Mean Corpuscular Hemoglobin 31.2 pg (27-33); Mean Corpuscular Volume 99.8 fl (82-101); Mean Platelet Volume 10.3 fL (7.4-10.4); Monocytes # 0.7 10^3/uL (0.2-0.9); Monocytes % 6.4 %; Neutrophils # 8.25 10^3/uL (1.8-7.7); Neutrophils % 78.7 %; Nucleated Red Blood Cells % 0 %; Platelet Count 267 10^3/cmm (157-399); Red Blood Count 4.14 10^6/uL (3.85-5.65); Red Cell Distribution Width 16.1 % (12.1-15.1); White Blood Count 10.48 10^3/uL (3.29-11.43)
[2024-10-19 00:11] LABS: INR 2.57 (0.8-1.2)
[2024-10-19 00:12] LABS: Partial Thromboplastin Time 43.8 SECONDS (23.9-36.7)
[2024-10-19 00:19] LABS: Troponin(5th) Baseline 36 ng/L (0-15)
[2024-10-19] MEDS: morphine 4 mg/mL SDV 1 mL 2 MG IVP (00:21)
[2024-10-19 00:22] LABS: Alanine Aminotransferase 31 U/L (0-41); Albumin Level 3.4 g/dL (3.5-5.2); Alkaline Phosphatase 55 U/L (40-130); Aspartate Amino Transferase 21 U/L (0-40); Blood Urea Nitrogen 29 mg/dL (6-20); Calcium 8.5 mg/dL (8.5-10.5); Carbon Dioxide 26 mmol/L (22-29); Chloride 99 mmol/L (98-107); Globulin 3.1 g/dL (1.3-4.6); Glucose 107 mg/dL (65-115); Magnesium 1.9 mg/dL (1.7-2.3); Osmolality Calculated 292 mOsm/kg (285-295); Sodium 138 mmol/L (136-145); Total Bilirubin 1.1 mg/dL (0.15-1.2); Total Protein 6.5 g/dL (6.6-8.7)
[2024-10-19] MEDS: ondansetron 2 mg/ML SDV 2 mL 4 MG IVP (00:22)
[2024-10-19] MEDS: FUROsemide 10 mg/mL SDV 10mL 80 MG IVP (00:23)
[2024-10-19] MEDS: nitroglycerin 1 gm/inch oint Pkt 0.5 INCH TOPICAL (00:24)
[2024-10-19 00:28] LABS: NT Pro B Type Natriuretic Pept 7405 pg/mL (0-125)
[2024-10-19 01:04] LABS: Bilirubin Urine Negative (Negative); Blood Urine Negative (Negative); Glucose Urine UA 1+ (Normal); Ketones Urine Negative (Negative); Leukocyte Esterase Urine Negative (Negative); Nitrate Urine Negative (Negative); Protein Urine 2+ (Negative); Specific Gravity, Urine 1.012 (1.005-1.030); Urine Appearance Clear (CLEAR); Urine Color Yellow (Yellow); pH Urine 5.5 (5-7)
[2024-10-19 01:08] LABS: Add Urine Microscopic? YES; Bacteria Urine None Seen /hpf; Hyaline Casts Urine 7.01 /lpf; RBC Urine 0-2 /hpf (0-2); Squamous Epithelial Cell Urine 0-5 /hpf (0-5); Universal Test for UA Present (0); WBC Urine 0-5 /hpf (0-5)
--- NOTE | 2024-10-19 01:32 | ECG_ITS ---
[facility] Test Date: 2024-10-19 Pat Name: Gildardo Morton Department: Room: EDIP Gender: Male Tank Carpenter: : 1970 Requested By: Hiram Edwards Order Number: [id number] Reading MD: PABLO VILLARREAL Measurements Intervals [place] Rate: 74 P: 0 MI: 0 QRS: 75 QRSD: 102 T: 136 QT: 412 QTc: 458 Interpretive Statements ATRIAL FIBRILLATION WITH ABERRANT CONDUCTION OR VENTRICULAR PREMATURE COMPLEXES LOW QRS VOLTAGE IN PRECORDIAL LEADS [QRS DEFLECTION < 1.0 mV IN CHEST LEADS] POSSIBLE ANTERIOR MYOCARDIAL INFARCTION , PROBABLY OLD [30 ms Q WAVE IN V3/V4, OR R < 0.2 mV IN V4] ABNORMAL RHYTHM ECG Compared to ECG 10/18/2024 23:19:18 No significant changes Electronically Signed On 10-26-2024 23:31:47 APRON OPERATOR by PABLO VILLARREAL [id number]
--- NOTE | 2024-10-19 01:33 | P.HP_ITS ---
Providers/Chief Complaint 2 Primary Care Provider: Iqra Clemens NP Chief Complaint: SOB\Chest Tight History of Present Illness Gildardo Morton is a 53 year old male with history of ischemic cardiomyopathy status post AICD, A-fib, chronic anticoagulation, sleep apnea has not been using CPAP because it has been recalled, history of reduced EF 25% congestive heart failure, takes Lasix, lives alone, presented with chief complaint of 2 to 3-week history of shortness of breath apnea and PND. Patient is stating that he eats a lot of candies and chocolates. Does not watch his sodium or fluid intake. Patient has not noticed any fever, diarrhea but endorsing weight gain, orthopnea PND along chest discomfort which he is describing as pain which gets worse when taking deep breaths. At the time of evaluation he is not endorsing any chest pain. Patient stating that he lives alone his brother lives next door. Patient is not endorsing any suicidal ideation but stating that lately he has been very emotionally labile watching sad movies would make him cry which is not his personality. In the ER workup consistent with CHF exacerbation, currently requiring 2 L of oxygen, Review of Systems 2 Const: Denies: fever(s) Eyes: Denies: change in vision ENMT: Denies: throat pain Card: Reports: chest pain, palpitations and swelling of feet/ankles Resp: Reports: dyspnea GI: Denies: abdominal pain Medications/Allergies Home Medications Medication Instructions Recorded Confirmed Last Taken Type aspirin 81 mg tablet,delayed 81 mg PO QAM 12/22/19 09/02/24 07/03/24 History release (Adult Aspirin Regimen) nitroglycerin 0.4 mg sublingual 0.4 mg sublingual Q5M PRN chest 06/13/22 09/02/24 Unknown Rx tablet (Nitrostat) pain #25 tabs tizanidine 4 mg capsule 4 mg PO Q8H PRN muscle spasticity 10/13/22 09/02/24 Unknown Rx #10 caps metolazone 2.5 mg tablet 2.5 mg PO DAILY PRN Edema #90 tabs 12/16/23 09/02/24 Unknown Rx allopurinol 100 mg tablet 100 mg PO DAILY gout #30 tabs 07/07/24 09/02/24 Unknown Rx isosorbide mononitrate 30 mg 30 mg PO DAILY #90 tabs 07/07/24 09/02/24 Unknown Rx tablet,extended release 24 hr pravastatin 20 mg tablet 20 mg PO QAM #90 tabs 07/07/24 09/02/24 Unknown Rx rivaroxaban 20 mg tablet 20 mg PO QAM #90 tabs 07/07/24 09/02/24 Unknown Rx CPAP with mask and tubing #1 ea 07/13/24 07/14/24 Unknown Rx sacubitril 49 mg-valsartan 51 mg 1 tab PO BID #180 tabs 09/02/24 09/02/24 Unknown Rx tablet (Entresto) carvedilol 6.25 mg tablet 6.25 mg PO BID 30 days #60 tabs 09/24/24 Unknown Rx dapagliflozin propanediol 5 mg 5 mg PO QAM #90 tabs 09/24/24 Unknown Rx tablet (Farxiga) potassium chloride 20 mEq 20 meq PO BID #270 tabs 10/05/24 Unknown Rx tablet,extended release Allergies Allergy/AdvReac Type Severity Reaction Status Date / Time tamsulosin [From Flomax] Allergy ADR-Itching Verified 10/18/24 23:27 oxycodone [From OxyContin] AdvReac Intermediate low bp Verified 10/18/24 23:27 PFSH Acute 2 PFSH: Medical History Sleep apnea 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 Postoperative course associated with arrest shortly after procedure Chronic kidney disease Left atrial thrombus Atrial fibrillation Hyperlipidemia Essential hypertension Systolic CHF LVEF 25 to 30% by TTE 08/02/2020 Surgical History Status post aorto-coronary artery bypass graft 06/2019. Postoperative course associated with arrest shortly after procedure H/O two vessel coronary artery bypass graft Family History Mother CAD (coronary artery disease) Diabetes Hypertension Father Cancer Social History Smoking and tobacco/nicotine status: former use of tobacco/nicotine Second hand smoke exposure: No Alcohol intake: former Former alcohol use details: occational Substance/Drug Use: former Housing: House Marital status: Single Vitals/I&O/Wt Last Vital Signs Temp 98.1 F 10/18/24 23:23 Pulse 74 10/19/24 01:05 Resp 17 10/19/24 01:05 BP 121/73 10/19/24 01:05 Pulse Ox 96 10/19/24 01:00 O2 Del Method Room Air 10/18/24 23:23 10/18/24 10/18/24 10/19/24 14:59 22:59 06:59 Intake Total 0 / 0 Balance 0 / 0 Weight last 48 hrs Weight 181.891 kg Physical Exam 2 Narrative: Anasarca CHF exacerbation signs present on exam Did not appreciate wheezing or crackles on lung auscultation Currently on 2 L Hemodynamically stable Fluid overload signs present with 2+ edema of lower extremity Abdominal pannus None tender abdomen Currently no active chest pain A-fib without RVR Hemodynamically stable Pleasant cooperative GCS 15 Data 10/18/24 23:42 10/18/24 23:42 A&P Assessment and plan (1) Systolic CHF: (2) Ischemic cardiomyopathy: (3) Essential hypertension: (4) ICD (implantable cardioverter-defibrillator), single, in situ: (5) Diabetes mellitus: Qualifiers: Diabetes mellitus type: type 2 Diabetes mellitus termite exterminator insulin use: without termite exterminator use Diabetes mellitus complication status: with kidney complications Diabetes mellitus complication detail: with chronic kidney disease Chronic kidney disease stage: stage 3 (moderate) Chronic kidney disease stage 3 subtype: stage 3b (GFR 30-44) Qualified Code(s): E11.22 - Type 2 diabetes mellitus with diabetic chronic kidney disease; N18.32 - Chronic kidney disease, stage 3b (6) Chronic kidney disease, stage 3b: (7) Sleep apnea: (8) Acute exacerbation of CHF (congestive heart failure): Plan Acute exacerbation of systolic CHF Underlying ischemic cardiomyopathy status post AICD Dietary indiscretion Does not follow a good diet at home Start IV diuresis EF is 25% No active chest pain Chronic kidney disease: Creatinine seems around baseline Patient may resume his Entresto Patient is not hypotensive Acute hypoxia requiring 2 L however patient stating that he used to blind oxygen in the CPAP machine which he has not done in recent past because CP machine has been recalled, currently requiring 2 L Patient will need another evaluation Patient is stating that he has received credit for his CPAP machine but insurance has not delivered the machine yet Full code Cardiac consistent carb diet DVT prophylaxis: Continue rivaroxaban A-fib without RVR continue AV gerald blocking agent Attestations 2 Medical Necessity Statement*: Anticipating discharge within 48 hours Diagnoses Systolic CHF I50.20 Ischemic cardiomyopathy I25.5 Essential hypertension I10 ICD (implantable cardioverter-defibrillator), single, in situ Z95.810 Type 2 diabetes mellitus with stage 3b chronic kidney disease, without long-term current use of insulin E11.22; N18.32 Diabetes mellitus type: type 2 Diabetes mellitus mcfp insulin use: without termite exterminator use Diabetes mellitus complication status: with kidney complications Diabetes mellitus complication detail: with chronic kidney disease Chronic kidney disease stage: stage 3 (moderate) Chronic kidney disease stage 3 subtype: stage 3b (GFR 30-44) Chronic kidney disease, stage 3b N18.32 Sleep apnea G47.30 Acute exacerbation of CHF (congestive heart failure) I50.9
[2024-10-19 01:34] LABS: Troponin 5 2HR 33.87 ng/L (0-15)
[2024-10-19 01:51] LABS: Troponin 5 2HR Delta -2.13 ABS# (0-10)
[2024-10-19 01:52] LABS: Add Urine Culture? No
[2024-10-19] MEDS: aspirin 81 mg EC Tablet PO (05:05)
[2024-10-19] MEDS: rivaroxaban 10 mg Tablet 20 MG PO (05:05)
--- NOTE | 2024-10-19 07:27 | PC.PHAR ---
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 His order for furosemide 40mg 1.5 po bid 90day supply was canceled or stopped by provider.
[2024-10-19 08:10] LABS: Estmated Average Glucose 114; Hemoglobin A1C 5.6 % (4.0-6.0)
[2024-10-19] MEDS: sacubitril/valsartan 24-26 mg Tablet 2 EACH PO (08:11)
[2024-10-19] MEDS: potassium chloride ER 20 mEq Tablet PO (08:11)
[2024-10-19] MEDS: sennosides-docusate Tablet 1 TAB PO (08:11)
[2024-10-19] MEDS: carvedilol 6.25 mg Tablet PO ×2 (08:12→18:05)
[2024-10-19 08:18] LABS: Glucose Point of Care 84 mg/dL (70-110)
[2024-10-19 08:22] LABS: Vitamin B12 342 pg/mL (232-1245)
--- NOTE | 2024-10-19 08:40 | PC.NURSE ---
Patient transferred from ED to CSU via a bed at 0835.
[2024-10-19] MEDS: allopurinol 100 mg Tablet PO (09:07)
--- NOTE | 2024-10-19 10:10 | ECG_ITS ---
[employer] Test Date: 2024-10-19 Pat Name: Gildardo Morton Department: Room: 111 Gender: Male Fingernail Former: : 1970 Requested By: Hiram Edwards Order Number: [id number] Giang MD: PABLO VILLARREAL Measurements Intervals [place] Rate: 65 P: 0 [place]: 0 QRS: 39 QRSD: 104 T: 158 QT: 399 QTc: 416 Interpretive Statements Atrial fibrillation ELECTRONIC VENTRICULAR PACEMAKER -- CONTOUR ANALYSIS BASED ON INTRINSIC RHYTHM LOW QRS VOLTAGE IN PRECORDIAL LEADS [QRS DEFLECTION < 1.0 mV IN CHEST LEADS] POSSIBLE ANTERIOR MYOCARDIAL INFARCTION , OF INDETERMINATE AGE [30 ms Q WAVE IN V3/V4, OR R < 0.2 mV IN V4] Compared to ECG 10/19/2024 01:32:27 there is no change Electronically Signed On 10-26-2024 23:31:08 CABIN FURNISHINGS INSTALLER by PABLO VILLARREAL [email or web address]
[2024-10-19 11:43] LABS: Glucose Point of Care 102 mg/dL (70-110)
[2024-10-19] MEDS: FUROsemide 10 mg/mL SDV 10mL 60 MG IVP (12:00)
[2024-10-19] MEDS: FUROsemide 100 MG in sodium chloride 0.9% 40 ML IV ×2 (14:52→23:01)
--- NOTE | 2024-10-19 15:16 | P.CONIM_ITS ---
Providers/Reason For Consult 2 Consulting Physician/Specialty*: SHWETA Jones MD/cardiology Reason for Consult*: Patient with progressive shortness of breath, congestive heart failure Requesting Physician: Dr. Holm Attending Physician: Bi Holm DO Primary Care Provider: Iqra Clemens NP History of Present Illness History of Present Illness Gildardo Morton is a 53 year old male with a history of atherosclerotic heart diseas, ischemic cardiomyopathy, chronic intermittent atrial fibrillation, status post ICD implantation. Presenting with progressive shortness of breath, weight gain and leg swelling. Cardiology consult is requested for further cardiac evaluation recommendations. This patient is known to have severe LV systolic dysfunction and recurrent decompensated heart failure. For the last 3 to 4 weeks, he been progressively getting short of breath. Within the last 2 weeks, it again around 20 pounds. His urine output also was going down. He denies fever or chills. He was having a dry cough. Was noticing increasing swelling of the lower extremities with no cyanosis. He has been compliant with medications. As experiencing increasing shortness of breath in the lying down posture. But apparently if he lies on his left side, he does okay. He has a most recent echocardiogram in June of last year. The LV ejection fraction was 25 to 30% at that time. He is on long-term oral anticoagulation. Has not had bleeding complications. He had his ICD interrogated on 03 July. He was found to have episodes of atrial fibrillation 5.7 hours/day. No VT or VF episodes. No ICD discharges. This patient is known to have chronic kidney disease, type 2 diabetes and obstructive sleep apnea. But for the last year or so, because of the recall on the Pam CPAP machine, he was not using CPAP. Review of Systems 2 Narrative: CONSTITUTIONAL: No fever or chills. Might have gained around 30 pounds in the last 1 year. EYES: No blurring of vision or other visual disturbances lately. ENT: No hoarseness of voice, auditory disturbances or sore throat. CARDIOVASCULAR: As mentioned above. RESPIRATORY: No significant cough. GASTROINTESTINAL: No hematemesis or melena. GENITOURINARY: No dysuria or hematuria. INTEGUMENTARY: No skin rashes or history of skin cancer. NEURO: No transient ischemic attacks or amaurosis. PSYCHIATRIC: No history of psychosis or major depression. HEMATOLOGIC: On long-term oral anticoagulation. ENDOCRINE: Type 2 diabetes. MUSCULOSKELETAL: No recent joint pain or swelling. ALLERGY/IMMUNOLOGY: As mentioned above. Medications/Allergies Home Medications Medication Instructions Recorded Confirmed Last Taken Type aspirin 81 mg tablet,delayed 81 mg PO QAM 12/22/19 10/19/24 10/18/24 History release (Adult Aspirin Regimen) nitroglycerin 0.4 mg sublingual 0.4 mg sublingual Q5M PRN chest 06/13/22 10/19/24 Unknown Rx tablet (Nitrostat) pain #25 tabs metolazone 2.5 mg tablet 2.5 mg PO DAILY PRN Edema #90 tabs 12/16/23 10/19/24 Unknown Rx allopurinol 100 mg tablet 100 mg PO DAILY gout #30 tabs 07/07/24 10/19/24 10/18/24 Rx isosorbide mononitrate 30 mg 30 mg PO DAILY #90 tabs 07/07/24 10/19/24 10/18/24 Rx tablet,extended release 24 hr pravastatin 20 mg tablet 20 mg PO QAM #90 tabs 07/07/24 10/19/24 10/18/24 Rx rivaroxaban 20 mg tablet 20 mg PO QAM #90 tabs 07/07/24 10/19/24 10/18/24 Rx CPAP with mask and tubing #1 ea 07/13/24 10/19/24 Unknown Rx sacubitril 49 mg-valsartan 51 mg 1 tab PO BID #180 tabs 09/02/24 10/19/24 10/18/24 Rx tablet (Entresto) carvedilol 6.25 mg tablet 6.25 mg PO BID 30 days #60 tabs 09/24/24 10/19/24 10/18/24 Rx dapagliflozin propanediol 5 mg 5 mg PO QAM #90 tabs 09/24/24 10/19/24 10/18/24 Rx tablet (Farxiga) potassium chloride 20 mEq 20 meq PO BID #270 tabs 10/05/24 10/19/24 10/18/24 Rx tablet,extended release Allergies Allergy/AdvReac Type Severity Reaction Status Date / Time tamsulosin [From Flomax] Allergy ADR-Itching Verified 10/18/24 23:27 oxycodone [From OxyContin] AdvReac Intermediate low bp Verified 10/18/24 23:27 Current Medications Generic Name Dose Route Start Last Admin Trade Name Payal PRN Reason Stop Dose Admin Aspirin 81 mg 10/19/24 06:00 10/19/24 05:05 Aspirin 81 Mg Ec Tablet PO 81 mg QAM ELLIE Administration Carvedilol 6.25 mg 10/19/24 09:00 10/19/24 08:12 Carvedilol 6.25 Mg Tablet PO 6.25 mg BID ELLIE Administration Furosemide 100 mg/ Sodium 50 mls @ 0 mls/hr 10/19/24 14:00 10/19/24 14:52 Chloride IV 10 mg/hr .Q0M ELLIE 5 mls/hr Administration Protocol Per Protocol Insulin Human Lispro 0 unit 10/19/24 08:00 10/19/24 12:07 Insulin Lispro 100 Unit/1 Ml SUBCUT Not Given WM&BEDTIME ELLIE Protocol Potassium Chloride 20 meq 10/19/24 09:00 10/19/24 08:11 Potassium Chloride Er 20 Meq Tablet PO 20 meq BID ELLIE Administration Rivaroxaban 20 mg 10/19/24 06:00 10/19/24 05:05 Rivaroxaban 10 Mg Tablet PO 20 mg QAM ELLIE Administration Senna/Docusate Sodium 1 tab 10/19/24 09:00 10/19/24 08:11 Sennosides-Docusate Tablet PO 1 tab DAILY ELLIE Administration PFSH Acute 2 PFSH: Medical History Sleep apnea 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 Postoperative course associated with arrest shortly after procedure Chronic kidney disease Left atrial thrombus Atrial fibrillation Hyperlipidemia Essential hypertension Systolic CHF LVEF 25 to 30% by TTE 08/02/2020 Surgical History Status post aorto-coronary artery bypass graft 06/2019. Postoperative course associated with arrest shortly after procedure H/O two vessel coronary artery bypass graft Family History Mother CAD (coronary artery disease) Diabetes Hypertension Father Cancer Social History Smoking and tobacco/nicotine status: former use of tobacco/nicotine Second hand smoke exposure: No Alcohol intake: former Former alcohol use details: occational Substance/Drug Use: former Housing: House Marital status: Single Vitals/I&O/Wt Last Vital Signs Temp 97.7 F 10/19/24 11:34 Pulse 71 10/19/24 11:34 Resp 19 H 10/19/24 11:34 BP 106/57 10/19/24 11:34 Pulse Ox 94 10/19/24 11:34 O2 Del Method Nasal Cannula 10/19/24 11:34 O2 Flow Rate 2 10/19/24 10:00 10/19/24 10/19/24 10/19/24 06:59 14:59 22:59 Intake Total 0 / 0 360 / 360 Output Total 1999 500 / 500 425 / 925 Balance -1999 / -140 / -140 -425 / -565 Weight last 48 hrs Weight 404 lb 3 oz Weight 401 lb Physical Exam 2 Narrative: GENERAL: The patient is alert and oriented times three. Not in any acute distress. Morbidly obese. HEENT: No significant pallor, icterus or lymphadenopathy.Oral cavity: There are no mucous membrane lesions. NECK: Trachea appears to be central. No masses noted. No JVD or thyromegaly appreciated. RESPIRATORY: Chest is symmetrical. No intercostals muscle retraction or any accessory muscle activation. There is no chest wall tenderness. Breath sounds are heard bilaterally. No rales or rhonchi heard. No evidence of any consolidation. BREASTS: Deferred. HEART: The heart sounds are normal. No S3 or S4. No significant murmurs. No pericardial rub ABDOMEN: No vessel pulsations or distention. No tenderness. No organomegaly appreciated. Bowel sounds are normally heard. : Deferred. RECTAL: Deferred. LYMPHATIC: No lymphadenopathy noted in the neck. EXTREMITIES: 2+ edema both lower extremities. No cyanosis. MUSCULOSKELETAL: No acute joint deformities or swelling SKIN: There are no significant rashes or ecchymosis NEUROPSYCHIATRIC: The patient is alert and oriented x3. Appears to be in a good mood. No tremors or rigidity noted. Data 10/18/24 23:42 10/18/24 23:42 Other Labs: Laboratory Last Values WBC 10.48 10^3/uL (3.29-11.43) 10/18/24 23:42 RBC 4.14 10^6/uL (3.85-5.65) 10/18/24 23:42 Hgb 12.90 g/dL (11.27-16.99) 10/18/24 23:42 Hct 41.3 % (37-53) 10/18/24 23:42 MCV 99.8 fl (82-101) 10/18/24 23:42 MCH 31.2 pg (27-33) 10/18/24 23:42 MCHC 31.2 g/dL (30-55) 10/18/24 23:42 RDW 16.1 % (12.1-15.1) H 10/18/24 23:42 Plt Count 267 10^3/cmm (157-399) 10/18/24 23:42 MPV 10.3 fL (7.4-10.4) 10/18/24 23:42 Neut % (Auto) 78.7 % 10/18/24 23:42 Lymph % (Auto) 12.8 % 10/18/24 23:42 [place] % (Auto) 6.4 % 10/18/24 23:42 Eos % (Auto) 1.1 % 10/18/24 23: Baso % (Auto) 0.3 % 10/18/24 23:42 Neut # (Auto) 8.25 10^3/uL (1.8-7.7) H 10/18/24 23:42 Lymph # (Auto) 1.3 10^3/uL (0.8-4.8) 10/18/24 23:42 [place] # (Auto) 0.7 10^3/uL (0.2-0.9) 10/18/24 23:42 Eos # (Auto) 0.1 10^3/uL (0.0-0.8) 10/18/24 23: Baso # (Auto) 0.0 10^3/uL (0.0-0.1) 10/18/24 23: Nucleated RBC % (auto) 0 % 10/18/24: Nucleated RBCs # 0.0 /100WBC 10/18/24 23:42 PT 29.10 SECONDS (12.1-14.9) H 10/18/24 23:42 INR 2.57 (0.8-1.2) H 10/18/24 23:42 APTT 43.8 SECONDS (23.9-36.7) H 10/18/24 23:42 Sodium 138 mmol/L (136-145) 10/18/24 23:42 Potassium 4.0 mmol/L (3.5-5.1) 10/18/24 23:42 Chloride 99 mmol/L (98-107) 10/18/24 23:42 Carbon Dioxide 26 mmol/L (22-29) 10/18/24 23:42 Anion Gap 17.0 (5-19) 10/18/24 23:42 BUN 29 mg/dL (6-20) H 10/18/24 23:42 Creatinine 2.1 mg/dL (0.7-1.2) H 10/18/24 23:42 GFR Calculation 33.0 mL/min (90-130) L 10/18/24 23:42 Glucose 107 mg/dL (65-115) 10/18/24 23:42 POC Glucose 104 mg/dL (70-110) 10/19/24 16:36 Estimat Average Glucose 114 10/19/24 07:36 Hemoglobin A1c 5.6 % (4.0-6.0) 10/19/24 07:36 Calculated Osmolality 292 mOsm/kg (285-295) 10/18/24 23:42 Calcium 8.5 mg/dL (8.5-10.5) 10/18/24 23:42 Magnesium 1.9 mg/dL (1.7-2.3) 10/18/24 23:42 Total Bilirubin 1.1 mg/dL (0.15-1.2) 10/18/24 23:42 AST 21 U/L (0-40) 10/18/24 23:42 ALT 31 U/L (0-41) 10/18/24 23:42 Alkaline Phosphatase 55 U/L (40-130) 10/18/24 23:42 Troponin T Baseline 36 ng/L (0-15) H 10/18/24 23:42 Troponin T 120 Minute 33.87 ng/L (0-15) H 10/19/24 01:11 Delta Troponin T -2.13 ABS# (0-10) L 10/19/24 01:11 NT-Pro-B Natriuret Pep 7405 pg/mL (0-125) H 10/18/24 23:42 Total Protein 6.5 g/dL (6.6-8.7) L 10/18/24 23:42 Albumin 3.4 g/dL (3.5-5.2) L 10/18/24 23:42 Globulin 3.1 g/dL (1.3-4.6) 10/18/24 23:42 Vitamin B12 342 pg/mL (232-1245) 10/19/24 07:36 Urine Color Yellow (Yellow) 10/19/24 00:50 Urine Appearance Clear (CLEAR) 10/19/24 00:50 Urine pH 5.5 (5-7) 10/19/24 00:50 Ur Specific [place] 1.012 (1.005-1.030) 10/19/24 00:50 Urine Protein 2+ (Negative) A 10/19/24 00:50 Urine Glucose (UA) 1+ (Normal) H 10/19/24 00:50 Urine Ketones Negative (Negative) 10/19/24 00:50 Urine Blood Negative (Negative) 10/19/24 00:50 Urine Nitrate Negative (Negative) 10/19/24 00:50 Urine Bilirubin Negative (Negative) 10/19/24 00:50 Urine Urobilinogen 1.0 mg/dL (Negative) 10/19/24 00:50 Ur Leukocyte Esterase Negative (Negative) 10/19/24 00:50 Urine RBC 0-2 /hpf (0-2) 10/19/24 00:50 Urine WBC 0-5 /hpf (0-5) 10/19/24 00:50 Ur Squamous Epith Cells 0-5 /hpf (0-5) 10/19/24 00:50 Amorphous Sediment Not Reportable 10/19/24 00:50 Urine Bacteria None seen /hpf (NONE) 10/19/24 00:50 Hyaline Casts 7.01 /lpf 10/19/24 00:50 A&P Assessment and plan (1) Acute on chronic systolic heart failure: Etiology is not clear. Possibility of the arrhythmia causing this is a consideration. Worsening of the LV systolic function also is a consideration. Patient is currently on IV Lasix drip. This may be continued. We may consider doing a short infusion of the Dobutrex tomorrow if there is no significant improvement in diuresis. (2) CAD (coronary artery disease) of artery bypass graft: Patient has no specific symptoms of coronary insufficiency at this time. May continue on the current medications. Qualifiers: [place] vs. transplanted heart: [place] heart Associated angina: without angina Qualified Code(s): I25.810 - Atherosclerosis of coronary artery bypass graft(s) without angina pectoris (3) ICD (implantable cardioverter-defibrillator), single, in situ: ICD was interrogated to his end of June. We may do another interrogation while being here in this hospital. This is specifically to evaluate for the arrhythmic burden. (4) Atrial fibrillation: Patient is on long-term oral anticoagulation with Xarelto. This may be continued. Qualifiers: Atrial fibrillation type: unspecified Qualified Code(s): I48.91 - Unspecified atrial fibrillation (5) Hyperlipidemia: May continue the current medications. Qualifiers: Hyperlipidemia type: mixed hyperlipidemia Qualified Code(s): E78.2 - Mixed hyperlipidemia (6) Essential hypertension: Blood pressure seems to be fairly stable at this time. May continue the current medication. Patient apparently had hypotensive episodes with the higher dose of Entresto. May continue on the current dose of the medication. (7) ICD (implantable cardioverter-defibrillator), single, in situ: The ICD function appears to be appropriate. May do a repeat interrogation to reevaluate. (8) Ischemic cardiomyopathy: We had very limited 2D echo to follow-up on the LV function Plan Other problems are Obstructive sleep apnea Chronic kidney disease Morbid obesity Based on the results of the above tests and the patient's clinical progress, further recommendations will be made. Consider IV dopamine infusion, if there is no significant improvement in the urine output today. Based on the clinical progress, further recommendations will be made. Thank you for the opportunity to evaluate this patient and make these recommendations Consult Attestations 2 Medical Necessity Statement: Deferred to the primary Coding Level of Care Code 88948 Diagnoses Acute on chronic systolic heart failure I50.23 Coronary artery disease involving coronary bypass graft of [place] heart without angina pectoris I25.810 [place] vs. transplanted heart: [place] heart Associated angina: without angina ICD (implantable cardioverter-defibrillator), single, in situ Z95.810 Atrial fibrillation, unspecified type I48.91 Atrial fibrillation type: unspecified Mixed hyperlipidemia E78.2 Hyperlipidemia type: mixed hyperlipidemia Essential hypertension I10 Ischemic cardiomyopathy I25.5
[2024-10-19 16:43] LABS: Glucose Point of Care 104 mg/dL (70-110)
--- NOTE | 2024-10-19 18:01 | PC.NURSE ---
Potassium orders are clarified with provider. Patient had a total of 60meq due at 1800. Provider wants 40meq and discontinue the 20meq.
[2024-10-19] MEDS: potassium chloride oral liq 20 mEq/15 mL UDC 40 MEQ PO (18:05)
--- NOTE | 2024-10-19 18:09 | PM.PN ---
Subjective Subjective: Patient states he has gained about 20 pounds in the last few weeks. He reports weighing himself every day but his weight fluctuates so much that he cannot tell when to take his diuretic as needed. He states this last week he is taking it about 3 times in the week but he just finally could not catch his breath and had to take a break after cooking. Of note he reported to be cooking ham and eggs. Vitals/I&O/Wt Last Vital Signs Temp 97.8 F 10/19/24 16:00 Pulse 70 10/19/24 16:00 Resp 21 H 10/19/24 16:00 BP 111/80 10/19/24 16:00 Pulse Ox 96 10/19/24 16:00 O2 Del Method Nasal Cannula 10/19/24 16:00 O2 Flow Rate 2 10/19/24 10:00 10/19/24 10/19/24 10/19/24 06:59 14:59 22:59 Intake Total 0 / 0 360 / 360 Output Total 1999 / 1999 500 / 500 1400 / 1900 Balance -1999 / -2000 -140 / -140 -1400 / -1540 Weight last 48 hrs Weight 183.336 kg Weight 181.891 kg Physical Exam Narrative: Morbidly obese male in no acute distress at time of exam seen sitting at the bedside working Heart somewhat irregular ectopy seen on telemetry with multiple PVCs and appears to be in atrial fibrillation Lungs diminished breath sounds in the bases with crackles heard in the right base abdomen min morbidly obese soft nontender nondistended positive bowel sounds extremities +1 pitting edema to knees Data 10/18/24 23:42 10/18/24 23:42 CXR: My impression: Pulmonary edema Radiologist's impression: IMPRESSION: Cardiomegaly with central pulmonary vascular congestion and mild opacities bilaterally which may reflect mild pulmonary edema. Superimposed infection not excluded. A&P Assessment and plan (1) Acute on chronic systolic heart failure: Patient was not on any loop diuretic and only on a as needed metolazone. I will start a Lasix drip increase potassium and monitor closely with labs (2) Sleep apnea: (3) Ischemic cardiomyopathy: (4) Chronic kidney disease, stage 3b: (5) ICD (implantable cardioverter-defibrillator), single, in situ: (6) Morbid obesity with BMI of 50.0-59.9, adult: His switch of BMI might be due to severe fluid overload Plan Patient will require likely up to approximately 5 days of IV diuresis prior to being able to absorb the oral diuretics. Will follow I's and O's Attestations Medical Necessity Statement*: Patient with severe volume overload due to congestive heart failure. Patient is requiring IV Lasix continuous drip due to diuretic resistance in the past. He is electrolytes need close monitoring he is already showing ectopy on telemetry monitoring and patient is at high risk for arrhythmias. Coding Level of Care Code Acute Code for Chg Fwd Diagnoses Acute on chronic systolic heart failure I50.23 Sleep apnea G47.30 Ischemic cardiomyopathy I25.5 Chronic kidney disease, stage 3b N18.32 ICD (implantable cardioverter-defibrillator), single, in situ Z95.810 Morbid obesity with BMI of 50.0-59.9, adult E66.01; Z68.43
[2024-10-19 21:18] LABS: Glucose Point of Care 96 mg/dL (70-110)
[2024-10-19 22:50] LABS: Alanine Aminotransferase 27 U/L (0-41); Albumin Level 3.5 g/dL (3.5-5.2); Alkaline Phosphatase 56 U/L (40-130); Anion Gap 12.7 (5-19); Aspartate Amino Transferase 17 U/L (0-40); Blood Urea Nitrogen 31 mg/dL (6-20); Calcium 8.6 mg/dL (8.5-10.5); Carbon Dioxide 35 mmol/L (22-29); Chloride 97 mmol/L (98-107); Globulin 3.4 g/dL (1.3-4.6); Glomerular Filtration Rate 29.7 mL/min (90-130); Glucose 89 mg/dL (65-115); Osmolality Calculated 298 mOsm/kg (285-295); Potassium 3.7 mmol/L (3.5-5.1); Sodium 141 mmol/L (136-145); Total Bilirubin 0.8 mg/dL (0.15-1.2); Total Protein 6.9 g/dL (6.6-8.7)
[2024-10-20] VITALS (10 sets, daily range): BP systolic 102–127; BP diastolic 72–82; PULSE 20–78; RESP 18–86; TEMP 36.3–36.6; O2SAT 90–96
[2024-10-20 03:17] LABS: Anion Gap 10.9 (5-19); Blood Urea Nitrogen 31 mg/dL (6-20); C Reactive Protein 40.7 mg/L (0.0-4.9); Calcium 8.5 mg/dL (8.5-10.5); Carbon Dioxide 38 mmol/L (22-29); Chloride 95 mmol/L (98-107); Glomerular Filtration Rate 29.7 mL/min (90-130); Glucose 92 mg/dL (65-115); Magnesium 1.7 mg/dL (1.7-2.3); Osmolality Calculated 296 mOsm/kg (285-295); Potassium 3.9 mmol/L (3.5-5.1); Sodium 140 mmol/L (136-145)
[2024-10-20] MEDS: rivaroxaban 10 mg Tablet 20 MG PO (05:05)
[2024-10-20] MEDS: aspirin 81 mg EC Tablet PO (05:05)
[2024-10-20] MEDS: FUROsemide 100 MG in sodium chloride 0.9% 40 ML IV (05:06)
[2024-10-20 06:25] LABS: Glucose Point of Care 102 mg/dL (70-110)
--- NOTE | 2024-10-20 08:39 | PC.NURSE ---
Provider ordered to change potassium from liquid to PO.
[2024-10-20] MEDS: sennosides-docusate Tablet 1 TAB PO (09:02)
[2024-10-20] MEDS: potassium chloride ER 20 mEq Tablet 40 MEQ PO ×2 (09:03→17:24)
[2024-10-20] MEDS: carvedilol 6.25 mg Tablet PO ×2 (09:03→17:24)
--- NOTE | 2024-10-20 09:16 | PC.CHAP ---
Pastoral Care Encounter/Spiritual Assessment Type of Contact [] Declined research psychologist visit [] Patient/Family/Request visit [] Outpatient visit [] Follow-up visit [] Physician referral [] Code/Alert [x] Routine visit [] Staff referral [] Actively dying [] Patient sleeping [] Family support [] [] Out of room [] Palliative care [] [] Receiving care in room [] Pre-surgical visit [] Trauma [] Long length of stay [] ICU visit [] Other: Relational/Emotional Strength [x] Patient feels connected with others/family/visitors/staff [] Distress [] Loneliness/isolation [] Abandonment Spirituality of Patient [x] Person of Kyra [] Attends Yarsanism of their Kyra [x] Believes in Prayer [] Reads Bible or Confucianism materials [] There are Spiritual issues to be addressed Surgical Specialist Interventions [x] Prayer [x] Active listening [] Non-anxious presence [x] Spiritual/emotional support [] Crisis/trauma care [] Spiritual counseling [] Bereavement support [] Provided bereavement packet [] Provided Bible/devotional materials [] Provided toy/stuffed animal, coloring book to patient or family member [] Provided Communion [] Anointing/[place] [] Salvation [x] Completed spiritual assessment [] Other: Impact on Illness or Injury [] Angry [] Fearful [] Anxious [] Often cries [] Exhaustion [] Unable to work [] Unable to attend yarsani [] Unable to walk/stand [] Unable to read [] Unable to drive [] Unable to eat/drink [] Unable to sleep [] Unable to be with family [] Patient intubated [] Other: Summary Time spent with patient 5 min
[2024-10-20 11:31] LABS: Glucose Point of Care 99 mg/dL (70-110)
--- NOTE | 2024-10-20 13:22 | P.PN_ITS ---
Subjective 2 Subjective: Patient is feeling okay. The shortness of breath is significantly improved. Urine output seems appropriate for the IV infusion of Lasix Patient is feeling much better He is able to go to the bathroom without much difficulty Medications: Medication Review Details: Current Medications Acetaminophen (Acetaminophen 500 Mg Tablet) 500 mg PO Q4H PRN PRN Reason: fever Albuterol/Ipratropium (Ipratropium-Albuterol 3 Ml Neb) 3 ml INHALATION Q6H PRN PRN Reason: SHORTNESS OF BREATH Aspirin (Aspirin 81 Mg Ec Tablet) 81 mg PO QAM [facility] Last Admin: 10/20/24 05:05 Dose: 81 mg Carvedilol (Carvedilol 6.25 Mg Tablet) 6.25 mg PO BID [facility] Last Admin: 10/20/24 09:03 Dose: 6.25 mg Glucagon (Glucagon 1 Mg/Ml Kit 1 Ml) 1 mg IM ONCE PRN; Protocol PRN Reason: Adult Acute Hypoglycemia Nursing Prot. Dextrose (D5w) 500 mls @ 0 mls/hr IV ONCE PRN; Protocol PRN Reason: Adult Acute Hypoglycemia Prot Dextrose (D10w) 125 mls @ 750 mls/hr IV PRN PRN; Protocol PRN Reason: Adult Acute Hypoglycemia Nursing Protocol Dextrose (D10w) 250 mls @ 1,000 mls/hr IV PRN PRN; Protocol PRN Reason: Adult Acute Hypoglycemia Nursing Protocol Furosemide 100 mg/ Sodium (Chloride) 50 mls @ 0 mls/hr IV .Q0M [facility]; Protocol Last Admin: 10/20/24 05:06 Dose: 10 mg/hr, 5 mls/hr Insulin Human Lispro (Insulin Lispro 100 Unit/1 Ml) 0 unit SUBCUT WM&BEDTIME [facility]; Protocol Last Admin: 10/20/24 11:52 Dose: Not Given Ondansetron HCl (Ondansetron 2 Mg/Ml Sdv 2 Ml) 4 mg IVP Q6H PRN PRN Reason: NAUSEA AND VOMITING Potassium Chloride (Potassium Chloride Er 20 Meq Tablet) 40 meq PO BID [facility] Last Admin: 10/20/24 09:03 Dose: 40 meq Rivaroxaban (Rivaroxaban 10 Mg Tablet) [facility] [place] [facility] Admin: 10/20/24 05:05 Dose: 20 mg Senna/Docusate Sodium (Sennosides-Docusate Tablet) 1 tab PO DAILY [facility] Last Admin: 10/20/24 09:02 Dose: 1 tab Vitals/I&O/Wt Last Vital Signs Temp 97.7 F 10/20/24 08:00 Pulse 70 10/20/24 12:00 Resp 23 H 10/20/24 12:00 BP 102/82 10/20/24 12:00 Pulse Ox 92 10/20/24 12:00 O2 Del Method Nasal Cannula 10/20/24 12:00 O2 Flow Rate 2 10/19/24 20:00 10/19/24 10/20/24 10/20/24 22:59 06:59 14:59 Intake Total 358 / 718 521.167 / 1239.167 240 / 240 Output Total 2400 / 2900 1850 / 4750 1400 / 1400 Balance -2042 / -2182 -1328.833 / -3510.833 -1160 / -1160 Weight last 48 hrs Weight 404 lb 3 oz Weight 401 lb Physical Exam 2 Narrative: GENERAL: The patient is alert and oriented times three. Not in any acute distress. Morbidly obese. HEENT: No significant pallor, icterus or lymphadenopathy.Oral cavity: There are no mucous membrane lesions. NECK: Trachea appears to be central. No masses noted. No JVD or thyromegaly appreciated. RESPIRATORY: Chest is symmetrical. No intercostals muscle retraction or any accessory muscle activation. There is no chest wall tenderness. Breath sounds are heard bilaterally. No rales or rhonchi heard. No evidence of any consolidation. BREASTS: Deferred. HEART: The heart sounds are normal. No S3 or S4. No significant murmurs. No pericardial rub ABDOMEN: No vessel pulsations or distention. No tenderness. No organomegaly appreciated. Bowel sounds are normally heard. : Deferred. RECTAL: Deferred. LYMPHATIC: No lymphadenopathy noted in the neck. EXTREMITIES:1- 2+ edema both lower extremities. No cyanosis. MUSCULOSKELETAL: No acute joint deformities or swelling SKIN: There are no significant rashes or ecchymosis NEUROPSYCHIATRIC: The patient is alert and oriented x3. Appears to be in a good mood. No tremors or rigidity noted. Data 10/18/24 23:42 10/20/24 02:49 Other Labs: Laboratory Last Values WBC 10.48 10^3/uL (3.29-11.43) 10/18/24 23:42 RBC 4.14 10^6/uL (3.85-5.65) 10/18/24 23:42 Hgb 12.90 g/dL (11.27-16.99) 10/18/24 23:42 Hct 41.3 % (37-53) 10/18/24 23:42 MCV 99.8 fl (82-101) 10/18/24 23:42 MCH 31.2 pg (27-33) 10/18/24 23:42 MCHC 31.2 g/dL (30-55) 10/18/24 23:42 RDW 16.1 % (12.1-15.1) H 10/18/24 23:42 Plt Count 267 10^3/cmm (157-399) 10/18/24 23:42 MPV 10.3 fL (7.4-10.4) 10/18/24 23:42 Neut % (Auto) 78.7 % 10/18/24 23:42 Lymph % (Auto) 12.8 % 10/18/24 23:42 Mcpherson % (Auto) 6.4 % 10/18/24 23:42 Eos % (Auto) 1.1 % 10/18/24 23: Baso % (Auto) 0.3 % 10/18/24 23: Neut # (Auto) 8.25 10^3/uL (1.8-7.7) H 10/18/24 23:42 Lymph # (Auto) 1.3 10^3/uL (0.8-4.8) 10/18/24 23:42 Mcpherson # (Auto) 0.7 10^3/uL (0.2-0.9) 10/18/24 23:42 Eos # (Auto) 0.1 10^3/uL (0.0-0.8) 10/18/24 23:42 Baso # (Auto) 0.0 10^3/uL (0.0-0.1) 10/18/24 23: Nucleated RBC % (auto) 0 % 10/18/24 23: Nucleated RBCs # 0.0 /100WBC 10/18/24 23: PT 29.10 SECONDS (12.1-14.9) H 10/18/24 23:42 INR 2.57 (0.8-1.2) H 10/18/24 23:42 APTT 43.8 SECONDS (23.9-36.7) H 10/18/24 23:42 Sodium 140 mmol/L (136-145) 10/20/24 02:49 Potassium 3.9 mmol/L (3.5-5.1) 10/20/24 02:49 Chloride 95 mmol/L (98-107) L 10/20/24 02:49 Carbon Dioxide 38 mmol/L (22-29) H 10/20/24 02:49 Anion Gap 10.9 (5-19) 10/20/24 02:49 BUN 31 mg/dL (6-20) H 10/20/24 02:49 Creatinine 2.3 mg/dL (0.7-1.2) H 10/20/24 02:49 GFR Calculation 29.7 mL/min (90-130) L 10/20/24 02:49 Glucose 92 mg/dL (65-115) 10/20/24 02:49 POC Glucose 99 mg/dL (70-110) 10/20/24 11:29 Estimat Average Glucose 114 10/19/24 07:36 Hemoglobin A1c 5.6 % (4.0-6.0) 10/19/24 07:36 Calculated Osmolality 296 mOsm/kg (285-295) H 10/20/24 02:49 Calcium 8.5 mg/dL (8.5-10.5) 10/20/24 02:49 Magnesium 1.7 mg/dL (1.7-2.3) 10/20/24 02:49 Total Bilirubin 0.8 mg/dL (0.15-1.2) 10/19/24 22:27 AST 17 U/L (0-40) 10/19/24 22:27 ALT 27 U/L (0-41) 10/19/24 22:27 Alkaline Phosphatase 56 U/L (40-130) 10/19/24 22:27 Troponin T Baseline 36 ng/L (0-15) H 10/18/24 23:42 Troponin T 120 Minute 33.87 ng/L (0-15) H 10/19/24 01:11 Delta Troponin T -2.13 ABS# (0-10) L 10/19/24 01:11 C-Reactive Protein 40.7 mg/L (0.0-4.9) H 10/20/24 02:49 NT-Pro-B Natriuret Pep 7405 pg/mL (0-125) H 10/18/24 23:42 Total Protein 6.9 g/dL (6.6-8.7) 10/19/24 22:27 Albumin 3.5 g/dL (3.5-5.2) 10/19/24 22:27 Globulin 3.4 g/dL (1.3-4.6) 10/19/24 22:27 Vitamin B12 342 pg/mL (232-1245) 10/19/24 07:36 Urine Color Yellow (Yellow) 10/19/24 00:50 Urine Appearance Clear (CLEAR) 10/19/24 00:50 Urine pH 5.5 (5-7) 10/19/24 00:50 Ur Specific [place] 1.012 (1.005-1.030) 10/19/24 00:50 Urine Protein 2+ (Negative) A 10/19/24 00:50 Urine Glucose (UA) 1+ (Normal) H 10/19/24 00:50 Urine Ketones Negative (Negative) 10/19/24 00:50 Urine Blood Negative (Negative) 10/19/24 00:50 Urine Nitrate Negative (Negative) 10/19/24 00:50 Urine Bilirubin Negative (Negative) 10/19/24 00:50 Urine Urobilinogen 1.0 mg/dL (Negative) 10/19/24 00:50 Ur Leukocyte Esterase Negative (Negative) 10/19/24 00:50 Urine RBC 0-2 /hpf (0-2) 10/19/24 00:50 Urine WBC 0-5 /hpf (0-5) 10/19/24 00:50 Ur Squamous Epith Cells 0-5 /hpf (0-5) 10/19/24 00:50 Amorphous Sediment Not Reportable 10/19/24 00:50 Urine Bacteria None seen /hpf (NONE) 10/19/24 00:50 Hyaline Casts 7.01 /lpf 10/19/24 00:50 A&P Assessment and plan (1) Acute on chronic systolic heart failure: May continue on the IV Lasix for the time being. May switch to p.o. tomorrow May need to monitor urine output closely with the p.o. Lasix for 24 to 48 hours, before making a decision for discharge. (2) CAD (coronary artery disease) of artery bypass graft: Patient has no specific symptoms of coronary insufficiency at this time. May continue on the current medications. Qualifiers: Associated angina: without angina [place] vs. transplanted heart: [place] heart Qualified Code(s): I25.810 - Atherosclerosis of coronary artery bypass graft(s) without angina pectoris (3) ICD (implantable cardioverter-defibrillator), single, in situ: ICD was interrogated to his end of June. We may do another interrogation while being here in this hospital. This is specifically to evaluate for the arrhythmic burden. ICD interrogation tomorrow (4) Atrial fibrillation: Patient is on long-term oral anticoagulation with Xarelto. This may be continued. Qualifiers: Atrial fibrillation type: unspecified Qualified Code(s): I48.91 - Unspecified atrial fibrillation (5) Hyperlipidemia: May continue the current medications. Qualifiers: Hyperlipidemia type: mixed hyperlipidemia Qualified Code(s): E78.2 - Mixed hyperlipidemia (6) Essential hypertension: The blood pressure is in the low normal side. May continue on the current medications. (7) ICD (implantable cardioverter-defibrillator), single, in situ: The ICD function appears to be appropriate. May continue the current monitoring schedule (8) Ischemic cardiomyopathy: May try a limited 2D echo tomorrow to reevaluate ejection fraction Plan Other problems are Obstructive sleep apnea Chronic kidney disease Morbid obesity Based on the clinical progress and the results of the above , further recommendations will be made Attestations 2 Medical Necessity Statement*: Deferred to the primary Coding Level of Care Code 66747 Diagnoses Acute on chronic systolic heart failure I50.23 Coronary artery disease involving coronary bypass graft of [place] heart without angina pectoris I25.810 Associated angina: without angina [place] vs. transplanted heart: [place] heart ICD (implantable cardioverter-defibrillator), single, in situ Z95.810 Atrial fibrillation, unspecified type I48.91 Atrial fibrillation type: unspecified Mixed hyperlipidemia E78.2 Hyperlipidemia type: mixed hyperlipidemia Essential hypertension I10 Ischemic cardiomyopathy I25.5
--- NOTE | 2024-10-20 15:25 | P.PN_ITS ---
Subjective 2 Subjective: No new complaints. Doing well collecting urine and hat. Yesterday was -3.5 L. so far today he is -1.6 L Vitals/I&O/Wt Last Vital Signs Temp 97.7 F 10/20/24 08:00 Pulse 70 10/20/24 12:00 Resp 23 H 10/20/24 12:00 BP 102/82 10/20/24 12:00 Pulse Ox 92 10/20/24 12:00 O2 Del Method Nasal Cannula 10/20/24 12:00 O2 Flow Rate 2 10/19/24 20:00 10/20/24 10/20/24 10/20/24 06:59 14:59 22:59 Intake Total 521.167 / 1239.167 240 / 240 Output Total 1850 / 4750 1900 / 1900 Balance -1328.833 / -3510.833 -1660 / -1660 Weight last 48 hrs Weight 183.336 kg Weight 181.891 kg Physical Exam 2 Narrative: Morbidly obese male in no acute distress at time of exam seen sitting at the bedside working Heart somewhat irregular ectopy seen on telemetry with multiple PVCs and appears to be in atrial fibrillation Lungs diminished breath sounds in the bases with crackles heard in the right base abdomen min morbidly obese soft nontender nondistended positive bowel sounds extremities +1 pitting edema to knees Data 10/18/24 23:42 10/20/24 02:49 A&P Assessment and plan (1) Acute on chronic systolic heart failure: Patient responding well to Lasix drip. So far his diuresis is approximately 5 L. Will plan to continue Cardiology following and in agreement with this plan. Entresto on hold due to acute on chronic CHF. Cardiology notes that patient had hypotension with higher doses so when able we will restart at the lower dose. (2) Sleep apnea: Discussed at rounds today nurse and case management aware. I asked nurse to order CPAP for overnight. Patient may need a outpatient sleep study to regain a machine at home. Apparently his machine was recalled however he still has it at home. He does not know his settings (3) Ischemic cardiomyopathy: Patient is status post CABG. He has no signs of ischemia at this time (4) Chronic kidney disease, stage 3b: (5) ICD (implantable cardioverter-defibrillator), single, in situ: Cardiology managing (6) Morbid obesity with BMI of 50.0-59.9, adult: His switch of BMI might be due to severe fluid overload (7) Atrial fibrillation: Patient is on chronic ankle coagulation with Xarelto. Will continue this medicine Qualifiers: Atrial fibrillation type: unspecified Qualified Code(s): I48.91 - Unspecified atrial fibrillation Plan Patient will require likely up to approximately 5 days of IV diuresis prior to being able to absorb the oral diuretics. Will follow I's and O's Attestations 2 Medical Necessity Statement*: Patient with severe volume overload due to congestive heart failure. Patient is requiring IV Lasix continuous drip due to diuretic resistance in the past. He is electrolytes need close monitoring he is already showing ectopy on telemetry monitoring and patient is at high risk for arrhythmias. Coding Level of Care Code Acute Code for Chg Fwd Diagnoses Acute on chronic systolic heart failure I50.23 Sleep apnea G47.30 Ischemic cardiomyopathy I25.5 Chronic kidney disease, stage 3b N18.32 ICD (implantable cardioverter-defibrillator), single, in situ Z95.810 Morbid obesity with BMI of 50.0-59.9, adult E66.01; Z68.43 Atrial fibrillation, unspecified type I48.91 Atrial fibrillation type: unspecified
[2024-10-20] MEDS: FUROsemide 200 MG in sodium chloride 0.9% (100 ml) 80 ML IV (16:08)
[2024-10-20 17:08] LABS: Glucose Point of Care 128 mg/dL (70-110)
[2024-10-20 21:15] LABS: Glucose Point of Care 108 mg/dL (70-110)
--- NOTE | 2024-10-20 21:38 | USCV_ITS ---
Gildardo Morton Age: 53 Gender: M : 1970 Exam Date: 10/20/2024 22:29 Ordering Phys: Oliver Jones MD ([email or web address]) Technologist: AIDA Exam Location: [facility] [place] Indication: CHF evaluate EF, SOB, morbid obesity, sleep apnea, hx ischemic CM s/p CABG 2018, AICD 2018, BP: 114 / 72 HR: 61 Rhythm: Paced rhythm with atrial fibrillation Technical Quality: Adequate MEASUREMENTS (Male / Female) Normal Values 2D ECHO LV Diastolic Diameter PLAX 6.7 cm 4.2 - 5.9 / 3.9 - 5.3 cm IVS Diastolic Thickness 1.4 cm 0.6 - 1.0 / 0.6 - 0.9 cm IVS Systolic Thickness 1.8 cm LVPW Diastolic Thickness 1.6 cm 0.6 - 1.0 / 0.6 - 0.9 cm LVPW Systolic Thickness 2.0 cm LVOT Diameter 2.4 cm LV Ejection Fraction 2D Teich 31.5 % LV Ejection Fraction MOD 4C 31.3 % LV Ejection Fraction MOD 2C 35.4 % LV Ejection Fraction 2C AL 37.0 % LA Diameter 7.0 cm LA Sys Volume AL 162.0 cm cubed LA Sys Volume Index AL 52.3 cm cubed/m squared Aorta at Sinotubular Diameter 3.3 cm IVC Diameter 2.9 cm M-MODE LA Ao Ratio MM 2.0 AV Cusp Separation MM 1.9 cm DOPPLER AV Peak Velocity 123.0 cm/s LVOT Peak Velocity 67.0 cm/s AV Area Cont Eq vti 1.9 cm squared AV Area Cont Eq pk 2.4 cm squared MV Peak Velocity 126.0 cm/s MV Area PHT 5.6 cm squared Mitral E to A Ratio 0.0 TV Peak Velocity 270.3 cm/s TR Peak Velocity 275.0 cm/s TR Peak Gradient 30.3 mmHg TV Peak E Velocity 41.0 cm/s PV Peak Velocity 93.0 cm/s FINDINGS Left Ventricle Diffuse hypokinesis of the inferior wall and the septum. LV ejection fraction around 37%. Right Ventricle Pacemaker/defibrillator wire in the right ventricle Right Atrium Pacemaker/defibrillator wire in the right atrium.moderately increased right atrial size. Left Atrium Moderately increased left atrial size. Mitral Valve Mild mitral annular calcification. Aortic Valve Thickened aortic valve Tricuspid Valve No gross abnormalities noted Pulmonic Valve Mild pulmonary valve regurgitation. Pericardium No pericardial effusion. Aorta Normal aortic annulus size. IVC Inferior vena cava not visualized. CONCLUSIONS Diffuse hypokinesis of the inferior wall and the septum. LV ejection fraction around 37%. Moderately increased left atrial size. Moderately increased right atrial size. Pacemaker/defibrillator wire in the right ventricle. Mild mitral annular calcification. Thickened aortic valve. Technically difficult study because of the poor ultrasonic window. Compared to the study from 07/03/2024, the LV ejection fraction appears to have some improvement. Dr Oliver Jones MD FACC (Electronically Signed) Final Date: 21 October 2024 23:14 S
[2024-10-21] VITALS (7 sets, daily range): BP systolic 102–123; BP diastolic 61–79; PULSE 63–86; RESP 18–23; TEMP 36.4–36.9; O2SAT 90–98
[2024-10-21] MEDS: rivaroxaban 10 mg Tablet 20 MG PO (05:46)
[2024-10-21 06:47] LABS: Glucose Point of Care 128 mg/dL (70-110)
[2024-10-21] MEDS: carvedilol 6.25 mg Tablet PO ×2 (08:37→17:31)
[2024-10-21] MEDS: potassium chloride ER 20 mEq Tablet 40 MEQ PO (08:37)
[2024-10-21] MEDS: aspirin 81 mg EC Tablet PO (08:37)
[2024-10-21] MEDS: sennosides-docusate Tablet 1 TAB PO (08:37)
--- NOTE | 2024-10-21 11:32 | PC.SOCIAL ---
IMM Updated Updated pt on IMM. No questions voiced. Provided a copy. Initialed, dated, & timed a copy & placed in chart.
[2024-10-21 11:47] LABS: Glucose Point of Care 127 mg/dL (70-110)
[2024-10-21] MEDS: FUROsemide 200 MG in sodium chloride 0.9% (100 ml) 80 ML IV (12:59)
--- NOTE | 2024-10-21 13:45 | P.PN_ITS ---
Subjective 2 Subjective: Overnight he has done well. Shortness of breath is improved and he is able to lay flat to sleep. He is 5L negative on fluid balance, lung sounds clear. Weight is down 6 pounds from yesterday. Mild pedal edema. Currently on Lasix IV infusion 5mL/hr. His usual weight is around 380#, but has been as low as 365# during the last year. Will switch to oral Lasix today, 40mg BID. Reduce potassium to 20 mEq BID. Continue to monitor urine output closely for titration of dose. No labs drawn today, will order BMP. Vitals/I&O/Wt Last Vital Signs Temp 97.5 F L 10/21/24 12:00 Pulse 66 10/21/24 12:00 Resp 20 H 10/21/24 12:00 BP 115/75 10/21/24 12:00 Pulse Ox 92 10/21/24 12:00 O2 Del Method Room Air 10/21/24 12:00 O2 Flow Rate 2 10/19/24 20:00 10/20/24 10/21/24 10/21/24 22:59 06:59 14:59 Intake Total 670 / 1360 450 / 1360 340 / 340 Output Total 1600 / 6150 2650 / 6150 1575 / 1575 Balance -930 / -4790 -2200 / -4790 -1235 / -1235 Weight last 48 hrs Weight 385 lb 1.6 oz Weight 391 lb Weight 391 lb Physical Exam 2 Const: COMMON NORMALS: no acute distress and patient oriented x3 GENERAL APPEARANCE: cooperative and comfortable ORIENTATION/CONSCIOUSNESS: Yes awake, Yes oriented to person, Yes oriented to place and Yes oriented to time Chest: COMMONS NORMALS: normal inspection of the chest and normal palpation of entire chest wall CHEST: Yes Symmetrical chest wall rise Resp: COMMON NORMALS: normal respiratory effort, No retractions, No use of accessory muscles and clear to auscultation bilaterally EFFORT & INSPECTION: Yes symmetric chest movement AUSCULTATION: clear to auscultation bilaterally Cardio: COMMON NORMALS: regular rate, regular rhythm, S1 normal heart sound present, S2 normal heart sound present, No gallops present (Cardio), No clicks present (Cardio), No murmurs present (Cardio) and No rub (Cardio) RATE: r egular rate RHYTHM: regular rhythm HEART SOUNDS: S1 normal heart sound present and S2 normal heart sound present PERIPHERAL PULSES: radial pulses present Extremity: GENERAL: Yes edema (1+ pitting edema bilat LE below knee) Neuro: COMMON NORMALS: patient oriented x3 and moves all extremities S ENSORIUM/ORIENTATION: Yes oriented to person, Yes oriented to place and Yes oriented to time Data 10/18/24 23:42 10/20/24 02:49 A&P Assessment and plan (1) Essential hypertension: Blood pressure well controlled with no hypotension. Continue carvedilol, will try to resume Entresto when he closer to euvolemia. (2) Atrial fibrillation: Anticoagulated with Xarelto. No changes. Qualifiers: Atrial fibrillation type: unspecified Qualified Code(s): I48.91 - Unspecified atrial fibrillation (3) ICD (implantable cardioverter-defibrillator), single, in situ: Will check ICD to determine arrhythmic burden, per Dr Jones's plan. (4) CAD (coronary artery disease) of artery bypass graft: No chest pain, continue aspirin, carvedilol. Qualifiers: [place] vs. transplanted heart: [place] heart Associated angina: without angina Qualified Code(s): I25.810 - Atherosclerosis of coronary artery bypass graft(s) without angina pectoris (5) Acute exacerbation of CHF (congestive heart failure): Qualifiers: Heart failure type: systolic Qualified Code(s): I50.23 - Acute on chronic systolic (congestive) heart failure Attestations 2 Medical Necessity Statement*: Further diuresis, monitor while switching from IV to oral Lasix. Coding Level of Care Code Acute Code for [facility] Fwd Diagnoses Essential hypertension I10 Atrial fibrillation, unspecified type I48.91 Atrial fibrillation type: unspecified ICD (implantable cardioverter-defibrillator), single, in situ Z95.810 Coronary artery disease involving coronary bypass graft of [place] heart without angina pectoris I25.810 [place] vs. transplanted heart: [place] heart Associated angina: without angina Acute on chronic systolic congestive heart failure I50.23 Heart failure type: systolic
--- NOTE | 2024-10-21 13:48 | P.PN_ITS ---
Subjective 2 Subjective: He is overall feeling the air. Breathing has been improving. Orthopnea has been improving. He has been able to sleep at night. Edema has been improving and lower extremities. He has discussed with cardiology consideration of switch to intermittent diuretics either today or tomorrow. Vitals/I&O/Wt Last Vital Signs Temp 97.5 F L 10/21/24 12:00 Pulse 66 10/21/24 12:00 Resp 20 H 10/21/24 12:00 BP 115/75 10/21/24 12:00 Pulse Ox 92 10/21/24 12:00 O2 Del Method Room Air 10/21/24 12:00 O2 Flow Rate 2 10/19/24 20:00 10/20/24 10/21/24 10/21/24 22:59 06:59 14:59 Intake Total 670 / 910 450 / 1360 340 / 340 Output Total 1600 / 3500 2650 / 6150 1575 / 1575 Balance -930 / -2590 -2200 / -4790 -1235 / -1235 Weight last 48 hrs Weight 174.678 kg Weight 177.355 kg Weight 177.355 kg Physical Exam 2 Const: COMMON NORMALS: patient oriented x3 and alert GENERAL APPEARANCE: c ooperative ORIENTATION/CONSCIOUSNESS: Yes awake HENMT: COMMON NORMALS: oropharynx normal Neck/C-Spine: COMMON NORMALS: no JVD Resp: COMMON NORMALS: normal respiratory effort and clear to auscultation bilaterally AUSCULTATION: clear to auscultation bilaterally Cardio: COMMON NORMALS: no JVD, regular rhythm, S1 normal heart sound present, S2 normal heart sound present and No murmurs present (Cardio) RHYTHM: regular rhythm HEART SOUNDS: S1 normal heart sound present and S2 normal heart sound present GI: COMMON NORMALS: Normal to inspection, nondistended, normoactive bowel sounds present, Soft to palpation and non-tender PALPATION: Yes Soft to palpation Extremity: COMMON NORMALS: no joint enlargement GENERAL: Yes edema (1-2+ BL LE) Neuro: COMMON NORMALS: patient oriented x3 and moves all extremities S ENSORIUM/ORIENTATION: Yes alert Skin: COMMON NORMALS: no rashes or lesions noted GENERAL SKIN EXAM: no rashes or lesions noted Data 10/18/24 23:42 10/20/24 02:49 A&P Assessment and plan (1) Acute on chronic systolic heart failure: He is improving symptomatically. Breathing is improving. Edema is decreasing. He is responding well to diuresis. Weight is coming down, on review is down to 175 kg. In negative balance on review of INR. Reviewed vitals. No chemistry is available today, will request repeat chemistry with risk of renal dysfunction, electrolyte deficiency while on IV diuretic. Reviewed cardiology note, considering switching over from the Lasix drip. Continue to monitor intake and output. Reassess chemistry in the morning as well. Monitor for risk of electrolyte risk and kidney injury, hypovolemia. Continue potassium supplementation twice daily. Discussed with field nurse case manager. Nursing. Entresto on hold due to acute on chronic CHF. Cardiology notes that patient had hypotension with higher doses so when able we will restart at the lower dose. (2) Sleep apnea: He has declined CPAP overnight due to concerns for CPAP recall with [facility]. He had return to his prior machine due to the recall. Patient may need a outpatient sleep study to regain a machine at home. He does not know his settings (3) Ischemic cardiomyopathy: Patient is status post CABG. He has no signs of ischemia at this time (4) Chronic kidney disease, stage 3b: Reassess chemistry. (5) ICD (implantable cardioverter-defibrillator), single, in situ: Cardiology managing (6) Morbid obesity with BMI of 50.0-59.9, adult: His switch of BMI might be due to severe fluid overload (7) Atrial fibrillation: Continue to monitor on telemetry. Patient is on chronic ankle coagulation with Xarelto. Will continue this medicine Qualifiers: Atrial fibrillation type: unspecified Qualified Code(s): I48.91 - Unspecified atrial fibrillation Plan Constipation: Has been started on stool softener. He will let us know if still having difficulties and needing a laxative. DM2: Diabetes listed as one of his medical conditions, but A1c has not been elevated. Reviewed POC glucose. Attestations 2 Medical Necessity Statement*: Continue admission for assessment of management of acute decompensated systolic congestive heart failure. and High MDM includes amount and/or complexity of data reviewed/ordered [ resulted lab(s)/test(s), ordered lab(s)/test(s) and other healthcare professional discussion] and described risk of complication, morbidity or mortality of management as documented Diagnoses Acute on chronic systolic heart failure I50.23 Sleep apnea G47.30 Ischemic cardiomyopathy I25.5 Chronic kidney disease, stage 3b N18.32 ICD (implantable cardioverter-defibrillator), single, in situ Z95.810 Morbid obesity with BMI of 50.0-59.9, adult E66.01; Z68.43 Atrial fibrillation, unspecified type I48.91 Atrial fibrillation type: unspecified
[2024-10-21] MEDS: FUROsemide 40 mg Tablet PO (16:17)
[2024-10-21 16:39] LABS: Glucose Point of Care 102 mg/dL (70-110)
[2024-10-21 17:18] LABS: Anion Gap 17.3 (5-19); Blood Urea Nitrogen 33 mg/dL (6-20); Calcium 8.7 mg/dL (8.5-10.5); Carbon Dioxide 35 mmol/L (22-29); Chloride 94 mmol/L (98-107); Creatinine Clr Calc Pharmacy 65.1278; Glucose 96 mg/dL (65-115); Osmolality Calculated 303 mOsm/kg (285-295); Potassium 3.3 mmol/L (3.5-5.1); Sodium 143 mmol/L (136-145)
--- NOTE | 2024-10-21 17:29 | PC.NURSE ---
Magnesium level is added per provider. Lab is called to results.
[2024-10-21] MEDS: potassium chloride ER 20 mEq Tablet PO (17:31)
[2024-10-21 19:19] LABS: Magnesium 1.7 mg/dL (1.7-2.3)
[2024-10-21 20:41] LABS: Glucose Point of Care 95 mg/dL (70-110)
[2024-10-22] VITALS: BP 102/64; PULSE 78; RESP 18; TEMP 36.9; O2SAT 92
[2024-10-22 04:00] VITALS: BP 110/78; PULSE 73; RESP 20; TEMP 36.5; O2SAT 94
[2024-10-22] MEDS: aspirin 81 mg EC Tablet PO (05:10)
[2024-10-22] MEDS: rivaroxaban 10 mg Tablet 20 MG PO (05:10)
[2024-10-22 05:23] LABS: Anion Gap 13.9 (5-19); Blood Urea Nitrogen 31 mg/dL (6-20); Calcium 9.2 mg/dL (8.5-10.5); Carbon Dioxide 39 mmol/L (22-29); Chloride 92 mmol/L (98-107); Creatinine Clr Calc Pharmacy 59.4271; Glomerular Filtration Rate 29.7 mL/min (90-130); Glucose 90 mg/dL (65-115); Osmolality Calculated 298 mOsm/kg (285-295); Potassium 3.9 mmol/L (3.5-5.1); Sodium 141 mmol/L (136-145)
[2024-10-22 06:00] VITALS: PULSE 62
[2024-10-22 06:16] LABS: Glucose Point of Care 102 mg/dL (70-110)
[2024-10-22 07:42] VITALS: BP 126/89; PULSE 73; RESP 20; TEMP 36.4; O2SAT 95
[2024-10-22] MEDS: potassium chloride ER 20 mEq Tablet PO (08:10)
[2024-10-22] MEDS: FUROsemide 40 mg Tablet PO (08:10)
[2024-10-22] MEDS: sennosides-docusate Tablet 1 TAB PO (08:10)
[2024-10-22] MEDS: carvedilol 6.25 mg Tablet PO (08:10)
[2024-10-22 08:26] VITALS: PULSE 75; RESP 18; O2SAT 95
--- NOTE | 2024-10-22 09:56 | PM.DCS ---
Discharge Providers Date of Admission: 10/19/24 14:02 Date of Discharge: October 22, 2024 Attending Provider at Admission: Eddie Ornelas MD Attending Provider at Discharge: Vincenzo Brower MD Consults: Cardiology Primary Care Provider: Iqra Clemens NP Diagnoses at Discharge Discharge Diagnosis (1) Acute on chronic systolic heart failure: Status: Acute (2) Sleep apnea: Status: Acute (3) Ischemic cardiomyopathy: Status: Acute (4) Chronic kidney disease, stage 3b: Status: Acute (5) ICD (implantable cardioverter-defibrillator), single, in situ: Status: Acute (6) Morbid obesity with BMI of 50.0-59.9, adult: Status: Acute (7) Atrial fibrillation: Status: Acute Qualifiers: Atrial fibrillation type: unspecified Qualified Code(s): I48.91 - Unspecified atrial fibrillation (8) Essential hypertension: Status: Acute (9) CAD (coronary artery disease) of artery bypass graft: Status: Acute Qualifiers: Associated angina: without angina [place] vs. transplanted heart: [place] heart Qualified Code(s): I25.810 - Atherosclerosis of coronary artery bypass graft(s) without angina pectoris Permanent problem details: 06/2019. Postoperative course associated with arrest shortly after procedure (10) Acute exacerbation of CHF (congestive heart failure): Status: Acute Qualifiers: Heart failure type: systolic Qualified Code(s): I50.23 - Acute on chronic systolic (congestive) heart failure Reason for Visit Reason for Visit: SOB\Chest Tight Hospital Course Hospital Course In summary, Mr. Gildardo Morton is a 53 year old male with history of ischemic cardiomyopathy status post AICD, A-fib, chronic anticoagulation, sleep apnea has not been using CPAP because it has been recalled, history of reduced EF 25% congestive heart failure who presented for further evaluation of worsening shortness of breath, PND, orthopnea. He was found to have decompensated heart failure and admitted for further evaluation and management. Patient was seen and managed with cardiology. He had diuresis with Lasix infusion and had improvement in his symptoms. Echo demonstrated an EF of 37% , appears to have some improvement compared to prior. He will continue p.o. Lasix 40 mg twice daily, potassium supplement and his Entresto. His metolazone was held at the time of discharge. He will follow with cardiology within 7-10 days. Patient also needs repeat sleep study and will be referred for the test. His other chronic medications were continued. Physical Exam Const: COMMON NORMALS: no acute distress, patient oriented x3 and alert HENMT: COMMON NORMALS: normocephalic, atraumatic, external ears normal, Normal external nose present, moist oral mucous membranes and oropharynx normal HEAD & SCALP: normocephalic and atraumatic NOSE: Normal external nose present EXTERNAL EAR: Yes external ears normal Eye: COMMON NORMALS: Equal, round and reactive pupils present, EOMs intact bilaterally, conjunctivae normal and no scleral icterus CONJUNCTIVA: Yes conjunctivae normal PUPIL: Yes Equal, round and reactive pupils present Neck/C-Spine: COMMON NORMALS: full ROM, no lymphadenopathy and no JVD Chest: COMMONS NORMALS: normal inspection of the chest Resp: COMMON NORMALS: normal respiratory effort and clear to auscultation bilaterally AUSCULTATION: clear to auscultation bilaterally OTHER: No wheezes or crcakles Cardio: COMMON NORMALS: no JVD, regular rate, regular rhythm, S1 normal heart sound present and S2 normal heart sound present RATE: regular rate RHYTHM: regular rhythm HEART SOUNDS: S1 normal heart sound present and S2 normal heart sound present GI: COMMON NORMALS: Normal to inspection, nondistended, normoactive bowel sounds present, Soft to palpation and non-tender PALPATION: Yes Soft to palpation Extremity: COMMON NORMALS: normal to inspection and no pedal edema Neuro: COMMON NORMALS: patient oriented x3 SENSORIUM/ORIENTATION: Yes alert OTHER: No gross focal deficits Discharge Data Studies Completed and Pending Completed Studies During Hospitalization Category Date Time Status XR chest 1V portable [id number] Stat Exams 10/18/24 23:36 Completed CV. echo limited 01005 Routine Ultrasound 10/20/24 21:38 Completed Radiology Impressions Chest X-Ray 10/18/24 23:36 IMPRESSION: Cardiomegaly with central pulmonary vascular congestion and mild opacities bilaterally which may reflect mild pulmonary edema. Superimposed infection not excluded. Laboratory Results WBC 10.48 10^3/uL (3.29-11.43) 10/18/24 23:42 RBC 4.14 10^6/uL (3.85-5.65) 10/18/24 23:42 Hgb 12.90 g/dL (11.27-16.99) 10/18/24 23:42 Hct 41.3 % (37-53) 10/18/24 23:42 MCV 99.8 fl (82-101) 10/18/24 23:42 MCH 31.2 pg (27-33) 10/18/24 23:42 MCHC 31.2 g/dL (30-55) 10/18/24 23:42 RDW 16.1 % (12.1-15.1) H 10/18/24 23:42 Plt Count 267 10^3/cmm (157-399) 10/18/24 23:42 MPV 10.3 fL (7.4-10.4) 10/18/24 23:42 Neut % (Auto) 78.7 % 10/18/24 23:42 Lymph % (Auto) 12.8 % 10/18/24 23:42 [place] % (Auto) 6.4 % 10/18/24 23:42 Eos % (Auto) 1.1 % 10/18/24 23: Baso % (Auto) 0.3 % 10/18/24 23: Neut # (Auto) 8.25 10^3/uL (1.8-7.7) H 10/18/24 23:42 Lymph # (Auto) 1.3 10^3/uL (0.8-4.8) 10/18/24 23:42 [place] # (Auto) 0.7 10^3/uL (0.2-0.9) 10/18/24 23:42 Eos # (Auto) 0.1 10^3/uL (0.0-0.8) 10/18/24 23:42 Baso # (Auto) 0.0 10^3/uL (0.0-0.1) 10/18/24 23: Nucleated RBC % (auto) 0 % 10/18/24 23: Nucleated RBCs # 0.0 /100WBC 10/18/24 23:42 PT 29.10 SECONDS (12.1-14.9) H 10/18/24 23:42 INR 2.57 (0.8-1.2) H 10/18/24 23:42 APTT 43.8 SECONDS (23.9-36.7) H 10/18/24 23:42 Sodium 141 mmol/L (136-145) 10/22/24 04:27 Potassium 3.9 mmol/L (3.5-5.1) 10/22/24 04:27 Chloride 92 mmol/L (98-107) L 10/22/24 04:27 Carbon Dioxide 39 mmol/L (22-29) H 10/22/24 04:27 Anion Gap 13.9 (5-19) 10/22/24 04:27 BUN 31 mg/dL (6-20) H 10/22/24 04:27 Creatinine 2.3 mg/dL (0.7-1.2) H 10/22/24 04:27 GFR Calculation 29.7 mL/min (90-130) L 10/22/24 04:27 Glucose 90 mg/dL (65-115) 10/22/24 04:27 POC Glucose 102 mg/dL (70-110) 10/22/24 06:12 Estimat Average Glucose 114 10/19/24 07:36 Hemoglobin A1c 5.6 % (4.0-6.0) 10/19/24 07:36 Calculated Osmolality 298 mOsm/kg (285-295) H 10/22/24 04:27 Calcium 9.2 mg/dL (8.5-10.5) 10/22/24 04:27 Magnesium 1.7 mg/dL (1.7-2.3) 10/21/24 16:01 Total Bilirubin 0.8 mg/dL (0.15-1.2) 10/19/24 22:27 AST 17 U/L (0-40) 10/19/24 22:27 ALT 27 U/L (0-41) 10/19/24 22:27 Alkaline Phosphatase 56 U/L (40-130) 10/19/24 22:27 Troponin T Baseline 36 ng/L (0-15) H 10/18/24 23:42 Troponin T 120 Minute 33.87 ng/L (0-15) H 10/19/24 01:11 Delta Troponin T -2.13 ABS# (0-10) L 10/19/24 01:11 C-Reactive Protein 40.7 mg/L (0.0-4.9) H 10/20/24 02:49 NT-Pro-B Natriuret Pep 7405 pg/mL (0-125) H 10/18/24 23:42 Total Protein 6.9 g/dL (6.6-8.7) 10/19/24 22:27 Albumin 3.5 g/dL (3.5-5.2) 10/19/24 22:27 Globulin 3.4 g/dL (1.3-4.6) 10/19/24 22:27 Vitamin B12 342 pg/mL (232-1245) 10/19/24 07:36 Urine Color Yellow (Yellow) 10/19/24 00:50 Urine Appearance Clear (CLEAR) 10/19/24 00:50 Urine pH 5.5 (5-7) 10/19/24 00:50 Ur Specific [place] 1.012 (1.005-1.030) 10/19/24 00:50 Urine Protein 2+ (Negative) A 10/19/24 00:50 Urine Glucose (UA) 1+ (Normal) H 10/19/24 00:50 Urine Ketones Negative (Negative) 10/19/24 00:50 Urine Blood Negative (Negative) 10/19/24 00:50 Urine Nitrate Negative (Negative) 10/19/24 00:50 Urine Bilirubin Negative (Negative) 10/19/24 00:50 Urine Urobilinogen 1.0 mg/dL (Negative) 10/19/24 00:50 Ur Leukocyte Esterase Negative (Negative) 10/19/24 00:50 Urine RBC 0-2 /hpf (0-2) 10/19/24 00:50 Urine WBC 0-5 /hpf (0-5) 10/19/24 00:50 Ur Squamous Epith Cells 0-5 /hpf (0-5) 10/19/24 00:50 Amorphous Sediment Not Reportable 10/19/24 00:50 Urine Bacteria None seen /hpf (NONE) 10/19/24 00:50 Hyaline Casts 7.01 /lpf 10/19/24 00:50 Vitals Last Vital Signs Temp 97.5 F L 10/22/24 07:42 Pulse 75 10/22/24 08:26 Resp 18 10/22/24 08:26 BP 126/89 10/22/24 07:42 Pulse Ox 95 10/22/24 08:26 O2 Del Method Room Air 10/22/24 08:26 O2 Flow Rate 2 10/19/24 20:00 Discharge Plan Discharge Patient Disposition: Home Condition: Stable Prescriptions: New furosemide 40 mg Tablet 40 mg PO BID@ Qty: 60 0RF Continued aspirin [Adult Aspirin Regimen] 81 mg tablet,delayed release (DR/EC) 81 mg PO QAM nitroglycerin [Nitrostat] 0.4 mg tablet, sublingual 0.4 mg SUBLINGUAL Q5M PRN (Reason: chest pain) Qty: 25 3RF Rx Instructions: do not exceed 3 doses per episode Entresto 49-51 mg tablet 1 tab PO BID Qty: 180 3RF (DME) CPAP with mask and tubing See Rx Instructions .Route .MEDSUPPLY Qty: 1 0RF Rx Instructions: As directed isosorbide mononitrate 30 mg tablet extended release 24 hr 30 mg PO DAILY Qty: 90 3RF Rx Instructions: TAKE ONE TABLET BY MOUTH DAILY AT 8AM. IF BLOOD PRESSURE IS <120/80 ONLY TAKE ONE HALF TABLET allopurinol 100 mg tablet 100 mg PO DAILY Qty: 30 5RF rivaroxaban 20 mg tablet 20 mg PO QAM Qty: 90 3RF pravastatin 20 mg tablet 20 mg PO QAM Qty: 90 3RF carvedilol 6.25 mg tablet 6.25 mg PO BID 30 Days Qty: 60 0RF Farxiga 5 mg tablet 5 mg PO QAM Qty: 90 3RF potassium chloride 20 mEq tablet extended release 20 meq PO BID Qty: 270 1RF Held metolazone 2.5 mg tablet 2.5 mg PO DAILY PRN (Reason: Edema) Qty: 90 3RF Hold Instructions: Discuss with cardiology when to resume the medication after follow-up in the clinic within 1 week Discharge Orders: Discharge Order (Routine); Ordered 10/22/24 Ordered By: Vincenzo Brower Other Ambulatory Orders: Sleep Study W Sleep Stage (Routine) Timeframe: 1 Week Facility: [facility] - Location: [facility] Ordered By: Vincenzo Brower Referrals: Iqra Clemens NP [Primary Care Provider] - 11/02/24 10:45 am Rona Mancia FNP [Nurse Practitioner] - 7-10 days Discharge Diet: Low Salt Discharge Activity: Resume usual activity Patient Instructions: Opioid Safety Activity Restrictions/Additional Instructions: Follow-up with nephrology within 2 to 4 weeks Discharge Attestations Time Spent in Discharge Care*: greater than 30 min Status at Discharge: Cognitive status at discharge: cognitively intact, Behavioral status at discharge: [facility], Quality Metrics Clinical Quality Measures [ No reported AMI, CVA or VTE this stay] Coding Level of Care Code Acute Code for [facility] Fwd Diagnoses Acute on chronic systolic heart failure I50.23 Sleep apnea G47.30 Ischemic cardiomyopathy I25.5 Chronic kidney disease, stage 3b N18.32 ICD (implantable cardioverter-defibrillator), single, in situ Z95.810 Morbid obesity with BMI of 50.0-59.9, adult E66.01; Z68.43 Atrial fibrillation, unspecified type I48.91 Atrial fibrillation type: unspecified Essential hypertension I10 Coronary artery disease involving coronary bypass graft of [place] heart without angina pectoris I25.810 Associated angina: without angina [place] vs. transplanted heart: [place] heart Acute on chronic systolic congestive heart failure I50.23 Heart failure type: systolic
--- NOTE | 2024-10-22 10:05 | PM.PN ---
Subjective Subjective: Shortness of breath significantly improved today. His weight is unchanged from yesterday, he is 1L negative today. Continue Lasix 40mg BID, potassium 20mEq BID. He has had 2 doses of oral Lasix, if he is able to maintain euvolemia on this dose, can consider discharge home. Vitals/I&O/Wt Last Vital Signs Temp 97.5 F L 10/22/24 07:42 Pulse 75 10/22/24 08:26 Resp 18 10/22/24 08:26 BP 126/89 10/22/24 07:42 Pulse Ox 95 10/22/24 08:26 O2 Del Method Room Air 10/22/24 08:26 O2 Flow Rate 2 10/19/24 20:00 10/21/24 10/22/24 10/22/24 22:59 06:59 14:59 Intake Total 945.5 / 1285.5 120 / 120 Output Total 1300 / 3625 500 / 3625 250 / 250 Balance -354.5 / -2339.5 -500 / -2339.5 -130 / -130 Weight last 48 hrs Weight 381 lb 8 oz Weight 381 lb 14.4 oz Weight 385 lb 1.6 oz Weight 391 lb Weight 391 lb Physical Exam Const: COMMON NORMALS: no acute distress and patient oriented x3 GENERAL APPEARANCE: cooperative and comfortable ORIENTATION/CONSCIOUSNESS: Yes awake, Yes oriented to person, Yes oriented to place and Yes oriented to time Chest: COMMONS NORMALS: normal inspection of the chest and normal palpation of entire chest wall CHEST: Yes Symmetrical chest wall rise Resp: COMMON NORMALS: normal respiratory effort, No retractions, No use of accessory muscles and clear to auscultation bilaterally EFFORT & INSPECTION: Yes symmetric chest movement AUSCULTATION: clear to auscultation bilaterally Cardio: COMMON NORMALS: regular rate, regular rhythm, S1 normal heart sound present, S2 normal heart sound present, No gallops present (Cardio), No clicks present (Cardio), No murmurs present (Cardio) and No rub (Cardio) RATE: regular rate RHYTHM: regular rhythm HEART SOUNDS: S1 normal heart sound present and S2 normal heart sound present PERIPHERAL PULSES: radial pulses present Extremity: COMMON NORMALS: no pedal edema Neuro: COMMON NORMALS: patient oriented x3 and moves all extremities SENSORIUM/ORIENTATION: Yes oriented to person, Yes oriented to place and Yes oriented to time Data 10/18/24 23:42 10/22/24 04:27 A&P Assessment and plan (1) Systolic CHF: Shortness of breath improved significantly, close to dry weight. Continue Lasix 40mg BID, potassium replacement 20mEq BID. Resume Entresto at discharge 49/51mg BID. Follow up in cardiology clinic in 7-10 days for reassessment of Lasix dose, hopefully we can reduce. Hold metolazone for now. Qualifiers: Heart failure chronicity: chronic Qualified Code(s): I50.22 - Chronic systolic (congestive) heart failure (2) Essential hypertension: (3) Atrial fibrillation: Atrial fibrillation well controlled, continue carvedilol 6.25mg BID. I interrogated his ICD today, atrial fibrillation 24% currently with good ventricular rate. Continue Xarelto 20 mg daily. Qualifiers: Atrial fibrillation type: unspecified Qualified Code(s): I48.91 - Unspecified atrial fibrillation (4) ICD (implantable cardioverter-defibrillator), single, in situ: (5) CAD (coronary artery disease) of artery bypass graft: No symptoms of coronary ischemia. Qualifiers: [place] vs. transplanted heart: [place] heart Associated angina: without angina Qualified Code(s): I25.810 - Atherosclerosis of coronary artery bypass graft(s) without angina pectoris (6) Chronic kidney disease, stage 3b: Attestations Medical Necessity Statement*: Per hospitalist plan is to discharge home today Coding Level of Care Code Acute Code for g Fwd Diagnoses Chronic systolic congestive heart failure I50.22 Heart failure chronicity: chronic Essential hypertension I10 Atrial fibrillation, unspecified type I48.91 Atrial fibrillation type: unspecified ICD (implantable cardioverter-defibrillator), single, in situ Z95.810 Coronary artery disease involving coronary bypass graft of [place] heart without angina pectoris I25.810 [place] vs. transplanted heart: [place] heart Associated angina: without angina Chronic kidney disease, stage 3b N18.32
[2024-10-22 11:20] LABS: Glucose Point of Care 88 mg/dL (70-110)
--- NOTE | 2024-10-22 12:36 | PC.NURSE ---
Patient discharged to home. Instruction provided regarding follow up needs, medication changes, CHF with the stoplight and being short of breath. Patient verbalized complete understanding. Rx transmitted to main [facility]. Patient denies pain or needs.. Patient taken by wheelchair to private vehicle. His brother to provide transportation.
[2024-10-22 12:38] VITALS: BP 126/89
== END 2024-10-22 11:58 | disposition home or self-care (01) | DRG 291 ==
LOC: ER 10-19 01:44 → CSU 10-19 04:44 → ER IP 10-19 04:45
PROVIDERS: Internal Medicine; Admitting Provider Internal Medicine; Emergency Provider Emergency Medicine; Visit Provider Student in an Organized Health Care Education/Training Program
DX: I13.0 Hypertensive heart and chronic kidney disease with heart failure and stage 1 through stage 4 chronic kidney disease, or unspecified chronic kidney disease (principal); I50.23 Acute on chronic systolic (congestive) heart failure; Z68.43 Body mass index [BMI] 50.0-59.9, adult; N18.32 Chronic kidney disease, stage 3b; E11.22 Type 2 diabetes mellitus with diabetic chronic kidney disease; I25.10 Atherosclerotic heart disease of native coronary artery without angina pectoris; Z95.1 Presence of aortocoronary bypass graft; Z95.810 Presence of automatic (implantable) cardiac defibrillator; Z79.82 Long term (current) use of aspirin; G47.33 Obstructive sleep apnea (adult) (pediatric); E66.01 Morbid (severe) obesity due to excess calories; I48.91 Unspecified atrial fibrillation; I49.3 Ventricular premature depolarization; E78.2 Mixed hyperlipidemia; Z87.891 Personal history of nicotine dependence; I25.5 Ischemic cardiomyopathy; Z79.01 Long term (current) use of anticoagulants; R09.02 Hypoxemia; K59.00 Constipation, unspecified; Z72.4 Inappropriate diet and eating habits; D75.1 Secondary polycythemia; Z79.84 Long term (current) use of oral hypoglycemic drugs
CPT/HCPCS: 36415; 36416; 71045; 80048; 80053; 81001; 82607; 82962; 83036; 83735; 83880; 84484; 85025; 85610; 85730; 86140; 93005; 93308; 94660; 96376; A9270; G0378; J1940; J2270; J2405

== ENCOUNTER → 2024-11-02 13:29 | Outpatient (BNVA) | payer MEDICARE, MEDICAID, SELFPAY | PROVIDERS: Visit Provider Nurse Practitioner Family | DX: I13.0 Hypertensive heart and chronic kidney disease with heart failure and stage 1 through stage 4 chronic kidney disease, or unspecified chronic kidney disease (principal); N18.9 Chronic kidney disease, unspecified; I50.22 Chronic systolic (congestive) heart failure; Z95.810 Presence of automatic (implantable) cardiac defibrillator; I48.91 Unspecified atrial fibrillation; I25.10 Atherosclerotic heart disease of native coronary artery without angina pectoris; Z95.1 Presence of aortocoronary bypass graft; Z79.01 Long term (current) use of anticoagulants; Z87.891 Personal history of nicotine dependence | CPT/HCPCS: 80053; 99213 ==

== ENCOUNTER → 2024-11-27 08:30 | Outpatient (BNVA) | payer MEDICARE, MEDICAID, SELFPAY | PROVIDERS: Visit Provider Nurse Practitioner Family | DX: I13.0 Hypertensive heart and chronic kidney disease with heart failure and stage 1 through stage 4 chronic kidney disease, or unspecified chronic kidney disease (principal); I50.22 Chronic systolic (congestive) heart failure; I48.91 Unspecified atrial fibrillation; Z95.810 Presence of automatic (implantable) cardiac defibrillator; I25.810 Atherosclerosis of coronary artery bypass graft(s) without angina pectoris; N18.9 Chronic kidney disease, unspecified; E11.22 Type 2 diabetes mellitus with diabetic chronic kidney disease; Z79.01 Long term (current) use of anticoagulants | CPT/HCPCS: 99214 ==

== ENCOUNTER 2024-12-14 09:40 | Outpatient (CLI) | payer MEDICARE, MEDICAID, SELFPAY ==
[2024-12-14 09:57] LABS: Basophils % 0.4 %; Eosinophils # 0.1 10^3/uL (0.0-0.8); Eosinophils % 1.1 %; Hematocrit 50.4 % (37-53); Lymphocytes # 1.4 10^3/uL (0.8-4.8); Lymphocytes % 12.9 %; Mean Corpuscular HGB Conc 31.7 g/dL (30-55); Mean Corpuscular Hemoglobin 30.6 pg (27-33); Mean Corpuscular Volume 96.4 fl (82-101); Mean Platelet Volume 9.4 fL (7.4-10.4); Monocytes # 0.7 10^3/uL (0.2-0.9); Monocytes % 6.7 %; Neutrophils # 8.51 10^3/uL (1.8-7.7); Neutrophils % 78.5 %; Nucleated Red Blood Cells % 0 %; Platelet Count 338 10^3/cmm (157-399); Red Blood Count 5.23 10^6/uL (3.85-5.65); Red Cell Distribution Width 14.6 % (12.1-15.1); White Blood Count 10.84 10^3/uL (3.29-11.43)
[2024-12-14 10:17] LABS: Albumin Level 3.4 g/dL (3.5-5.2); Anion Gap 14.5 (5-19); Blood Urea Nitrogen 39 mg/dL (6-20); Carbon Dioxide 34 mmol/L (22-29); Chloride 97 mmol/L (98-107); Glomerular Filtration Rate 32.8 mL/min (90-130); Glucose 93 mg/dL (65-115); Phosphorus 2.7 mg/dL (2.5-4.5); Potassium 3.5 mmol/L (3.5-5.1); Sodium 142 mmol/L (136-145)
[2024-12-14 10:18] LABS: Creatinine Urine, Random 60 mg/dL (39-259); Microalbum Creatinine Ratio Ur 17 mg/dL (0-20); Microalbumin Random Urine 1 ug/dL (0-20)
[2024-12-14 10:32] LABS: 25 Hydroxy Vitamin D 23 ng/mL (30-100)
[2024-12-14 10:33] LABS: Calcium 8.9 mg/dL (8.5-10.5); Parathyroid Hormone 154.9 pg/mL (15-65)
== END 2024-12-14 09:41 | disposition home or self-care (01) ==
LOC: LAB 09:41
PROVIDERS: Visit Provider Registered Nurse
DX: N18.32 Chronic kidney disease, stage 3b (principal); E55.9 Vitamin D deficiency, unspecified
CPT/HCPCS: 36415; 80069; 82044; 82306; 82310; 83970; 85025

== ENCOUNTER 2025-01-13 20:00 | Outpatient (CLI) | payer MEDICARE, MEDICAID, SELFPAY | END 2025-01-13 20:01 | disposition home or self-care (01) | LOC: SLEEP 22:20 | PROVIDERS: Visit Provider Student in an Organized Health Care Education/Training Program | DX: G47.33 Obstructive sleep apnea (adult) (pediatric) (principal); G47.36 Sleep related hypoventilation in conditions classified elsewhere | CPT/HCPCS: 95810 ==

== ENCOUNTER → 2025-03-03 14:06 | Outpatient (BNVA) | payer MEDICARE, MEDICAID, SELFPAY | PROVIDERS: Visit Provider Internal Medicine | DX: I13.0 Hypertensive heart and chronic kidney disease with heart failure and stage 1 through stage 4 chronic kidney disease, or unspecified chronic kidney disease (principal); N18.9 Chronic kidney disease, unspecified; I50.22 Chronic systolic (congestive) heart failure; I48.91 Unspecified atrial fibrillation; Z79.01 Long term (current) use of anticoagulants; Z79.82 Long term (current) use of aspirin; I25.10 Atherosclerotic heart disease of native coronary artery without angina pectoris; Z95.2 Presence of prosthetic heart valve; Z95.810 Presence of automatic (implantable) cardiac defibrillator | CPT/HCPCS: 99214 ==

== ENCOUNTER → 2025-03-16 14:04 | Outpatient (BNVA) | payer MEDICARE, MEDICAID, SELFPAY | DX: E11.9 Type 2 diabetes mellitus without complications (principal); E78.2 Mixed hyperlipidemia | CPT/HCPCS: 80053; 80061; 83036 ==

== ENCOUNTER → 2025-04-28 13:25 | Outpatient (BNVA) | payer MEDICARE, MEDICAID, SELFPAY | PROVIDERS: Visit Provider Internal Medicine Cardiovascular Disease | DX: Z45.02 Encounter for adjustment and management of automatic implantable cardiac defibrillator (principal) | CPT/HCPCS: 93296 ==

== ENCOUNTER 2025-05-26 19:39 | Outpatient (CLI) | payer MEDICARE, MEDICAID, SELFPAY | END 2025-05-26 19:40 | disposition home or self-care (01) | LOC: SLEEP 19:41 | PROVIDERS: Visit Provider Internal Medicine Pulmonary Disease | DX: G47.33 Obstructive sleep apnea (adult) (pediatric) (principal) | CPT/HCPCS: 95811 ==

== ENCOUNTER 2025-06-15 08:27 | Outpatient (CLI) | payer MEDICARE, MEDICAID, SELFPAY ==
[2025-06-15 09:22] LABS: Hematocrit 47.0 % (37-53); Hemoglobin 14.90 g/dL (11.27-16.99); Mean Corpuscular HGB Conc 31.7 g/dL (30-55); Mean Corpuscular Hemoglobin 30.8 pg (27-33); Mean Corpuscular Volume 97.3 fl (82-101); Nucleated Red Blood Cells % 0 %; Platelet Count 318 10^3/cmm (157-399); Red Blood Count 4.83 10^6/uL (3.85-5.65); White Blood Count 11.11 10^3/uL (3.29-11.43)
[2025-06-15 09:41] LABS: Albumin Level 3.4 g/dL (3.5-5.2); Anion Gap 12.0 (5-19); Blood Urea Nitrogen 17 mg/dL (6-20); Calcium 8.5 mg/dL (8.5-10.5); Carbon Dioxide 29 mmol/L (22-29); Chloride 104 mmol/L (98-107); Glucose 95 mg/dL (65-115); Potassium 4.0 mmol/L (3.5-5.1); Sodium 141 mmol/L (136-145)
[2025-06-15 09:44] LABS: Calcium 8.6 mg/dL (8.5-10.5)
[2025-06-15 09:46] LABS: Creatinine Urine, Random 160 mg/dL (39-259)
[2025-06-15 09:47] LABS: Microalbum Creatinine Ratio Ur 213 mg/dL (0-20)
== END 2025-06-15 08:28 | disposition home or self-care (01) ==
PROVIDERS: Visit Provider Registered Nurse
DX: N18.32 Chronic kidney disease, stage 3b (principal); E87.6 Hypokalemia; I50.9 Heart failure, unspecified
CPT/HCPCS: 80069; 82044; 82310; 83970; 85025

== ENCOUNTER → 2025-07-15 12:40 | Outpatient (BNVA) | payer MEDICARE, MEDICAID, SELFPAY | PROVIDERS: Visit Provider Podiatrist Foot & Ankle Surgery | DX: I73.9 Peripheral vascular disease, unspecified (principal); L60.3 Nail dystrophy; G62.9 Polyneuropathy, unspecified | CPT/HCPCS: 11721; 99203 ==

== ENCOUNTER → 2025-09-01 10:42 | Outpatient (BNVA) | payer MEDICARE, MEDICAID, SELFPAY | PROVIDERS: Visit Provider Internal Medicine | DX: I11.0 Hypertensive heart disease with heart failure (principal); I50.20 Unspecified systolic (congestive) heart failure; I48.91 Unspecified atrial fibrillation; Z79.01 Long term (current) use of anticoagulants; Z79.82 Long term (current) use of aspirin; I25.10 Atherosclerotic heart disease of native coronary artery without angina pectoris; Z95.1 Presence of aortocoronary bypass graft; Z95.810 Presence of automatic (implantable) cardiac defibrillator; Z87.891 Personal history of nicotine dependence | CPT/HCPCS: 99213 ==

== ENCOUNTER → 2025-09-16 14:22 | Outpatient (BNVA) | payer MEDICARE, MEDICAID, SELFPAY | DX: N18.32 Chronic kidney disease, stage 3b (principal); E13.22 Other specified diabetes mellitus with diabetic chronic kidney disease; I13.0 Hypertensive heart and chronic kidney disease with heart failure and stage 1 through stage 4 chronic kidney disease, or unspecified chronic kidney disease; I50.20 Unspecified systolic (congestive) heart failure | CPT/HCPCS: 80053; 83036; 84443; 85025 ==

== ENCOUNTER → 2025-09-21 09:45 | Outpatient (BNVA) | payer MEDICARE, MEDICAID, SELFPAY | PROVIDERS: Visit Provider Surgery | DX: Z12.11 Encounter for screening for malignant neoplasm of colon (principal) | CPT/HCPCS: 99024; 99204 ==